=== PATIENT | male | born 1940 | race Caucasian/White ===

== ENCOUNTER → 2017-01-21 | Outpatient (CLI) | payer MEDICARE ==
[~2017-01-21] MED LIST: Amlodipine; Enalapril
== END ==
LOC: CARD 13:46
PROVIDERS: ATTEND Internal Medicine Cardiovascular Disease
DX: I10 Essential (primary) hypertension (principal); I45.2 Bifascicular block; R06.02 Shortness of breath; Z72.0 Tobacco use

== ENCOUNTER → 2017-01-22 | Outpatient (CLI) | payer MEDICARE ==
--- NOTE | 2017-01-22 19:54 | ECHOCARDIOGRAPHY REPORT ---
DATE OF SERVICE: 2D ECHOCARDIOGRAM REPORT TEST DATE: 01/22/2017. INDICATION: Hypertension and shortness of breath. REFERRING PHYSICIAN: Dr. Wheeler. MEASUREMENT: LVID end diastolic 4.5, IVS thickness 1.0, LVPW thickness 1.0, left atrial diameter 3.3, ejection fraction 60%. FINDINGS: 1. Technical quality is good. 2. The left ventricle is normal in size with normal contractility, systolic function appeared to be normal. Estimated ejection fraction is 60%. 3. The left atrium is normal in size. No clot or thrombus were seen within the left atrium. 4. The right atrium and right ventricle are normal in size. No clot or thrombus was seen within the right side. 5. Mitral valve is normal in morphology with mild mitral regurgitation noted by carotid Doppler flow. No mitral valve prolapse. No mitral valve stenosis. 6. The aortic valve is mildly calcified, trileaflet with normal opening and closing pattern. No significant aortic stenosis or regurgitation was seen. 7. Tricuspid valve is normal in morphology with mild tricuspid regurgitation noted by carotid Doppler flow, Doppler echo tricuspid valve. Estimated pulmonary artery pressure of 5 plus right atrial pressure. 8. The pulmonic valve is functioning normally. 9. No pericardial effusion. CONCLUSIONS: 1. Normal left ventricular size and systolic function. Estimated ejection fraction is 60%. 2. Aortic valve sclerosis. No aortic stenosis. 3. Estimated pulmonary artery pressure of 10 to 15 mmHg. Job ID: [id number] DocumentID: [id number] Dictated Date: 01/22/2017 17:40:01 Data Architect Date: 01/22/2017 19:49:13 Dictated By: NERIS NIXON MD
== END ==
LOC: CARD 11:47
PROVIDERS: ATTEND Internal Medicine Cardiovascular Disease
DX: I10 Essential (primary) hypertension (principal); I45.2 Bifascicular block; R06.02 Shortness of breath; Z72.0 Tobacco use
CPT/HCPCS: 93306

== ENCOUNTER → 2017-01-22 | Outpatient (CLI) | payer MEDICARE ==
[~2017-01-22] MED LIST changes: +CATHETER FLUSH 10 ML SYR IV PRN
== END ==
LOC: CARD 08:09
PROVIDERS: ATTEND Internal Medicine Cardiovascular Disease
DX: I10 Essential (primary) hypertension (principal); I45.2 Bifascicular block; R06.02 Shortness of breath; Z72.0 Tobacco use

== ENCOUNTER → 2017-01-29 | Outpatient (CLI) | payer MEDICARE ==
[~2017-01-29] MED LIST changes: -CATHETER FLUSH 10 ML SYR IV PRN; +REGADENOSON 0.4 MG/5 ML SYR (LEXISCAN) IV ONE
[2017-01-29] MEDS: CATHETER FLUSH 10 ML SYR IV PRN ×2 (07:34→09:21)
[2017-01-29 09:14] VITALS: BP 156/74
--- NOTE | 2017-01-31 06:37 | STRESS TEST ---
DATE OF SERVICE: 01/29/2017 PROCEDURE: LEXISCAN MYOVIEW STRESS TEST REFERRING PHYSICIAN: Dr. Wheeler Baseline heart rate is 51. Baseline blood pressure 156/74. Baseline EKG is sinus rhythm with right bundle branch block. SUMMARY: The patient was injected with 10.90 millicurie of technetium-99 Myoview and the resting images were obtained. Then the patient received 0.4 mg of Lexiscan followed by 29.5 millicurie of technetium-99 Myoview. Throughout the test there were no EKG changes. The resting and stress images were reviewed and compared in the short axis, horizontal long axis and vertical long axis views. Review of the images showed mild decreased uptake at the true apex with mild reversibility. SSS is 3. SDS 3. TID value 1.19. On the Gated images the left ventricle appeared to be normal size, normal contractility, calculated ejection fraction is 50%. CONCLUSIONS: 1. The patient tolerated Lexiscan well. 2. Baseline right bundle branch block persisted throughout test. 3. Mild apical thinning with subtle reversibility. No significant ischemia was noted. 4. Normal left ventricular size with normal contractility, calculated ejection fraction 50%. Job ID: [id number] DocumentID: [id number] Dictated Date: 01/29/2017 14:06:45 Compensation Manager Date: 01/30/2017 02:16:21 Dictated By: NERIS NIXON MD
== END ==
LOC: CARD 06:46
PROVIDERS: ATTEND Internal Medicine Cardiovascular Disease
DX: I10 Essential (primary) hypertension (principal); I45.2 Bifascicular block; R06.02 Shortness of breath; Z72.0 Tobacco use
CPT/HCPCS: 78452; 93017

== ENCOUNTER → 2018-04-23 | Outpatient (CLI) | payer MEDICARE ==
[~2018-04-23] MED LIST changes: -REGADENOSON 0.4 MG/5 ML SYR (LEXISCAN) IV ONE
--- NOTE | 2018-04-23 13:10 | Diagnostic Imaging Report ---
EXAMINATION: Left hand, single view. Left thumb, three views. COMPARISON: None. HISTORY: 77-year-old male, left thumb pain after fall. FINDINGS: There is a comminuted mildly displaced fracture of the first proximal phalanx without clearly identified intra-articular fracture extension. 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 There is no identified radiopaque foreign body. There is no subluxation or dislocation. There are are mild degenerative changes at the first carpometacarpal joint. There is bqmlsihj-qt-wlslzx joint space loss at the second and third metacarpophalangeal joints. There is no identified bone erosion. Bone mineralization appears unremarkable. There is mild osteoarthritis at the second and third proximal interphalangeal joints. IMPRESSION: 1. Comminuted mildly displaced fracture of the first proximal phalanx without clearly identified intra-articular fracture extension. 2. No radiopaque foreign body. 3. Multifocal arthritis as described above. Dictated by: Dictated on workstation # [id number]
== END ==
LOC: RAD 12:45
PROVIDERS: ATTEND Nurse Practitioner Family
DX: S62.512A Displaced fracture of proximal phalanx of left thumb, initial encounter for closed fracture (principal); M19.042 Primary osteoarthritis, left hand
CPT/HCPCS: 73140

== ENCOUNTER → 2019-05-25 | Outpatient (CLI) | payer MEDICARE ==
--- NOTE | 2019-05-25 14:58 | Diagnostic Imaging Report ---
PROCEDURE: MR imaging cervical spine without contrast. TECHNIQUE: Multiplanar, multisequence MR imaging of the cervical spine was performed without contrast. INDICATION: Right arm numbness and tingling. COMPARISON: No prior studies are available for comparison. FINDINGS: Curvature is normal. Minimal retrolisthesis of C3 on C4 is noted. The vertebral body marrow signal is unremarkable. No marrow lesions are seen. There is multilevel degenerative disc disease with disc space narrowing and desiccation and marginal osteophyte formation. The cervical spinal cord demonstrates normal homogeneous signal intensity and normal morphology. No abnormal cord signal is identified. Craniocervical junction is unremarkable. C2-C3: Central canal is patent. No significant neural foraminal stenosis is identified. C3-C4: Endplate osteophytes indent the ventral thecal sac. This does produce mild narrowing of the central canal. There is also significant left and moderate right neural foraminal stenosis due to uncovertebral joint degenerative change. C4-C5: Broad-based disc/osteophyte complex indents the ventral thecal sac. There is mild narrowing of the canal. There is significant bilateral neural foraminal stenosis due to uncovertebral joint degenerative change. C5-C6: Broad-based disc/osteophyte complex indents the ventral thecal sac. There is mild narrowing of the canal. There is significant bilateral neural foraminal stenosis due to uncovertebral joint degenerative change. C6-C7: Broad-based disc/osteophyte complex indents the ventral thecal sac. Mild central canal narrowing is seen. There is significant bilateral neural foraminal stenosis due to uncovertebral joint degenerative change. C7-T1: Broad-based disc/osteophyte complex is noted. Central canal is patent. There is a moderate bilateral neural foraminal stenosis. IMPRESSION: Multilevel cervical spondylosis with multilevel central canal and neural foraminal stenosis described level by level above. Dictated by: Dictated on workstation # [id number]
== END ==
LOC: RAD 13:33
PROVIDERS: ATTEND Nurse Practitioner Family
DX: M47.812 Spondylosis without myelopathy or radiculopathy, cervical region (principal); M48.03 Spinal stenosis, cervicothoracic region; M50.31 Other cervical disc degeneration, high cervical region
CPT/HCPCS: 72141

== ENCOUNTER 2019-12-24 10:51 | Outpatient (RCR) | payer MEDICARE | END 2019-12-24 11:33 | disposition home or self-care (01) | PROVIDERS: ATTEND Orthopaedic Surgery | DX: M17.0 Bilateral primary osteoarthritis of knee (principal) ==

== ENCOUNTER 2020-02-27 10:10 | Emergency (ER) | payer MEDICARE ==
[~2020-02-27] VITALS: Ht 180 cm; Wt 95.4 kg
[2020-02-27 10:24] LABS: BASOPHILS % (AUTO) 0 % (0-10); EOSINOPHILS # (AUTO) 0.3 10^3/uL (0.0-0.3); EOSINOPHILS % (AUTO) 3 % (0-10); HEMATOCRIT 35 % (40-54); HEMOGLOBIN 11.6 G/DL (13.3-17.7); LYMPHOCYTES # (AUTO) 2.3 X 10^3 (1.0-4.0); LYMPHOCYTES % (AUTO) 22 % (12-44); MEAN CORPUSCULAR HEMOGLOBIN 32 PG (25-34); MEAN CORPUSCULAR HGB CONC 33 G/DL (32-36); MEAN CORPUSCULAR VOLUME 96 FL (80-99); MEAN PLATELET VOLUME 9.8 FL (7.4-10.4); MONOCYTES # (AUTO) 1.1 X 10^3 (0.0-1.0); MONOCYTES % (AUTO) 10 % (0-12); NEUTROPHILS # (AUTO) 6.5 X 10^3 (1.8-7.8); NEUTROPHILS % (AUTO) 64 % (42-75); PLATELET COUNT 286 10^3/uL (130-400); RED CELL DISTRIBUTION WIDTH 12.9 % (10.0-14.5); WHITE BLOOD COUNT 10.2 10^3/uL (4.3-11.0)
--- NOTE | 2020-02-27 10:28 | ED Neurological Problem ---
General Stated Complaint: POSS STROKE Source: patient History of Present Illness Date Seen by Provider: February 27, 2020 Time Seen by Provider: 10:10 Initial Comments PT ARRIVES VIA POV FROM HOME PT STATES HIS SON THINKS HE HAD A MINI-STROKE SON REPORTS THAT AN HOUR AGO, THE PT WAS CONFUSED AND MUMBLING. PT STATES HE WAS HAVING TROUBLE TALKING AND FINDING WORDS. THOSE SYMPTOMS HAVE RESOLVED PT STATES HE HAS HAD A "MINISTROKE" IN THE PAST AND IT AFFECTED HIS RIGHT EYE--2014 PT STATES HIS VISION IS NORMAL FOR HIM--HAS CHRONIC PROBLEMS WITH VISION IN RIGHT EYE--IS FOLLOWED AT FOR EYE PROBLEMS NO HEADACHE HAS FELT A LITTLE LIGHT HEADED SINCE WAKING AT 0700 TODAY NO CHEST PAIN NO SHORTNESS OF BREATH NO PALPITATIONS NO PARESTHESIAS OR MOTOR DEFICITS PT HAD RIGHT KNEE REPLACEMENT BY DR. NIETO ON 02/22/20 AND STATES HE HAS BEEN HOME FOR 3 DAYS PT IS ON 81 MG ASPIRIN DAILY, AND IT HAD BEEN HELD DUE TO SURGERY, PT STATES HE RESTARTED IT YESTERDAY, BUT HAS NOT TAKEN ANY TODAY PT IS NOT SURE WHAT MEDICATIONS HE HAS TAKEN THIS MORNING--SON REPORTS THAT HE HAS TAKEN PANTOPRAZOLE, MELOXICAM AND HYDROCODONE THIS AM. PCP: DR. ZEPEDA SUPERVISOR DECORATING: DR. NIXON ORTHOPEDIC SURGEON: DR. NIETO Allergies and Home Medications Allergies Coded Allergies: No Known Drug Allergies (Unverified , 04/02/15) Home Medications Clopidogrel Bisulfate 75 Mg Tablet, 75 MG PO DAILY Prescribed by: KELLY ESPINOZA on 02/27/20 1200 Patient Home Medication List Home Medication List Reviewed: Yes Review of Systems Review of Systems Constitutional: see HPI; No chills, No diaphoresis; dizziness; No fever Eyes: No Symptoms Reported Ears, Nose, Mouth, Throat: no symptoms reported Respiratory: no symptoms reported; No short of breath Cardiovascular: no symptoms reported; No chest pain Gastrointestinal: no symptoms reported Genitourinary: no symptoms reported Musculoskeletal: see HPI Skin: no symptoms reported Psychiatric/Neurological: See HPI, Cognitive Dysfunction; Denies Headache, Denies Numbness, Denies Tingling Endocrine: No Symptoms Reported Hematologic/Lymphatic: No Symptoms Reported Past Lerrxnd-Fxmmle-Hplppp Hx Past Med/Social Hx: Reviewed and Corrections made Patient Social History Alcohol Use: Occasionally Uses Recreational Drug Use: No Smoking Status: Current Everyday Smoker Type Used: Cigarettes Seasonal Allergies Seasonal Allergies: No Past Medical History Surgeries: Yes (RIGHT KNEE REPLACEMENT 02/22/20;RIGHT CARPAL TUNNEL X2;LEFT HIP REPLACEMENT) Joint Replacement, Orthopedic Respiratory: No Cardiac: Yes High Cholesterol, Hypertension Neurological: Yes (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) Stroke Reproductive Disorders: No Genitourinary: No Gastrointestinal: Yes Gastroesophageal Reflux Musculoskeletal: Yes (RIGHT KNEE REPLACEMENT 02/22/20;RIGHT CARPAL TUNNEL X2;LEFT HIP REPLACEMENT) Arthritis Endocrine: No HEENT: No Psychosocial: No Integumentary: No Blood Disorders: No Adverse Reaction/Blood Tranf: No Physical Exam Vital Signs Vital Signs - First Documented 02/27/20 10:10 Temp 37.0 Pulse 77 Resp 16 B/P (MAP) 145/70 (95) Pulse Ox 96 O2 Delivery Room Air Capillary Refill : Height, Weight, BMI Height: 5'11" Weight: 215lbs. oz. 97.527451nb; BMI Method:Stated General Appearance: WD/WN, no apparent distress HEENT: PERRL/EOMI Neck: non-tender, full range of motion, supple, normal inspection; No carotid bruit Respiratory: normal breath sounds, no respiratory distress, no accessory muscle use Cardiovascular: normal peripheral pulses, regular rate, rhythm, no JVD, no murmur Peripheral Pulses: 2+ Dorsalis Pedis (R), 2+ Left Dors-Pedis (L), 2+ Radial Pulses (R), 2+ Radial Pulses (L) Gastrointestinal: normal bowel sounds, non tender, soft Back: no CVA tenderness Extremities: other (BOTH LEGS WITH THIGH HIGH ERLIN HOSE IN PLACE; TRACE EDEMA ON RIGHT LOWER LEG. DRESSING TO RIGHT KNEE IS CLEAN/DRY / INTACT. 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, no motor/sensory deficits, alert, normal mood/affect, oriented x 3 Crainal Nerves: normal hearing, normal speech, PERRL Motor/Sensory: no motor deficit, no sensory deficit, no pronator drift Skin: normal color, warm/dry Stroke Onset of Symptoms Onset of Symptoms: Yes Symptoms onset unknown: No NIH Stroke Scale Assessment Select: Initial Level of Consciousness: 0=Alert (0), Level of Consciousness- Questions: 0=Answers both month/age (0), LOC Commands: 0=Performs both tasks (0), Gaze: Normal (0), Visual Maxwell: 0=No visual loss (0), Facial Movement (Facial Paresis): 0=Normal symmetrical mnt (0), Motor Function-Arms Right: 0=No drift (0), Motor Function-Arms Left: 0=No drift (0), Motor Function-Legs Right: 0=No drift (0), Motor Function-Legs Left: 0=No drift (0), Limb Ataxia: 0=Absent (0), Sensory: 0=Normal:no loss (0), Best Language: 0=No aphasia (0), Dysarthria: 0=Normal (0), Extinction & Inattention: 0=No abnormality (0), Total: 0 Stroke Thrombolytic Exclusion Age 18 or Over: Yes Acute intenal hemorrhage: No History of CVA: Yes (TIA) Uncontrolled Coagulation Defec: No Intracranial Hemorrhage: No Severe Hypertension: No GI or Bleed: No Subarachnoid Hemorrhage: No Intracranial Neoplasm/Aneurysm: No Oral Anticoagulants: No Surgery or Trauma: Yes Puncture of Non-Compressible V: No Recent CPR: No Diabetic Hemorrhagic Retinopat: No Organ Biopsy: No Recent Obstetric Delivery: No Glucose: No Significant Hepatic Dysfunctio: No NIH Stoke Scale >22: No Bacterial Endocarditis: No Pericarditis: No Improving Symptoms: Yes Platelets: No TPA Contraindication: Yes IV - TPa Received IV - TPa Procedure Performed?: No (RECENT SURGERY AND IMPROVING/RESOLVED SYMPTOMS) Progress/Results/Core Measures Results/Orders Lab Results Laboratory Tests Test 02/27/20 10:15 02/27/20 10:25 02/27/20 11:23 Range/Units White Blood Count 10.2 4.3-11.0 10^3/uL Red Blood Count 3.63 L 4.35-5.85 10^6/uL Hemoglobin 11.6 L 13.3-17.7 G/DL Hematocrit 35 L 40-54 % Mean Corpuscular Volume 96 80-99 FL Mean Corpuscular Hemoglobin 32 25-34 PG Mean Corpuscular Hemoglobin Concent 33 32-36 G/DL Red Cell Distribution Width 12.9 10.0-14.5 % Platelet Count 286 130-400 10^3/uL Mean Platelet Volume 9.8 7.4-10.4 FL Neutrophils (%) (Auto) 64 42-75 % Lymphocytes (%) (Auto) 22 12-44 % Monocytes (%) (Auto) 10 0-12 % Eosinophils (%) (Auto) 3 0-10 % Basophils (%) (Auto) 0 0-10 % Neutrophils # (Auto) 6.5 1.8-7.8 X 10^3 Lymphocytes # (Auto) 2.3 1.0-4.0 X 10^3 Monocytes # (Auto) 1.1 H 0.0-1.0 X 10^3 Eosinophils # (Auto) 0.3 0.0-0.3 10^3/uL Basophils # (Auto) 0.0 0.0-0.1 10^3/uL Prothrombin Time 13.5 12.2-14.7 SEC INR Comment 1.0 0.8-1.4 Activated Partial Thromboplast Time 27 24-35 SEC D-Dimer 1.70 H 0.00-0.49 UG/ML Sodium Level 139 135-145 MMOL/L Potassium Level 4.0 3.6-5.0 MMOL/L Chloride Level 104 98-107 MMOL/L Carbon Dioxide Level 27 21-32 MMOL/L Anion Gap 8 5-14 MMOL/L Blood Urea Nitrogen 19 H 7-18 MG/DL Creatinine 1.03 0.60-1.30 MG/DL Estimat Glomerular Filtration Rate > 60 BUN/Creatinine Ratio 18 Glucose Level 117 H 70-105 MG/DL Calcium Level 9.4 8.5-10.1 MG/DL Corrected Calcium 9.7 8.5-10.1 MG/DL Total Bilirubin 1.2 H 0.1-1.0 MG/DL Aspartate Amino Transf (AST/SGOT) 21 5-34 U/L Alanine Aminotransferase (ALT/SGPT) 20 0-55 U/L Alkaline Phosphatase 71 40-136 U/L Troponin I < 0.028 <0.028 NG/ML Total Protein 5.9 L 6.4-8.2 GM/DL Albumin 3.6 3.2-4.5 GM/DL Glucometer 125 H 70-110 MG/DL Urine Color YELLOW Urine Clarity CLEAR Urine pH 6.0 5-9 Urine Specific Ione 1.015 L 1.016-1.022 Urine Protein NEGATIVE NEGATIVE Urine Glucose (UA) NEGATIVE NEGATIVE Urine Ketones NEGATIVE NEGATIVE Urine Nitrite NEGATIVE NEGATIVE Urine Bilirubin NEGATIVE NEGATIVE Urine Urobilinogen 0.2 < = 1.0 MG/DL Urine Leukocyte Esterase NEGATIVE NEGATIVE Urine RBC (Auto) NEGATIVE NEGATIVE Urine RBC 0 /HPF Urine WBC 0 /HPF Urine Crystals NONE /LPF Urine Bacteria 0 /HPF Urine Casts NONE /LPF Urine Mucus NEGATIVE /LPF Urine Culture Indicated NO My Orders Orders - KELLY ESPINOZA DO Cbc With Automated Diff (02/27/20 10:16) Protime With Inr (02/27/20 10:16) Partial Thromboplastin Time (02/27/20 10:16) Comprehensive Metabolic Panel (02/27/20 10:16) Fibrin Degradation Products (02/27/20 10:16) Troponin I (02/27/20 10:16) Ua Culture If Indicated (02/27/20 10:16) Chest 1 View, Ap/Pa Only (02/27/20 10:16) Ekg Tracing (02/27/20 10:16) Accucheck Stat ONCE (02/27/20 10:16) Ed Iv/Invasive Line Start (02/27/20 10:16) Ed Iv/Invasive Line Start (02/27/20 10:16) Vital Signs Stroke Patient Q15M (02/27/20 10:16) Ct Head Wo-R/O Stroke (02/27/20 10:16) O2 (02/27/20 10:16) Intake & Output 06,14,22 (02/27/20 10:16) Monitor-Rhythm Ecg Trace Only (02/27/20 10:16) Dysphagia Screening Tool (02/27/20 10:16) Ct Angio Head/Neck (02/27/20 10:47) Iohexol Injection (Omnipaque 350 Mg/Ml 1 (02/27/20 11:00) Sodium Chloride Flush (Catheter Flush Sy (02/27/20 11:00) Ns (Ivpb) (Sodium Chloride 0.9% Ivpb Bag (02/27/20 11:00) Received Contrast (Hold Metformin- Contr (02/27/20 11:00) Hydrocodone/Apap 5/325 Tablet (Lortab 5 (02/27/20 11:15) Clopidogrel Tablet (Plavix Tablet) (02/27/20 12:15) Medications Given in ED Current Medications Medications Dose Ordered Sig/Ayanna Route Start Time Stop Time Status Last Admin Dose Admin Acetaminophen/ Hydrocodone Bitart 1 tab ONCE ONCE PO 02/27/20 11:15 02/27/20 11:19 DC 02/27/20 11:22 1 TAB Clopidogrel Bisulfate 300 mg ONCE ONCE PO 02/27/20 12:15 02/27/20 12:15 DC 02/27/20 12:11 300 MG Iohexol 100 ml ONCE ONCE IV 02/27/20 11:00 02/27/20 11:01 DC 02/27/20 11:04 75 ML Sodium Chloride 10 ml NEEDED PRN IV 02/27/20 11:00 02/27/20 12:15 DC 02/27/20 11:04 10 ML Sodium Chloride 100 ml ONCE ONCE IV 02/27/20 11:00 02/27/20 11:01 DC 02/27/20 11:04 80 ML Vital Signs/I&O 02/27/20 02/27/20 10:10 12:15 Temp 37.0 Pulse 77 60 Resp 16 16 B/P (MAP) 145/70 (95) 151/59 Pulse Ox 96 98 O2 Delivery Room Air Room Air Progress Progress Note : Progress Note UNEVENTFUL ER STAY NO RETURN OF STROKE SYMPTOMS DURING STAY PT DID C/O RIGHT KNEE PAIN--GIVEN DOSE OF HYDROCODONE WITH IMPROVEMENT IN PAIN Initial ECG Impression Date: February 27, 2020 Initial ECG Impression Time: 10:20 Initial ECG Rate: 54 Initial ECG Rhythm: Normal Sinus (RBBB/LAFB) Diagnostic Imaging Comments CXR--NO ACUTE PROCESS, PER RADIOLOGIST REPORT CT HEAD--OLD INFARCT LEFT OCCIPITAL LOBE, BUT NEW FROM 2015 ( CONSISTENT WITH REPORTED STROKE SYMPTOMS AND RIGHT VISION CHANGES THAT OCCURRED IN 2015)--NO ACUTE INFARCT--PER RADIOLOGIST VIA PHONE AT 1045 CT ANGIOGRAM HEAD/NECK--PER RADIOLOGIST REPORT AT 1131 IMPRESSION: 1. 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 This is consistent with findings on the prior head CT of age-indeterminate ischemia in the left occipital lobe. If indicated MRI may be of use to further evaluate for acuity. 2. High-grade stenosis in the right vertebral artery just prior to the basilar artery. 3. Luminal irregularity within the A2 segment of the right anterior cerebral artery. This likely results in approximately 50-69% stenosis. 4. No stenosis or dissection in the bilateral carotid arteries. 5. No evidence of aneurysm in the [place] of [place]. No evidence of acute large vessel occlusion. Reviewed: Reviewed by Sd Departure Communication (Admissions) 1131--CALLED [facility], 1135--SPOKE WITH DR. BARRAGAN, STROKE NEUROLOGIST, REVIEWED CT FINDINGS. HE REPORTS THAT FINDINGS DO NOT WARRANT ANY ACUTE INTERVENTION, BUT ADVISES TO CONTINUE 81 MG ASPIRIN AND ADD PLAVIX, IF OK WITH HIS SURGEON 1137--ATTEMPTING TO CONTACT DR. NIETO, OR PLATE MAKER FOR HIM 1142--CALLING OSVALDO MARTINEZ, ATTEMPTING TO CONTACT DR. NIETO OR PLATE MAKER FOR HIM. 1149--SPOKE WITH EXECUTIVE MEETING MANAGER/PA WIL KEBEDE, PLATE MAKER FOR DR. NIETO. HE IS AGREEABLE TO PLAVIX AND ASPIRIN, INCLUDING LOADING DOSE OF 300 MG PLAVIX. 1152--SPOKE WITH PT'S SON, GREGORY, AND INFORMED HIM OF ALL TEST RESULTS AND PLAN OF CARE. Impression Primary Impression: TIA (transient ischemic attack) Additional Impression: Cerebrovascular disease Disposition: HOME, SELF-CARE Condition: Improved Departure-Patient Inst. Referrals: AUGIE NIETO MD (PCP) Primary Care Physician Patient Instructions: Transient Ischemic Attack (DC), Lowering the Risk of Havi ng Another Stroke Add. Discharge Instructions: CONTINUE YOUR REGULAR MEDICATIONS PRESCRIBED, INCLUDING 81 MG ASPIRIN FOLLOW UP WITH DR. ZEPEDA THIS WEEK FOR FURTHER CARE--CALL ON FRIDAY TO MAKE APPOINTMENT RETURN TO ER IF SYMPTOMS WORSEN Scripts Clopidogrel Bisulfate (Plavix) 75 Mg Tablet 75 MG PO DAILY, #30 TAB Prov: KELLY ESPINOZA DO 02/27/20 KELLY ESPINOZA DO February 27, 2020 10:28
[2020-02-27 10:35] LABS: ALBUMIN 3.6 GM/DL (3.2-4.5); CHLORIDE 104 MMOL/L (98-107); SODIUM 139 MMOL/L (135-145)
[2020-02-27 10:37] LABS: CALCIUM 9.4 MG/DL (8.5-10.1)
[2020-02-27 10:38] LABS: GLUCOSE 117 MG/DL (70-105); TOTAL PROTEIN 5.9 GM/DL (6.4-8.2)
[2020-02-27 10:39] LABS: BILIRUBIN,TOTAL 1.2 MG/DL (0.1-1.0); CARBON DIOXIDE 27 MMOL/L (21-32)
[2020-02-27 10:41] LABS: ALKALINE PHOSPHATASE 71 U/L (40-136); FIBRIN DEGRADATION PRODUCTS 1.7 UG/ML (0.00-0.49); PROTHROMBIN TIME PATIENT 13.5 SEC (12.2-14.7)
[2020-02-27 10:42] LABS: CREATININE SERUM 1.03 MG/DL (0.60-1.30); GFR ESTIMATED > 60
[2020-02-27 10:43] LABS: BUN/CREATININE RATIO 18
[2020-02-27 10:44] LABS: ALANINE AMINOTRANSFERASE 20 U/L (0-55)
--- NOTE | 2020-02-27 10:47 | Diagnostic Imaging Report ---
EXAM: CHEST 1 VIEW, AP/PA ONLY INDICATION: Stroke. Altered mental status. COMPARISON: None. FINDINGS: Normal heart size and central pulmonary vascularity. No focal pulmonary opacity, pleural effusion or pneumothorax. No acute osseous findings. IMPRESSION: No acute cardiopulmonary findings. Dictated by: Dictated on workstation # [id number]
--- NOTE | 2020-02-27 10:48 | NUR ---
IN TALKING TO THE PT AT THIS TIME.
--- NOTE | 2020-02-27 10:49 | Diagnostic Imaging Report ---
PROCEDURE: CT head wo r/o stroke. TECHNIQUE: Multiple contiguous axial images were obtained through the brain without the use of intravenous contrast. Auto Exposure Controls were utilized during the CT exam to meet ALARA standards for radiation dose reduction. INDICATION: Stroke. Slurred speech. COMPARISON: CT head without contrast 04/02/2015. FINDINGS: Moderate generalized cerebral and cerebellar parenchymal volume loss. Moderate leukoaraiosis. Low-attenuation changes in the left occipital lobe are new since the prior exam but appear to be due to chronic encephalomalacia with volume loss. No findings convincing for an acute territorial infarction. No intracranial hemorrhage, mass effect, hydrocephalus or extra-axial fluid collections. Bilateral basal ganglia calcifications. Osseous structures are intact. The visualized paranasal sinuses and mastoids are clear. IMPRESSION: 1. Low-attenuation changes in the left occipital lobe are new since the 2014 exam but appear to be due to chronic infarct. 2. Moderate generalized parenchymal volume loss and leukoaraiosis. 3. Acute intracranial CT findings. Findings discussed with Dr. Janette Dye at 10:43 AM on 02/27/2020. Dictated by: Dictated on workstation # [id number]
[2020-02-27] MEDS ORDERED: IOHEXOL 350 MG/ML 100 ML (OMNIPAQUE 350) VIAL IV ONE (11:00)
[2020-02-27] MEDS ORDERED: CATHETER FLUSH 10 ML SYR IV PRN (11:00)
[2020-02-27] MEDS ORDERED: NS 100 ML (IVPB) BAG IV ONE (11:00)
[2020-02-27] MEDS ORDERED: HOLD METFORMIN - RECEIVED CONTRAST 20 ML VIAL IV SCH (11:00)
--- NOTE | 2020-02-27 11:14 | NUR ---
PT REQUEST SOMETHING FOR PAIN. NOTIFIED.
[2020-02-27] MEDS ORDERED: HYDROcodone/APAP 5 MG/325 MG (LORTAB) TAB PO ONE (11:15)
--- NOTE | 2020-02-27 11:28 | Diagnostic Imaging Report ---
PROCEDURE: CT angiography of the head and CT angiography of the neck with and without contrast. TECHNIQUE: Contiguous noncontrast images were obtained from the skull base through the vertex. After intravenous contrast administration, helical CT angiography of the neck was performed. Source data was reformatted into 3D MIP projections. Delayed post contrast acquisition was also obtained. Auto Exposure Controls were utilized during the CT exam to meet ALARA standards for radiation dose reduction. INDICATION: Slurred speech and confusion. Concern for stroke. COMPARISON: CT head performed earlier the same date. FINDINGS: CTA Neck: The visualized portions of the aortic arch demonstrate no evidence of aneurysm or dissection. There is conventional branching pattern of the great vessels of the aorta. The brachiocephalic artery is normal in course and caliber. The right and left common carotid origins are unremarkable. The origin of the left subclavian artery is patent. The common carotid arteries and internal carotid arteries demonstrate a tortuous course. There is calcified atherosclerotic plaque in the bilateral carotid bulbs and proximal internal carotid arteries without flow-limiting stenosis. No evidence of dissection in the carotid systems. The external carotid arteries are patent and unremarkable. The left vertebral artery is dominant. The origin of the right vertebral artery is seen and is unremarkable. The origin of the left vertebral artery is seen and is unremarkable. There is no focal stenosis seen within the neck. There is no dissection. The osseous structures of the cervical spine demonstrate degenerative changes without acute fracture or dislocation. The craniocervical junction is intact. Included views through the lung apices demonstrate no focal consolidation. CTA brain: Atherosclerotic plaque is seen in the coker of the bilateral terminal internal carotid arteries without significant stenosis. There is high-grade stenosis or occlusion involving the P1 and P2 segments of the left posterior cerebral artery. The right posterior cerebral artery is unremarkable. The bilateral MCA have a normal caliber. Luminal irregularity is seen in the right anterior cerebral artery in the A2 segment. The left anterior cerebral artery is unremarkable. No evidence of aneurysm in the [place]. There is atherosclerotic plaque involving the V4 segment of the right vertebral artery. There is also high-grade stenosis of the right vertebral artery just prior to the basilar artery. Both the right and left PICA arteries are identified. The basilar artery is normal in course and caliber. The terminal branch vessels including the superior cerebellar arteries unremarkable. IMPRESSION: 1. 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 This is consistent with findings on the prior head CT of age-indeterminate ischemia in the left occipital lobe. If indicated MRI may be of use to further evaluate for acuity. 2. High-grade stenosis in the right vertebral artery just prior to the basilar artery. 3. Luminal irregularity within the A2 segment of the right anterior cerebral artery. This likely results in approximately 50-69% stenosis. 4. No stenosis or dissection in the bilateral carotid arteries. 5. No evidence of aneurysm in the [place]. No evidence of acute large vessel occlusion. Dictated by: Dictated on workstation # [id number]
[2020-02-27 11:30] LABS: BILIRUBIN,URINE NEGATIVE (NEGATIVE); CLARITY,URINE CLEAR; COLOR,URINE YELLOW; GLUCOSE, URINE (UA) NEGATIVE (NEGATIVE); KETONES,URINE NEGATIVE (NEGATIVE); LEUKOCYTE ESTERASE ,URINE NEGATIVE (NEGATIVE); NITRITE,URINE NEGATIVE (NEGATIVE); PROTEIN,URINE NEGATIVE (NEGATIVE)
[2020-02-27 11:38] LABS: BACTERIA,URINE 0 /HPF; RBC,URINE 0 /HPF; WBC,URINE 0 /HPF
[2020-02-27] MEDS ORDERED: CLOP75TA69 PO (12:00)
[2020-02-27 12:15] VITALS: BP 151/59
[2020-02-27] MEDS ORDERED: CLOPIDOGREL 300 MG (PLAVIX) TABLET PO ONE (12:15)
== END 2020-02-27 12:14 | disposition home or self-care (01) ==
LOC: EDUNIT# 10:10 → ER 10:11
DX: G45.9 Transient cerebral ischemic attack, unspecified (principal); I67.9 Cerebrovascular disease, unspecified; I10 Essential (primary) hypertension; F17.210 Nicotine dependence, cigarettes, uncomplicated; Z96.651 Presence of right artificial knee joint; Z79.02 Long term (current) use of antithrombotics/antiplatelets; Z96.642 Presence of left artificial hip joint
CPT/HCPCS: 36415; 70450; 70496; 70498; 71045; 80053; 81000; 82962; 84484; 85025; 85379; 85610; 85730; 93005; 93041

== ENCOUNTER → 2020-03-06 | Outpatient (CLI) | payer MEDICARE ==
[~2020-03-06] MED LIST changes: +CLOP75TA69 PO
== END ==
LOC: CARD 11:01
PROVIDERS: ATTEND Internal Medicine Cardiovascular Disease
DX: G45.9 Transient cerebral ischemic attack, unspecified (principal); I10 Essential (primary) hypertension
CPT/HCPCS: 93306

== ENCOUNTER 2020-03-13 15:44 | Outpatient (CLI) | payer MEDICARE ==
[~2020-03-13] VITALS: Ht 180.3 cm; Wt 91.9 kg
[~2020-03-13 15:44] MED LIST changes: -AMLO10TA7 PO; -ASPI-983 PO; -CARV3.122 PO; -FINA5TAB6 PO; -LISI40TA PO; -MELO7.5T46 PO; -TMSL.4C PO; -TRIA1CAP4 PO
--- NOTE | 2020-03-13 15:50 | NUR ---
ARRIVES PER WC WITH DAUGHTER. C/O FEELING WEAK AND DIZZY. SOMEWHAT UNSTEADY WHEN ASSISTED TO BED. DROWSY AND LETHARGIC. AWAKENS TO VOICE. DENIES PAIN.
--- NOTE | 2020-03-13 16:10 | NUR ---
BLOOD DRAWN FOR CBC AND CMP WITH IV START. STATES HE FEELS UNABLE AT THIS TIME TO VOID FOR ORDERED UA. PO FLUIDS PROVIDED.
[2020-03-13] MEDS ORDERED: NS IV 1000 ML 1,000 ML IV ONE (16:15)
[2020-03-13 16:37] LABS: BASOPHILS # (AUTO) 0.1 10^3/uL (0.0-0.1); BASOPHILS % (AUTO) 1 % (0-10); EOSINOPHILS # (AUTO) 0.3 10^3/uL (0.0-0.3); EOSINOPHILS % (AUTO) 4 % (0-10); HEMATOCRIT 38 % (40-54); HEMOGLOBIN 12.3 G/DL (13.3-17.7); LYMPHOCYTES # (AUTO) 1.6 X 10^3 (1.0-4.0); LYMPHOCYTES % (AUTO) 19 % (12-44); MEAN CORPUSCULAR HEMOGLOBIN 32 PG (25-34); MEAN CORPUSCULAR HGB CONC 33 G/DL (32-36); MEAN CORPUSCULAR VOLUME 96 FL (80-99); MEAN PLATELET VOLUME 9.7 FL (7.4-10.4); MONOCYTES # (AUTO) 1.2 X 10^3 (0.0-1.0); MONOCYTES % (AUTO) 14 % (0-12); NEUTROPHILS # (AUTO) 5.2 X 10^3 (1.8-7.8); NEUTROPHILS % (AUTO) 62 % (42-75); PLATELET COUNT 308 10^3/uL (130-400); RED CELL DISTRIBUTION WIDTH 13.1 % (10.0-14.5); WHITE BLOOD COUNT 8.4 10^3/uL (4.3-11.0)
[2020-03-13 16:38] LABS: ALBUMIN 3.8 GM/DL (3.2-4.5)
[2020-03-13 16:40] LABS: CALCIUM 9.6 MG/DL (8.5-10.1)
[2020-03-13 16:41] LABS: TOTAL PROTEIN 6.2 GM/DL (6.4-8.2)
[2020-03-13 16:43] LABS: BILIRUBIN,TOTAL 0.8 MG/DL (0.1-1.0)
[2020-03-13 16:45] LABS: CREATININE SERUM 1.99 MG/DL (0.60-1.30)
[2020-03-13] MEDS ORDERED: AMLO10TA7 PO (16:52)
[2020-03-13] MEDS ORDERED: CARV3.122 PO (16:52)
[2020-03-13] MEDS ORDERED: TMSL.4C PO (16:52)
[2020-03-13] MEDS ORDERED: LISI40TA PO (16:52)
[2020-03-13] MEDS ORDERED: FINA5TAB6 PO (16:52)
--- NOTE | 2020-03-13 17:00 | NUR ---
IV FLUID INFUSING WITHOUT DIFFICULTY. CONTACTED Liliana OSBORNE APRN, TO VERIFY RECEIPT OF LAB RESULTS. NO NEW ORDERS. INSTRUCTED TO PROCEED WITH DISMISSAL AFTER IV FLUID INFUSION. PT VOIDED DARK YELLOW URINE, APPROX 50 CC. SENT TO LAB FOR CLEAN CATCH UA.
[2020-03-13 17:08] LABS: BILIRUBIN,URINE NEGATIVE (NEGATIVE); CLARITY,URINE CLEAR; COLOR,URINE YELLOW; GLUCOSE, URINE (UA) NEGATIVE (NEGATIVE); KETONES,URINE NEGATIVE (NEGATIVE); LEUKOCYTE ESTERASE ,URINE NEGATIVE (NEGATIVE); NITRITE,URINE NEGATIVE (NEGATIVE); PROTEIN,URINE TRACE (NEGATIVE)
[2020-03-13] MEDS ORDERED: ASPI-983 PO (17:08)
[2020-03-13] MEDS ORDERED: TRIA1CAP4 PO (17:08)
[2020-03-13] MEDS ORDERED: MELO7.5T46 PO (17:08)
[2020-03-13 17:17] LABS: AMORPHOUS SEDIMENT,UR FEW AMOR URATES /LPF; BACTERIA,URINE NEGATIVE /HPF
[2020-03-13 17:30] VITALS: BP 126/56
--- NOTE | 2020-03-13 17:30 | NUR ---
INFUSION COMPLETE. STATES HE IS FEELING BETTER. MUCH MORE ALERT NOW, SITTING UP IN BED, DRINKING WATER, CONVERSING WITH DAUGHTER. IV DC'D. DISMISSED PER WC THROUGH OP EXIT TO PRIVATE VEHICLE WITH DAUGHTER.
== END 2020-03-13 17:30 | disposition home or self-care (01) ==
LOC: SDC 15:44
PROVIDERS: ATTEND Nurse Practitioner Family
DX: I95.9 Hypotension, unspecified (principal); E86.0 Dehydration; R42 Dizziness and giddiness
CPT/HCPCS: 36415; 80053; 81000; 85025; 96360

== ENCOUNTER → 2020-03-13 | Outpatient (CLI) | payer MEDICARE ==
[~2020-03-13] MED LIST changes: +AMLO10TA7 PO; +ASPI-983 PO; +CARV3.122 PO; +FINA5TAB6 PO; +LISI40TA PO; +MELO7.5T46 PO; +TMSL.4C PO; +TRIA1CAP4 PO
--- NOTE | 2020-03-13 10:01 | Diagnostic Imaging Report ---
PROCEDURE: MR imaging cervical spine without contrast. TECHNIQUE: Multiplanar, multisequence MR imaging of the cervical spine was performed without contrast. INDICATION: Neck pain and bilateral shoulder pain. Comparison is made with prior MRI cervical spine study from 05/25/2019. Curvature of the cervical spine is normal. There is minimal retrolisthesis of C3 on C4 and C4 on C5, similar to prior exam. Marrow signal intensity is unremarkable for geographic marrow lesion. No fracture is seen. There is significant degenerative disc disease at all levels with significant disc space narrowing as well as desiccation and marginal osteophyte formation. Cervical cord demonstrates normal homogeneous signal intensity and normal morphology. Craniocervical junction is unremarkable. C2-C3: Central canal and neural foramina appear patent. C3-C4: Endplate osteophytes flatten the ventral thecal sac and produce some mild narrowing of the canal. There continues to be significant neural foraminal stenosis bilaterally, particularly on the left. C4-C5: Mild canal narrowing is again noted due to endplate osteophytes flattening the ventral thecal sac. Severe bilateral neural foraminal stenosis persists. C5-C6: Endplate osteophytes produce mild central canal narrowing. Severe bilateral neural foraminal stenosis persists. C6/C7: Mild to moderate central canal stenosis due to broad-based disc/osteophyte complex is again seen. There is severe bilateral neural foraminal stenosis. C7-T1: Central canal is patent. There is significant narrowing bilateral neural foramina. Paraspinous tissues are unremarkable. IMPRESSION: Severe cervical spondylosis with multilevel central canal or neural foraminal stenosis level by level above. This very similar to examination one year earlier. Dictated by: Dictated on workstation # [id number]
== END ==
LOC: RAD 08:17
PROVIDERS: ATTEND Nurse Practitioner Family
DX: M48.03 Spinal stenosis, cervicothoracic region (principal); M47.812 Spondylosis without myelopathy or radiculopathy, cervical region; M25.78 Osteophyte, vertebrae; M50.30 Other cervical disc degeneration, unspecified cervical region
CPT/HCPCS: 72141

== ENCOUNTER 2020-03-18 14:39 | Emergency (ER) | payer MEDICARE ==
[~2020-03-18] VITALS: Ht 180.3 cm; Wt 90.0 kg
[~2020-03-18 14:39] MED LIST changes: +AMLO10TA7 PO; +ASPI-983 PO; +CARV3.122 PO; +FINA5TAB6 PO; +LISI40TA PO; +MELO7.5T46 PO; +TMSL.4C PO; +TRIA1CAP4 PO
[2020-03-18] MEDS ORDERED: NS IV 1000 ML 1,000 ML IV SCH (14:45)
--- NOTE | 2020-03-18 14:51 | ED GI ---
General Chief Complaint: Abdominal/GI Problems Stated Complaint: CONSTIPATION Source of Information: Patient Exam Limitations: No Limitations History of Present Illness Date Seen by Provider: Mar 18, 2020 Time Seen by Provider: 14:49 Initial Comments To ER from via [facility] with reports of constipation. He recently had a right knee replacement and is on hydrocodone. He has not had a NORMAL bowel movement in 3 days (but he has had diarrhea), he began "vomiting bile" this morning. No fever no chills no cough no shortness of breath. He's had 2 fleets enemas, Colace, MiraLAX with no results at the [place] [facility]. Timing/Duration: 1-2 Days Severity/Quality: Moderate Location: Generalized Abdomen Radiation: No Radiation Activities at Onset: None Associated Symptoms: Nausea/Vomiting Allergies and Home Medications Allergies Coded Allergies: No Known Drug Allergies (Unverified , 04/02/15) Home Medications Amlodipine Besylate 10 Mg Tablet, 10 MG PO DAILY, (Reported) Aspirin 81 Mg Tablet.dr, 81 MG PO DAILY, (Reported) Carvedilol 3.125 Mg Tablet, 3.125 MG PO BID, (Reported) Clopidogrel Bisulfate 75 Mg Tablet, 75 MG PO DAILY Prescribed by: KELLY ESPINOZA on 02/27/20 1200 Finasteride 5 Mg Tablet, 5 MG PO DAILY, (Reported) Lisinopril 40 Mg Tablet, 40 MG PO DAILY, (Reported) Meloxicam 7.5 Mg Tablet, 7.5 MG PO Q12H, (Reported) Tamsulosin HCl 0.4 Mg Cap, 0.4 MG PO BID, (Reported) Triamterene/Hydrochlorothiazid 1 Each Capsule, 1 EACH PO DAILY, (Reported) Patient Home Medication List Home Medication List Reviewed: Yes Review of Systems Review of Systems Constitutional: see HPI; No chills, No fever EENTM: No Symptoms Reported Respiratory: No Symptoms Reported; Denies Cough, Denies Shortness of Air Cardiovascular: No Symptoms Reported Gastrointestinal: See HPI, Abdominal Pain Genitourinary: No Symptoms Reported Musculoskeletal: no symptoms reported Skin: no symptoms reported Psychiatric/Neurological: No Symptoms Reported Endocrine: No Symptoms Reported Hematologic/Lymphatic: No Symptoms Reported Past [id number]-Yqtupp Hx Patient Social History Type Used: Cigarettes Seasonal Allergies Seasonal Allergies: No Past Medical History Surgeries: Yes (RIGHT KNEE REPLACEMENT 02/22/20;RIGHT CARPAL TUNNEL X2;LEFT HIP REPLACEMENT) Joint Replacement, Orthopedic Respiratory: No Cardiac: Yes High Cholesterol, Hypertension Neurological: Yes (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 oz. [id number]; 29.00 BMI Method:Stated General Appearance: WD/WN, no apparent distress Respiratory: lungs clear, normal breath sounds, no respiratory distress, no accessory muscle use Cardiovascular: regular rate, rhythm, no murmur Gastrointestinal: normal bowel sounds, non tender, soft, other (normal bowel sounds no tenderness) Extremities: normal range of motion, non-tender Neurologic/Psychiatric: alert, normal mood/affect, oriented x 3 Skin: normal color, warm/dry Progress/Results/Core Measures Results/Orders Lab Results Laboratory Tests Test 03/18/20 14:53 Range/Units White Blood Count 9.1 4.3-11.0 10^3/uL Red Blood Count 4.06 L 4.35-5.85 10^6/uL Hemoglobin 13.0 L 13.3-17.7 G/DL Hematocrit 39 L 40-54 % Mean Corpuscular Volume 96 80-99 FL Mean Corpuscular Hemoglobin 32 25-34 PG Mean Corpuscular Hemoglobin Concent 33 32-36 G/DL Red Cell Distribution Width 12.9 10.0-14.5 % Platelet Count 252 130-400 10^3/uL Mean Platelet Volume 10.0 7.4-10.4 FL Neutrophils (%) (Auto) 67 42-75 % Lymphocytes (%) (Auto) 22 12-44 % Monocytes (%) (Auto) 11 0-12 % Eosinophils (%) (Auto) 1 0-10 % Basophils (%) (Auto) 0 0-10 % Neutrophils # (Auto) 6.1 1.8-7.8 X 10^3 Lymphocytes # (Auto) 2.0 1.0-4.0 X 10^3 Monocytes # (Auto) 1.0 0.0-1.0 X 10^3 Eosinophils # (Auto) 0.1 0.0-0.3 10^3/uL Basophils # (Auto) 0.0 0.0-0.1 10^3/uL Sodium Level 140 135-145 MMOL/L Potassium Level 3.9 3.6-5.0 MMOL/L Chloride Level 104 98-107 MMOL/L Carbon Dioxide Level 26 21-32 MMOL/L Anion Gap 10 5-14 MMOL/L Blood Urea Nitrogen 31 H 7-18 MG/DL Creatinine 2.37 H 0.60-1.30 MG/DL Estimat Glomerular Filtration Rate 27 BUN/Creatinine Ratio 13 Glucose Level 117 H 70-105 MG/DL Calcium Level 10.0 8.5-10.1 MG/DL Corrected Calcium 10.0 8.5-10.1 MG/DL Total Bilirubin 1.1 H 0.1-1.0 MG/DL Aspartate Amino Transf (AST/SGOT) 17 5-34 U/L Alanine Aminotransferase (ALT/SGPT) 15 0-55 U/L Alkaline Phosphatase 88 40-136 U/L Total Protein 6.7 6.4-8.2 GM/DL Albumin 4.0 3.2-4.5 GM/DL My Orders Orders - GEORGIA ZAMORANO APRN Cbc With Automated Diff (03/18/20 14:43) Comprehensive Metabolic Panel (03/18/20 14:43) Acute Abd Series (03/18/20 14:43) Ns Iv 1000 Ml (Sodium Chloride 0.9%) (03/18/20 14:45) Ondansetron Injection (Zofran Injectio (03/18/20 16:00) Medications Given in ED Current Medications Medications Dose Ordered Sig/Ayanna Route Start Time Stop Time Status Last Admin Dose Admin Ondansetron HCl 8 mg ONCE ONCE IVP 03/18/20 16:00 03/18/20 16:01 DC 03/18/20 15:59 8 MG Vital Signs/I&O 03/18/20 14:39 Temp 36.5 Pulse 60 Resp 18 B/P (MAP) 134/60 (84) Pulse Ox 95 Diagnostic Imaging Diagonstic Imaging: Xray Comments NAME: KAREEM [facility] REC#: [id number] PT STATUS: REG ER : 1940 PHYSICIAN: GEORGIA ZAMORANO APRN ADMIT DATE: 03/18/20/ER Draft Date of Exam:03/18/20 ACUTE ABD SERIES INDICATION: No bowel movement for several days. TIME OF EXAM: 3:27 p.m. FINDINGS: Heart size is normal. Lungs are clear. No free air is identified. Bowel gas pattern is nonobstructive. No significant stool load is identified. There is a calcific density overlying the lower pole left kidney suggestive of a renal calculus. This measures 11 mm. Postop changes of left hip arthroplasty are noted. IMPRESSION: No significant stool load is identified. There is no acute feature. There are findings consistent with left-sided nephrolithiasis. Dictated on workstation # [id number] Dict: 03/18/20 1540 Trans: 03/18/20 1545 [facility] [id number] Interpreted by: OSMAN TURCIOS MD Electronically signed by: Departure Impression Primary Impression: History of constipation Additional Impressions: Nausea KIM (acute kidney injury) Disposition: 01 HOME, SELF-CARE Condition: Stable Departure-Patient Inst. Decision time for Depature: 15:55 Referrals: AUGIE NIETO MD (PCP) Primary Care Physician JB ZEPEDA MD (Family) Primary Care Physician Patient Instructions: Constipation, Adult (DC), Nausea and Vomiting, Adult (DC) Add. Discharge Instructions: . It would be a good idea to take 1 packet of the laxative daily if you take pain medication for the knee to prevent future episodes of constipation. GEORGIA ZAMORANO APRN Mar 18, 2020 14:50
[2020-03-18 15:02] LABS: BASOPHILS % (AUTO) 0 % (0-10); EOSINOPHILS # (AUTO) 0.1 10^3/uL (0.0-0.3); EOSINOPHILS % (AUTO) 1 % (0-10); HEMATOCRIT 39 % (40-54); LYMPHOCYTES % (AUTO) 22 % (12-44); MEAN CORPUSCULAR HEMOGLOBIN 32 PG (25-34); MEAN CORPUSCULAR HGB CONC 33 G/DL (32-36); MEAN CORPUSCULAR VOLUME 96 FL (80-99); MONOCYTES % (AUTO) 11 % (0-12); NEUTROPHILS # (AUTO) 6.1 X 10^3 (1.8-7.8); NEUTROPHILS % (AUTO) 67 % (42-75); PLATELET COUNT 252 10^3/uL (130-400); RED CELL DISTRIBUTION WIDTH 12.9 % (10.0-14.5); WHITE BLOOD COUNT 9.1 10^3/uL (4.3-11.0)
[2020-03-18 15:14] LABS: POTASSIUM 3.9 MMOL/L (3.6-5.0)
[2020-03-18 15:16] LABS: TOTAL PROTEIN 6.7 GM/DL (6.4-8.2)
[2020-03-18 15:18] LABS: BILIRUBIN,TOTAL 1.1 MG/DL (0.1-1.0)
[2020-03-18 15:19] LABS: CREATININE SERUM 2.37 MG/DL (0.60-1.30)
--- NOTE | 2020-03-18 15:45 | Diagnostic Imaging Report ---
INDICATION: No bowel movement for several days. TIME OF EXAM: 3:27 p.m. FINDINGS: Heart size is normal. Lungs are clear. No free air is identified. Bowel gas pattern is nonobstructive. No significant stool load is identified. There is a calcific density overlying the lower pole left kidney suggestive of a renal calculus. This measures 11 mm. Postop changes of left hip arthroplasty are noted. IMPRESSION: No significant stool load is identified. There is no acute feature. There are findings consistent with left-sided nephrolithiasis. Dictated by: Dictated on workstation # [id number]
--- NOTE | 2020-03-18 15:52 | NUR ---
FLUIDS INFUSING PATIENT FEELING BETTER.
[2020-03-18] MEDS ORDERED: ONDANSETRON 4 MG/2 ML (SDV) Z0FRAN IVP ONE (16:00)
--- NOTE | 2020-03-18 16:10 | NUR ---
UPDATE TO ALF WILL COME GET HIM.
[2020-03-18 16:50] VITALS: BP 147/65
== END 2020-03-18 16:50 | disposition home or self-care (01) ==
LOC: EDUNIT# 14:39 → ER 14:40
DX: K59.00 Constipation, unspecified (principal); N17.9 Acute kidney failure, unspecified; I10 Essential (primary) hypertension; Z96.651 Presence of right artificial knee joint; Z79.82 Long term (current) use of aspirin; Z79.02 Long term (current) use of antithrombotics/antiplatelets; Z86.73 Personal history of transient ischemic attack (TIA), and cerebral infarction without residual deficits; Z96.642 Presence of left artificial hip joint
CPT/HCPCS: 36415; 74022; 80053; 85025

== ENCOUNTER 2020-05-12 11:32 | Outpatient (RCR) | payer MEDICARE | END 2020-05-12 12:11 | disposition home or self-care (01) | PROVIDERS: ATTEND Orthopaedic Surgery | DX: M25.561 Pain in right knee (principal); R26.9 Unspecified abnormalities of gait and mobility; M19.90 Unspecified osteoarthritis, unspecified site; R03.0 Elevated blood-pressure reading, without diagnosis of hypertension; Z96.651 Presence of right artificial knee joint; Z96.642 Presence of left artificial hip joint; Z72.0 Tobacco use ==

== ENCOUNTER → 2022-01-16 | Outpatient (CLI) | payer MEDICARE ==
[~2022-01-16] MED LIST changes: +AMLO-251 PO; -AMLO10TA7 PO; +ASPI-1238 PO; -ASPI-983 PO; -LISI40TA PO; +LISI40TA9 PO
--- NOTE | 2022-01-16 11:47 | Diagnostic Imaging Report ---
Indication: Shortness of breath PA and lateral chest Heart size and pulmonary vascularity are normal. Lungs are clear. There are no effusions or pneumothoraces. IMPRESSION: No acute abnormalities in the chest. Dictated by: Dictated on workstation # [id number]
== END ==
LOC: RAD 11:22
PROVIDERS: ATTEND Nurse Practitioner Family
DX: J06.9 Acute upper respiratory infection, unspecified (principal)
CPT/HCPCS: 71046

== ENCOUNTER 2022-02-20 18:04 | Emergency (ER) | payer MEDICARE ==
[2022-02-20 18:22] LABS: BASOPHILS # (AUTO) 0.1 10^3/uL (0.0-0.1); BASOPHILS % (AUTO) 1 % (0-10); EOSINOPHILS # (AUTO) 0.1 10^3/uL (0.0-0.3); EOSINOPHILS % (AUTO) 1 % (0-10); HEMATOCRIT 43 % (40-54); HEMOGLOBIN 14.5 g/dL (13.3-17.7); LYMPHOCYTES % (AUTO) 26 % (12-44); MEAN CORPUSCULAR HEMOGLOBIN 32 pg (25-34); MEAN CORPUSCULAR HGB CONC 34 g/dL (32-36); MEAN CORPUSCULAR VOLUME 95 fL (80-99); MONOCYTES % (AUTO) 8 % (0-12); NEUTROPHILS # (AUTO) 7.5 10^3/uL (1.8-7.8); NEUTROPHILS % (AUTO) 64 % (42-75); PLATELET COUNT 225 10^3/uL (130-400); WHITE BLOOD COUNT 11.7 10^3/uL (4.3-11.0)
[2022-02-20 18:31] LABS: BILIRUBIN,URINE NEGATIVE (NEGATIVE); CLARITY,URINE CLEAR; COLOR,URINE ORANGE; GLUCOSE, URINE (UA) NEGATIVE (NEGATIVE); KETONES,URINE NEGATIVE (NEGATIVE); LEUKOCYTE ESTERASE ,URINE NEGATIVE (NEGATIVE); NITRITE,URINE NEGATIVE (NEGATIVE); PH,URINE 6.5 (5-9); PROTEIN,URINE NEGATIVE (NEGATIVE)
[2022-02-20 18:37] LABS: ALBUMIN 3.7 GM/DL (3.2-4.5); CHLORIDE 104 MMOL/L (98-107); POTASSIUM 3.8 MMOL/L (3.6-5.0); SODIUM 139 MMOL/L (135-145)
[2022-02-20 18:39] LABS: FIBRIN DEGRADATION PRODUCTS 0.54 UG/ML (0.00-0.49); GLUCOSE 109 MG/DL (70-105); PROTHROMBIN TIME PATIENT 13.3 SEC (12.2-14.7); TOTAL PROTEIN 6.1 GM/DL (6.4-8.2)
[2022-02-20 18:39] LABS: BACTERIA,URINE NEGATIVE /HPF; WBC,URINE 0-2 /HPF
[2022-02-20 18:40] LABS: CARBON DIOXIDE 25 MMOL/L (21-32)
[2022-02-20 18:41] LABS: BILIRUBIN,TOTAL 0.9 MG/DL (0.1-1.0)
[2022-02-20 18:43] LABS: ALKALINE PHOSPHATASE 82 U/L (40-136); CREATININE SERUM 1.22 MG/DL (0.60-1.30); GFR ESTIMATED 59
[2022-02-20 18:44] LABS: BUN/CREATININE RATIO 18
[2022-02-20 18:46] LABS: ALANINE AMINOTRANSFERASE 19 U/L (0-55); MAGNESIUM 2.2 MG/DL (1.6-2.4)
[2022-02-20 18:47] LABS: CREATINE KINASE 30 U/L (30-200)
[2022-02-20 18:53] LABS: CREATINE KINASE MB 1.3 NG/ML (<6.6)
--- NOTE | 2022-02-20 18:56 | Diagnostic Imaging Report ---
EXAMINATION: Chest 1 view. HISTORY: STROKE SYMPTOMS. COMPARISON: 02/27/2020. FINDINGS: Heart size and pulmonary vasculature are normal. The lungs are clear without consolidation, pleural effusion, or pneumothorax. Degenerative changes of the thoracic spine. Osseous structures are otherwise intact. IMPRESSION: No acute radiographic abnormality in the chest. Dictated by: Dictated on workstation # [id number]
--- NOTE | 2022-02-20 19:00 | Diagnostic Imaging Report ---
EXAMINATION: CT head without contrast. TECHNIQUE: Multiple contiguous axial images were obtained through the brain without the use of intravenous contrast. All CT scans use one or more of the following dose optimizing techniques: automated exposure control, MA and/or KvP adjustment based on patient size and exam type or iterative reconstruction. HISTORY: Dizziness. Headache. Difficulty speaking. Concern for acute ischemia. COMPARISON: 02/27/2020. FINDINGS: No large acute territorial ischemia, mass, or hemorrhage. No midline shift or mass effect. Old infarct is visualized in the left occipital lobe. Decreased attenuation is seen in the periventricular and subcortical white matter. The ventricles and cortical sulci are prominent. The basilar cisterns are patent and unremarkable. The orbits are normal. Retained secretions are seen throughout the bilateral maxillary sinuses with additional mucosal thickening in the bilateral ethmoid and sphenoid sinuses. Mastoid air cells are clear. No soft tissue abnormality is seen. No osseus lesions or fractures are seen. IMPRESSION: 1. No large acute territorial ischemia, mass, or hemorrhage. 2. Chronic infarct in the left occipital lobe. 3. Generalized parenchymal volume loss with chronic microvascular disease. 4. Paranasal sinus disease, greatest in the bilateral maxillary sinuses. Dictated by: Dictated on workstation # [id number]
--- NOTE | 2022-02-20 19:21 | ED Neurological Problem ---
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 Source: patient, family, old records Exam Limitations: no limitations History of Present Illness Date Seen by Provider: February 20, 2022 Allergies and Home Medications Allergies Coded Allergies: No Known Drug Allergies (Unverified , 04/02/15) Patient Home Medication List Amlodipine Besylate (Amlodipine Besylate) 10 Mg Tablet, 10 MG PO DAILY, (Reported) Entered as Reported by: MAR DAWKINS on 03/13/201651 Aspirin (Aspirin EC) 81 Mg Tablet.dr, 81 MG PO DAILY, (Reported) Entered as Reported by: MAR DAWKINS on 03/13/201707 Carvedilol (Carvedilol) 3.125 Mg Tablet, 3.125 MG PO BID, (Reported) Entered as Reported by: MAR DAWKINS on 03/13/201651 Clopidogrel Bisulfate (Plavix) 75 Mg Tablet, 75 MG PO DAILY Prescribed by: KELLY ESPINOZA on 02/27/20 1200 Finasteride (Finasteride) 5 Mg Tablet, 5 MG PO DAILY, (Reported) Entered as Reported by: MAR DAWKINS on 03/13/201651 Lisinopril (Lisinopril) 40 Mg Tablet, 40 MG PO DAILY, (Reported) Entered as Reported by: MAR DAWKINS on 03/13/201651 Meloxicam (Meloxicam) 7.5 Mg Tablet, 7.5 MG PO Q12H, (Reported) Entered as Reported by: MAR DAWKINS on 03/13/201707 Tamsulosin HCl (Flomax) 0.4 Mg Cap, 0.4 MG PO BID, (Reported) Entered as Reported by: MAR DAWKINS on 03/13/201651 Triamterene/Hydrochlorothiazid (Triamterene-Hctz 37.5-25 mg Cp) 1 Each Capsule, 1 EACH PO DAILY, (Reported) Entered as Reported by: MAR DAWKINS on 03/13/201707 Past Jumdhbg-Qgibnf-Xxqckb Hx Patient Social History Tobacco Use?: Yes Tobacco type used: Cigars Smoking Status: Current Everyday Smoker Substance use?: No Alcohol Use?: No Pt feels they are or have been: No Immunizations Up To Date First/Initial COVID19 Vaccinat: 2020 Second COVID19 Vaccination Joseph: 2020 Seasonal Allergies Seasonal Allergies: No Past Medical History Surgery/Hospitalization HX: HTN, HEART CATH, KNEE REPLACEMENT, HIP REPLACEMENT Surgeries: Yes (RIGHT KNEE REPLACEMENT 02/22/20;RIGHT CARPAL TUNNEL X2;LEFT HIP REPLACEMENT) Joint Replacement, Orthopedic Respiratory: No Cardiac: Yes High Cholesterol, Hypertension Neurological: Yes (LEFT OCCIPITAL CVA 2014 -AFFECTED VISION IN RIGHT EYE) Stroke Reproductive Disorders: No Genitourinary: No Gastrointestinal: Yes Gastroesophageal Reflux Musculoskeletal: Yes (RIGHT KNEE REPLACEMENT 02/22/20;RIGHT CARPAL TUNNEL X2;LEFT HIP REPLACEMENT) Arthritis Endocrine: No HEENT: No Cancer: No Psychosocial: No Integumentary: No Blood Disorders: No Adverse Reaction/Blood Tranf: No Physical Exam Vital Signs Vital Signs - First Documented 02/20/22 18:09 Temp 35.9 Pulse 53 Resp 18 B/P (MAP) 105/67 (80) Capillary Refill : Height, Weight, BMI Height: 5'11" Weight: 215lbs. oz. 97.333876oq; 27.00 BMI Method:Stated Stroke NIH Stroke Scale Assessment Level of Consciousness: 0=Alert (0), Level of Consciousness-Questions: 0=Answers both month/age (0), LOC Commands: 0=Performs both tasks (0), Gaze: Normal (0), Visual Maxwell: 0=No visual loss (0), Facial Movement (Facial Paresis): 0=Normal symmetrical mnt (0), Motor Function-Arms Right: 0=No drift (0), Motor Function-Arms Left: 0=No drift (0), Motor Function-Legs Right: 0=No drift (0), Motor Function-Legs Left: 0=No drift (0), Limb Ataxia: 0=Absent (0), Best Language: 0=No aphasia (0), Dysarthria: 0=Normal (0), Extinction & Inattention: 0=No abnormality (0), Total: Stroke Thrombolytic Exclusion Age 18 or Over: Yes Acute intenal hemorrhage: No History of CVA: Yes Uncontrolled Coagulation Defec: No Intracranial Hemorrhage: No Severe Hypertension: No GI or Bleed: No Subarachnoid Hemorrhage: No Intracranial Neoplasm/Aneurysm: No Oral Anticoagulants: No Surgery or Trauma: Yes Puncture of Non-Compressible V: No Recent CPR: No Diabetic Hemorrhagic Retinopat: No Organ Biopsy: No Recent Obstetric Delivery: No Glucose: No Significant Hepatic Dysfunctio: No NIH Stoke Scale >22: No Bacterial Endocarditis: No Pericarditis: No Improving Symptoms: Yes Platelets: No Progress/Results/Core Measures Results/Orders Lab Results Laboratory Tests Test 02/20/22 18:10 02/20/22 18:13 02/20/22 18:24 Range/Units Glucometer 107 70-110 MG/DL White Blood Count 11.7 H 4.3-11.0 10^3/uL Red Blood Count 4.54 4.30-5.52 10^6/uL Hemoglobin 14.5 13.3-17.7 g/dL Hematocrit 43 40-54 % Mean Corpuscular Volume 95 80-99 fL Mean Corpuscular Hemoglobin 32 25-34 pg Mean Corpuscular Hemoglobin Concent 34 32-36 g/dL Red Cell Distribution Width 13.9 10.0-14.5 % Platelet Count 225 130-400 10^3/uL Mean Platelet Volume 9.0 9.0-12.2 fL Immature Granulocyte % (Auto) 0 % Neutrophils (%) (Auto) 64 42-75 % Lymphocytes (%) (Auto) 26 12-44 % Monocytes (%) (Auto) 8 0-12 % Eosinophils (%) (Auto) 1 0-10 % Basophils (%) (Auto) 1 0-10 % Neutrophils # (Auto) 7.5 1.8-7.8 10^3/uL Lymphocytes # (Auto) 3.0 1.0-4.0 10^3/uL Monocytes # (Auto) 1.0 0.0-1.0 10^3/uL Eosinophils # (Auto) 0.1 0.0-0.3 10^3/uL Basophils # (Auto) 0.1 0.0-0.1 10^3/uL Immature Granulocyte # (Auto) 0.0 0.0-0.1 10^3/uL Prothrombin Time 13.3 12.2-14.7 SEC INR Comment 1.0 0.8-1.4 Activated Partial Thromboplast Time 25 24-35 SEC D-Dimer 0.54 H 0.00-0.49 UG/ML Sodium Level 139 135-145 MMOL/L Potassium Level 3.8 3.6-5.0 MMOL/L Chloride Level 104 98-107 MMOL/L Carbon Dioxide Level 25 21-32 MMOL/L Anion Gap 10 5-14 MMOL/L Blood Urea Nitrogen 22 H 7-18 MG/DL Creatinine 1.22 0.60-1.30 MG/DL Estimat Glomerular Filtration Rate 59 BUN/Creatinine Ratio 18 Glucose Level 109 H 70-105 MG/DL Calcium Level 10.0 8.5-10.1 MG/DL Corrected Calcium 10.2 H 8.5-10.1 MG/DL Magnesium Level 2.2 1.6-2.4 MG/DL Total Bilirubin 0.9 0.1-1.0 MG/DL Aspartate Amino Transf (AST/SGOT) 14 5-34 U/L Alanine Aminotransferase (ALT/SGPT) 19 0-55 U/L Alkaline Phosphatase 82 40-136 U/L Total Creatine Kinase 30 30-200 U/L Creatine Kinase MB 1.3 <6.6 NG/ML Myoglobin 103.1 H 10.0-92.0 NG/ML Troponin I < 0.028 <0.028 NG/ML Total Protein 6.1 L 6.4-8.2 GM/DL Albumin 3.7 3.2-4.5 GM/DL Serum Alcohol < 10 <10 MG/DL Urine Color ORANGE Urine Clarity CLEAR Urine pH 6.5 5-9 Urine Specific [place] 1.010 L 1.016-1.022 Urine Protein NEGATIVE NEGATIVE Urine Glucose (UA) NEGATIVE NEGATIVE Urine Ketones NEGATIVE NEGATIVE Urine Nitrite NEGATIVE NEGATIVE Urine Bilirubin NEGATIVE NEGATIVE Urine Urobilinogen 0.2 < = 1.0 MG/DL Urine Leukocyte Esterase NEGATIVE NEGATIVE Urine RBC (Auto) NEGATIVE NEGATIVE Urine RBC NONE /HPF Urine WBC 0-2 /HPF Urine Squamous Epithelial Cells NONE /HPF Urine Renal Epithelial Cells NONE /HPF Urine Crystals NONE /LPF Urine Bacteria NEGATIVE /HPF Urine Casts NONE /LPF Urine Mucus NEGATIVE /LPF Urine Culture Indicated NO Vital Signs/I&O 02/20/22 18:09 Temp 35.9 Pulse 53 Resp 18 B/P (MAP) 105/67 (80) Blood Pressure Mean: 80 FSBG Bedside Testing Finger Stick Blood Glucose: 107 Departure Impression Primary Impression: TIA (transient ischemic attack) Disposition: 01 HOME, SELF-CARE Condition: Improved Departure-Patient Inst. Decision time for Depature: 19:17 Referrals: JB WHEELER MD (PCP/Family) Primary Care Physician Patient Instructions: Stroke, Lowering the Risk of Having Another Stroke Add. Discharge Instructions: Plan: 1. Follow up with Dr. Wheeler and Dr. Blanchard first thing in the morning. Please call office to schedule outpatient follow up. 2. Recommend having outpatient MRI to complete evaluation of his TIA. Although his symptoms have resolved since his emergency department visit he can have a full stroke at any point and is high risk for having a full stroke within the next 30 days. 3. If he develops any symptoms of facial drooping abnormal speech, slurring speech, weakness of arms or legs, return immediately to the ER. 4. Continue your home medications. 5. Return for any new, concerning, or worsening symptoms. All discharge instructions reviewed with patient and/or family. Voiced understanding. Copy Copies To 1: JB WHEELER MD Copies To 2: NERIS BLANCHARD MD, STORMY D BUTTON GRADER February 20, 2022 19:21
[2022-02-20 19:35] VITALS: BP 100/56
== END 2022-02-20 19:36 | disposition home or self-care (01) ==
LOC: EDUNIT# 18:04 → ER 18:05
DX: G45.9 Transient cerebral ischemic attack, unspecified (principal); F17.290 Nicotine dependence, other tobacco product, uncomplicated; R29.700 NIHSS score 0; Z86.73 Personal history of transient ischemic attack (TIA), and cerebral infarction without residual deficits
CPT/HCPCS: 70450; 71045; 80053; 81000; 82550; 82553; 82947; 83735; 83874; 84484; 85025; 85379; 85610; 85730; 93005; 93041; 99284; G0480; 36415; 80320

== ENCOUNTER → 2022-03-08 | Outpatient (CLI) | payer MEDICARE ==
[~2022-03-08] VITALS: Ht 180 cm; Wt 91.0 kg
[~2022-03-08] MED LIST changes: +REGADENOSON 0.4 MG/5 ML SYR (LEXISCAN) IV ONE
[2022-03-08] MEDS: CATHETER FLUSH 10 ML SYR IVP PRN ×2 (11:09→11:59)
[2022-03-08 11:57] VITALS: BP 152/91
--- NOTE | 2022-03-08 14:25 | Cardiology Stress Test Report ---
Stress Test Report Date of Procedure/Referring: Date of Procedure: Mar 08, 2022 PCP Jb Wheeler MD Admitting Physician Admitting Physician: Attending Physician: Tete Blanchard MD Indications: CVA Baseline Heart Rate: 67 Baseline Blood Pressure: Blood Pressure Systolic: 152 Blood Pressure Diastolic: 91 Baseline Vitals Vital Signs Date Time Temp Pulse Resp B/P (MAP) Pulse Ox O2 Delivery O2 Flow Rate FiO2 03/08/22 11:57 66 16 152/91 (111) 98 Room Air Baseline EKG: Baseline EKG: RBBB Summary After explaining the procedure to the patient, he signed a consent and then brought to the stress nuclear laboratory. Patient received 0.4 mg Lexiscan for stress test, ECG, heart rate and blood pressure were monitored continuously. Resting and stress dose of radio tracer were injected, imaging was acquired and reviewed in short axis, horizontal long axis and vertical long axis views. TID: 1.04 SSS: 4 SDS: 1 EF: 52 1. Patient tolerated Lexiscan well 2. Diaphragmatic attenuation with fixed defect involving the mid to apical inferior wall with subtle reversibility at the apex. No significant ischemia or infarction on SPECT images 3. Normal left ventricular size, ejection fraction 52% Copy Copies To 1: JB WHEELER MD, BASHAR J MD Mar 08, 2022 14:24
== END ==
LOC: CARD 09:31 → CATH 09:31 → EDSTATUS 10:30
PROVIDERS: ATTEND Internal Medicine Cardiovascular Disease
DX: I63.9 Cerebral infarction, unspecified (principal); I10 Essential (primary) hypertension; I65.29 Occlusion and stenosis of unspecified carotid artery
CPT/HCPCS: 78452; 93017; 93306; A9502

== ENCOUNTER → 2022-03-27 | Day surgery (SDC) | payer MEDICARE ==
[~2022-03-27] VITALS: Ht 177.8 cm; Wt 84.6 kg
[~2022-03-27] MED LIST changes: +LIDOCAINE 1% INJ 20 ML VIAL INJ ONE; +LIDOCAINE 1% INJ 20 ML VIAL ONE; -REGADENOSON 0.4 MG/5 ML SYR (LEXISCAN) IV ONE
--- NOTE | 2022-03-27 10:41 | Implantation of Loop Monitor ---
Implant of Loop Monitior IMPLANTATION OF LOOP MONITOR REPORT DATE OF PROCEDURE: 03/27/22 PREOP DIAGNOSIS: Cryptogenic stroke POSTOP DIAGNOSIS: Cryptogenic stroke PROCEDURE DETAILS: The patient is a 81 male with history of cryptogenic stroke requiring long-term surveillance. Therefore implantable loop recorder was discussed and agreed with the patient. Informed consent was taken. All risks and complications were discussed at length. The patient was draped and prepped in the usual sterile fashion. Local anesthesia was lidocaine, which was given in the substernal area close to the 4th intercostal space. Loop monitor [employer] with serial number [id number] was implanted according to the protocol. Steri-Strips were placed at the end of the procedure. There were no complications and the patient tolerated the procedure well. ANESTHESIA: Local anesthesia with lidocaine. COMPLICATIONS: None CONTRAST/FLUOROSCOPY: None CONCLUSION: Successful implantation of loop monitor with no complication FINAL DIAGNOSIS: Cryptogenic stroke Hypertension Hyperlipidemia NERIS NIXON MD Mar 27, 2022 10:41
== END | disposition home or self-care (01) ==
PROVIDERS: ATTEND Internal Medicine Cardiovascular Disease
DX: I63.9 Cerebral infarction, unspecified (principal); I10 Essential (primary) hypertension; E78.5 Hyperlipidemia, unspecified; Z79.82 Long term (current) use of aspirin
CPT/HCPCS: 33285; C1764

== ENCOUNTER → 2022-11-06 | Outpatient (CLI) | payer MEDICARE ==
[~2022-11-06] MED LIST changes: +CLOP-31 PO; -CLOP75TA69 PO; -LIDOCAINE 1% INJ 20 ML VIAL INJ ONE; -LIDOCAINE 1% INJ 20 ML VIAL ONE; -TRIA1CAP4 PO; +TRIA1CAP84 PO
--- NOTE | 2022-11-06 17:08 | Diagnostic Imaging Report ---
PROCEDURE: CT left lower extremity without contrast. TECHNIQUE: Multiple contiguous axial images were obtained through the left lower extremity without the use of intravenous contrast. Sagittal and coronal reformations were then performed. Auto Exposure Controls were utilized during the CT exam to meet ALARA standards for radiation dose reduction. INDICATION: Knee pain. COMPARISON: None. FINDINGS: Bone density appears low. No acute fracture is seen. Alignment is normal. There are severe degenerative changes in the medial compartment with complete joint space loss, subchondral sclerosis, and articular surface remodeling with marginal osteophytes. There are moderate degenerative changes in the lateral and patellofemoral compartments. There is a moderate left knee joint effusion. Multiple small joint bodies are seen posteriorly. The menisci and ligaments are not well evaluated by CT. No focal muscular atrophy is seen. There is calcific atherosclerosis. There is a left hip arthroplasty. There is mild subcutaneous edema about the left ankle. IMPRESSION: 1. Tricompartmental degenerative changes in the left knee, most severe in the medial compartment. 2. Moderate left knee joint effusion with multiple joint bodies posteriorly. Dictated by: Dictated on workstation # [id number]
== END ==
LOC: RAD 13:46
PROVIDERS: ATTEND Orthopaedic Surgery
DX: M17.12 Unilateral primary osteoarthritis, left knee (principal)
CPT/HCPCS: 73700

== ENCOUNTER 2022-11-20 12:46 | Outpatient (CLI) | payer MEDICARE ==
[~2022-11-20] VITALS: Ht 180.3 cm; Wt 88.6 kg
[2022-11-20 13:42] LABS: BASOPHILS # (AUTO) 0.1 10^3/uL (0.0-0.1); BASOPHILS % (AUTO) 1 % (0-10); EOSINOPHILS # (AUTO) 0.5 10^3/uL (0.0-0.3); EOSINOPHILS % (AUTO) 5 % (0-10); HEMATOCRIT 45 % (40-54); HEMOGLOBIN 14.9 g/dL (13.3-17.7); LYMPHOCYTES # (AUTO) 2.2 10^3/uL (1.0-4.0); LYMPHOCYTES % (AUTO) 23 % (12-44); MEAN CORPUSCULAR HEMOGLOBIN 32 pg (25-34); MEAN CORPUSCULAR HGB CONC 33 g/dL (32-36); MEAN CORPUSCULAR VOLUME 96 fL (80-99); MEAN PLATELET VOLUME 9.8 fL (9.0-12.2); MONOCYTES # (AUTO) 0.9 10^3/uL (0.0-1.0); MONOCYTES % (AUTO) 9 % (0-12); NEUTROPHILS # (AUTO) 5.6 10^3/uL (1.8-7.8); NEUTROPHILS % (AUTO) 61 % (42-75); PLATELET COUNT 215 10^3/uL (130-400); WHITE BLOOD COUNT 9.2 10^3/uL (4.3-11.0)
[2022-11-20 13:45] VITALS: BP 139/61
[2022-11-20 13:58] LABS: ALBUMIN 3.8 GM/DL (3.2-4.5); PROTHROMBIN TIME PATIENT 13.3 SEC (12.2-14.7)
[2022-11-20 13:59] LABS: ERYTHROCYTE SEDIMENTATION RATE 1 MM/HR (0-30); POTASSIUM 3.8 MMOL/L (3.6-5.0)
[2022-11-20 14:00] LABS: CALCIUM 9.6 MG/DL (8.5-10.1)
[2022-11-20 14:01] LABS: TOTAL PROTEIN 6.3 GM/DL (6.4-8.2)
[2022-11-20 14:03] LABS: BILIRUBIN,TOTAL 0.8 MG/DL (0.1-1.0)
[2022-11-20 14:05] LABS: CREATININE SERUM 1.04 MG/DL (0.60-1.30)
--- NOTE | 2022-11-20 14:15 | Physical Therapy Pre-Op Eval ---
PT Pre-Surgical Assessment Type of Surgery Type of Surgery: Prior Level of Function Current Living Status: Spouse Locomotion (Upon Admit): Independent Distance: unlimited PLOF DME: Front Wheeled Walker, Straight Cane Subjective Subjective Patient returns from x-ray in transfer chair. Reports no pain in his left knee at this time, but notes he had an injection recently and his knee is numb. Home: Single Level Current Living Status: Spouse Entry Into Home: Stairs With Railing Steps Into Home: 1 Steps Accessories: Railing Present Objective Patient ambulates with antalgic gait pattern, decreased stance time on left LE. Left knee presents with moderate to severe left knee genu varum and lacks ~10 degrees from full extension in closed chain. ROM AROM in sitting Right knee extension 0 degrees; knee flexion 105 degrees Left knee extension 10 degrees; knee flexion 100 degrees Strength Right LE WFLs all planes; Left knee flexion 3/5 with pain; extension 4+/5 Gait Distance: 100 feet Gait Assistive Device: None Right Lower Extremity: Right Full Weight Bearing Left Lower Extremity: Left Full Weight Bearing Treatment Rendered Treatment: Patient instructed in assistive device, supported ambulation. Patient instructed in movement precautions where applicable. Patient demonstrates understandings of post-operative therapy protocol including gait pattern and exercise program. Pre-operative instruction completed; await physical therapy orders after surgery. Treatment Goal Met: Yes Assessment Goals Acheived: I Ambulation w/ FWW Charges/GCodes Time In: 1350 Time Out: 1405 Total Billed Treatment Time: 15 Total Billed Treatment Visit, BAIOLA Cordova PT Nov 20, 2022 14:15
[2022-11-20 14:17] LABS: BILIRUBIN,URINE NEGATIVE (NEGATIVE); CLARITY,URINE CLEAR; COLOR,URINE YELLOW; GLUCOSE, URINE (UA) NEGATIVE (NEGATIVE); KETONES,URINE NEGATIVE (NEGATIVE); LEUKOCYTE ESTERASE ,URINE NEGATIVE (NEGATIVE); NITRITE,URINE NEGATIVE (NEGATIVE); PROTEIN,URINE NEGATIVE (NEGATIVE)
[2022-11-20 14:34] LABS: BACTERIA,URINE NEGATIVE /HPF; HYALINE CASTS, URINE RARE /LPF; WBC,URINE RARE /HPF
--- NOTE | 2022-11-20 16:51 | Diagnostic Imaging Report ---
EXAMINATION: Chest 2 view HISTORY: Preoperative evaluation COMPARISON: 01/16/2022 FINDINGS: Heart size and pulmonary vasculature are normal. The lungs are clear without consolidation, pleural effusion, or pneumothorax. Degenerative changes of the thoracic spine. Osseous structures are otherwise intact. IMPRESSION: 1. No acute radiographic abnormality in the chest. Dictated by: Dictated on workstation # [id number]
== END 2022-11-20 17:24 ==
LOC: PREOP 12:46
PROVIDERS: ATTEND Orthopaedic Surgery
DX: Z01.812 Encounter for preprocedural laboratory examination (principal); Z01.810 Encounter for preprocedural cardiovascular examination; M17.12 Unilateral primary osteoarthritis, left knee
CPT/HCPCS: 36415; 71046; 80053; 81000; 85025; 85610; 85652; 86850; 86900; 86901; 87081; 93005

== ENCOUNTER 2022-11-27 06:01 | Inpatient (IN) | payer MEDICARE ==
--- NOTE | 2022-11-20 06:46 | HISTORY AND PHYSICAL ---
DATE OF SERVICE: 11/27/2022 This will be for inpatient admission for left total knee arthroplasty on 11/27/2022. The patient will require regular inpatient admission due to comorbidities, need for physical therapy and pain management. HISTORY: The patient is an 82-year-old gentleman with complaints of progressively worsening left knee pain. Radiographs reveal severe medial and patellofemoral arthrosis. He has undergone treatment with injections, anti-inflammatories and rest without relief. Due to functional impairment and failure to improve with conservative measures, the patient elected to proceed with surgical intervention. REVIEW OF SYSTEMS: No chest pain, no shortness of breath, no dysuria. PAST MEDICAL HISTORY: TIA. PAST SURGICAL HISTORY: Carpal tunnel and right total knee. FAMILY HISTORY: Unknown. PRIMARY CARE PROVIDER: Dr. Nesha Hernandez. MEDICATIONS: Triamterene, tamsulosin, Myrbetriq, lisinopril, finasteride, clopidogrel, carvedilol, amlodipine, aspirin. ALLERGIES: NO KNOWN DRUG ALLERGIES. SOCIAL HISTORY: The patient smokes 10 cigarettes per week. Denies alcohol use. PHYSICAL EXAMINATION: GENERAL: The patient is well-developed, well-nourished, in no acute distress. HEENT: Normocephalic, atraumatic. Pupils equal, round, reactive to light. Oropharynx is clear. NECK: Supple. No lymphadenopathy. LUNGS: Clear to auscultation bilaterally. HEART: Regular rate and rhythm. ABDOMEN: Soft, nontender, nondistended. His left knee demonstrates varus alignment. Range of motion is 0/3/120. There is no varus or valgus laxity. Negative anterior and posterior drawer. He has a well-healed laceration centrally and inferiorly. IMPRESSION: Severe left knee osteoarthritis. PLAN: Left total knee arthroplasty. The risks, benefits, options, ramifications and recovery have been discussed at length with the patient. He understands and wishes to proceed. This will be for inpatient admission on 11/27/2022 for left total knee arthroplasty. Job ID: [id number] DocumentID: [id number] Dictated Date: 11/11/2022 12:36:57 [employer] Foundry Laborer Date: 11/11/2022 16:39:00 Dictated By: TRACE SOUSA MD
[~2022-11-27] VITALS: Ht 180.3 cm; Wt 88.6 kg
[2022-11-27] VITALS (11 sets, daily range): BP systolic 99–149; BP diastolic 48–67
--- OUTSIDE RECORDS SUMMARY | 2022-11-27 06:06 | XMS REPORT | Clinical Summary ---
Author Author [facility] Organization [facility] Address Unknown Phone Unavailable Care Team Providers Care Cocoa Milling Machine Operator Name Role Phone Guadalupe Wheeler MD PCP Source Comments Some departments are not documenting in the electronic medical record. If you d o not see the information that you expected, contact Release of Information in [facility] [employer] Information Management department at [phone] for further assistan ce in locating additional records.[facility] Allergies No known active allergies Medications End Date Status Medication Sig Dispensed Refills Start Date Active amLODIPine (NORVASC) 10 Take 10 mg by 0 mg tablet mouth daily. Active carvediloL (COREG) 3.125 Take 3.125 mg 0 mg tablet by mouth. Active lisinopriL (ZESTRIL) 40 Take 40 mg by 0 mg tablet mouth daily. Active triamterene-hydrochloroth Take 1 tablet 0 12/06 iazide (MAXZIDE) 37.5-25 by mouth 0 mg tablet daily. Active finasteride (PROSCAR) 5 Take 5 mg by 0 mg tablet mouth daily. 0 Active tamsulosin (FLOMAX) 0.4 Take 0.4 mg 0 mg capsule by mouth 0 twice daily. Active clopiDOGrel (PLAVIX) 75 Take 75 mg by 0 mg tablet mouth daily. 0 Active aspirin EC 81 mg tablet Take 81 mg by 0 mouth daily. 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 Pt was referred by OD for "spot" in rig ht eye. No notes sent and pt information is vague. Pt states he has prior history of stroke in 2015 and had a TIA over the weekend after knee r eplacement. Was seen in ER in [place], [place] and had CT and CTA and w as told to continue plavix long-term Hemianopia shows up on VF, but not on c onfrontation. Likely small and paracentral defect that could be explai margarito by infarct to occipital tip. Could get an [facility] field to confirm - Dr. Kelly recommends [facility] in [place], [place], where pt neo es Pt likely has old occipital infarct - h e is on plavix - recommend pt see neurologist to evaluate stroke risk. O ffered to set pt up at , but pt opts to see someone in [place] Nuclear age-related cataract, both eyes 03/01/2020 Last Assessment & Plan: Formatting of t his note might be different from the original. The patient's cataracts are not yet cau sing sufficient limitation in activities of daily living to justify c ataract surgery. Observe for now. Surgical History Surgery Date Site/Laterality Comments KNEE REPLACEMENT HIP REPLACEMENT Family History Medical History Relation Name Comments Unknown to Patient Neg Hx Social History Date Tobacco Use Types Packs/Day Years Used Smoking Tobacco: Former Cigars Smokeless Tobacco: Never Comments Alcohol Use Standard Drinks/Week Not Currently 0 (1 standard drink = 0.6 o z pure alcohol) Sex Assigned at Date Recorded Male 12/24/2019 9:44 AM CDT Obstetrics History Last Filed Vital Signs Reading Time Taken Comments Vital Sign - - Blood Pressure - - Pulse - - Temperature - - Respiratory Rate - - Oxygen Saturation - - Inhaled Oxygen Concentration 93 kg (205 lb) 03/01/2020 1:47 PM CDT Weight 180.3 cm (5' 11") 03/01/2020 1:47 PM CDT Height 28.59 03/01/2020 1:47 PM CDT Body Mass Index Plan of Treatment Health Maintenance Due Date Last Done Comments MEDICARE ANNUAL WELLNESS 1940 VISIT COVID-19 VACCINE (#1) 05[birth year]02/1941 DTAP/TDAP VACCINES (1 - 1957 Tdap) PHYSICAL (COMPREHENSIVE) 1957 EXAM SHINGLES RECOMBINANT 1989 VACCINE (1 of 2) PNEUMOCOCCAL VACCINE (2 - 04/05/2012 04/05/2011 PCV) INFLUENZA VACCINE (#1) 2022 ADVANCED CARE PLANNING 10/06/2022 DISCUSSION AND DOCUMENTATION DEPRESSION SCREENING 10/06/2022 Results Not on filefrom Last 3 Months Insurance Type Payer Benefit Subscriber ID Effective Phone Address Plan / Dates Group Medicare HUMANA MEDICARE HUMANA [id number] 2019-P [phone] [address] [address] [place] [address] (Home) [place] [address] Care Teams Start Date End Date Cocoa Milling Machine Operator Relationship Specialty 12/24/19 Guadalupe Wheeler MD PCP - General Family [address] [place] [address]
[2022-11-27] MEDS ORDERED: CEFUROXIME INJECTION 1,500 MG in NS (IVPB) 50 ML IV ONE (06:15)
[2022-11-27] MEDS: LACTATED RINGERS 1,000 ML IV PRN ×2 (06:33→08:05)
[2022-11-27] MEDS ORDERED: ROPIVACAINE 5MG/ML 30ML VIAL ONE (06:46)
[2022-11-27] MEDS ORDERED: LIDOCAINE PF 2% 5 ML (XYLOCAINE) VIAL ONE (06:46)
[2022-11-27] MEDS ORDERED: MIDAZOLAM 2 MG/2 ML (VERSED) VIAL ONE (06:46)
[2022-11-27] MEDS ORDERED: fentaNYL INJ 100 MCG/2 ML AMP ONE (06:58)
[2022-11-27] MEDS ORDERED: morphine PCA 100 MG/100 ML BAG IV PRN (07:15)
[2022-11-27] MEDS ORDERED: MIDAZOLAM 2 MG/2 ML (VERSED) VIAL IVP ONE (07:15)
[2022-11-27] MEDS ORDERED: diphenhydrAMINE 50 MG/ML INJ (BENADRYL) IVP PRN (07:15)
[2022-11-27] MEDS ORDERED: NALOXONE 0.4 MG/ML 1 ML (NARCAN) VIAL IV PRN (07:15)
--- NOTE | 2022-11-27 07:33 | Progress Note-Pre Operative ---
Pre-Operative Progress Note Date of Available H&P: Nov 20, 2022 Date H&P Reviewed: Nov 27, 2022 Time H&P Reviewed: 07:11 Changes from last HP none Pre-Operative Diagnosis: left knee primary osteoarthritis TRACE SOUSA MD Nov 27, 2022 07:33
--- NOTE | 2022-11-27 07:34 | Progress Note-Post Operative ---
Post-Operative Progess Note Surgeon (s)/Technical Service Specialist (s) Surgeon TRACE SOUSA MD Technical Service Specialist: Dakota Polo Pre-Operative Diagnosis left knee primary osteoarthritis Post-Operative Diagnosis left knee primary osteoarthritis Procedure & Operative Findings Date of Procedure 11/27/22 Procedure Performed/Findings left total knee arthroplasty Anesthesia Type GETA Estimated Blood Loss Estimated blood loss (mL): minimal Specimens/Packing Specimens Removed none Packing: none TRACE SOUSA MD Nov 27, 2022 07:34
--- NOTE | 2022-11-27 07:37 | D/C HH Face to Face Order ---
D/C Face to Face Orders Reconcile Patient Problems Problems Reviewed?: Yes Instructions for Patient Via [facility], Patient Instructions/FollowUp: three weeks Physician to follow Patient: three weeks Discharge Diet for Home: Regular Diet Patient Data-Allergies,Ht & Wt Patient Allergies: Coded Allergies: No Known Drug Allergies (Unverified , 11/20/22) Height (Feet): 5 Height (Inches): 11 Weight (Pounds): 215 Home Health Need/Face to Face Date of Face to Face: Nov 27, 2022 Clinical Findings: Muscle weakness, Pain with ambulation I have seen Pt [id number]: Yes Discharged To: SN[facility] Diagnosis/Conditions: left total knee arthroplasty Patient is Homebound due to: Muscle weakness, Pain w/ambulation Homebound Status Due to the above stated illness, injury or surgical procedure (medical condition or diagnosis) and associated clinical findings, the patient is homebound because of his/her inability to leave home except with aid of a supportive device and/or person AND leaving the home requires a considerable and taxing effort or is medically contraindicated. Pt req the following assistanc: Walker Home Health Nursing Orders Home Health Services Order: Physical Therapy-Evaluate & Treat DC left knee latanya and apply steri strips 12/11/22 Home Health Infusion Therapy Line Start Date: Nov 27, 2022 Therapy Orders Therapy Orders: Physical Therapy, PT to assess for OT Therapy Specific Orders: Eval assistive deivces, Teach enviro modificatio ns/safety, Gait training, Increase strength/endurance, Provider maintenance therapy, Restore ROM Certify Stmt I certify that this patient is under my care and that I, a nurse practitioner or a physician; a greenhouse assistant working with me, had a face to face encounter that - meets the physician face to face encounter requirements with this patient as dated. TRACE SOUSA MD Nov 27, 2022 07:37
[2022-11-27] MEDS ORDERED: INTRA-ARTICULAR IU ONE ×5 (08:00)
[2022-11-27] MEDS ORDERED: SEVOFLURANE (ULTANE) 15 ML INHAL SOLN ONE (08:03)
[2022-11-27] MEDS ORDERED: morphine INJ 10 MG/ML 1ML (SYR OR VIAL) ONE (08:10)
[2022-11-27] MEDS ORDERED: ONDANSETRON 4 MG/2 ML (SDV) Z0FRAN ONE (08:23)
[2022-11-27] MEDS ORDERED: TRANEXAMIC ACID 100 MG/ML 10 ML INJECTION ONE (08:23)
[2022-11-27] MEDS ORDERED: proPOfol 200 MG/20 ML (DIPRIVAN) VIAL IV ONE (08:46)
[2022-11-27] MEDS ORDERED: ROCURONIUM 50 MG/5 ML (ZEMURON) VIAL IV ONE (08:47)
[2022-11-27] MEDS ORDERED: ATROPINE INJ 0.4 MG/ML SDV ONE (09:00)
[2022-11-27] MEDS ORDERED: MEPERIDINE (DEMEROL) INJ 50 MG/ML IVP ONE (09:15)
[2022-11-27] MEDS ORDERED: ONDANSETRON 4 MG/2 ML (SDV) Z0FRAN IVP PRN (09:15)
[2022-11-27] MEDS ORDERED: morphine INJ 10 MG/ML 1ML (SYR OR VIAL) IVP ONE (09:15)
[2022-11-27] MEDS ORDERED: fentaNYL INJ 100 MCG/2 ML AMP IVP ONE (09:15)
--- NOTE | 2022-11-27 10:47 | Progress Note ---
Standard Progress Note Progress Notes/Assess & Plan Date Seen by a Provider: Nov 27, 2022 Time Seen by a Provider: 09:26 Progress/Assessment & Plan post op check no complaints radiogrpahs--HW well positioned without fracture LLE--dressing intact sym DP and PT pulses with brisk cap refill intact DF and PF of toes and ankle sensation intact to light touch throughout s/p LTKA mobilize as able TRACE SOUSA MD Nov 27, 2022 10:47
[2022-11-27] MEDS: NS IV 1000 ML 1,000 ML IV SCH ×2 (11:02→20:31)
[2022-11-27] MEDS: SENNA W/DOCUSATE (SENOKOT S) TABLET PO SCH ×2 (12:19→20:29)
--- NOTE | 2022-11-27 12:26 | Diagnostic Imaging Report ---
INDICATION: Postoperative evaluation, left total knee arthroplasty COMPARISON: 11/06/2022 TECHNIQUE: 2 radiographs of the left knee dated 11/27/2022. FINDINGS: Recent postsurgical changes and interval placement of a left total knee arthroplasty is noted with postsurgical soft tissue emphysema present. Surgical skin latanya are in place. No evidence of hardware complication. No acute fracture or dislocation. No destructive osseous process. No suspicious radiopaque foreign body. Moderate background vascular calcifications. IMPRESSION: Recent placement of a left total knee arthroplasty without hardware complication or acute osseous abnormality. Dictated by: Dictated on workstation # [id number]
--- NOTE | 2022-11-27 13:30 | Consultation - Hospitalist ---
HPI History of Present Illness: HPI/Chief Complaint Patient was admitted to the hospital today by orthopedic surgery for left knee replacement. He reports doing well and having no pain. He states he took all of his morning medications today. He has no complaints for me and states he is feeling quite well. I am consulted for medical management. Son is at bedside and states he and his two siblings plan to help provide care for patient and his while he recovers. They are looking at NH placement though as well. Source: patient Date Seen 11/27/22 Attending Physician Nesha Hernandez Aprn PCP Admitting Physician: Delvis Moreno MD Attending Physician: Delvis Moreno MD Referring Physician Date of Admission Nov 27, 2022 at 6:01 am Home Medications & Allergies Home Medications Reviewed patient Home Medication Reconciliation performed by pharmacy medication reconciliations evidence technician and/or nursing. Patients Allergies have been reviewed. Allergies Allergies Coded Allergies No Known Drug Allergies (Unverified11/20/22) Past Itbmvse-Dftmoc-Zhevxu Hx Patient Social History Marrital Status: Employed/Student: retired Immunizations Up To Date Date of Influenza Vaccine: Sep 26, 2022 First/Initial COVID19 Vaccinat: 2020 Second COVID19 Vaccination Joseph: 2020 Tetanus Booster (TDap): Unknown Date of Pneumonia Vaccine: Oct 16, 2022 Seasonal Allergies Seasonal Allergies: No Current Status Primary Language: Dominican Past Medical History Surgeries: Joint Replacement, Orthopedic Currently Using CPAP: No Currently Using BIPAP: No High Cholesterol, Hypertension Stroke Gastroesophageal Reflux Arthritis Depression Blood Disorders: No Adverse Reaction/Blood Tranf: No Review of Systems Constitutional: see HPI Physical Exam Physical Exam Vital Signs Vital Signs - First Documented 11/27/22 06:43 Temp 36.2 Pulse 64 Resp 20 B/P (MAP) 120/61 (80) Pulse Ox 99 O2 Delivery Room Air Capillary Refill : Height, Weight, BMI Height: 5'11" Weight: 215lbs. oz. 97.476676ib; 27.25 BMI Method:Stated General Appearance: No Apparent Distress, WD/WN HEENT: PERRL/EOMI Respiratory: Lungs Clear, No Respiratory Distress Cardiovascular: Regular Rate, Rhythm, No Murmur Gastrointestinal: Normal Bowel Sounds, Soft Extremity: No Pedal Edema, Other (ERLIN hose in place, surgical dressing clean and dry) Neurologic/Psychiatric: Alert, Oriented x3 Results Results/Procedures Labs Laboratory Tests 11/28/22 05:10 Patient resulted labs reviewed. Imaging: Reviewed Imaging Report Imaging [facility]. [place], [place] NAME: [facility] REC#: [id number] PT STATUS: ADM IN : 1940 PHYSICIAN: PADMINI BOLDEN ADMIT DATE: 11/27/22 Signed Date of Exam:11/27/22 KNEE, LEFT, 2 VIEWS (AP & LAT) INDICATION: Postoperative evaluation, left total knee arthroplasty COMPARISON: 11/06/2022 TECHNIQUE: 2 radiographs of the left knee dated 11/27/2022. FINDINGS: Recent postsurgical changes and interval placement of a left total knee arthroplasty is noted with postsurgical soft tissue emphysema present. Surgical skin latanya are in place. No evidence of hardware complication. No acute fracture or dislocation. No destructive osseous process. No suspicious radiopaque foreign body. Moderate background vascular calcifications. IMPRESSION: Recent placement of a left total knee arthroplasty without hardware complication or acute osseous abnormality. Dictated by: Dictated on workstation # [id number] Dict: 11/27/22 1223 Trans: 11/27/22 1306 CV [id number] Interpreted by: EWS CASTRO MD Electronically signed by: WES CASTRO MD 11/27/22 1306 Assessment/Plan Assessment and Plan Assess & Plan/Chief Complaint Left knee osteoarthritis s/p LTKA Management per primary Pain regimen ordered Lovenox PT/OT Social work Bowel regimen HTN HLD CAD Continue home meds as able On ASA- Resume plavix when ok with surgery BP well controlled so trend for now BPH Resume Flomax VIOLA VALDERRAMA MD Nov 27, 2022 1:30 pm
--- NOTE | 2022-11-27 14:04 | OPERATIVE REPORT ---
DATE OF SERVICE: 11/27/2022 PREOPERATIVE DIAGNOSIS: Right knee primary osteoarthritis. POSTOPERATIVE DIAGNOSIS: Right knee primary osteoarthritis. PROCEDURE: Right total knee arthroplasty. SURGEON: Delvis Sousa MD AIR TRAFFIC CONTROL SUPERVISOR: Dakota Polo, who assisted throughout the procedure and closed the incision. ANESTHESIA: General endotracheal by Dakota Garcia CRNA. TOURNIQUET TIME: Approximately 62 minutes at 300 mmHg. ESTIMATED BLOOD LOSS: Minimal. DRAINS: None. COMPLICATIONS: None. POSTOPERATIVE PLAN: Routine protocol. The patient was transferred to recovery room awake and stable condition. MATERIALS: MicroPort cemented size 7 femur, cemented size 7 tibia with 10 mm insert and a cemented size 35 patellar button. STATEMENT OF MEDICAL NECESSITY: The patient is an 82-year-old gentleman with longstanding progressive left knee pain. Radiographs revealed severe tricompartmental osteoarthritis. He tried rest, activity modifications, anti-inflammatories without relief. Due to functional impairment and failure to improve with conservative measures, the patient elected to proceed with surgical intervention. DESCRIPTION OF PROCEDURE: After risks and benefits of the procedure were discussed and questions were answered, informed consent was signed and placed on chart. The operative site was confirmed in the preoperative holding area, initialed by surgeon. The patient was then transported to the operating room and after adequate levels of general endotracheal anesthetic were obtained, a timeout was called, confirming the operative site. The left lower extremity was prepped and draped in the usual sterile fashion with the leg elevated and the knee flexed and tourniquet inflated to 300 mmHg. Standard anterior approach was utilized. Hemostasis was obtained with cautery. A medial parapatellar arthrotomy was performed, leaving 1 cm cuff on the patella for later reattachment. A portion of the fat pad was resected. The ACL was resected. The custom made cutting block was placed distally and had excellent coverage. This was pinned into position. The distal cut was made. The size 7 cutting block was placed at the previously prepared drill holes from the custom block and cuts were made from posterior to anterior. Subperiosteal release was then carefully performed on the posterior distal femur, being careful to stay on the bony surface. The custom tibial guide was then placed and the drop yoel transected the intermalleolar axis. The cut was made. Tibial baseplate was placed and again the drop yoel transected the intermalleolar axis. This was then prepared with the drill and keel punch. The femoral trial was placed and the trochlear cut was made. The trials were inserted and the patella was prepared by resecting 10 mm off under surface. The peg guide was placed and peg holes were drilled. The 35 trial button was placed. A 10 mm trial insert was placed. The knee was taken through range of motion. Full extension was easily obtained, 120 degrees of flexion with gravity was easily obtained. The patella tracked well. There was no anterior/posterior or medial/lateral laxity in flexion or extension. The trials were removed. The joint was irrigated with pulse lavage. Periarticular block was placed in the posterior capsule, medial and lateral retinaculum, extensor mechanism, subcutaneous tissues. The bone ends were irrigated and dried. The tibial baseplate was cemented into position. Excessive cement was removed. Superior surface was irrigated and dried and the polyethylene insert was placed. Distal femur was irrigated and dried and the femoral prosthesis was then cemented into position. Excessive cement was removed. The knee was brought out into full extension until cement had cured. The undersurface of the patella was irrigated and dried and the patellar button was cemented into position. Once cement cured, the knee was taken through range of motion. The patella tracked well. There was no anterior/posterior or medial/lateral laxity in flexion or extension. He had full extension and flexion to 120 degrees with gravity. The joint was further irrigated with pulse lavage. The arthrotomy was closed with #2 Tevdek in qihbvf-mf-wihgj interrupted fashion. The knee was flexed. The repair was stable. The patella tracked well. Subcutaneous tissues were irrigated with pulse lavage using a total of 6 liters throughout the procedure. 0 Vicryl was used through the deep subcutaneous layer, 2-0 Vicryl for the superficial skin, subcutaneous layer, latanya used on the skin and soft dressing was applied. The tourniquet was deflated. The patient was transferred to recovery room awake and in stable condition. Job ID: [id number] DocumentID: [id number] Dictated Date: 11/27/2022 09:12:40 Finger Grip Machine Operator Date: 11/27/2022 14:02:00 Dictated By: DELVIS SOUSA MD
--- NOTE | 2022-11-27 15:47 | Physical Therapy Evaluation ---
PT Evaluation-General Medical Diagnosis Admission Date Nov 27, 2022 at 06:01 Medical Diagnosis: (L) TKA Onset Date: Nov 27, 2022 Therapy Diagnosis Therapy Diagnosis: impaired mobility; impaired strength and ROM Height/Weight Height (Feet): 5 Height (Inches): 11 Weight (Pounds): 215 Precautions Precautions/Isolations: Standard Precautions Weight Bear Status Full Weight Bearing Full Weight Bearing Referral Physician: Delvis Moreno Reason for Referral: Evaluation/Treatment Medical History Pertinent Medical History: HTN Additional Medical History (R) TKA approximately 5 yrs ago, carpal tunnel repair, TIA Current History Progressive (L) knee pain that did not respond to conservative treatment. Underwent elective left TKA on 11/27/22. Social History Pt plans to d/c to assisted living. 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 Pt's son will be caring for his mother until Mr. Austin is able to resume those duties. Prior Prior Level of Function SCALE: Activities may be completed with or without assistive devices. 3-Gbaypbbozy-nvbqtut completes the activity by him/herself with no assistance from a helper. 5-Set-up or Clean-up Assistance-helper sets up or cleans up; patient completes activity. [place] assists only prior to or following the activity. 4-Supervision or Touching Assistance-helper provides verbal cues and/or touching/steadying and/or contact guard assistance as patient completes activity. Assistance may be provided throughout the activity or intermittently. 3-Partial/Moderate Assistance-helper does LESS THAN HALF the effort. [place] l ifts, holds or supports trunk or limbs, but provides less than half the effort. 2-Substantial/Maximal Assistance-helper does MORE THAN HALF the effort. [place] lifts or holds trunk or limbs and provides more than half the effort. 1-Puvfchwwm-yrkhsg does ALL the effort. Patient does none of the effort to complete the activity. Or, the assistance of 2 or more helpers is required for t he patient to complete the activity. If activity was not attempted, code reason: 7-Patient Refused. 9-Not Applicable-not attempted and the patient did not perform the activity before the current illness, exacerbation or injury. 10-Not Attempted due to Environmental Limitations-(lack of equipment, weather restraints, etc.). 88-Not Attempted due to Medical Conditions or Safety Concerns. Bed Mobility: 6 Transfers (B,C,W/C): 6 Gait: 6 Stairs: 6 PT Evaluation-Current Subjective Pt reports he has no pain at present due to the nerve block utilized. Objective Patient Orientation: Normal For Age Attachments: SCD's, Oxygen, IV ROM/Strength ROM Upper Extremities WFL ROM Lower Extremities (L) knee 5-95 degrees Strength Upper Extremities WFL Strength Lower Extremities (R) 4+/5 (L) LE hip flex 4/5, quads 4/5 Sensory Vision: Functional Hearing: Functional Sensation Left Lower Extremity: Impaired Transfers Roll Left to Right (QC): 6 Sit to Lying (QC): 6 Lying to Sitting/Side of Bed(Q: 6 Sit to Stand (QC): 6 Chair/Pwp-oe-Uzxys Xfer(QC): 5 Gait Gait Assistive Device: FWW Comments/Gait Description Pt stood bedside for balance testing, marching, heel/toe raise, mini squats, hip abduction and wt shifting. No loss of balance. Balance Sitting Static: Normal Sitting Dynamic: Normal Standing Static: Good Standing Dynamic: Good Treatment Performed PrOM (L) knee, (L) knee quad sets 5 x 10 seconds, SLR x 10 with min assist, seated passive knee flexion. Educated patient and his son to work quad sets and passive extension through the evening. Assessment/Needs Rehab Potential: Good PT Half-Way Goals Half-Way Goals PT Half-Way Goals Time Frame: Nov 29, 2022 Roll Left & Right (QC): 6 Sit to Lying (QC): 6 Lying-Sitting on Side/Bed(QC): 6 Sit to Stand (QC): 6 Chair/Ffu-kh-Cemly Xfer(QC): 6 Toilet Transfer (QC): 6 Walk 150 ft (QC): 5 4 Steps (QC): 4 PT Plan Problem List Problem List: Balance, Gait, ROM Treatment/Plan Treatment Plan: Continue Plan of Care Treatment Duration: Nov 29, 2022 Frequency: 11 times per week Time Time In: 1515 Time Out: 1545 DATE: Nov 27, 2022 Total Billed Treatment Time: 30 Total Billed Treatment 1, Evaluation Moderate Complexity 15minutes, ther ex 15 minutes PAT AUGUSTIN PT Nov 27, 2022 15:47
[2022-11-27] MEDS: CEFUROXIME INJECTION 750 MG in NS (IVPB) 50 ML IV SCH ×2 (16:06→23:17)
[2022-11-27] MEDS: TAMSULOSIN 0.4 MG (FLOMAX) CAP PO SCH (20:29)
[2022-11-28] MEDS: ONDANSETRON 4 MG/2 ML (SDV) Z0FRAN IVP PRN ×4 (00:40→19:30)
[2022-11-28 03:44] VITALS: BP 144/76
[2022-11-28 05:49] LABS: HEMOGLOBIN 13.4 g/dL (13.3-17.7)
--- NOTE | 2022-11-28 07:58 | Progress Note ---
Standard Progress Note Progress Notes/Assess & Plan Date Seen by a Provider: Nov 28, 2022 Time Seen by a Provider: 07:57 Progress/Assessment & Plan post op check no complaints radiogrpahs--HW well positioned without fracture LLE--dressing intact sym DP and PT pulses with brisk cap refill intact DF and PF of toes and ankle sensation intact to light touch throughout s/p LTKA mobilize as able Final Diagnosis reports knee is non painful c/o of indigestion Vital Signs Date Time Temp Pulse Resp B/P (MAP) Pulse Ox O2 Delivery O2 Flow Rate FiO2 11/28/22 07:13 95 Room Air 0.00 11/28/22 07:12 98 Nasal Cannula 1.00 11/28/22 03:44 36.6 69 18 144/76 (98) 97 Nasal Cannula 1.00 11/27/22 23:21 36.8 69 18 149/57 (87) 97 Nasal Cannula 1.00 11/27/22 21:06 18 11/27/22 20:30 Nasal Cannula 2.00 11/27/22 20:00 36.6 56 16 146/67 (93) 98 Nasal Cannula 2.00 11/27/22 19:05 99 Nasal Cannula 2.00 11/27/22 15:51 36.4 51 10 127/59 (81) 99 Nasal Cannula 2.00 11/27/22 15:14 97 Nasal Cannula 2.00 11/27/22 12:00 95 Nasal Cannula 2.00 11/27/22 11:09 36.0 58 18 121/64 (83) 95 Nasal Cannula 2.00 11/27/22 11:02 36.0 11/27/22 11:02 18 11/27/22 10:05 35.6 60 18 120/65 (83) 95 Nasal Cannula 2.00 11/27/22 10:00 Room Air 11/27/22 09:50 14 121/56 (77) 92 OxyMask 2.00 11/27/22 09:50 36.2 14 122/57 (78) 92 Room Air 11/27/22 09:45 OxyMask 2.00 11/27/22 09:40 14 117/52 (73) 94 OxyMask 3.00 11/27/22 09:30 14 121/62 (81) 97 OxyMask 4.00 11/27/22 09:28 OxyMask 4.00 11/27/22 09:20 14 101/48 (65) 95 OxyMask 6.00 11/27/22 09:06 OxyMask 6.00 11/27/22 09:06 36.1 16 99/59 (72) 97 OxyMask 6.00 I & O 11/28/22 07:00 Intake Total 3060 ml Output Total 750 ml Balance 2310 ml Laboratory Tests Test 11/28/22 05:10 Range/Units Hemoglobin 13.4 13.3-17.7 g/dL Hematocrit 40 40-54 % LLE--dressing intact no calf tenderness neg Radha's s/p LTKA PT/OT monitor for ileus TRACE SOUSA MD Nov 28, 2022 07:58
[2022-11-28 08:12] VITALS: BP 157/73
--- NOTE | 2022-11-28 08:25 | Anesthesia-General Post-Op ---
General Patient Condition Mental Status/LOC: Same as Preop Cardiovascular: Satisfactory Nausea/Vomiting: Absent Respiratory: Satisfactory Pain: Controlled Complications: Absent Post Op Complications Complications None Follow Up Care/Instructions Patient Instructions None needed. Anesthesia/Patient Condition Patient Condition Patient is doing well, no complaints, stable vital signs, no apparent adverse anesthesia problems. No complications reported per nursing. PADMINI ALFARO CRNA Nov 28, 2022 08:25
[2022-11-28] MEDS: TAMSULOSIN 0.4 MG (FLOMAX) CAP PO SCH ×2 (08:41→19:21)
[2022-11-28] MEDS: NS IV 1000 ML 1,000 ML IV SCH ×2 (08:41→14:26)
[2022-11-28] MEDS: SENNA W/DOCUSATE (SENOKOT S) TABLET PO SCH ×2 (08:41→19:21)
[2022-11-28] MEDS: ASPIRIN E.C. 81 MG (ECOTRIN) TAB PO SCH (08:41)
[2022-11-28] MEDS: ENOXAPARIN INJECTION 30 MG/0.3 ML SYR SC SCH ×2 (08:42→19:20)
[2022-11-28] MEDS ORDERED: CALCIUM CARBONATE 500 MG (TUMS) TAB.CHEW PO PRN (08:45)
--- NOTE | 2022-11-28 09:29 | Occupational Therapy Eval ---
OT Evaluation-General/PLF Medical Diagnosis Admission Date Nov 27, 2022 at 06:01 Medical Diagnosis: (L) TKA Onset Date: Nov 27, 2022 Therapy Diagnosis Therapy Diagnosis: weakness Height/Weight Height (Feet): 5 Height (Inches): 11 Weight (Pounds): 215 Precautions Precautions/Isolations: Fall Prevention, Standard Precautions Comments Impulsive, attempted to exit bed w/ SCDs in place, disorganization of lines, w/o gait belt or FWW in place Weight Bear Status Weight Bearing Restriction: Weight Bearing/Tolerated Location Restriction: L LE Referral Physician: Delvis Moreno Medical History Pertinent Medical History: HTN Additional Medical History Sleeping with pillow over face, C02 being monitored, PCT informed OT that education has been provided to not place pillow over face Current History s/p LTKA Reviewed History: Yes Social History Home: Single Level Current Living Status: Spouse (spouse has dementia, family staying with spouse) ADL-Prior Level of Function SCALE: Activities may be completed with or without assistive devices. 8-Cmeuqirhpm-mfbkywg completes the activity by him/herself with no assistance from a helper. 5-Set-up or Clean-up Assistance-helper sets up or cleans up; patient completes activity. [place] assists only prior to or following the activity. 4-Supervision or Touching Assistance-helper provides verbal cues and/or touching/steadying and/or contact guard assistance as patient completes activity. Assistance may be provided throughout the activity or intermittently. 3-Partial/Moderate Assistance-helper does LESS THAN HALF the effort. [place] lifts, holds or supports trunk or limbs, but provides less than half the effort. 2-Substantial/Maximal Assistance-helper does MORE THAN HALF the effort. [place] lifts or holds trunk or limbs and provides more than half the effort. 0-Hawwadbgh-iwgijg does ALL the effort. Patient does none of the effort to com plete the activity. Or, the assistance of 2 or more helpers is required for the patient to complete the activity. If activity was not attempted, code reason: 7-Patient Refused. 9-Not Applicable-not attempted and the patient did not perform the activity before the current illness, exacerbation or injury. 10-Not Attempted due to Environmental Limitations-(lack of equipment, weather restraints, etc.). 88-Not Attempted due to Medical Conditions or Safety Concerns. Drive Self: Yes OT Current Status Subjective Sleeping w/ pillow over face Pain Numeric Pain Scale: 5-Moderate Pain Location: Left Location Body Site: Knee Mental Status/Objective Patient Orientation: Person, Place, Time, Situation Attachments: IV, SCD's Current Hearing Aids: No (hard of hearing, reports has appt scheduled for possibly next week) Dentures/Partials: No (missing teeth , has appt scheduled ) Upper Extremity ROM BUE ROM WFLS Upper Extremity Strength BUE -4/5 grossly Edema: Instruction provided for White compression hose d/t wrapped around ankle. Decreased flexibility and increased girth, patient reports has difficulty w/ LB dressing pre surgery ADL-Treatment Eating (QC): 6 Oral Hygiene (QC): 5 Shower/Bathe Self (QC): 88 Upper Body Dressing (QC): 4 Lower Body Dressing (QC): 3 On/Off Footwear (QC): 3 Toileting Hygiene (QC): 3 Unstable and shaking w/ standing w/ FWW Education OT Patient Education: Correct positioning, Disease process, Modified ADL techniques, Progress toward Goal/Update tx plan, Purpose of tx/functional ac tivities, Reviewed precautions, Rehab process, Safety issues, Transfer techniques, Use of adapted equipment Teaching Recipient: Patient Teaching Methods: Demonstration, Discussion Response to Teaching: Verbalize Understanding, Reinforcement Needed OT Fdc Goals Fdc Goals Eating (QC): 6 Oral Hygiene (QC): 6 Toileting Hygiene (QC): 6 Shower/Bathe Self (QC): 6 Upper Body Dressing (QC): 6 Lower Body Dressing (QC): 6 On/Off Footwear (QC): 6 1=Demonstrate adherence to instructed precautions during ADL tasks. 2=Patient will verbalize/demonstrate understanding of assistive devices/modifications for ADL. 3=Patient will improve strength/tolerance for activity to enable patient to perform ADL's. OT Education/Plan Problem List/Assessment Assessment: Decreased Activ Tolerance, Decreased Safety Aware, Impaired Coordination, Impaired Funct Balance, Impaired Self-Care Skills Discharge Recommendations Plan/Recommendations: Continue POC Therapy Discharge Recommendati: Post Acute OT Equpiment Recommendations-D/C: Security System Engineer, Sock Aide, Dressing Stick Treatment Plan/Plan of Care Treatment,Training & Education: Yes Patient would benefit from OT for education, treatment and training to promote independence in ADL's, mobility, safety and/or upper extremity function for ADL's. Plan of Care: ADL Retraining, Concurrent Therapy, Functional Mobility, Group Exercise/Act as Ind, UE Funct Exercise/Act Treatment Duration: Dec 14, 2022 Frequency: 3 times per week (3-5 times per week) Rehab Potential: Good Time Start Time: 08:10 Stop Time: 08:28 DATE: Nov 28, 2022 Total Time Billed (hr/min): 18 Billed Treatment Time 1 visit EVM 1 18 min CROW JOHNSON OT Nov 28, 2022 09:29
[2022-11-28] MEDS ORDERED: PROMETHAZINE INJ 25 MG/ML (PHENERGAN) AMP IVP NR (09:30)
[2022-11-28] MEDS: FINASTERIDE (PROSCAR) 5 MG TAB PO SCH (09:56)
[2022-11-28] MEDS: LACTULOSE SYRUP 10GM/15ML (ENULOSE) 30ML UDC PO SCH ×2 (09:56→19:21)
[2022-11-28] MEDS: lisINopril 40 MG (PRINIVIL) TABLET PO SCH (09:56)
--- NOTE | 2022-11-28 10:24 | Physical Therapy Daily Note ---
PT Daily Note-Current Subjective Patient agrees to PT. C/o nausea with meds issued per RN. Pain Numeric Pain Scale: 5-Moderate Pain Location: Left Location Body Site: Knee Pain Description: Acute Section J - Health Conditions 1. Rarely or not at all 2. Occasionally 3. Frequently 4. Almost constantly 8. Unable to answer Pain Effect on Sleep: 1 Pain Interference with Therapy: 1 Pain Interference w/Day-to-Day: 1 Mental Status Patient Orientation: Normal For Age Attachments: Polar Pack, IV Transfers SCALE: Activities may be completed with or without assistive devices. 7-Snlmekaccl-ktbnelh completes the activity by him/herself with no assistance from a helper. 5-Set-up or Clean-up Assistance-helper sets up or cleans up; patient completes activity. [place] assists only prior to or following the activity. 4-Supervision or Touching Assistance-helper provides verbal cues and/or touching/steadying and/or contact guard assistance as patient completes activity . Assistance may be provided throughout the activity or intermittently. 3-Partial/Moderate Assistance-helper does LESS THAN HALF the effort. [place] lifts, holds or supports trunk or limbs, but provides less than half the effort. 2-Substantial/Maximal Assistance-helper does MORE THAN HALF the effort. [place] lifts or holds trunk or limbs and provides more than half the effort. 5-Ipzubzacr-akbrar does ALL the effort. Patient does none of the effort to complete the activity. Or, the assistance of 2 or more helpers is required for the patient to complete the activity. If activity was not attempted, code reason: 7-Patient Refused. 9-Not Applicable-not attempted and the patient did not perform the activity before the current illness, exacerbation or injury. 10-Not Attempted due to Environmental Limitations-(lack of equipment, weather restraints, etc.). 88-Not Attempted due to Medical Conditions or Safety Concerns. Lying to Sitting/Side of Bed(Q: 6 Sit to Stand (QC): 4 Chair/Rhl-ev-Chygk Xfer(QC): 4 Toilet Transfer (QC): 4 Weight Bearing Full Weight Bearing Full Weight Bearing Gait Training Distance: 225' Walk 10 feet (QC): 4 Walk 50 ft with 2 Turns(QC): 4 Walk 150 ft (QC): 4 Gait Assistive Device: FWW steady, slightly antalgic gait sequence/SBA for safety Exercises Supine Ex: Ankle pumps, Quad Set, Heel Slides, Straight leg raise Supine Reps: 12 Seated Therapy Exercises: Long arc quads Seated Reps: 15 Assessment Patient progressing with treatment plan. Patient's left knee AROM 5-90 degrees in sit. Patient up in recliner with needs met. PT to continue to increase activity as tolerated by patient. PT Long-Term Goals Long-Term Goals PT Long-Term Goals Time Frame: Nov 29, 2022 Roll Left & Right (QC): 6 Sit to Lying (QC): 6 Lying-Sitting on Side/Bed(QC): 6 Sit to Stand (QC): 6 Chair/Hsl-gl-Eipxy Xfer(QC): 6 Toilet Transfer (QC): 6 Walk 150 ft (QC): 5 4 Steps (QC): 4 PT Plan Treatment/Plan Treatment Plan: Continue Plan of Care Treatment Duration: Nov 29, 2022 Frequency: 11 times per week Time Time In: 910 Time Out: 933 DATE: Nov 28, 2022 Total Billed Treatment Time: 23 Total Billed Treatment 1 visit EX 13 min GT 10 min ELICEO BROOKE PT Nov 28, 2022 10:24
--- NOTE | 2022-11-28 11:24 | Progress Note - Hospitalist ---
Subjective HPI/CC On Admission Date Seen by Provider: Nov 28, 2022 Subjective/Events-last exam Pt reports feeling ok but nauseated. Thinks it's indigestion. had a BM yesterday but still thinks he could go again as well. Objective Exam Vital Signs Vital Signs Date Time Temp Pulse Resp B/P (MAP) Pulse Ox O2 Delivery O2 Flow Rate FiO2 11/28/22 10:21 93 Room Air 0.00 11/28/22 08:12 37.3 66 18 157/73 (101) Capillary Refill : General Appearance: No Apparent Distress Respiratory: Lungs Clear, No Respiratory Distress Cardiovascular: Regular Rate, Rhythm, No Murmur Gastrointestinal: Normal Bowel Sounds, Non Tender, Soft; No Distended, No Guarding Neurologic/Psychiatric: Alert, Oriented x3 Results/Procedures Lab Laboratory Tests 11/28/22 05:10 Patient resulted labs reviewed. Assessment/Plan Assessment and Plan Assess & Plan/Chief Complaint Left knee osteoarthritis s/p LTKA POD #1 Management per primary Pain regimem- on CASINO ENFORCEMENT AGENT Lovenox PT/OT Social work Bowel regimen- add lactulose and Tums HTN HLD CAD Continue home meds as able On ASA- Resume plavix when ok with surgery Added home BP meds back in today BPH Continue Flomax and resume finasteride VIOLA VALDERRAMA MD Nov 28, 2022 11:24
[2022-11-28 12:06] VITALS: BP 141/73
[2022-11-28] MEDS ORDERED: MIRA50TA PO (12:52)
[2022-11-28] MEDS ORDERED: CLOP75TA28 PO (12:52)
[2022-11-28] MEDS ORDERED: MEMA5TAB43 PO (12:52)
[2022-11-28] MEDS ORDERED: TRIA1TAB3 PO (12:52)
[2022-11-28] MEDS ORDERED: CLOPIDOGREL 75 MG (PLAVIX) TABLET PO NR (13:30)
--- NOTE | 2022-11-28 14:18 | Physical Therapy Daily Note ---
PT Daily Note-Current Subjective Patient agrees to PT. FAmily present. Patient continues to have N&V. Pain Numeric Pain Scale: 6 Location: Left Location Body Site: Knee Pain Description: Acute Section J - Health Conditions 1. Rarely or not at all 2. Occasionally 3. Frequently 4. Almost constantly 8. Unable to answer Pain Effect on Sleep: 1 Pain Interference with Therapy: 1 Pain Interference w/Day-to-Day: 1 Mental Status Patient Orientation: Normal For Age Attachments: Maldonado Catheter, IV Transfers SCALE: Activities may be completed with or without assistive devices. 9-Pixujbbtiu-dhhvfga completes the activity by him/herself with no assistance from a helper. 5-Set-up or Clean-up Assistance-helper sets up or cleans up; patient completes activity. [place] assists only prior to or following the activity. 4-Supervision or Touching Assistance-helper provides verbal cues and/or touching/steadying and/or contact guard assistance as patient completes activi ty. Assistance may be provided throughout the activity or intermittently. 3-Partial/Moderate Assistance-helper does LESS THAN HALF the effort. [place] lifts, holds or supports trunk or limbs, but provides less than half the effort. 2-Substantial/Maximal Assistance-helper does MORE THAN HALF the effort. [place] lifts or holds trunk or limbs and provides more than half the effort. 8-Zmurbbdnu-eahhke does ALL the effort. Patient does none of the effort to complete the activity. Or, the assistance of 2 or more helpers is required for the patient to complete the activity. If activity was not attempted, code reason: 7-Patient Refused. 9-Not Applicable-not attempted and the patient did not perform the activity before the current illness, exacerbation or injury. 10-Not Attempted due to Environmental Limitations-(lack of equipment, weather restraints, etc.). 88-Not Attempted due to Medical Conditions or Safety Concerns. Sit to Lying (QC): 6 Sit to Stand (QC): 4 Chair/Oye-yj-Xqqcb Xfer(QC): 4 Toilet Transfer (QC): 4 Weight Bearing Full Weight Bearing Full Weight Bearing Gait Training Distance: 15' x 2 Walk 10 feet (QC): 5 Gait Assistive Device: FWW Patient too nauseas to ambulate farther Exercises Supine Ex: Ankle pumps, Quad Set, Heel Slides, Straight leg raise Supine Reps: 15 Seated Therapy Exercises: Ankle pumps, Long arc quads Seated Reps: 15 Assessment Patient's left knee AROM progressing. Patient tolerated treatment and is in bed with polar pack in place and HOB elevated. Increase activity as tolerated by patient. PT Skilled Nursing Goals Weight Recorder Goals PT Skilled Nursing Goals Time Frame: Nov 29, 2022 Roll Left & Right (QC): 6 Sit to Lying (QC): 6 Lying-Sitting on Side/Bed(QC): 6 Sit to Stand (QC): 6 Chair/Dif-cz-Uxlgb Xfer(QC): 6 Toilet Transfer (QC): 6 Walk 150 ft (QC): 5 4 Steps (QC): 4 PT Plan Treatment/Plan Treatment Plan: Continue Plan of Care Treatment Duration: Nov 29, 2022 Frequency: 11 times per week Time Time In: 1341 Time Out: 1405 DATE: Nov 28, 2022 Total Billed Treatment Time: 24 Total Billed Treatment 1 visit FA 11 min EX 13 min ELICEO BROOKE PT Nov 28, 2022 14:18
[2022-11-28 16:22] VITALS: BP 171/78
--- NOTE | 2022-11-28 17:14 | Diagnostic Imaging Report ---
INDICATION: Emesis. TECHNIQUE: Supine images of the abdomen are obtained. COMPARISON: 03/18/2020. FINDINGS: There is moderate diffuse gaseous distention of the colon. Gas reaches the level of the sigmoid colon. No significant rectal gas is appreciated. There is no evidence of free intraperitoneal gas or pneumatosis. Lumbar spondylosis is present with surgical findings in the left hip and mild right hip osteoarthritis. IMPRESSION: Gaseous distention of the proximal 80% of colon. This is likely due to ileus although given possible transition at the sigmoid colon, at least partial obstruction cannot be excluded. Contrast enema may be useful or CT scan could be performed. Dictated by: Dictated on workstation # [id number]
[2022-11-28] MEDS ORDERED: PROMETHAZINE INJ 25 MG/ML (PHENERGAN) AMP IVP PRN (18:15)
[2022-11-28] MEDS ORDERED: hydrALAZINE (APESOLINE) 20 MG/ML VIAL IV PRN (18:30)
[2022-11-28 20:00] VITALS: BP 175/78
[2022-11-28 23:08] VITALS: BP 160/70
[2022-11-29] MEDS: NS IV 1000 ML 1,000 ML IV SCH (01:50)
[2022-11-29 03:17] VITALS: BP 157/72
[2022-11-29 05:35] LABS: HEMOGLOBIN 12.4 g/dL (13.3-17.7)
[2022-11-29 05:54] LABS: POTASSIUM 3.7 MMOL/L (3.6-5.0)
[2022-11-29 05:55] LABS: CALCIUM 8.8 MG/DL (8.5-10.1)
[2022-11-29 05:59] LABS: CREATININE SERUM 0.79 MG/DL (0.60-1.30)
[2022-11-29] MEDS ORDERED: morphine INJ 4 MG/ML 1 ML (VIAL/SYRINGE) IVP PRN (07:00)
--- NOTE | 2022-11-29 07:00 | Progress Note ---
Standard Progress Note Progress Notes/Assess & Plan Date Seen by a Provider: Nov 29, 2022 Time Seen by a Provider: 06:52 Progress/Assessment & Plan post op check no complaints radiogrpahs--HW well positioned without fracture LLE--dressing intact sym DP and PT pulses with brisk cap refill intact DF and PF of toes and ankle sensation intact to light touch throughout s/p LTKA mobilize as able Final Diagnosis no complaints Vital Signs Date Time Temp Pulse Resp B/P (MAP) Pulse Ox O2 Delivery O2 Flow Rate FiO2 11/29/22 05:45 18 11/29/22 03:17 36.8 82 20 157/72 (100) 93 Room Air 11/29/22 02:32 92 Room Air 11/28/22 23:08 36.6 85 20 160/70 (100) 93 Room Air 11/28/22 22:22 96 Room Air 11/28/22 20:00 36.6 85 16 175/78 (110) 97 Nasal Cannula 0.50 11/28/22 20:00 Nasal Cannula 0.50 11/28/22 19:24 95 Nasal Cannula 0.50 11/28/22 16:22 37.4 79 19 171/78 (109) 97 Nasal Cannula 0.50 11/28/22 15:13 96 Nasal Cannula 0.50 11/28/22 12:06 36.3 82 18 141/73 (95) 94 Room Air 11/28/22 10:21 93 Room Air 0.00 11/28/22 09:00 98 Room Air 11/28/22 08:12 37.3 66 18 157/73 (101) 94 Room Air 11/28/22 07:13 95 Room Air 0.00 11/28/22 07:12 98 Nasal Cannula 1.00 I & O 11/29/22 07:00 Intake Total 400 ml Output Total 450 ml Balance -50 ml Laboratory Tests Test 11/29/22 05:05 Range/Units Hemoglobin 12.4 L 13.3-17.7 g/dL Hematocrit 38 L 40-54 % Sodium Level 141 135-145 MMOL/L Potassium Level 3.7 3.6-5.0 MMOL/L Chloride Level 109 H 98-107 MMOL/L Carbon Dioxide Level 23 21-32 MMOL/L Anion Gap 9 5-14 MMOL/L Blood Urea Nitrogen 14 7-18 MG/DL Creatinine 0.79 0.60-1.30 MG/DL Estimat Glomerular Filtration Rate 88 BUN/Creatinine Ratio 18 Glucose Level 133 H 70-105 MG/DL Calcium Level 8.8 8.5-10.1 MG/DL LLE--incision clean and dry\ no calf tenderness neg Radha's s/p LTKA doing well DC to [facility] today TRACE SOUSA MD Nov 29, 2022 07:00
[2022-11-29 08:03] VITALS: BP 168/70
[2022-11-29] MEDS: ONDANSETRON 4 MG/2 ML (SDV) Z0FRAN IVP PRN (08:39)
[2022-11-29] MEDS: ENOXAPARIN INJECTION 30 MG/0.3 ML SYR SC SCH ×2 (08:39→20:29)
[2022-11-29] MEDS: FINASTERIDE (PROSCAR) 5 MG TAB PO SCH (09:52)
[2022-11-29] MEDS: TAMSULOSIN 0.4 MG (FLOMAX) CAP PO SCH ×2 (09:52→20:29)
[2022-11-29] MEDS: SENNA W/DOCUSATE (SENOKOT S) TABLET PO SCH ×2 (09:52→20:30)
[2022-11-29] MEDS: lisINopril 40 MG (PRINIVIL) TABLET PO SCH (09:52)
[2022-11-29] MEDS: LACTULOSE SYRUP 10GM/15ML (ENULOSE) 30ML UDC PO SCH ×2 (09:53→20:30)
[2022-11-29] MEDS: CLOPIDOGREL 75 MG (PLAVIX) TABLET PO SCH (09:53)
[2022-11-29] MEDS: ASPIRIN E.C. 81 MG (ECOTRIN) TAB PO SCH (09:53)
--- NOTE | 2022-11-29 10:09 | Physical Therapy Daily Note ---
PT Daily Note-Current Subjective Patient agrees to PT. Pain Numeric Pain Scale: 5-Moderate Pain Location: Left Location Body Site: Knee Pain Description: Acute Section J - Health Conditions 1. Rarely or not at all 2. Occasionally 3. Frequently 4. Almost constantly 8. Unable to answer Pain Effect on Sleep: 1 Pain Interference with Therapy: 1 Pain Interference w/Day-to-Day: 1 Mental Status Patient Orientation: Normal For Age Attachments: Polar Pack, IV Transfers SCALE: Activities may be completed with or without assistive devices. 2-Acapngcndw-udkidac completes the activity by him/herself with no assistance from a helper. 5-Set-up or Clean-up Assistance-helper sets up or cleans up; patient completes activity. [place] assists only prior to or following the activity. 4-Supervision or Touching Assistance-helper provides verbal cues and/or touching/steadying and/or contact guard assistance as patient completes activity. Assistance may be provided throughout the activity or intermittently. 3-Partial/Moderate Assistance-helper does LESS THAN HALF the effort. [place] lifts, holds or supports trunk or limbs, but provides less than half the effort. 2-Substantial/Maximal Assistance-helper does MORE THAN HALF the effort. [place] lifts or holds trunk or limbs and provides more than half the effort. 4-Eyqwommyh-tjkmap does ALL the effort. Patient does none of the effort to complete the activity. Or, the assistance of 2 or more helpers is required for the patient to complete the activity. If activity was not attempted, code reason: 7-Patient Refused. 9-Not Applicable-not attempted and the patient did not perform the activity before the current illness, exacerbation or injury. 10-Not Attempted due to Environmental Limitations-(lack of equipment, weather restraints, etc.). 88-Not Attempted due to Medical Conditions or Safety Concerns. Sit to Stand (QC): 5 Weight Bearing Full Weight Bearing Full Weight Bearing Gait Training Distance: 250' Walk 10 feet (QC): 4 Walk 50 ft with 2 Turns(QC): 4 Walk 150 ft (QC): 4 Gait Assistive Device: FWW reciprocal pattern/antalgic/VC's for heel-toe gait Exercises Supine Ex: Ankle pumps, Quad Set, Heel Slides, Straight leg raise Supine Reps: 15 (in recliner with bilateral LE elevated) Seated Therapy Exercises: Long arc quads Seated Reps: 15 Assessment Patient progressing with treatment plan with functional AROM left knee. PT to continue to increase activity. PT Longterm Goals Longterm Goals PT Fiberglass Quality Technician Goals Time Frame: Nov 29, 2022 Roll Left & Right (QC): 6 Sit to Lying (QC): 6 Lying-Sitting on Side/Bed(QC): 6 Sit to Stand (QC): 6 Chair/Inb-in-Skvuf Xfer(QC): 6 Toilet Transfer (QC): 6 Walk 150 ft (QC): 5 4 Steps (QC): 4 PT Plan Treatment/Plan Treatment Plan: Continue Plan of Care Treatment Duration: Nov 29, 2022 Frequency: 11 times per week Time Time In: 855 Time Out: 919 DATE: Nov 29, 2022 Total Billed Treatment Time: 24 Total Billed Treatment 1 visit GT 10 min EX 14 min ELICEO BROOKE PT Nov 29, 2022 10:09
--- NOTE | 2022-11-29 10:39 | Progress Note - Hospitalist ---
Subjective HPI/CC On Admission Date Seen by Provider: Nov 29, 2022 Patient was admitted to the hospital today by orthopedic surgery for left knee replacement. He reports doing well and having no pain. He states he took all of his morning medications today. He has no complaints for me and states he is feeling quite well. I am consulted for medical management. Son is at bedside and states he and his two siblings plan to help provide care for patient and his while he recovers. They are looking at NH placement though as well. Subjective/Events-last exam pt reports feeling ok and already worked with PT. Still has not had a BM or passed gas. Discussed KUB results with patient and son concerning for ileus. Will hold on DC to resolve GI issues. Family appreciative of plan. I updated Dr Moreno as well. Objective Exam Vital Signs Vital Signs Date Time Temp Pulse Resp B/P (MAP) Pulse Ox O2 Delivery O2 Flow Rate FiO2 11/29/22 10:17 18 11/29/22 09:00 98 Room Air 11/29/22 08:03 36.5 75 168/70 (102) 11/28/22 20:00 0.50 Capillary Refill : General Appearance: No Apparent Distress Respiratory: Lungs Clear, No Respiratory Distress Cardiovascular: Regular Rate, Rhythm, No Murmur Gastrointestinal: Normal Bowel Sounds (present and normactive), Non Tender, Distended Neurologic/Psychiatric: Alert, Oriented x3 Results/Procedures Lab Laboratory Tests 11/29/22 05:05 Patient resulted labs reviewed. Imaging: Reviewed Imaging Report Assessment/Plan Assessment and Plan Assess & Plan/Chief Complaint Left knee osteoarthritis s/p LTKA POD #2 Management per primary Pain regimen Lovenox PT/OT Social work approved from DC to [facility]- hopeful for Friday DC if bowel function returns Postoperative ileus KUB consistent with ileus Add reglan NPO except pills If not gas or BM by this afternoon restart IVF May need NGT as well if nto improvement Continue bowel regimen HTN HLD CAD Continue home meds as able On ASA and Plavix Continue home BP BPH Continue Flomax and finasteride dvt ppx: Lovenox VIOLA VALDERRAMA MD Nov 29, 2022 10:39
[2022-11-29] MEDS: METOCLOPRAMIDE INJ 10 MG/2 ML (REGLAN) IVP SCH ×4 (11:28→23:10)
[2022-11-29 12:52] VITALS: BP 174/75
--- NOTE | 2022-11-29 13:15 | Physical Therapy Daily Note ---
PT Daily Note-Current Subjective Patient agrees to PT. Pain Numeric Pain Scale: 5-Moderate Pain Location: Left Location Body Site: Knee Pain Description: Acute Section J - Health Conditions 1. Rarely or not at all 2. Occasionally 3. Frequently 4. Almost constantly 8. Unable to answer Pain Effect on Sleep: 1 Pain Interference with Therapy: 1 Pain Interference w/Day-to-Day: 1 Mental Status Patient Orientation: Normal For Age Transfers SCALE: Activities may be completed with or without assistive devices. 3-Trydjsihhp-nxbzzpy completes the activity by him/herself with no assistance from a helper. 5-Set-up or Clean-up Assistance-helper sets up or cleans up; patient completes activity. [place] assists only prior to or following the activity. 4-Supervision or Touching Assistance-helper provides verbal cues and/or touching/steadying and/or contact guard assistance as patient completes activity. Assistance may be provided throughout the activity or intermittently. 3-Partial/Moderate Assistance-helper does LESS THAN HALF the effort. [place] lifts, holds or supports trunk or limbs, but provides less than half the effort. 2-Substantial/Maximal Assistance-helper does MORE THAN HALF the effort. [place] lifts or holds trunk or limbs and provides more than half the effort. 1-Bzjepfere-rgafcf does ALL the effort. Patient does none of the effort to complete the activity. Or, the assistance of 2 or more helpers is required for the patient to complete the activity. If activity was not attempted, code reason: 7-Patient Refused. 9-Not Applicable-not attempted and the patient did not perform the activity before the current illness, exacerbation or injury. 10-Not Attempted due to Environmental Limitations-(lack of equipment, weather restraints, etc.). 88-Not Attempted due to Medical Conditions or Safety Concerns. Sit to Stand (QC): 6 Weight Bearing Full Weight Bearing Full Weight Bearing Gait Training Distance: 250' Walk 10 feet (QC): 4 Walk 50 ft with 2 Turns(QC): 4 Walk 150 ft (QC): 4 Gait Assistive Device: FWW reciprocal pattern/VC's for posture and to normalize gait sequence (heel-toe) Exercises Supine Ex: Ankle pumps, Quad Set, Heel Slides, Straight leg raise Supine Reps: 12 Seated Therapy Exercises: Long arc quads Seated Reps: 12 Assessment Patient tolerated treatment well and will remain in the hospital due to bowel issues. PT to continue to increase activity as tolerated by patient. PT Prison Goals Water Fabricator Operator Goals PT Water Fabricator Operator Goals Time Frame: Nov 29, 2022 Roll Left & Right (QC): 6 Sit to Lying (QC): 6 Lying-Sitting on Side/Bed(QC): 6 Sit to Stand (QC): 6 Chair/Whm-rw-Ipido Xfer(QC): 6 Toilet Transfer (QC): 6 Walk 150 ft (QC): 5 4 Steps (QC): 4 PT Plan Treatment/Plan Treatment Plan: Continue Plan of Care Treatment Duration: Nov 29, 2022 Frequency: 11 times per week Time Time In: 1250 Time Out: 1306 DATE: Nov 29, 2022 Total Billed Treatment Time: 16 Total Billed Treatment 1 visit FA 16 min ELICEO BROOKE PT Nov 29, 2022 13:15
--- NOTE | 2022-11-29 14:54 | Occupational Ther Daily Note ---
OT Current Status-Daily Note Subjective Patient c/o inability "to GO: referring to BM Mental Status/Objective Patient Orientation: Person, Confused ADL-Treatment Therapy Code Descriptions/Definitions Functional [place] Measure: 0=Not Assessed/NA 4=Minimal Assistance 1=Total Assistance 5=Supervision or Setup 2=Maximal Assistance 6=Modified [place] 3=Moderate Assistance 7=Complete IndependenceSCALE: Activities may be completed with or without assistive devices. 7-Deunsqakdi-oqbfpvu completes the activity by him/herself with no assistance from a helper. 5-Set-up or Clean-up Assistance-helper sets up or cleans up; patient completes activity. [place] assists only prior to or following the activity. 4-Supervision or Touching Assistance-helper provides verbal cues and/or touching/steadying and/or contact guard assistance as patient completes activity. Assistance may be provided throughout the activity or intermittently. 3-Partial/Moderate Assistance-helper does LESS THAN HALF the effort. [place] lifts, holds or supports trunk or limbs, but provides less than half the effort. 2-Substantial/Maximal Assistance-helper does MORE THAN HALF the effort. [place] lifts or holds trunk or limbs and provides more than half the effort. 0-Fkwxrjlqw-jiksbt does ALL the effort. Patient does none of the effort to complete the activity. Or, the assistance of 2 or more helpers is required for the patient to complete the activity. If activity was not attempted, code reason: 7-Patient Refused. 9-Not Applicable-not attempted and the patient did not perform the activity before the current illness, exacerbation or injury. 10-Not Attempted due to Environmental Limitations-(lack of equipment, weather restraints, etc.). 88-Not Attempted due to Medical Conditions or Safety Concerns. Eating (QC): 6 Oral Hygiene (QC): 5 (sitting w/ set up) Shower/Bathe Self (QC): 7 (declined) Upper Body Dressing (QC): 4 Lower Body Dressing (QC): 7 On/Off Footwear: 7 Toileting Hygiene (QC): 7 Toilet Transfer (QC): 7 Patient declined OOB activity, performed isometric muscle strengthening for ADLS and Transfer Education OT Patient Education: Disease process, Exercise program, Progress toward Goal/Update tx plan, Purpose of tx/functional activities, Reviewed precautions, Rehab process, Safety issues, Transfer techniques Teaching Recipient: Patient Teaching Methods: Demonstration, Discussion Response to Teaching: Verbalize Understanding OT Ct Manager Goals Ct Manager Goals Eating (QC): 6 Oral Hygiene (QC): 6 Toileting Hygiene (QC): 6 Shower/Bathe Self (QC): 6 Upper Body Dressing (QC): 6 Lower Body Dressing (QC): 6 On/Off Footwear (QC): 6 1=Demonstrate adherence to instructed precautions during ADL tasks. 2=Patient will verbalize/demonstrate understanding of assistive devices/modifications for ADL. 3=Patient will improve strength/tolerance for activity to enable patient to perform ADL's. OT Education/Plan Problem List/Assessment Assessment: Decreased Activ Tolerance, Decreased Safety Aware, Decreased UE Strength, Impaired Self-Care Skills Discharge Recommendations Plan/Recommendations: Continue POC Treatment Plan/Plan of Care Treatment,Training & Education: Yes Patient would benefit from OT for education, treatment and training to promote independence in ADL's, mobility, safety and/or upper extremity function for ADL's. Plan of Care: ADL Retraining, Concurrent Therapy, Functional Mobility, Group Exercise/Act as Ind, UE Funct Exercise/Act Treatment Duration: Dec 14, 2022 Frequency: 3 times per week (3-5 times per week) Rehab Potential: Good Time Start Time: 14:20 Stop Time: 14:43 DATE: Nov 29, 2022 Total Time Billed (hr/min): 13 Billed Treatment Time 1 visit EX 1 13 min CROW JOHNSON OT Nov 29, 2022 14:53
[2022-11-29 16:00] VITALS: BP 175/74
[2022-11-29 19:25] VITALS: BP 179/81
[2022-11-29] MEDS: oxyCODONE/APAP 5/325MG (PERCOCET 5) TABLET PO PRN (20:29)
--- NOTE | 2022-11-29 23:45 | DISCHARGE SUMMARY ---
DIAGNOSIS: 1. Left knee primary osteoarthritis. 2. History of TIA. 3. Hypertension. PERFORMED: Left total knee arthroplasty. SUMMARY: The patient is an 82-year-old gentleman who underwent a left total knee arthroplasty on date of admission. Postoperatively, he did well. At the time of discharge, his wound was clean and dry. He had no calf tenderness and negative Homans sign. He was tolerating his diet well and tolerating pain with oral pain medication. CONDITION AT DISCHARGE: Good. DISCHARGE Diet: Regular. FOLLOWUP: Followup is in 3 weeks. ACTIVITIES: Weightbearing as tolerated with a walker. DISCHARGE DISPOSITION: Transferred to [facility] facility for continued physical and occupational therapy . Job ID: [id number] DocumentID: [id number] Dictated Date: 11/29/2022 07:02:53 Dielectric Press Operator Date: 11/29/2022 23:44:00 Dictated By: TRACE SOUSA MD
[2022-11-30] VITALS (7 sets, daily range): BP systolic 124–167; BP diastolic 60–82
[2022-11-30] MEDS: METOCLOPRAMIDE INJ 10 MG/2 ML (REGLAN) IVP SCH ×4 (05:40→23:47)
--- NOTE | 2022-11-30 06:36 | Progress Note ---
Standard Progress Note Progress Notes/Assess & Plan Date Seen by a Provider: Nov 30, 2022 Time Seen by a Provider: 06:26 Progress/Assessment & Plan post op check no complaints radiogrpahs--HW well positioned without fracture LLE--dressing intact sym DP and PT pulses with brisk cap refill intact DF and PF of toes and ankle sensation intact to light touch throughout s/p LTKA mobilize as able Final Diagnosis reports small BM LLE--dressing intact no calf tenderness Neg Radha's Vital Signs Date Time Temp Pulse Resp B/P (MAP) Pulse Ox O2 Delivery O2 Flow Rate FiO2 11/30/22 03:49 37.8 73 18 142/68 (92) 94 Room Air 11/30/22 00:15 37.8 82 18 124/60 (81) 93 Room Air 11/29/22 20:54 97 Room Air 11/29/22 19:25 37.8 88 18 179/81 (113) 94 Room Air 11/29/22 16:00 37.2 71 18 175/74 (107) 96 Room Air 11/29/22 12:52 37.0 78 18 174/75 (108) 96 Room Air 11/29/22 10:17 18 11/29/22 09:00 98 Room Air 11/29/22 08:03 36.5 75 18 168/70 (102) 95 Room Air 11/29/22 07:17 94 Room Air 11/29/22 07:13 94 Room Air I & O 11/30/22 07:00 Intake Total 850 ml Balance 850 ml Laboratory Tests Test 11/30/22 06:00 Range/Units Hemoglobin 12.0 L 13.3-17.7 g/dL Hematocrit 35 L 40-54 % s/p LTKA with Ileus to NH when ileus improved TRACE SOUSA MD Nov 30, 2022 06:36
[2022-11-30] MEDS: ENOXAPARIN INJECTION 30 MG/0.3 ML SYR SC SCH ×2 (08:43→19:51)
[2022-11-30] MEDS: TAMSULOSIN 0.4 MG (FLOMAX) CAP PO SCH ×2 (08:44→19:50)
[2022-11-30] MEDS: FINASTERIDE (PROSCAR) 5 MG TAB PO SCH (08:44)
[2022-11-30] MEDS: LACTULOSE SYRUP 10GM/15ML (ENULOSE) 30ML UDC PO SCH ×2 (08:44→19:51)
[2022-11-30] MEDS: CLOPIDOGREL 75 MG (PLAVIX) TABLET PO SCH (08:44)
[2022-11-30] MEDS: SENNA W/DOCUSATE (SENOKOT S) TABLET PO SCH ×2 (08:44→19:51)
[2022-11-30] MEDS: lisINopril 40 MG (PRINIVIL) TABLET PO SCH (08:44)
[2022-11-30] MEDS: ASPIRIN E.C. 81 MG (ECOTRIN) TAB PO SCH (08:44)
--- NOTE | 2022-11-30 10:12 | Progress Note - Hospitalist ---
Subjective HPI/CC On Admission Date Seen by Provider: Nov 30, 2022 Patient was admitted to the hospital today by orthopedic surgery for left knee replacement. He reports doing well and having no pain. He states he took all of his morning medications today. He has no complaints for me and states he is feeling quite well. I am consulted for medical management. Son is at bedside and states he and his two siblings plan to help provide care for patient and his while he recovers. They are looking at NH placement though as well. Subjective/Events-last exam Pt reports doing well. Had a BM though small. Tolerating clears. Pain con trolled. Objective Exam Vital Signs Vital Signs Date Time Temp Pulse Resp B/P (MAP) Pulse Ox O2 Delivery O2 Flow Rate FiO2 11/30/22 08:34 37.2 74 19 135/69 (91) 95 Room Air 11/28/22 20:00 0.50 Capillary Refill : General Appearance: No Apparent Distress Respiratory: Lungs Clear, No Respiratory Distress Cardiovascular: Regular Rate, Rhythm, No Murmur Gastrointestinal: Non Tender, Soft, Abnormal Bowel Sounds (present but quiet), Distended; No Guarding Neurologic/Psychiatric: Alert, Oriented x3 Results/Procedures Lab Laboratory Tests 11/30/22 06:00 Patient resulted labs reviewed. Imaging: Reviewed Imaging Report Assessment/Plan Assessment and Plan Assess & Plan/Chief Complaint Left knee osteoarthritis s/p LTKA POD #3 Management per primary Pain regimen Lovenox PT/OT Social work approved from DC to [facility]- hopeful for Friday NH if bowel function returns Postoperative ileus KUB consistent with ileus Continue reglan Had a BM today CLD Continue bowel regimen HTN HLD CAD Continue home meds as able On ASA and Plavix Continue home BP BPH Continue Flomax and finasteride dvt ppx: Lovenox VIOLA VALDERRAMA MD Nov 30, 2022 10:12
--- NOTE | 2022-11-30 12:34 | Physical Therapy Daily Note ---
PT Daily Note-Current Subjective Pt reports abdominal pain due to ileus. He is agreeable to exercise and gait. Pain Section J - Health Conditions 1. Rarely or not at all 2. Occasionally 3. Frequently 4. Almost constantly 8. Unable to answer Pain Effect on Sleep: 1 Pain Interference with Therapy: 1 Pain Interference w/Day-to-Day: 1 Transfers SCALE: Activities may be completed with or without assistive devices. 8-Prkioxplay-jxtslac completes the activity by him/herself with no assistance from a helper. 5-Set-up or Clean-up Assistance-helper sets up or cleans up; patient completes activity. [place] assists only prior to or following the activity. 4-Supervision or Touching Assistance-helper provides verbal cues and/or touching/steadying and/or contact guard assistance as patient completes activity. Assistance may be provided throughout the activity or intermittently. 3-Partial/Moderate Assistance-helper does LESS THAN HALF the effort. [place] lifts, holds or supports trunk or limbs, but provides less than half the effort. 2-Substantial/Maximal Assistance-helper does MORE THAN HALF the effort. [place] lifts or holds trunk or limbs and provides more than half the effort. 3-Reyloobpt-woxhlz does ALL the effort. Patient does none of the effort to complete the activity. Or, the assistance of 2 or more helpers is required for the patient to complete the activity. If activity was not attempted, code reason: 7-Patient Refused. 9-Not Applicable-not attempted and the patient did not perform the activity before the current illness, exacerbation or injury. 10-Not Attempted due to Environmental Limitations-(lack of equipment, weather restraints, etc.). 88-Not Attempted due to Medical Conditions or Safety Concerns. Roll Left & Right (QC): 6 Sit to Lying (QC): 6 Lying to Sitting/Side of Bed(Q: 6 Sit to Stand (QC): 6 Chair/Kvw-hz-Ulmdr Xfer(QC): 6 Weight Bearing Full Weight Bearing Full Weight Bearing Gait Training Distance: 200 Gait Assistive Device: FWW Ambulate 200ft with FWW and SBA. Pt is steady during gait with no LOB Exercises Seated Therapy Exercises: Long arc quads Performed (L) knee PROM for flexion and extension, quad sets, and seated foot drags. Assessment Current Status: Good Progress Pt showing improved knee ROM. Gait is steady. Pt will benefit from continued PT to adress mobility and knee ROM. PT Skilled Nursing Goals Aircraft Structure Mechanic Goals PT Skilled Nursing Goals Time Frame: Nov 29, 2022 Roll Left & Right (QC): 6 Sit to Lying (QC): 6 Lying-Sitting on Side/Bed(QC): 6 Sit to Stand (QC): 6 Chair/Pgi-pk-Oujfd Xfer(QC): 6 Toilet Transfer (QC): 6 Walk 150 ft (QC): 5 4 Steps (QC): 4 PT Plan Treatment/Plan Treatment Plan: Continue Plan of Care Treatment Duration: Nov 29, 2022 Frequency: 11 times per week Time Time In: 1115 Time Out: 1130 DATE: Nov 30, 2022 Total Billed Treatment Time: 15 Total Billed Treatment Visit, gt 5 min, ex 10 min PAT AUGUSTIN PT Nov 30, 2022 12:34
[2022-11-30] MEDS: oxyCODONE/APAP 5/325MG (PERCOCET 5) TABLET PO PRN (19:51)
[2022-12-01] VITALS (7 sets, daily range): BP systolic 155–180; BP diastolic 76–84
[2022-12-01] MEDS: METOCLOPRAMIDE INJ 10 MG/2 ML (REGLAN) IVP SCH ×4 (05:11→23:45)
--- NOTE | 2022-12-01 06:33 | Progress Note ---
Standard Progress Note Progress Notes/Assess & Plan Date Seen by a Provider: Dec 01, 2022 Time Seen by a Provider: 06:24 Progress/Assessment & Plan post op check no complaints radiogrpahs--HW well positioned without fracture LLE--dressing intact sym DP and PT pulses with brisk cap refill intact DF and PF of toes and ankle sensation intact to light touch throughout s/p LTKA mobilize as able Final Diagnosis feeling better large BM last night reports knee is doing well Vital Signs Date Time Temp Pulse Resp B/P (MAP) Pulse Ox O2 Delivery O2 Flow Rate FiO2 12/01/22 04:55 37.2 79 20 155/84 (107) 97 Room Air 11/30/22 23:46 37.4 83 20 149/82 (104) 98 Room Air 11/30/22 21:00 Room Air 11/30/22 19:18 37.5 83 18 161/66 (97) Room Air 11/30/22 15:41 37.6 72 18 165/71 (102) 95 Room Air 11/30/22 11:31 37.1 65 19 167/74 (105) 97 Room Air 11/30/22 09:00 Room Air 11/30/22 08:34 37.2 74 19 135/69 (91) 95 Room Air I & O 12/01/22 07:00 Intake Total 1350 ml Balance 1350 ml LLE--dressing intact no calf tenderness neg Radha's s/p LTKA with resolving ileus likely DC to [place] tomorrow TRACE SOUSA MD Dec 01, 2022 06:33
--- NOTE | 2022-12-01 06:46 | DISCHARGE SUMMARY ---
ADDENDUM: The patient developed an ileus and therefore remained hospitalized until 12/02/2022. His ileus had resolved. He had had a bowel movement, was passing gas and tolerating his diet well. Job ID: [id number] DocumentID: [id number] Dictated Date: 12/01/2022 06:32:09 Pad Extraction Tender Date: 12/01/2022 06:43:00 Dictated By: TRACE SOUSA MD
[2022-12-01] MEDS: CLOPIDOGREL 75 MG (PLAVIX) TABLET PO SCH (08:01)
[2022-12-01] MEDS: lisINopril 40 MG (PRINIVIL) TABLET PO SCH (08:01)
[2022-12-01] MEDS: ENOXAPARIN INJECTION 30 MG/0.3 ML SYR SC SCH ×2 (08:01→19:30)
[2022-12-01] MEDS: TAMSULOSIN 0.4 MG (FLOMAX) CAP PO SCH ×2 (08:01→19:30)
[2022-12-01] MEDS: FINASTERIDE (PROSCAR) 5 MG TAB PO SCH (08:01)
[2022-12-01] MEDS: ASPIRIN E.C. 81 MG (ECOTRIN) TAB PO SCH (08:01)
[2022-12-01] MEDS: LACTULOSE SYRUP 10GM/15ML (ENULOSE) 30ML UDC PO SCH ×2 (08:03→19:32)
[2022-12-01] MEDS: SENNA W/DOCUSATE (SENOKOT S) TABLET PO SCH ×2 (08:04→19:30)
--- NOTE | 2022-12-01 10:55 | Progress Note - Hospitalist ---
Subjective HPI/CC On Admission Date Seen by Provider: Dec 01, 2022 Patient was admitted to the hospital today by orthopedic surgery for left knee replacement. He reports doing well and having no pain. He states he took all of his morning medications today. He has no complaints for me and states he is feeling quite well. I am consulted for medical management. Son is at bedside and states he and his two siblings plan to help provide care for patient and his while he recovers. They are looking at NH placement though as well. Subjective/Events-last exam Pt reports doing well. Had a large BM this morning. Feels much better now. No complaints. Hopeful to DC home tomorrow. Objective Exam Vital Signs Vital Signs Date Time Temp Pulse Resp B/P (MAP) Pulse Ox O2 Delivery O2 Flow Rate FiO2 12/01/22 08:00 37.0 84 19 176/83 (114) 97 Room Air 11/28/22 20:00 0.50 Capillary Refill : General Appearance: No Apparent Distress, WD/WN Respiratory: Lungs Clear, No Respiratory Distress Cardiovascular: Regular Rate, Rhythm, No Murmur Gastrointestinal: Normal Bowel Sounds, Non Tender, Soft Neurologic/Psychiatric: Alert, Oriented x3 Results/Procedures Lab Patient resulted labs reviewed. Imaging: Reviewed Imaging Report Assessment/Plan Assessment and Plan Assess & Plan/Chief Complaint Left knee osteoarthritis s/p LTKA POD #4 Management per primary Pain regimen Kenny PT/OT Social work approved from DC to SNF- hopeful for DC tomorrow Postoperative ileus- resolved KUB consistent with ileus on 11/28 Continue reglan Had large BM today Advance diet Continue bowel regimen HTN HLD CAD Continue home meds as able On ASA and Plavix BPH Continue Flomax and finasteride dvt ppx: VIOLA Elmore MD Dec 01, 2022 10:55
[2022-12-01] MEDS ORDERED: amLODIPine 5 MG (NORVASC) TAB PO NR (11:00)
[2022-12-01] MEDS: oxyCODONE/APAP 5/325MG (PERCOCET 5) TABLET PO PRN (19:31)
[2022-12-02 03:35] VITALS: BP 162/94
[2022-12-02] MEDS: METOCLOPRAMIDE INJ 10 MG/2 ML (REGLAN) IVP SCH ×2 (05:14→11:38)
--- NOTE | 2022-12-02 05:53 | Progress Note ---
Standard Progress Note Progress Notes/Assess & Plan Date Seen by a Provider: Dec 02, 2022 Time Seen by a Provider: 05:51 Progress/Assessment & Plan post op check no complaints radiogrpahs--HW well positioned without fracture LLE--dressing intact sym DP and PT pulses with brisk cap refill intact DF and PF of toes and ankle sensation intact to light touch throughout s/p LTKA mobilize as able Final Diagnosis resting Vital Signs Date Time Temp Pulse Resp B/P (MAP) Pulse Ox O2 Delivery O2 Flow Rate FiO2 12/02/22 03:35 36.4 83 20 162/94 (116) 95 Room Air 12/01/22 23:01 36.9 76 20 161/76 (104) 96 Room Air 12/01/22 20:45 Room Air 12/01/22 19:12 37.0 79 18 170/78 (108) 96 Room Air 12/01/22 17:50 84 19 174/79 (110) 96 12/01/22 16:22 36.4 80 19 180/79 (112) 97 Room Air 12/01/22 12:38 36.9 66 18 173/77 (109) 97 Room Air 12/01/22 08:00 37.0 84 19 176/83 (114) 97 Room Air 12/01/22 07:23 Room Air I & O 12/02/22 07:00 Intake Total 1590 ml Balance 1590 ml LLE dressing i tact no calf tenderness S/P LTKA Dc to NH when ok with hospitalist TRACE SOUSA MD Dec 02, 2022 05:53
[2022-12-02] MEDS: LACTULOSE SYRUP 10GM/15ML (ENULOSE) 30ML UDC PO SCH (07:47)
[2022-12-02 07:57] VITALS: BP 149/76
[2022-12-02] MEDS: ENOXAPARIN INJECTION 30 MG/0.3 ML SYR SC SCH (07:59)
[2022-12-02] MEDS: ASPIRIN E.C. 81 MG (ECOTRIN) TAB PO SCH (08:00)
[2022-12-02] MEDS: CLOPIDOGREL 75 MG (PLAVIX) TABLET PO SCH (08:00)
[2022-12-02] MEDS: lisINopril 40 MG (PRINIVIL) TABLET PO SCH (08:00)
[2022-12-02] MEDS: SENNA W/DOCUSATE (SENOKOT S) TABLET PO SCH (08:00)
[2022-12-02] MEDS: TAMSULOSIN 0.4 MG (FLOMAX) CAP PO SCH (08:01)
[2022-12-02] MEDS: FINASTERIDE (PROSCAR) 5 MG TAB PO SCH (08:01)
[2022-12-02] MEDS ORDERED: amLODIPine 5 MG (NORVASC) TAB PO SCH (09:00)
--- NOTE | 2022-12-02 09:43 | Occupational Ther Daily Note ---
OT Current Status-Daily Note ADL-Treatment Therapy Code Descriptions/Definitions Functional [place] Measure: 0=Not Assessed/NA 4=Minimal Assistance 1=Total Assistance 5=Supervision or Setup 2=Maximal Assistance 6=Modified [place] 3=Moderate Assistance 7=Complete IndependenceSCALE: Activities may be completed with or without assistive devices. 8-Qywweuysyh-srkwfte completes the activity by him/herself with no assistance from a helper. 5-Set-up or Clean-up Assistance-helper sets up or cleans up; patient completes activity. [place] assists only prior to or following the activity. 4-Supervision or Touching Assistance-helper provides verbal cues and/or touching/steadying and/or contact guard assistance as patient completes activity. Assistance may be provided throughout the activity or intermittently. 3-Partial/Moderate Assistance-helper does LESS THAN HALF the effort. [place] lifts, holds or supports trunk or limbs, but provides less than half the effort. 2-Substantial/Maximal Assistance-helper does MORE THAN HALF the effort. [place] lifts or holds trunk or limbs and provides more than half the effort. 3-Wezpysndk-kqxmjx does ALL the effort. Patient does none of the effort to complete the activity. Or, the assistance of 2 or more helpers is required for the patient to complete the activity. If activity was not attempted, code reason: 7-Patient Refused. 9-Not Applicable-not attempted and the patient did not perform the activity before the current illness, exacerbation or injury. 10-Not Attempted due to Environmental Limitations-(lack of equipment, weather restraints, etc.). 88-Not Attempted due to Medical Conditions or Safety Concerns. Slight LOB posteriorly w/ free standing over toilet and regain balance w/o assistance CGA from OT, poor coordination to aim at toilet and urinated on floor full stream OT Half-Way Goals Gas Welder Goals Eating (QC): 6 Oral Hygiene (QC): 6 Toileting Hygiene (QC): 6 Shower/Bathe Self (QC): 6 Upper Body Dressing (QC): 6 Lower Body Dressing (QC): 6 On/Off Footwear (QC): 6 1=Demonstrate adherence to instructed precautions during ADL tasks. 2=Patient will verbalize/demonstrate understanding of assistive devices/modifications for ADL. 3=Patient will improve strength/tolerance for activity to enable patient to perform ADL's. OT Education/Plan Discharge Recommendations Comment Patient son in room and reports will be here until 11 am and hopeful to know DC plan to SNF location Treatment Plan/Plan of Care Patient would benefit from OT for education, treatment and training to promote independence in ADL's, mobility, safety and/or upper extremity function for ADL's. Plan of Care: ADL Retraining, Concurrent Therapy, Functional Mobility, Group Exercise/Act as Ind, UE Funct Exercise/Act Treatment Duration: Dec 14, 2022 Frequency: 3 times per week (3-5 times per week) Rehab Potential: Good Time Start Time: 09:20 Stop Time: 09:42 DATE: Dec 02, 2022 Total Time Billed (hr/min): 18 Billed Treatment Time 1 visit ADL 1 18 min CROW JOHNSON OT Dec 02, 2022 09:43
--- NOTE | 2022-12-02 09:56 | Discharge Inst-Skilled Nursing ---
Discharge Inst-Skilled NF Reconcile Patient Problems Problems Reviewed?: Yes Consult/Follow Up/Orders Skilled NF Admit to: [facility] Certification (SNF) I certify that SNF services are required to be given on an inpatient basis because of the above named patient's need for snf care on a continuing basis for the conditions(s) for which he/she was receiving inpatient hospital services prior to his/her transfer to the SNF. Oxygen Delivery Method: Room Air New & Resume Previous Orders Dakota Bolden Dec 02, 2022 09:53 DAKOTA BOLDEN Dec 02, 2022 09:56
--- NOTE | 2022-12-02 11:45 | Physical Therapy Daily Note ---
PT Daily Note-Current Subjective Patient reports he is feeling better. Son present. Pain Section J - Health Conditions 1. Rarely or not at all 2. Occasionally 3. Frequently 4. Almost constantly 8. Unable to answer Pain Effect on Sleep: 1 Pain Interference with Therapy: 1 Pain Interference w/Day-to-Day: 1 Mental Status Patient Orientation: Normal For Age Transfers SCALE: Activities may be completed with or without assistive devices. 4-Xvudwbtizt-jbrozbm completes the activity by him/herself with no assistance from a helper. 5-Set-up or Clean-up Assistance-helper sets up or cleans up; patient completes activity. [place] assists only prior to or following the activity. 4-Supervision or Touching Assistance-helper provides verbal cues and/or touching/steadying and/or contact guard assistance as patient completes activity. Assistance may be provided throughout the activity or intermittently. 3-Partial/Moderate Assistance-helper does LESS THAN HALF the effort. [place] lifts, holds or supports trunk or limbs, but provides less than half the effort. 2-Substantial/Maximal Assistance-helper does MORE THAN HALF the effort. [place] lifts or holds trunk or limbs and provides more than half the effort. 5-Nkpyluvty-muhidb does ALL the effort. Patient does none of the effort to complete the activity. Or, the assistance of 2 or more helpers is required for the patient to complete the activity. If activity was not attempted, code reason: 7-Patient Refused. 9-Not Applicable-not attempted and the patient did not perform the activity before the current illness, exacerbation or injury. 10-Not Attempted due to Environmental Limitations-(lack of equipment, weather restraints, etc.). 88-Not Attempted due to Medical Conditions or Safety Concerns. Sit to Stand (QC): 6 Weight Bearing Full Weight Bearing Full Weight Bearing Gait Training Distance: 250' Walk 10 feet (QC): 5 Walk 50 ft with 2 Turns(QC): 5 Walk 150 ft (QC): 5 Gait Assistive Device: FWW steady, safe gait sequence Exercises Supine Ex: Ankle pumps, Quad Set, Heel Slides, Straight leg raise Supine Reps: 15 (in recliner with bilateral LE elevated) Seated Therapy Exercises: Long arc quads Seated Reps: 15 Assessment Patient to dismiss to [place] for continued care on this date. Patient is progressing with treatment plan and currently demonstrated AROM left knee 5-90 degrees PT Care Home Goals Care Home Goals PT Motorsports Technician Goals Time Frame: Nov 29, 2022 Roll Left & Right (QC): 6 Sit to Lying (QC): 6 Lying-Sitting on Side/Bed(QC): 6 Sit to Stand (QC): 6 Chair/Ugc-qq-Rnmql Xfer(QC): 6 Toilet Transfer (QC): 6 Walk 150 ft (QC): 5 4 Steps (QC): 4 PT Plan Treatment/Plan Treatment Plan: Discontinue PT Treatment Duration: Nov 29, 2022 Frequency: 11 times per week Time Time In: 1035 Time Out: 1045 DATE: Dec 02, 2022 Total Billed Treatment Time: 10 Total Billed Treatment 1 visit FA 10 min ELICEO BROOKE PT Dec 02, 2022 11:45
[2022-12-02 12:08] VITALS: BP 153/80
--- NOTE | 2022-12-02 12:47 | Discharge Inst-Skilled Nursing ---
Discharge Inst-Skilled NF Reconcile Patient Problems Problems Reviewed?: Yes Consult/Follow Up/Orders Follow Up Appt.: Ortho in 3 weeks Skilled NF Admit to: [facility] [place] ([place]NF) I certify that SNF services are required to be given on an inpatient basis because of the above named patient's need for [facility] care on a continuing basis for the conditions(s) for which he/she was receiving inpatient hospital services prior to his/her transfer to the SNF. Shelter Facility Order: Nursing Services, Casket Assembler-Evaluate & Treat, Physical Therapy-Evaluate & Treat Oxygen Delivery Method: Room Air Discharge Diet: No Restrictions Daily Activity as Tolerated: Yes Resuscitation Status: Full Code New & Resume Previous Orders Radha Lawson Dec 02, 2022 12:46 RADHA LAWSON MD Dec 02, 2022 12:47
[2022-12-02 13:50] VITALS: BP 153/80
--- NOTE | 2022-12-02 14:07 | Progress Note - Hospitalist ---
Subjective HPI/CC On Admission Date Seen by Provider: Dec 02, 2022 Time Seen by Provider: 10:40 Patient was admitted to the hospital today by orthopedic surgery for left knee replacement. He reports doing well and having no pain. He states he took all of his morning medications today. He has no complaints for me and states he is feeling quite well. I am consulted for medical management. Son is at bedside and states he and his two siblings plan to help provide care for patient and his while he recovers. They are looking at NH placement though as well. Subjective/Events-last exam He is walking in the dexter. He has been having bowel movements. He has no complaints. Objective Exam Vital Signs Vital Signs Date Time Temp Pulse Resp B/P (MAP) Pulse Ox O2 Delivery O2 Flow Rate FiO2 12/02/22 12:08 37.0 69 18 153/80 (104) 96 Room Air 11/28/22 20:00 0.50 Capillary Refill : General Appearance: No Apparent Distress, WD/WN Respiratory: Lungs Clear, No Respiratory Distress Cardiovascular: Regular Rate, Rhythm, No Murmur Gastrointestinal: Normal Bowel Sounds, Soft Neurologic/Psychiatric: Alert, Normal Mood/Affect Results/Procedures Lab Patient resulted labs reviewed. Assessment/Plan Assessment and Plan Assess & Plan/Chief Complaint Left knee osteoarthritis s/p LTKA POD #5 Management per primary Pain regimen Lovenox PT/OT Social work following Discharge to SNF today Postoperative ileus- resolved Continue bowel regimen HTN HLD CAD Continue home meds as able On ASA and Plavix BPH Continue Flomax and finasteride dvt ppx: Lovenox Diagnosis/Problems Diagnosis/Problems (1) S/P total knee arthroplasty Status: Acute Qualifiers: Laterality: left Qualified Codes: Z96.652 - Presence of left artificial knee joint (2) Osteoarthritis of left knee Status: Chronic Qualifiers: Osteoarthritis type: primary Qualified Codes: M17.12 - Unilateral primary osteoarthritis, left knee (3) Postoperative ileus Status: Acute (4) Debility Status: Acute KRISHNA LAWSON MD Dec 02, 2022 14:07
== END 2022-12-02 13:50 | DRG 470 ==
LOC: 4TH 06:01 → SURG 06:02 → 4TH 10:05
PROVIDERS: ADMIT Orthopaedic Surgery; ATTEND Orthopaedic Surgery
PROC: 0SRD0J9 Replacement of Left Knee Joint with Synthetic Substitute, Cemented, Open Approach (ICD-10-PCS; principal; 2022-11-27 07:33)
DX: M17.12 Unilateral primary osteoarthritis, left knee (principal); K91.89 Other postprocedural complications and disorders of digestive system; K56.7 Ileus, unspecified; I25.10 Atherosclerotic heart disease of native coronary artery without angina pectoris; K21.9 Gastro-esophageal reflux disease without esophagitis; I10 Essential (primary) hypertension; E78.00 Pure hypercholesterolemia, unspecified; F17.210 Nicotine dependence, cigarettes, uncomplicated; F32.A Depression, unspecified; N40.0 Benign prostatic hyperplasia without lower urinary tract symptoms; Z86.73 Personal history of transient ischemic attack (TIA), and cerebral infarction without residual deficits; Z79.82 Long term (current) use of aspirin; Z79.899 Other long term (current) drug therapy; Z20.822 Contact with and (suspected) exposure to COVID-19
CPT/HCPCS: 36415; 73560; 74018; 80048; 85014; 85018; 86850; 86900; 86901; 87081; 87636; 94760

== ENCOUNTER → 2022-12-13 | Outpatient (CLI) | payer MEDICARE ==
[~2022-12-13] MED LIST changes: +CLOP75TA28 PO; +MEMA5TAB43 PO; +MIRA50TA PO; +TRIA1TAB3 PO
--- NOTE | 2022-12-13 14:51 | Diagnostic Imaging Report ---
PROCEDURE: US Venous Lower Ext [place]. TECHNIQUE: Multiple real-time grayscale images were obtained over the lower extremities in various projections, bilaterally. Additional duplex Doppler and color Doppler images were also obtained. INDICATION: Bilateral lower extremity pain and edema. COMPARISON: None. FINDINGS: The bilateral common femoral vein, femoral vein, deep femoral vein, and popliteal vein are normal in appearance. These vessels show normal compressibility, color flow and doppler augmentation. The visualized deep calf veins demonstrate no distinct intraluminal thrombus. IMPRESSION: 1. No sonographic evidence of deep venous thrombosis in the bilateral lower extremities. Dictated by: Dictated on workstation # [id number]
== END ==
LOC: RAD 13:42
PROVIDERS: ATTEND Nurse Practitioner
DX: M79.604 Pain in right leg (principal); M79.605 Pain in left leg; R60.0 Localized edema; Z91.89 Other specified personal risk factors, not elsewhere classified
CPT/HCPCS: 93970

== ENCOUNTER 2022-12-18 13:06 | Inpatient (IN) | payer MEDICARE ==
[~2022-12-18] VITALS: Ht 180.3 cm; Wt 97.5 kg
[2022-12-18] VITALS (7 sets, daily range): BP systolic 113–168; BP diastolic 54–67
[2022-12-18] MEDS ORDERED: NS IV 1000 ML 1,000 ML IV SCH ×2 (13:45→14:45)
[2022-12-18 13:47] LABS: BASOPHILS # (AUTO) 0.1 10^3/uL (0.0-0.1); BASOPHILS % (AUTO) 0 % (0-10); EOSINOPHILS % (AUTO) 0 % (0-10); HEMATOCRIT 40 % (40-54); HEMOGLOBIN 13.2 g/dL (13.3-17.7); LYMPHOCYTES # (AUTO) 1.6 10^3/uL (1.0-4.0); LYMPHOCYTES % (AUTO) 11 % (12-44); MEAN CORPUSCULAR HEMOGLOBIN 32 pg (25-34); MEAN CORPUSCULAR HGB CONC 33 g/dL (32-36); MEAN CORPUSCULAR VOLUME 98 fL (80-99); MEAN PLATELET VOLUME 9.4 fL (9.0-12.2); MONOCYTES # (AUTO) 0.4 10^3/uL (0.0-1.0); MONOCYTES % (AUTO) 3 % (0-12); NEUTROPHILS # (AUTO) 12.4 10^3/uL (1.8-7.8); NEUTROPHILS % (AUTO) 85 % (42-75); PLATELET COUNT 373 10^3/uL (130-400); WHITE BLOOD COUNT 14.5 10^3/uL (4.3-11.0)
[2022-12-18 13:59] LABS: ALBUMIN 3.9 GM/DL (3.2-4.5)
[2022-12-18 14:00] LABS: POTASSIUM 4.7 MMOL/L (3.6-5.0)
[2022-12-18] MEDS ORDERED: ONDANSETRON 4 MG/2 ML (SDV) Z0FRAN IVP ONE (14:00)
[2022-12-18 14:01] LABS: CALCIUM 10.4 MG/DL (8.5-10.1)
--- NOTE | 2022-12-18 14:01 | Diagnostic Imaging Report ---
Indication: Vomiting. Study compared 02/20/2022. Findings: The lungs are clear. No focal consolidation, failure pattern, effusion or pneumothorax. Impression: Stable chest Dictated by: Dictated on workstation # [id number]
[2022-12-18 14:02] LABS: TOTAL PROTEIN 6.9 GM/DL (6.4-8.2)
--- NOTE | 2022-12-18 14:02 | ED General ---
General Chief Complaint: Post OP Complications/Pain Stated Complaint: POST OP LEFT KNEE ISSUES | DEHYDRATION | DIZZY Nursing Triage Note: Patient to ER via wc w c/o swollen red knee. Patient had knee surgery Nov 27. unable to walk. Patient started vomitting last night. Dr. Dykes put patient on doxycycline and bactrim this friday. Source of Information: Patient, Caregiver History of Present Illness Date Seen by Provider: Dec 18, 2022 Time Seen by Provider: 13:31 Initial Comments 82-year-old male presents to the ED with his daughter and son-in-law for reports of vomiting, left knee pain, redness, and edema to right knee and leg. Family states that patient told them he started vomiting yesterday, they state that he has been confused lately, so they think he has possibly been vomiting for longer. He had a knee replacement completed on November [address] MORENO. He was at rehab today, and was unable to put any weight on his leg. Family states that he had been doing better at rehab prior, and had been putting some weight on the leg previously. Family reports that he was started on antibiotic for infection of the knee on Friday. He also had a ultrasound completed to assess for DVT last Friday that was negative. He presents with erythema around knee, warmth, and edema to left leg. Patient has normal range of motion of left knee. Patient also has a wound to anterior lower ankle. Family states this was due to a pressure ulcer caused by his compression stocks being rolled up at the ankle. This wound appears to be healing. Patient limited on ability to give history. He is disoriented to the month, states he is in [place] and that it is January 2023. He denies any complaints at this time. He did vomit upon arrival. Family reports that he stated he was feeling dizzy earlier. Denies any fevers, chest pain, abdominal pain. Allergies and Home Medications Allergies Coded Allergies: No Known Drug Allergies (Unverified , 11/20/22) Patient Home Medication List Home Medication List Reviewed: Yes Amlodipine Besylate (Amlodipine Besylate) 10 Mg Tablet, 10 MG PO DAILY, (Reported) Entered as Reported by: MAR DAWKINS on 03/13/20 6432 Last Action: Reviewed Aspirin (Aspirin EC) 81 Mg Tablet., 81 MG PO DAILY, (Reported) Entered as Reported by: MAR DAWKINS on 03/13/201707 Last Action: Reviewed Carvedilol (Carvedilol) 3.125 Mg Tablet, 3.125 MG PO BID, (Reported) Entered as Reported by: MAR DAWKINS on 03/13/201651 Last Action: Reviewed Clopidogrel Bisulfate (Clopidogrel) 75 Mg Tablet, 75 MG PO DAILY, (Reported) Entered as Reported by: BIENVENIDO DONG on 11/28/221251 Last Action: Reviewed Doxycycline Monohydrate (Doxycycline Monohydrate) 100 Mg Capsule, 100 MG PO BID, (Reported) Entered as Reported by: BIENVENIDO DONG on 12/19/221252 Last Action: Reviewed Finasteride (Finasteride) 5 Mg Tablet, 5 MG PO DAILY, (Reported) Entered as Reported by: MAR DAWKINS on 03/13/201651 Last Action: Reviewed Lisinopril (Lisinopril) 40 Mg Tablet, 40 MG PO DAILY, (Reported) Entered as Reported by: MAR DAWKINS on 03/13/201651 Last Action: Reviewed Memantine HCl (Memantine HCl) 5 Mg Tablet, 5 MG PO DAILY, (Reported) Entered as Reported by: BIENVNEIDO DONG on 11/28/221251 Last Action: Reviewed Mirabegron (Myrbetriq) 50 Mg Tab.er.24h, 50 MG PO DAILY, (Reported) Entered as Reported by: BIENVENIDO DONG on 11/28/221251 Last Action: Reviewed Oxycodone HCl/Acetaminophen (Oxycodone-Acetaminophen 5-325) 5 Mg-325 Mg Tablet, 1 EA PO Q6H PRN for PAIN-MODERATE (5-7), (Reported) Entered as Reported by: BIENVENIDO DONG on 12/19/221252 Last Action: Reviewed Sulfamethoxazole/Trimethoprim (Bactrim Ds Tablet) 800 Mg-160 Mg Tablet, 1 EA PO BID, (Reported) Entered as Reported by: BIENVENIDO DONG on 12/19/221252 Last Action: Reviewed Tamsulosin HCl (Flomax) 0.4 Mg Cap, 0.4 MG PO BID, (Reported) Entered as Reported by: MAR DAWKINS on 03/13/201651 Last Action: Reviewed Triamterene/Hydrochlorothiazid (Triamterene-Hctz 37.5-25 mg Tb) 37.5 Mg-25 Mg Tablet, 1 EA PO DAILY, (Reported) Entered as Reported by: BIENVENIDO DONG on 11/28/22 1252 Last Action: Reviewed Review of Systems Review of Systems Constitutional: see HPI Past Ckhebls-Fmbowv-Gtnktt Hx Patient Social History Tobacco Use?: Yes Tobacco type used: Cigars Smoking Status: Light Tobacco Smoker Substance use?: No Alcohol Use?: No Immunizations Up To Date Tetanus Booster (TDap): Unknown First/Initial COVID19 Vaccinat: Unknown Second COVID19 Vaccination Joseph: 2020 Third COVID19 Vaccination Date: 2021 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: [employer] Seasonal Allergies Seasonal Allergies: No Past Medical History Surgery/Hospitalization HX: HTN, HEART CATH, KNEE REPLACEMENT, HIP REPLACEMENT Surgeries: Yes (RIGHT KNEE REPLACEMENT 02/22/20;RIGHT CARPAL TUNNEL X2;LEFT HIP REPLACEMENT) Joint Replacement, Orthopedic Respiratory: No Currently Using CPAP: No Currently Using BIPAP: No Cardiac: Yes High Cholesterol, Hypertension Neurological: Yes (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 (3 MINI) Stroke Reproductive Disorders: No Genitourinary: No Gastrointestinal: Yes Gastroesophageal Reflux Musculoskeletal: Yes (RIGHT KNEE REPLACEMENT 02/22/20;RIGHT CARPAL TUNNEL X2;LEFT HIP REPLACEMENT) Arthritis Endocrine: No HEENT: No Cancer: No Psychosocial: Yes Depression Integumentary: No Blood Disorders: No Adverse Reaction/Blood Tranf: No Physical Exam-Suspected Sepsis Physical Exam Vital Signs Vital Signs - First Documented 12/18/22 12/18/22 13:13 17:15 Temp 36.4 Pulse 68 Resp 16 B/P (MAP) 113/57 (75) Pulse Ox 97 O2 Delivery Room Air Capillary Refill : Less Than 3 Seconds Blood Pressure Mean: 75 Height, Weight, BMI Height: 5'11" Weight: 215lbs. oz. 97.829834bq; 28.00 BMI Method:Stated General Appearance: No Apparent Distress, WD/WN Neck: Non Tender, Supple Respiratory: Lungs Clear, Normal Breath Sounds, No Accessory Muscle Use, No Respiratory Distress Cardiovascular: Regular Rate, Rhythm, No Gallop, No JVD, No Murmur, Normal Peripheral Pulses, Other (Pitting edema left lower leg) Gastrointestinal: Normal Bowel Sounds Extremity: Normal Capillary Refill, Other (Left lower leg edema, erythema and warmth around knee, normal range of motion of left knee) Neurologic/Psychiatric: Alert, Normal Mood/Affect, Disoriented (Disoriented to month) Skin: normal color, warm/dry, other (Erythema and warmth to left knee, edema to left lower leg, healing pressure ulcer with scab to left anterior ankle.) Focused Exam Lactate Level 12/18/22 13:30: Lactic Acid Level 2.51*H 12/18/22 15:15: Lactic Acid Level 1.35 Lactic Acid Level Progress/Results/Core Measures Suspected Sepsis SIRS Temperature: Pulse: 68 Respiratory Rate: 16 Laboratory Tests 12/18/22 13:30: White Blood Count 14.5H 12/19/22 05:09: White Blood Count 9.4 Blood Pressure 113 /57 Mean: 75 12/18/22 13:30: Lactic Acid Level 2.51*H 12/18/22 15:15: Lactic Acid Level 1.35 Laboratory Tests 12/18/22 13:30: Creatinine 1.88H, INR Comment 1.1, Platelet Count 373, Total Bilirubin 0.9 12/19/22 05:09: Creatinine 1.30, Platelet Count 270 Results/Orders Lab Results Laboratory Tests Test 12/18/22 13:30 12/18/22 15:15 12/18/22 20:50 12/19/22 05:09 Range/Units White Blood Count 14.5 H 9.4 4.3-11.0 10^3/uL Red Blood Count 4.10 L 3.33 L 4.30-5.52 10^6/uL Hemoglobin 13.2 L 10.7 L 13.3-17.7 g/dL Hematocrit 40 33 L 40-54 % Mean Corpuscular Volume 98 98 80-99 fL Mean Corpuscular Hemoglobin 32 32 25-34 pg Mean Corpuscular Hemoglobin Concent 33 33 32-36 g/dL Red Cell Distribution Width 13.6 13.6 10.0-14.5 % Platelet Count 373 270 130-400 10^3/uL Mean Platelet Volume 9.4 9.3 9.0-12.2 fL Immature Granulocyte % (Auto) 1 0 % Neutrophils (%) (Auto) 85 H 66 42-75 % Lymphocytes (%) (Auto) 11 L 23 12-44 % Monocytes (%) (Auto) 3 10 0-12 % Eosinophils (%) (Auto) 0 1 0-10 % Basophils (%) (Auto) 0 1 0-10 % Neutrophils # (Auto) 12.4 H 6.2 1.8-7.8 10^3/uL Lymphocytes # (Auto) 1.6 2.1 1.0-4.0 10^3/uL Monocytes # (Auto) 0.4 0.9 0.0-1.0 10^3/uL Eosinophils # (Auto) 0.0 0.1 0.0-0.3 10^3/uL Basophils # (Auto) 0.1 0.1 0.0-0.1 10^3/uL Immature Granulocyte # (Auto) 0.1 0.0 0.0-0.1 10^3/uL Neutrophils % (Manual) 85 % Lymphocytes % (Manual) 14 % Monocytes % (Manual) 1 % Clumped Platelets OCCASIONAL Erythrocyte Sedimentation Rate 17 0-30 MM/HR Prothrombin Time 14.2 12.2-14.7 SEC INR Comment 1.1 0.8-1.4 Activated Partial Thromboplast Time 26 24-35 SEC D-Dimer 8.76 H 0.00-0.49 UG/ML Sodium Level 140 141 135-145 MMOL/L Potassium Level 4.7 4.1 3.6-5.0 MMOL/L Chloride Level 106 112 H 98-107 MMOL/L Carbon Dioxide Level 21 22 21-32 MMOL/L Anion Gap 13 7 5-14 MMOL/L Blood Urea Nitrogen 28 H 26 H 7-18 MG/DL Creatinine 1.88 H 1.30 0.60-1.30 MG/DL Estimat Glomerular Filtration Rate 35 55 BUN/Creatinine Ratio 15 20 Glucose Level 143 H 104 70-105 MG/DL Lactic Acid Level 2.51 *H 1.35 0.50-2.00 MMOL/L Calcium Level 10.4 H 9.2 8.5-10.1 MG/DL Corrected Calcium 10.5 H 8.5-10.1 MG/DL Total Bilirubin 0.9 0.1-1.0 MG/DL Aspartate Amino Transf (AST/SGOT) 18 5-34 U/L Alanine Aminotransferase (ALT/SGPT) 20 0-55 U/L Alkaline Phosphatase 99 40-136 U/L C-Reactive Protein High Sensitivity 0.69 H 0.00-0.50 MG/DL Total Protein 6.9 6.4-8.2 GM/DL Albumin 3.9 3.2-4.5 GM/DL Urine Color DARK YELLOW Urine Clarity CLEAR Urine pH 6.0 5-9 Urine Specific [place] 1.025 H 1.016-1.022 Urine Protein NEGATIVE NEGATIVE Urine Glucose (UA) NEGATIVE NEGATIVE Urine Ketones NEGATIVE NEGATIVE Urine Nitrite NEGATIVE NEGATIVE Urine Bilirubin NEGATIVE NEGATIVE Urine Urobilinogen 0.2 < = 1.0 MG/DL Urine Leukocyte Esterase NEGATIVE NEGATIVE Urine RBC (Auto) NEGATIVE NEGATIVE Urine RBC NONE /HPF Urine WBC NONE /HPF Urine Crystals NONE /LPF Urine Bacteria NEGATIVE /HPF Urine Casts NONE /LPF Urine Mucus SMALL H /LPF Urine Culture Indicated CULTURE PENDING Magnesium Level 1.9 1.6-2.4 MG/DL Micro Results Microbiology 12/18/22 Urine Culture - Final, Complete NO GROWTH 12/18/22 Blood Culture - Preliminary, Resulted No growth 12/18/22 Blood Culture - Preliminary, Resulted No growth My Orders Orders - PHIL FRAIRE APRN Cbc With Automated Diff (12/18/22 13:37) Comprehensive Metabolic Panel (12/18/22 13:37) Blood Culture (12/18/22 13:37) Urinalysis (12/18/22 13:37) Urine Culture (12/18/22 13:37) Protime With Inr (12/18/22 13:37) Partial Thromboplastin Time (12/18/22 13:37) Chest 1 View, Ap/Pa Only (12/18/22 13:37) Ed Iv/Invasive Line Start (12/18/22 13:37) Vital Signs Adult Sepsis Patie Q15M (12/18/22 13:37) Lactic Acid Analyzer (12/18/22 13:37) Ns Iv 1000 Ml (Sodium Chloride 0.9%) (12/18/22 13:45) Fibrin Degradation Products (12/18/22 13:37) Ondansetron Injection (Zofran Injectio (12/18/22 14:00) Manual Differential (12/18/22 13:30) Us Venous Lower Ext Lt (12/18/22 14:30) Ns Iv 1000 Ml (Sodium Chloride 0.9%) (12/18/22 14:45) Clindamycin 600 Mg/50 Ml Ivpb (Cleocin P (12/18/22 16:00) Ceftriaxone 1 Gm Pre-Mix (Rocephin 1 Gm (12/18/22 16:45) Vancomycin Injection (Vancomycin Injecti (12/18/22 16:45) Ed Admission (Communication) (12/18/22 16:37) Medications Given in ED Vital Signs/I&O 12/19/22 12/19/22 12/19/22 12/19/22 07:00 08:00 08:18 11:34 Temp 36.9 36.9 Pulse 70 87 71 Resp 16 16 B/P (MAP) 172/73 (106) 137/64 (88) Pulse Ox 95 97 95 O2 Delivery Room Air Room Air Room Air 12/19/22 15:49 Temp 36.8 Pulse 61 Resp 20 B/P (MAP) 156/65 (95) Pulse Ox 94 O2 Delivery Room Air Capillary Refill : Less Than 3 Seconds Blood Pressure Mean: 75 Progress Note #1: Time: 14:04 Progress Note Patient seen and evaluated, resting comfortably in bed, no acute distress. Per nursing report, patient had just vomited. Based on exam and symptoms, concern for septic joint, or sepsis from cellulitis, also concern for DVT. Work-up initiated including CBC, CMP, coags, blood cultures x2, lactic acid, UA, chest x-ray, D-dimer. Progress Note #2: Time: 14:31 Progress Note Labs reviewed. CBC shows elevated WBC 14.5, decreased RBC 14.1, hemoglobin decreased 13.2, neutrophil elevated 85. CMP shows increased BUN 28, increased creatinine 1.88, decreased GFR 35. Previous labs from 11/29 showed BUN 14, creatinine 0.79, GFR 88. Glucose elevated 143. Lactic acid critically elevated at 2.51. Coags negative. D-dimer elevated 8.76. Venous ultrasound of left leg ordered. Progress Note #3: Time: 15:50 Progress Note Ultrasound reviewed. Negative for DVT. Dakota Polo APRN for Dr. Moreno, orth opedics, called regarding patient. He agrees with admission for sepsis. He would like patient to be on clindamycin 600 mg 3 times daily. He would like hospitalist to admit because he states that Dr. Moreno believes this is cellulitis, not septic joint. Will call Dr. Maciel. Departure Communication (Admissions) Time/Spoke to Consulting Phy: 16:[address] Maciel, regarding admission. He agrees to admit as long as orthopedics are available for consultation. He would like vancomycin and Rocephin ordered. Informed him that patient already received 1 dose of clindamycin. He will place admission orders. He would like patient to be admitted as an inpatient to [facility]. Impression Primary Impression: Cellulitis Qualified Codes: L03.116 - Cellulitis of left lower limb Additional Impressions: Sepsis Acute kidney injury Disposition: ADMITTED INPATIENT Condition: Stable Admissions Decision to Admit Reason: Admit from ER (General) Decision to Admit/Date: Dec 18, 2022 Time/Decision to Admit Time: 16:33 Departure-Patient Inst. Referrals: LISHA PRAKASH APRN (PCP/Family) Primary Care Physician PHIL FRAIRE APRN Dec 18, 2022 14:02
[2022-12-18 14:04] LABS: BILIRUBIN,TOTAL 0.9 MG/DL (0.1-1.0)
[2022-12-18 14:06] LABS: CREATININE SERUM 1.88 MG/DL (0.60-1.30)
[2022-12-18 14:14] LABS: LYMPHOCYTES % (MANUAL) 14 %; MONOCYTES % (MANUAL) 1 %; NEUTROPHILS % (MANUAL) 85 %; PLATELET CLUMPS OCCASIONAL
[2022-12-18 14:20] LABS: FIBRIN DEGRADATION PRODUCTS 8.76 UG/ML (0.00-0.49); INR 1.1 (0.8-1.4); PROTHROMBIN TIME PATIENT 14.2 SEC (12.2-14.7)
--- NOTE | 2022-12-18 15:30 | Diagnostic Imaging Report ---
INDICATION: 82-year-old male, lower extremity edema and pain with elevated D-dimer. Recent knee surgery. TECHNIQUE: Multiple real-time grayscale images were obtained over the left lower extremity in various projections, bilaterally. Additional duplex Doppler and color Doppler images were also obtained. CORRELATION STUDY: 12/13/2022 FINDINGS: Color and grayscale sonographic images demonstrate no intraluminal defect within the visualized portion of the common femoral, superficial femoral and/or popliteal veins to suggest thrombus formation. These vessels demonstrate normal response to compression and augmentation. No soft tissue fluid collection. IMPRESSION: 1. Negative for deep venous thrombosis of the left leg. Dictated by: Dictated on workstation # [id number]
[2022-12-18] MEDS ORDERED: CLINDAMYCIN 600 MG/50 ML IVPB 50 ML IV ONE (16:00)
[2022-12-18] MEDS ORDERED: VANCOMYCIN INJECTION 1,000 MG in NS (IVPB) 250 ML IV ONE (16:45)
[2022-12-18] MEDS ORDERED: CEFEPIME INJECTION 1,000 MG in NS (IVPB) 50 ML IV ONE (16:45)
[2022-12-18] MEDS ORDERED: cefTRIAXone 1 GM PRE-MIX 50 ML IV ONE (16:45)
[2022-12-18] MEDS ORDERED: NS IV 500 ML 500 ML IV PRN (17:00)
[2022-12-18] MEDS ORDERED: CALCIUM CARBONATE 500 MG (TUMS) TAB.CHEW PO PRN (17:00)
[2022-12-18] MEDS ORDERED: ONDANSETRON 4 MG (ZOFRAN) ORAL DISSOLVE TAB PO PRN (17:00)
[2022-12-18] MEDS ORDERED: ACETAMINOPHEN 325 MG TABLET PO PRN (17:00)
[2022-12-18] MEDS ORDERED: ONDANSETRON 4 MG/2 ML (SDV) Z0FRAN IV PRN (17:00)
[2022-12-18] MEDS ORDERED: BISACODYL 10 MG SUPP (DULCOLAX) PR PRN (17:00)
[2022-12-18] MEDS ORDERED: VANCOMYCIN INJECTION 0.1 MG in NS (IVPB) 250 ML IV SCH (17:00)
[2022-12-18] MEDS ORDERED: MILK OF MAGNESIA 400 MG/5 ML 30 ML UDC PO PRN (17:00)
[2022-12-18] MEDS ORDERED: ANTACID SUSP 30 ML UDC (MYLANTA) PO PRN (17:00)
[2022-12-18] MEDS ORDERED: polyethylene glycoL POWDER 17 GM (MIRALAX) PACK PO PRN (17:00)
[2022-12-18] MEDS ORDERED: LACTULOSE SYRUP 10GM/15ML (ENULOSE) 30ML UDC PO PRN (17:00)
[2022-12-18] MEDS: ENOXAPARIN 40 MG/0.4 ML (LOVENOX) SYR SC SCH (17:39)
[2022-12-18] MEDS: LACTATED RINGERS 1,000 ML IV SCH (17:40)
[2022-12-18] MEDS: CEFEPIME INJECTION 1,000 MG in NS (IVPB) 50 ML IV SCH (17:40)
[2022-12-18] MEDS: TAMSULOSIN 0.4 MG (FLOMAX) CAP PO SCH (17:46)
[2022-12-18] MEDS ORDERED: VANCOMYCIN 500 MG/NS 100 ML IV NR ×2 (18:00)
[2022-12-18] MEDS: DOCUSATE SODIUM 100 MG (COLACE) CAP PO SCH (20:40)
[2022-12-18] MEDS: SENNOSIDES 8.6 MG (SENOKOT) TAB PO SCH (20:40)
[2022-12-18] MEDS: MELATONIN 3 MG TABLET PO PRN (20:41)
[2022-12-18 21:57] LABS: BILIRUBIN,URINE NEGATIVE (NEGATIVE); CLARITY,URINE CLEAR; COLOR,URINE DARK YELLOW; GLUCOSE, URINE (UA) NEGATIVE (NEGATIVE); KETONES,URINE NEGATIVE (NEGATIVE); LEUKOCYTE ESTERASE ,URINE NEGATIVE (NEGATIVE); NITRITE,URINE NEGATIVE (NEGATIVE); PROTEIN,URINE NEGATIVE (NEGATIVE)
[2022-12-18 22:04] LABS: BACTERIA,URINE NEGATIVE /HPF
[2022-12-19] VITALS (7 sets, daily range): BP systolic 137–172; BP diastolic 62–73
[2022-12-19] MEDS: LACTATED RINGERS 1,000 ML IV SCH ×4 (01:00→23:08)
[2022-12-19] MEDS: CEFEPIME INJECTION 1,000 MG in NS (IVPB) 50 ML IV SCH ×3 (02:33→18:19)
[2022-12-19 05:53] LABS: BASOPHILS # (AUTO) 0.1 10^3/uL (0.0-0.1); BASOPHILS % (AUTO) 1 % (0-10); EOSINOPHILS # (AUTO) 0.1 10^3/uL (0.0-0.3); EOSINOPHILS % (AUTO) 1 % (0-10); HEMATOCRIT 33 % (40-54); HEMOGLOBIN 10.7 g/dL (13.3-17.7); LYMPHOCYTES # (AUTO) 2.1 10^3/uL (1.0-4.0); LYMPHOCYTES % (AUTO) 23 % (12-44); MEAN CORPUSCULAR HEMOGLOBIN 32 pg (25-34); MEAN CORPUSCULAR HGB CONC 33 g/dL (32-36); MEAN CORPUSCULAR VOLUME 98 fL (80-99); MEAN PLATELET VOLUME 9.3 fL (9.0-12.2); MONOCYTES # (AUTO) 0.9 10^3/uL (0.0-1.0); MONOCYTES % (AUTO) 10 % (0-12); NEUTROPHILS # (AUTO) 6.2 10^3/uL (1.8-7.8); NEUTROPHILS % (AUTO) 66 % (42-75); PLATELET COUNT 270 10^3/uL (130-400); WHITE BLOOD COUNT 9.4 10^3/uL (4.3-11.0)
[2022-12-19 06:21] LABS: CALCIUM 9.2 MG/DL (8.5-10.1); CREATININE SERUM 1.3 MG/DL (0.60-1.30); MAGNESIUM 1.9 MG/DL (1.6-2.4); POTASSIUM 4.1 MMOL/L (3.6-5.0)
[2022-12-19] MEDS: POTASSIUM CL 10MEQ/50ML IVPB 50 ML IV SCH (06:28)
[2022-12-19] MEDS: KCL 20 MEQ TAB (K-DUR) PO SCH (06:29)
[2022-12-19] MEDS: POTASSIUM BICARB 20 MEQ (EFFER-K) TABLET PO SCH (06:29)
[2022-12-19] MEDS: MAGNESIUM 1 GM/100 ML IVPB 100 ML IV SCH (06:29)
--- NOTE | 2022-12-19 07:40 | Progress Note ---
Standard Progress Note Progress Notes/Assess & Plan Date Seen by a Provider: Dec 19, 2022 Time Seen by a Provider: 07:39 Progress/Assessment & Plan patient seen and examined consult dictated LLE erythema markedly improved no signs or symptoms of septic arthritis PT ?NH placement? Focused Exam Lactate Level 12/18/22 13:30: Lactic Acid Level 2.51*H 12/18/22 15:15: Lactic Acid Level 1.35 TRACE SOUSA MD Dec 19, 2022 07:40
[2022-12-19] MEDS: ASPIRIN 81 MG CHEW (CHILDREN'S ASA) PO SCH (08:24)
[2022-12-19] MEDS: amLODIPine 10 MG (NORVASC) TAB PO SCH (08:24)
[2022-12-19] MEDS: SENNOSIDES 8.6 MG (SENOKOT) TAB PO SCH ×2 (08:24→19:53)
[2022-12-19] MEDS: FINASTERIDE (PROSCAR) 5 MG TAB PO SCH (08:24)
[2022-12-19] MEDS: CLOPIDOGREL 75 MG (PLAVIX) TABLET PO SCH (08:24)
[2022-12-19] MEDS: MEMANTINE 5 MG (NAMENDA) TABLET PO SCH (08:24)
[2022-12-19] MEDS: DOCUSATE SODIUM 100 MG (COLACE) CAP PO SCH ×2 (08:24→19:53)
[2022-12-19] MEDS: lisINopril 40 MG (PRINIVIL) TABLET PO SCH (08:24)
--- NOTE | 2022-12-19 09:57 | CONSULTATION REPORT ---
DATE OF SERVICE: 12/19/2022 REASON FOR CONSULTATION: Left leg cellulitis. HISTORY OF PRESENT ILLNESS: The patient is an 82-year-old gentleman well known to me. He underwent a total knee arthroplasty 3 weeks ago. [facility], but due to his being sick, went home earlier than expected. He was seen in my office on Friday at which point he was noted to have an eschar inferiorly from a pressure sore from his ERLIN hose. The ERLIN hose had been discontinued the week before. There was some erythema surrounding this. The knee itself appeared benign with full range of motion, minimal effusion and I started him on oral Bactrim and doxycycline. He presented to the emergency department yesterday and was found to have an elevated lactic acid and elevated white count. He was subsequently started on vancomycin. The patient reports that his knee feels fine. He feels much better. PHYSICAL EXAMINATION: On exam, his knee incision is benign. There is no erythema or warmth. He has range of motion of 0/5/100 with no pain elicited. His distal leg has much improved erythema. There is no discharge. IMPRESSION: Resolving left lower extremity cellulitis with no signs or symptoms of septic arthritis. PLAN: Continue with IV antibiotics per hospitalist. He scheduled followup with me as an outpatient. The patient may require penitentiary placement as he is limited at home currently [ ]. 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
--- NOTE | 2022-12-19 11:47 | Physical Therapy Evaluation ---
PT Evaluation-General Medical Diagnosis Admission Date Dec 18, 2022 at 16:49 Medical Diagnosis: cellulitis/sepsis Onset Date: Dec 18, 2022 Therapy Diagnosis Therapy Diagnosis: debility/weakness Height/Weight Height (Feet): 5 Height (Inches): 11 Weight (Pounds): 215 Precautions Precautions/Isolations: Fall Prevention, Standard Precautions Referral Physician: Raheem Reason for Referral: Evaluation/Treatment Medical History Pertinent Medical History: HTN Current History ER secondary to left LE edema and redness (left TKR in November) Reviewed History: Yes Social History Home: Single Level Current Living Status: Other Family Prior Prior Level of Function SCALE: Activities may be completed with or without assistive devices. 2-Eaarcyatct-yrzceyh completes the activity by him/herself with no assistance fr om a helper. 5-Set-up or Clean-up Assistance-helper sets up or cleans up; patient completes activity. [place] assists only prior to or following the activity. 4-Supervision or Touching Assistance-helper provides verbal cues and/or touching/steadying and/or contact guard assistance as patient completes activity. Assistance may be provided throughout the activity or intermittently. 3-Partial/Moderate Assistance-helper does LESS THAN HALF the effort. [place] lifts, holds or supports trunk or limbs, but provides less than half the effort. 2-Substantial/Maximal Assistance-helper does MORE THAN HALF the effort. [place] lifts or holds trunk or limbs and provides more than half the effort. 3-Oggmpgsxl-oqsxzn does ALL the effort. Patient does none of the effort to complete the activity. Or, the assistance of 2 or more helpers is required for the patient to complete the activity. If activity was not attempted, code reason: 7-Patient Refused. 9-Not Applicable-not attempted and the patient did not perform the activity before the current illness, exacerbation or injury. 10-Not Attempted due to Environmental Limitations-(lack of equipment, weather restraints, etc.). 88-Not Attempted due to Medical Conditions or Safety Concerns. Bed Mobility: 6 Transfers (B,C,W/C): 6 Gait: 6 Stairs: 6 Indoor Mobility (Ambulation): Independent Stairs: Independent Prior Devices Use: Walker PT Evaluation-Current Subjective Patient agrees to PT. Pain Numeric Pain Scale: 5-Moderate Pain Location: Left Location Body Site: Knee Pain Description: Ache Objective Patient Orientation: Normal For Age Attachments: IV ROM/Strength ROM Lower Extremities left knee flexion 90 degrees with 10 degrees extension/right LE WFL Strength Lower Extremities 4/5 grossly bilateral LE all planes Integumentary/Posture Integumentary refer to nursing notes Bowel Incontinence: No Bladder Incontinence: No Posture WFL Neuromuscular (Tone, Coordination, Reflexes) grossly intact Sensory Vision: Functional Hearing: Impaired Transfers Lying to Sitting/Side of Bed(Q: 6 Sit to Stand (QC): 4 Chair/Wjn-pf-Knqrp Xfer(QC): 4 Gait Mode of Locomotion: Walk Anticipated Mode of Locomotion: Walk Walk 10 feet (QC): 4 Walk 50 ft with 2 Turns(QC): 4 Walk 150 ft (QC): 4 Distance: 150' Gait Assistive Device: FWW Comments/Gait Description VC's for heel/toe gait left LE Balance Sitting Static: Normal Sitting Dynamic: Normal Standing Static: Fair Standing Dynamic: Fair Assessment/Needs Patient will benefit from skilled PT to address functional strength and mobility to improve current LOF. Patient is currently CGA with mobility for safety. Rehab Potential: Fair PT Fdc Goals Freight Elevator Erector Goals PT Fdc Goals Time Frame: Dec 28, 2022 Roll Left & Right (QC): 6 Sit to Lying (QC): 6 Lying-Sitting on Side/Bed(QC): 6 Sit to Stand (QC): 6 Chair/Lig-wh-Sfuoy Xfer(QC): 6 Toilet Transfer (QC): 6 Walk 10 feet (QC): 6 Walk 50ft with 2 Turns (QC): 6 Walk 150 ft (QC): 6 PT Plan Problem List Problem List: Activity Tolerance, Functional Strength, Safety, Balance, Gait, Transfer, ROM Treatment/Plan Treatment Plan: Continue Plan of Care Treatment Plan: Education, Functional Activity Jacklyn, Functional Strength, Gait, Safety, Therapeutic Exercise, Transfers Treatment Duration: Dec 28, 2022 Frequency: 11 times per week Estimated Hrs Per Day: .5 hour per day Patient and/or Family Agrees t: Yes Time Time In: 1005 Time Out: 1021 DATE: Dec 19, 2022 Total Billed Treatment Time: 16 Total Billed Treatment 1 visit EVModC 16 min ELICEO BROOKE PT Dec 19, 2022 11:47
[2022-12-19] MEDS ORDERED: OXYC1TAB11 PO (12:53)
[2022-12-19] MEDS ORDERED: SULF-221 PO (12:53)
[2022-12-19] MEDS ORDERED: DOXY-444 PO (12:53)
--- NOTE | 2022-12-19 13:51 | History & Physical-Hospitalist ---
History of Present Illness HPI/Chief Complaint Alessio Austin is an 82 year old male with PMH HTN, HLD, CAD, BPH, dementia, recent total knee arthroplasty, who presented with left leg pain. He also has redness and swelling. This is around his incision site of his recent surgery. He has not had any drainage. He has good range of motion. He has been able to walk. He denies fevers and chills. He has been eating and drinking well. He denies nausea and vomiting. He was put on oral antibiotics yesterday by his orthopedic surgeon, Dr. Moreno. Source: patient Exam Limitations: no limitations Date Seen 12/19/22 Time Seen by a Provider: 08:15 Attending Physician Nesha Hernandez Aprn PCP Admitting Physician: Krishna Lawson MD Attending Physician: Krishna Lawson MD Referring Physician Date of Admission Dec 18, 2022 at 16:49 Home Medications & Allergies Home Medications Reviewed patient Home Medication Reconciliation performed by pharmacy medication reconciliations asbestos abatement technician and/or nursing. Patients Allergies have been reviewed. Allergies Allergies Coded Allergies No Known Drug Allergies (Unverified11/20/22) Past Zdmsvyq-Ijsdsv-Cvfaya Hx Patient Social History Tobacco Use?: Yes Tobacco type used: Cigars Smoking Status: Current Everyday Smoker Use of E-Cig and/or Vaping dev: No Substance use?: No Alcohol Use?: No Pt feels they are or have been: No Immunizations Up To Date Date of Influenza Vaccine: Jul 10, 2023 First/Initial COVID19 Vaccinat: Unknown Second COVID19 Vaccination Joseph: 2020 Tetanus Booster (TDap): Unknown Date of Pneumonia Vaccine: Oct 16, 2022 Seasonal Allergies Seasonal Allergies: No Current Status Advance Directives: No Communicates: Verbally Primary Language: Liberian Preferred Spoken Language: Liberian Is interpretation needed?: No Sensory deficits: Hearing impairment Past Medical History Surgeries: Joint Replacement, Orthopedic Currently Using CPAP: No Currently Using BIPAP: No High Cholesterol, Hypertension Stroke Gastroesophageal Reflux Arthritis Depression Blood Disorders: No Adverse Reaction/Blood Tranf: No Family Medical History No Pertinent Family Hx Review of Systems Constitutional: no symptoms reported EENTM: no symptoms reported Respiratory: no symptoms reported Cardiovascular: no symptoms reported Gastrointestinal: no symptoms reported Skin: change in color Physical Exam Physical Exam Vital Signs Vital Signs - First Documented 12/18/22 12/18/22 13:13 17:15 Temp 36.4 Pulse 68 Resp 16 B/P (MAP) 113/57 (75) Pulse Ox 97 O2 Delivery Room Air Capillary Refill : Less Than 3 Seconds Height, Weight, BMI Height: 5'11" Weight: 215lbs. oz. [id number]; 25.50 BMI Method:Stated General Appearance: No Apparent Distress, WD/WN HEENT: PERRL/EOMI, Pharynx Normal Neck: Normal Inspection, Supple Respiratory: Lungs Clear, No Respiratory Distress Cardiovascular: Regular Rate, Rhythm, No Murmur Gastrointestinal: Normal Bowel Sounds, Non Tender, Soft Extremity: Inflammation (left knee, tenderness, range of motion intact), Swelling Skin: Erythema Results Results/Procedures Labs Laboratory Tests 12/18/22 13:30 12/19/22 05:09 Patient resulted labs reviewed. Imaging: Reviewed Imaging Report Assessment/Plan Admission Diagnosis Severe sepsis due to cellulitis Admission Status: Inpatient Order (span 2 midnights) Reason for Inpatient Admission: IV antibiotics Assessment and Plan Severe sepsis Cellulitis Lactic acidosis Acute kidney injury s/p TKA IV fluids Vanc and Cefepime Case discussed with Dr. Moreno No evidence of infected joint PT/OT HTN HLD CAD BPH Dementia Continue home meds as able DVT prophylaxis: Lovenox Diagnosis/Problems Diagnosis/Problems (1) Severe sepsis Status: Acute (2) Cellulitis Status: Acute Qualifiers: Site of cellulitis: extremity Site of cellulitis of extremity: lower extremity Laterality: left Qualified Codes: L03.116 - Cellulitis of left lower limb (3) Acute kidney injury Status: Acute (4) S/P total knee arthroplasty Status: Acute (5) Debility Status: Acute KRISHNA LAWSON MD Dec 19, 2022 13:51
--- NOTE | 2022-12-19 14:03 | Physical Therapy Daily Note ---
PT Daily Note-Current Subjective Patient agrees to PT. Pain Section J - Health Conditions 1. Rarely or not at all 2. Occasionally 3. Frequently 4. Almost constantly 8. Unable to answer Pain Effect on Sleep: 1 Pain Interference with Therapy: 1 Pain Interference w/Day-to-Day: 1 Mental Status Patient Orientation: Normal For Age Attachments: IV Transfers SCALE: Activities may be completed with or without assistive devices. 9-Xxahfcoalb-mvjymzc completes the activity by him/herself with no assistance from a helper. 5-Set-up or Clean-up Assistance-helper sets up or cleans up; patient completes activity. [place] assists only prior to or following the activity. 4-Supervision or Touching Assistance-helper provides verbal cues and/or touching/steadying and/or contact guard assistance as patient completes ac tivity. Assistance may be provided throughout the activity or intermittently. 3-Partial/Moderate Assistance-helper does LESS THAN HALF the effort. [place] lifts, holds or supports trunk or limbs, but provides less than half the effort. 2-Substantial/Maximal Assistance-helper does MORE THAN HALF the effort. [place] lifts or holds trunk or limbs and provides more than half the effort. 0-Frhywfnvm-qclwsa does ALL the effort. Patient does none of the effort to complete the activity. Or, the assistance of 2 or more helpers is required for the patient to complete the activity. If activity was not attempted, code reason: 7-Patient Refused. 9-Not Applicable-not attempted and the patient did not perform the activity before the current illness, exacerbation or injury. 10-Not Attempted due to Environmental Limitations-(lack of equipment, weather restraints, etc.). 88-Not Attempted due to Medical Conditions or Safety Concerns. Sit to Lying (QC): 6 Lying to Sitting/Side of Bed(Q: 6 Sit to Stand (QC): 4 Gait Training Distance: 200' Walk 10 feet (QC): 4 Walk 50 ft with 2 Turns(QC): 4 Walk 150 ft (QC): 4 Gait Assistive Device: FWW slow, slightly antalgic Exercises Supine Ex: Ankle pumps, Quad Set, Heel Slides, Straight leg raise Supine Reps: 15 Assessment Patient returned to bed with bed alarm activated. Patient tolerated treatment well. PT Short Term Goals Short Term Goals Time Frame: Dec 19, 2022 PT Research And Evaluation Manager Goals Research And Evaluation Manager Goals PT Retirement Goals Time Frame: Dec 28, 2022 Roll Left & Right (QC): 6 Sit to Lying (QC): 6 Lying-Sitting on Side/Bed(QC): 6 Sit to Stand (QC): 6 Chair/Zae-oc-Ruauq Xfer(QC): 6 Toilet Transfer (QC): 6 Walk 10 feet (QC): 6 Walk 50ft with 2 Turns (QC): 6 Walk 150 ft (QC): 6 PT Plan Treatment/Plan Treatment Plan: Continue Plan of Care Treatment Plan: Education, Functional Activity Jacklyn, Functional Strength, Gait, Safety, Therapeutic Exercise, Transfers Treatment Duration: Dec 28, 2022 Frequency: 11 times per week Estimated Hrs Per Day: .5 hour per day Patient and/or Family Agrees t: Yes Time Time In: 1345 Time Out: 1357 DATE: Dec 19, 2022 Total Billed Treatment Time: 12 Total Billed Treatment 1 visit FA 12 min ELICEO BROOKE PT Dec 19, 2022 14:03
--- NOTE | 2022-12-19 15:49 | Occupational Therapy Eval ---
OT Evaluation-General/PLF Medical Diagnosis Admission Date Dec 18, 2022 at 16:49 Medical Diagnosis: cellulitis/sepsis Onset Date: Dec 18, 2022 Therapy Diagnosis Therapy Diagnosis: weakness Height/Weight Height (Feet): 5 Height (Inches): 11 Weight (Pounds): 215 Precautions Precautions/Isolations: Fall Prevention, Standard Precautions Weight Bear Status Weight Bearing Restriction: Full Weight Bearing Referral Physician: Raheem Referral Reason: Evaluation/Treatment Medical History Pertinent Medical History: HTN Additional Medical History s/p TKA 3 weeks post op Current History wound d/t ERLIN hose fitting poorly Social History Home: Single Level Current Living Status: Other Family ADL-Prior Level of Function SCALE: Activities may be completed with or without assistive devices. 7-Ceuauecnft-knhpvhj completes the activity by him/herself with no assistance from a helper. 5-Set-up or Clean-up Assistance-helper sets up or cleans up; patient completes activity. [place] assists only prior to or following the activity. 4-Supervision or Touching Assistance-helper provides verbal cues and/or touching/steadying and/or contact guard assistance as patient completes act ivity. Assistance may be provided throughout the activity or intermittently. 3-Partial/Moderate Assistance-helper does LESS THAN HALF the effort. [place] lifts, holds or supports trunk or limbs, but provides less than half the effort. 2-Substantial/Maximal Assistance-helper does MORE THAN HALF the effort. [place] lifts or holds trunk or limbs and provides more than half the effort. 8-Jvhwnpugt-kqcinp does ALL the effort. Patient does none of the effort to complete the activity. Or, the assistance of 2 or more helpers is required for the patient to complete the activity. If activity was not attempted, code reason: 7-Patient Refused. 9-Not Applicable-not attempted and the patient did not perform the activity before the current illness, exacerbation or injury. 10-Not Attempted due to Environmental Limitations-(lack of equipment, weather restraints, etc.). 88-Not Attempted due to Medical Conditions or Safety Concerns. Self Care: Independent Functional Cognition: Independent Drive Self: No OT Current Status Subjective Agreeable to OT, son in room but leaving to visit mom in SNF Mental Status/Objective Patient Orientation: Person, Place, Time, Situation Attachments: IV Current Glasses/Contacts: Yes Upper Extremity ROM BUE ROM WFLS Upper Extremity Strength BUE -4/5 ADL-Treatment Eating (QC): 6 Oral Hygiene (QC): 5 Shower/Bathe Self (QC): 7 Upper Body Dressing (QC): 4 Lower Body Dressing (QC): 4 On/Off Footwear (QC): 4 Toileting Hygiene (QC): 5 Education OT Patient Education: Correct positioning, Modified ADL techniques, Progress toward Goal/Update tx plan, Purpose of tx/functional activities, Reviewed precautions, Rehab process, Safety issues, Transfer techniques Teaching Recipient: Patient, Family Teaching Methods: Demonstration Response to Teaching: Verbalize Understanding, Reinforcement Needed OT [employer] Former [employer] Goals [facility] Goals Eating (QC): 6 Oral Hygiene (QC): 6 Toileting Hygiene (QC): 6 Shower/Bathe Self (QC): 6 Upper Body Dressing (QC): 6 Lower Body Dressing (QC): 6 On/Off Footwear (QC): 6 1=Demonstrate adherence to instructed precautions during ADL tasks. 2=Patient will verbalize/demonstrate understanding of assistive devices/modifications for ADL. 3=Patient will improve strength/tolerance for activity to enable patient to perform ADL's. OT Education/Plan Problem List/Assessment Assessment: Decreased Activ Tolerance, Decreased Safety Aware, Decreased UE Strength, Impaired Self-Care Skills Discharge Recommendations Plan/Recommendations: Continue POC Treatment Plan/Plan of Care Treatment,Training & Education: Yes Patient would benefit from OT for education, treatment and training to promote independence in ADL's, mobility, safety and/or upper extremity function for ADL's. Plan of Care: ADL Retraining, Functional Mobility, Group Exercise/Act as Ind, UE Funct Exercise/Act Treatment Duration: Dec 21, 2022 Frequency: 3 times per week (3-5 times per week) Estimated Hrs Per Day: .25 hour per day Agreement: Yes Rehab Potential: Fair Time Start Time: 12:05 Stop Time: 12:20 DATE: Dec 19, 2022 Total Time Billed (hr/min): 15 Billed Treatment Time EVL 15 min CROW JOHNSON OT Dec 19, 2022 15:49
[2022-12-19] MEDS: ENOXAPARIN 40 MG/0.4 ML (LOVENOX) SYR SC SCH (16:52)
[2022-12-19] MEDS ORDERED: VANCOMYCIN 1250 MG/NS 250 ML PREMIX IV SCH (17:00)
[2022-12-19] MEDS: TAMSULOSIN 0.4 MG (FLOMAX) CAP PO SCH (18:19)
[2022-12-20] MEDS: CEFEPIME INJECTION 1,000 MG in NS (IVPB) 50 ML IV SCH (01:47)
[2022-12-20] MEDS: MELATONIN 3 MG TABLET PO PRN (01:48)
[2022-12-20 03:22] VITALS: BP 162/70
[2022-12-20 05:57] LABS: BASOPHILS # (AUTO) 0.1 10^3/uL (0.0-0.1); BASOPHILS % (AUTO) 1 % (0-10); EOSINOPHILS # (AUTO) 0.1 10^3/uL (0.0-0.3); EOSINOPHILS % (AUTO) 1 % (0-10); HEMATOCRIT 33 % (40-54); LYMPHOCYTES # (AUTO) 1.8 10^3/uL (1.0-4.0); LYMPHOCYTES % (AUTO) 22 % (12-44); MEAN CORPUSCULAR HEMOGLOBIN 32 pg (25-34); MEAN CORPUSCULAR HGB CONC 33 g/dL (32-36); MEAN CORPUSCULAR VOLUME 97 fL (80-99); MEAN PLATELET VOLUME 9.3 fL (9.0-12.2); MONOCYTES # (AUTO) 0.6 10^3/uL (0.0-1.0); MONOCYTES % (AUTO) 7 % (0-12); NEUTROPHILS # (AUTO) 5.5 10^3/uL (1.8-7.8); NEUTROPHILS % (AUTO) 68 % (42-75); PLATELET COUNT 272 10^3/uL (130-400); WHITE BLOOD COUNT 8.1 10^3/uL (4.3-11.0)
[2022-12-20 06:22] LABS: CALCIUM 9.2 MG/DL (8.5-10.1); CREATININE SERUM 0.92 MG/DL (0.60-1.30); MAGNESIUM 1.9 MG/DL (1.6-2.4); POTASSIUM 4.1 MMOL/L (3.6-5.0)
[2022-12-20] MEDS: POTASSIUM CL 10MEQ/50ML IVPB 50 ML IV SCH (06:26)
[2022-12-20] MEDS: MAGNESIUM 1 GM/100 ML IVPB 100 ML IV SCH (06:26)
[2022-12-20] MEDS: POTASSIUM BICARB 20 MEQ (EFFER-K) TABLET PO SCH (06:26)
[2022-12-20] MEDS: KCL 20 MEQ TAB (K-DUR) PO SCH (06:27)
[2022-12-20 06:29] LABS: VANCOMYCIN,TROUGH 13.2 UG/ML (10.0-20.0)
--- NOTE | 2022-12-20 06:55 | Progress Note ---
Standard Progress Note Progress Notes/Assess & Plan Date Seen by a Provider: Dec 20, 2022 Time Seen by a Provider: 06:53 Progress/Assessment & Plan patient seen and examined consult dictated LLE erythema markedly improved no signs or symptoms of septic arthritis PT ?NH placement? Final Diagnosis no complaints Vital Signs Date Time Temp Pulse Resp B/P (MAP) Pulse Ox O2 Delivery O2 Flow Rate FiO2 12/20/22 03:22 36.7 70 16 162/70 (100) 97 Room Air 12/19/22 23:30 36.8 69 16 153/71 (98) 97 Room Air 12/19/22 20:13 Room Air 12/19/22 19:38 36.8 84 20 156/62 (93) 96 Room Air 12/19/22 15:49 36.8 61 20 156/65 (95) 94 Room Air 12/19/22 11:34 36.9 71 16 137/64 (88) 95 Room Air 12/19/22 08:18 36.9 87 16 172/73 (106) 97 Room Air 12/19/22 08:00 95 Room Air 12/19/22 07:00 70 I & O 12/20/22 07:00 Intake Total 2650 ml Output Total 1350 ml Balance 1300 ml Laboratory Tests Test 12/20/22 05:47 Range/Units White Blood Count 8.1 4.3-11.0 10^3/uL Red Blood Count 3.43 L 4.30-5.52 10^6/uL Hemoglobin 11.0 L 13.3-17.7 g/dL Hematocrit 33 L 40-54 % Mean Corpuscular Volume 97 80-99 fL Mean Corpuscular Hemoglobin 32 25-34 pg Mean Corpuscular Hemoglobin Concent 33 32-36 g/dL Red Cell Distribution Width 13.4 10.0-14.5 % Platelet Count 272 130-400 10^3/uL Mean Platelet Volume 9.3 9.0-12.2 fL Immature Granulocyte % (Auto) 0 % Neutrophils (%) (Auto) 68 42-75 % Lymphocytes (%) (Auto) 22 12-44 % Monocytes (%) (Auto) 7 0-12 % Eosinophils (%) (Auto) 1 0-10 % Basophils (%) (Auto) 1 0-10 % Neutrophils # (Auto) 5.5 1.8-7.8 10^3/uL Lymphocytes # (Auto) 1.8 1.0-4.0 10^3/uL Monocytes # (Auto) 0.6 0.0-1.0 10^3/uL Eosinophils # (Auto) 0.1 0.0-0.3 10^3/uL Basophils # (Auto) 0.1 0.0-0.1 10^3/uL Immature Granulocyte # (Auto) 0.0 0.0-0.1 10^3/uL Sodium Level 138 135-145 MMOL/L Potassium Level 4.1 3.6-5.0 MMOL/L Chloride Level 109 H 98-107 MMOL/L Carbon Dioxide Level 22 21-32 MMOL/L Anion Gap 7 5-14 MMOL/L Blood Urea Nitrogen 18 7-18 MG/DL Creatinine 0.92 0.60-1.30 MG/DL Estimat Glomerular Filtration Rate 83 BUN/Creatinine Ratio 20 Glucose Level 104 70-105 MG/DL Calcium Level 9.2 8.5-10.1 MG/DL Magnesium Level 1.9 1.6-2.4 MG/DL Vancomycin Level Trough 13.2 10.0-20.0 UG/ML LLE--erythema resolved knee with non painful AROM imp--resolving LLE cellulitis FU as outpatient in 3 weeks Focused Exam Lactate Level 12/18/22 13:30: Lactic Acid Level 2.51*H 12/18/22 15:15: Lactic Acid Level 1.35 TRACE SOUSA MD Dec 20, 2022 06:55
[2022-12-20 07:59] VITALS: BP 158/72
[2022-12-20] MEDS ORDERED: CEFEPIME INJECTION 1,000 MG in NS (IVPB) 50 ML IV SCH (08:00)
[2022-12-20] MEDS ORDERED: TRIAMTERENE/HCTZ 75-50 (MAXZIDE,DYAZIDE) TABLET PO SCH (09:00)
[2022-12-20] MEDS: DOCUSATE SODIUM 100 MG (COLACE) CAP PO SCH (09:23)
[2022-12-20] MEDS: amLODIPine 10 MG (NORVASC) TAB PO SCH (09:23)
[2022-12-20] MEDS: CLOPIDOGREL 75 MG (PLAVIX) TABLET PO SCH (09:23)
[2022-12-20] MEDS: MEMANTINE 5 MG (NAMENDA) TABLET PO SCH (09:23)
[2022-12-20] MEDS: ASPIRIN 81 MG CHEW (CHILDREN'S ASA) PO SCH (09:23)
[2022-12-20] MEDS: lisINopril 40 MG (PRINIVIL) TABLET PO SCH (09:23)
[2022-12-20] MEDS: SENNOSIDES 8.6 MG (SENOKOT) TAB PO SCH (09:24)
[2022-12-20] MEDS: FINASTERIDE (PROSCAR) 5 MG TAB PO SCH (09:24)
--- NOTE | 2022-12-20 11:07 | Physical Therapy Daily Note ---
PT Daily Note-Current Subjective Patient agrees to PT. Pain Section J - Health Conditions 1. Rarely or not at all 2. Occasionally 3. Frequently 4. Almost constantly 8. Unable to answer Pain Effect on Sleep: 1 Pain Interference with Therapy: 1 Pain Interference w/Day-to-Day: 1 Mental Status Patient Orientation: Person, Time, Situation Attachments: IV Transfers SCALE: Activities may be completed with or without assistive devices. 2-Wolnpxvapw-uhwyrgv completes the activity by him/herself with no assistance from a helper. 5-Set-up or Clean-up Assistance-helper sets up or cleans up; patient completes activity. [place] assists only prior to or following the activity. 4-Supervision or Touching Assistance-helper provides verbal cues and/or touching/steadying and/or contact guard assistance as patient completes activity. Assistance may be provided throughout the activity or intermittently. 3-Partial/Moderate Assistance-helper does LESS THAN HALF the effort. [place] lifts, holds or supports trunk or limbs, but provides less than half the effort. 2-Substantial/Maximal Assistance-helper does MORE THAN HALF the effort. [place] lifts or holds trunk or limbs and provides more than half the effort. 0-Oosehlgxz-rpuvwh does ALL the effort. Patient does none of the effort to complete the activity. Or, the assistance of 2 or more helpers is required for the patient to complete the activity. If activity was not attempted, code reason: 7-Patient Refused. 9-Not Applicable-not attempted and the patient did not perform the activity before the current illness, exacerbation or injury. 10-Not Attempted due to Environmental Limitations-(lack of equipment, weather restraints, etc.). 88-Not Attempted due to Medical Conditions or Safety Concerns. Lying to Sitting/Side of Bed(Q: 6 Sit to Stand (QC): 4 Chair/Plm-jl-Crbtj Xfer(QC): 4 Toilet Transfer (QC): 4 Gait Training Distance: 250' Walk 10 feet (QC): 4 Walk 50 ft with 2 Turns(QC): 4 Walk 150 ft (QC): 4 Gait Assistive Device: FWW slow, mildly flexed left knee gait sequence Exercises Supine Ex: Heel Slides Supine Reps: 15 Seated Therapy Exercises: Ankle pumps, Long arc quads Seated Reps: 15 Assessment Patient is impulsive to sit on toilet without completely turning requiring VC's to safely perform. Patient is unaware of safety concerns. PT Short Term Goals Short Term Goals Time Frame: Dec 19, 2022 PT Halfway Goals Halfway Goals PT Halfway Goals Time Frame: Dec 28, 2022 Roll Left & Right (QC): 6 Sit to Lying (QC): 6 Lying-Sitting on Side/Bed(QC): 6 Sit to Stand (QC): 6 Chair/Otm-yw-Uwwmw Xfer(QC): 6 Toilet Transfer (QC): 6 Walk 10 feet (QC): 6 Walk 50ft with 2 Turns (QC): 6 Walk 150 ft (QC): 6 PT Plan Treatment/Plan Treatment Plan: Continue Plan of Care Treatment Plan: Education, Functional Activity Jacklyn, Functional Strength, Gait, Safety, Therapeutic Exercise, Transfers Treatment Duration: Dec 28, 2022 Frequency: 11 times per week Estimated Hrs Per Day: .5 hour per day Patient and/or Family Agrees t: Yes Time Time In: 1020 Time Out: 1030 DATE: Dec 20, 2022 Total Billed Treatment Time: 10 Total Billed Treatment 1 visit FA 10 min ELICEO BROOKE PT Dec 20, 2022 11:07
[2022-12-20 11:22] VITALS: BP 160/66
--- NOTE | 2022-12-20 12:12 | Discharge Summary ---
Discharge Summary Instructions for Patient Via [facility], Assessment/Instructions See instructions Physician to follow Patient: Nesha Hernandez Discharge Diet for Home: Low Sodium Diet Hospital Course Date of Admission: Dec 18, 2022 at 16:49 Admission Diagnosis : Severe sepsis due to cellulitis Family Physician/Provider: Nesha Hernandez Aprn Date of Discharge: 12/20/22 Discharge Diagnosis: Severe sepsis due to cellulitis Hospital Course: Alessio Austin (Phil) is an 82 year old male who was admitted with severe sepsis due to cellulitis. Orthopedic surgery, Dr. Moreno, was consulted and assisted with his care. He had a left TKA about a month ago. He has redness and swelling around the incision site on the left knee. He had good range of motion. There was no discharge. He was treated with IV fluids and antibiotics and improved. He was transitioned to oral Bactrim and Doxycycline. He was discharged home with [facility]. 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 Labs and Pending Lab Test: Laboratory Tests 12/20/22 05:47: White Blood Count 8.1, Red Blood Count 3.43L, Hemoglobin 11.0L, Hematocrit 33L, Mean Corpuscular Volume 97, Mean Corpuscular Hemoglobin 32, Mean Corpuscular Hemoglobin Concent 33, Red Cell Distribution Width 13.4, Platelet Count 272, Mean Platelet Volume 9.3, Immature Granulocyte % (Auto) 0, Neutrophils (%) (Auto) 68, Lymphocytes (%) (Auto) 22, Monocytes (%) (Auto) 7, Eosinophils (%) (Auto) 1, Basophils (%) (Auto) 1, Neutrophils # (Auto) 5.5, Lymphocytes # (Auto) 1.8, Monocytes # (Auto) 0.6, Eosinophils # (Auto) 0.1, Basophils # (Auto) 0.1, Immature Granulocyte # (Auto) 0.0, Sodium Level 138, Potassium Level 4.1, Chloride Level 109H, Carbon Dioxide Level 22, Anion Gap 7, Blood Urea Nitrogen 18, Creatinine 0.92, Estimat Glomerular Filtration Rate 83, BUN/Creatinine Ratio 20, Glucose Level 104, Calcium Level 9.2, Magnesium Level 1.9, Vancomycin Level Trough 13.2 Microbiology 12/18/22 Urine Culture - Final, Complete NO GROWTH 12/18/22 Blood Culture - Preliminary, Resulted No growth Home Meds Active Reported Oxycodone-Acetaminophen 5-325 (Oxycodone HCl/Acetaminophen) 5 Mg-325 Mg Tablet 1 Ea PO Q6H PRN Bactrim Ds Tablet (Sulfamethoxazole/Trimethoprim) 800 Mg-160 Mg Tablet 1 Ea PO BID FILLED 12-16-2022 #28 DAY SUPPLY Doxycycline Monohydrate 100 Mg Capsule 100 Mg PO BID FILLED 12-16-2022 # DAY SUPPLY Myrbetriq (Mirabegron) 50 Mg Tab.er.24h 50 Mg PO DAILY Memantine HCl 5 Mg Tablet 5 Mg PO DAILY Clopidogrel (Clopidogrel Bisulfate) 75 Mg Tablet 75 Mg PO DAILY Triamterene-Hctz 37.5-25 mg Tb (Triamterene/Hydrochlorothiazid) 37.5 Mg-25 Mg Tablet 1 Ea PO DAILY Aspirin EC (Aspirin) 81 Mg Tablet.dr 81 Mg PO DAILY Carvedilol 3.125 Mg Tablet 3.125 Mg PO BID Flomax (Tamsulosin HCl) 0.4 Mg Cap 0.4 Mg PO BID Finasteride 5 Mg Tablet 5 Mg PO DAILY Lisinopril 40 Mg Tablet 40 Mg PO DAILY Amlodipine Besylate 10 Mg Tablet 10 Mg PO DAILY Consulations Ortho Patient Allergies: Coded Allergies: No Known Drug Allergies (Unverified , 11/20/22) Height (Feet): 5 Height (Inches): 11 Weight (Pounds): 215 Home Health Need/Face to Face Date of Face to Face: Dec 20, 2022 Clinical Findings: Generalized weakness and fatigue, Instability, Muscle weakness I have seen Pt cvwb-vn-dekb: Yes Discharged To: Home Diagnosis/Conditions: Cellulitis s/p TKA HTN HLD CAD BPH Dementia Debility Problems/Diagnosis/Condition: (1) Cellulitis (2) HTN (hypertension) (3) HLD (hyperlipidemia) (4) CAD (coronary artery disease) (5) BPH (benign prostatic hyperplasia) (6) Dementia (7) Osteoarthritis of left knee (8) S/P total knee arthroplasty (9) Debility Patient is Homebound due to: Melani fall risk due to instabilty, Muscle weakness Homebound Status Due to the above stated illness, injury or surgical procedure (medical condition or diagnosis) and associated clinical findings, the patient is homebound because of his/her inability to leave home except with aid of a supportive device and/or person AND leaving the home requires a considerable and taxing effort or is medically contraindicated. Pt req the following assistanc: Aid of another person Home Health Nursing Orders Home Health Services Order: Nursing Services, Sliver Cutter-Evaluate & Treat, Physical Therapy-Evaluate & Treat Home Health Infusion Therapy Line Start Date: Dec 18, 2022 Therapy Orders Therapy Orders: OT (must have SN or PT order), Physical Therapy Therapy Specific Orders: Eval assistive deivces, Teach enviro modifications/safety, Gait training, Increase strength/endurance Certify Stmt I certify that this patient is under my care and that I, a nurse practitioner or a physician; a assistant manager of operations working with me, had a face to face encounter that - meets the physician face to face encounter requirements with this patient as dated. Discharge Physical Exam General: Alert, Cooperative, No Acute Distress HEENT: Atraumatic, EOMI, Mucous Memb Moist/[place] Lungs: Clear to Auscultation, Normal Air Movement Heart: Regular Rate, No Murmurs Abdomen: Normal Bowel Sounds, Soft, No Tenderness Extremities: Other (left knee swelling and skin dark red due to cellulitic evolution) Neuro: Normal Speech, Normal Tone Psych/Mental Status: Mental Status NL, Mood NL KRISHNA LAWSON MD Dec 20, 2022 12:11
[2022-12-20] MEDS ORDERED: CATHETER FLUSH 10 ML SYR IVP PRN (13:30)
[2022-12-20 13:38] VITALS: BP 160/66
[2022-12-20] MEDS ORDERED: TROUGH ORDER-PHARMACY XX NR (16:00)
--- NOTE | 2022-12-23 04:13 | Physician Query Clarification ---
PQ-Link Infection to Dev/Proc Admission/Discharge Admission Date: Dec 18, 2022 at 16:49 Discharge Date: Dec 20, 2022 at 13:45 KRISHNA Bro MD The medical record reflects the following clinical scenario: History/Risk Factors: 82 y/o male patient has left knee arthroplasty a month ago admitted with severe sepsis due to cellulitis. Clinical Findings: Redness and swelling around incision site of his recent surgery, WBC-14.5 H. Treatment: IV Vancomycin and cefepime. Question: Can you specify if the Cellulitis is due to/associated with recent knee arthroplasty ? Please document a response in Progress Note or Discharge Summary. 1. Yes - Cellulitis is due to/associated with recent knee arthroplasty. 2. No - Cellulitis is not due to/associated with recent knee arthroplasty. 3. Other, with explanation of the clinical findings. 4. Clinically undetermined, no explanation for the clinical findings. PHYSICIAN RESPONSE Specify if infection: Other, explain clinical findings Explanation of clincal finding Likely associated with recent knee surgery In responding to this query, please exercise your independent professional mirta gment. The purpose of this communication is to more accurately reflect the complexity of your patients condition. The fact that a question is asked does not imply that any particular answer is desired or expected. Thank you for your timely response to this clarification. Requestors name: [ ] Phone # [ ] THIS PHYSICIAN QUERY FORM IS A PERMANENT PART OF THE MEDICAL RECORD ELIOT FARRAR Dec 23, 2022 04:13 KRISHNA LAWSON MD Dec 23, 2022 18:11
== END 2022-12-20 13:45 | disposition home or self-care (01) | DRG 862 ==
LOC: EDUNIT# 13:06 → ER 13:09 → 4TH 16:49
PROVIDERS: ADMIT Internal Medicine; ATTEND Internal Medicine
DX: T81.44XA Sepsis following a procedure, initial encounter (principal); A41.9 Sepsis, unspecified organism; R65.20 Severe sepsis without septic shock; E87.20 Acidosis, unspecified; N17.9 Acute kidney failure, unspecified; L03.116 Cellulitis of left lower limb; Z96.652 Presence of left artificial knee joint; I10 Essential (primary) hypertension; I25.10 Atherosclerotic heart disease of native coronary artery without angina pectoris; N40.0 Benign prostatic hyperplasia without lower urinary tract symptoms; F03.90 Unspecified dementia, unspecified severity, without behavioral disturbance, psychotic disturbance, mood disturbance, and anxiety; R53.81 Other malaise; F17.210 Nicotine dependence, cigarettes, uncomplicated; E78.00 Pure hypercholesterolemia, unspecified; Z86.73 Personal history of transient ischemic attack (TIA), and cerebral infarction without residual deficits; K21.9 Gastro-esophageal reflux disease without esophagitis; F32.A Depression, unspecified
CPT/HCPCS: 36415; 71045; 80048; 80053; 80202; 81000; 83605; 83735; 85007; 85025; 85027; 85379; 85610; 85652; 85730; 86141; 87040; 87088; 93005; 96361; 96365; 96375

== ENCOUNTER 2022-12-20 21:29 | Inpatient (IN) | payer MEDICARE ==
[~2022-12-20] VITALS: Ht 180.3 cm; Wt 84.3 kg
[~2022-12-20 21:29] MED LIST changes: +DOXY-444 PO; +OXYC1TAB11 PO; +SULF-221 PO
[2022-12-20 21:51] LABS: BASOPHILS # (AUTO) 0.1 10^3/uL (0.0-0.1); BASOPHILS % (AUTO) 0 % (0-10); EOSINOPHILS # (AUTO) 0.1 10^3/uL (0.0-0.3); EOSINOPHILS % (AUTO) 0 % (0-10); HEMATOCRIT 36 % (40-54); HEMOGLOBIN 12.1 g/dL (13.3-17.7); LYMPHOCYTES # (AUTO) 2.3 10^3/uL (1.0-4.0); LYMPHOCYTES % (AUTO) 9 % (12-44); MEAN CORPUSCULAR HEMOGLOBIN 33 pg (25-34); MEAN CORPUSCULAR HGB CONC 34 g/dL (32-36); MEAN CORPUSCULAR VOLUME 97 fL (80-99); MEAN PLATELET VOLUME 9.4 fL (9.0-12.2); MONOCYTES # (AUTO) 1.7 10^3/uL (0.0-1.0); MONOCYTES % (AUTO) 7 % (0-12); NEUTROPHILS # (AUTO) 21.3 10^3/uL (1.8-7.8); NEUTROPHILS % (AUTO) 83 % (42-75); PLATELET COUNT 372 10^3/uL (130-400); WHITE BLOOD COUNT 25.7 10^3/uL (4.3-11.0)
--- NOTE | 2022-12-20 21:51 | ED Neurological Problem ---
General Chief Complaint: Altered Mental Status Stated Complaint: AMS Source: patient Exam Limitations: no limitations History of Present Illness Date Seen by Provider: Dec 20, 2022 Time Seen by Provider: 21:32 Initial Comments Here with acute change of altered mental status and apparent fall at home. He was discharged from the hospital today after sepsis and cellulitis of the left knee. 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 Subs equently developed sepsis and was admitted here from the through today. Discharged home. Apparently he was doing okay at home and family had him set up and they went out to dinner at about 8 PM. They returned and he apparently had fallen and had blood all over him. He had bleeding from a skin tear to the right elbow. He had managed to scoot himself up. Complains of significant left hip pain. EMS states that patient is not making sense with any of his words. He does appear to be moving all extremities but having pain with the left hip. Daughter at bedside states that this is far from his normal. He has had history of previous stroke and is on aspirin and clopidogrel. Patient is able to follow simple commands but has garbled speech. Associated Symptoms: confusion, slurred speech, weakness Allergies and Home Medications Allergies Coded Allergies: No Known Drug Allergies (Unverified , 11/20/22) Patient Home Medication List Home Medication List Reviewed: Yes Amlodipine Besylate (Amlodipine Besylate) 10 Mg Tablet, 10 MG PO DAILY, (Reported) Entered as Reported by: MAR DAWKINS on 03/13/201651 Aspirin (Aspirin EC) 81 Mg Tablet.dr, 81 MG PO DAILY, (Reported) Entered as Reported by: MAR DAWKINS on 03/13/20 1708 Carvedilol (Carvedilol) 3.125 Mg Tablet, 3.125 MG PO BID, (Reported) Entered as Reported by: [facility] DAWKINS on 03/13/20 165 Clopidogrel Bisulfate (Clopidogrel) 75 Mg Tablet, 75 MG PO DAILY, (Reported) Entered as Reported by: BIENVENIDO DONG on 11/28/22 1252 Doxycycline Monohydrate (Doxycycline Monohydrate) 100 Mg Capsule, 100 MG PO BID, (Reported) Entered as Reported by: BIENVENIDO DONG on 12/19/22 1253 Finasteride (Finasteride) 5 Mg Tablet, 5 MG PO DAILY, (Reported) Entered as Reported by: MAR DAWKINS on 03/13/201651 Lisinopril (Lisinopril) 40 Mg Tablet, 40 MG PO DAILY, (Reported) Entered as Reported by: MAR DAWKINS on 03/13/201651 Memantine HCl (Memantine HCl) 5 Mg Tablet, 5 MG PO DAILY, (Reported) Entered as Reported by: BIENVENIDO DONG on 11/28/22 125 Mirabegron (Myrbetriq) 50 Mg Tab.er.24h, 50 MG PO DAILY, (Reported) Entered as Reported by: BIENVENIDO DONG on 11/28/22 125 Oxycodone HCl/Acetaminophen (Oxycodone-Acetaminophen 5-325) 5 Mg-325 Mg Tablet, 1 EA PO Q6H PRN for PAIN-MODERATE (5-7), (Reported) Entered as Reported by: BIENVENIDO DONG on 12/19/22 125 Sulfamethoxazole/Trimethoprim (Bactrim Ds Tablet) 800 Mg-160 Mg Tablet, 1 EA PO BID, (Reported) Entered as Reported by: BIENVENIDO DONG on 12/19/22 125 Tamsulosin HCl (Flomax) 0.4 Mg Cap, 0.4 MG PO BID, (Reported) Entered as Reported by: MAR DAWKINS on 03/13/201651 Triamterene/Hydrochlorothiazid (Triamterene-Hctz 37.5-25 mg Tb) 37.5 Mg-25 Mg Tablet, 1 EA PO DAILY, (Reported) Entered as Reported by: BIENVENIDO DONG on 11/28/22 125 Review of Systems Review of Systems Constitutional: No fever Respiratory: No cough, No short of breath Musculoskeletal: joint pain (Left hip) Skin: change in color, lesions (Right elbow) Limited review of systems due to altered mental status Past Spcvbzt-Hkmkkj-Dagmuk Hx Patient Social History Tobacco Use?: No Immunizations Up To Date Tetanus Booster (TDap): Unknown First/Initial COVID19 Vaccinat: Unknown Second COVID19 Vaccination Joseph: 2020 Third COVID19 Vaccination Date: 2021 Seasonal Allergies Seasonal Allergies: No Past Medical History Surgery/Hospitalization HX: HTN, HEART CATH, KNEE REPLACEMENT, HIP REPLACEMENT, STROKE Surgeries: Yes (RIGHT KNEE REPLACEMENT 02/22/20;RIGHT CARPAL TUNNEL X2;LEFT HIP REPLACEMENT) Joint Replacement, Orthopedic Respiratory: No Currently Using CPAP: No Currently Using BIPAP: No Cardiac: Yes High Cholesterol, Hypertension Neurological: Yes (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 (3 MINI) Stroke Reproductive Disorders: No Genitourinary: No Gastrointestinal: Yes Gastroesophageal Reflux Musculoskeletal: Yes (RIGHT KNEE REPLACEMENT 02/22/20;RIGHT CARPAL TUNNEL X2;LEFT HIP REPLACEMENT) Arthritis Endocrine: No HEENT: No Cancer: No Psychosocial: Yes Depression Integumentary: No Blood Disorders: No Adverse Reaction/Blood Tranf: No Family Medical History Reviewed Nursing Family Hx No Pertinent Family Hx Physical Exam Vital Signs Vital Signs - First Documented 12/20/22 21:35 Temp 35.2 Pulse 81 Resp 24 B/P (MAP) 155/84 (107) Pulse Ox 95 Capillary Refill : Height, Weight, BMI Height: 5'11" Weight: 215lbs. oz. 97.447642hx; 25.50 BMI Method:Stated General Appearance: WD/WN, other (Weak appearing) HEENT: PERRL/EOMI, pharynx normal Neck: full range of motion, supple Respiratory: lungs clear, normal breath sounds Cardiovascular: regular rate, rhythm, no murmur Gastrointestinal: non tender, soft Back: normal inspection, no CVA tenderness, no vertebral tenderness Extremities: other (Swelling of left leg and does have postop wound to the left knee. Tender at the left hip. Right elbow with skin tear but good range of motion both upper extremities.) Neurologic/Psychiatric: alert, other (Speech is garbled or word salad but occasionally has clear answers.) Crainal Nerves: PERRL Motor/Sensory: other (Moves all extremities but has pain to the left leg postop knee replacement) Skin: warm/dry, other (Does have multiple ecchymosis to both upper extremities. Redness and swelling around the left knee.) Stroke NIH Stroke Scale Assessment Gaze: Normal (0), Total: Stroke Thrombolytic Exclusion Age 18 or Over: Yes Acute intenal hemorrhage: No History of CVA: Yes Uncontrolled Coagulation Defec: No Intracranial Hemorrhage: No Severe Hypertension: No GI or Bleed: No Subarachnoid Hemorrhage: No Intracranial Neoplasm/Aneurysm: No Oral Anticoagulants: No Surgery or Trauma: Yes Puncture of Non-Compressible V: No Recent CPR: No Diabetic Hemorrhagic Retinopat: No Organ Biopsy: No Recent Obstetric Delivery: No Glucose: No Significant Hepatic Dysfunctio: No NIH Stoke Scale >22: No Bacterial Endocarditis: No Pericarditis: No Improving Symptoms: Yes Platelets: No Focused Exam Lactate Level 12/20/22 23:17: Lactic Acid Level 1.73 Lactic Acid Level Laboratory Tests Test 12/20/22 23:17 Lactic Acid Level 1.73 MMOL/L (0.50-2.00) Progress/Results/Core Measures Results/Orders Lab Results Laboratory Tests Test 12/20/22 21:37 12/20/22 22:09 12/20/22 22:18 12/20/22 22:55 Range/Units White Blood Count 25.7 H 4.3-11.0 10^3/uL Red Blood Count 3.70 L 4.30-5.52 10^6/uL Hemoglobin 12.1 L 13.3-17.7 g/dL Hematocrit 36 L 40-54 % Mean Corpuscular Volume 97 80-99 fL Mean Corpuscular Hemoglobin 33 25-34 pg Mean Corpuscular Hemoglobin Concent 34 32-36 g/dL Red Cell Distribution Width 13.4 10.0-14.5 % Platelet Count 372 130-400 10^3/uL Mean Platelet Volume 9.4 9.0-12.2 fL Immature Granulocyte % (Auto) 1 % Neutrophils (%) (Auto) 83 H 42-75 % Lymphocytes (%) (Auto) 9 L 12-44 % Monocytes (%) (Auto) 7 0-12 % Eosinophils (%) (Auto) 0 0-10 % Basophils (%) (Auto) 0 0-10 % Neutrophils # (Auto) 21.3 H 1.8-7.8 10^3/uL Lymphocytes # (Auto) 2.3 1.0-4.0 10^3/uL Monocytes # (Auto) 1.7 H 0.0-1.0 10^3/uL Eosinophils # (Auto) 0.1 0.0-0.3 10^3/uL Basophils # (Auto) 0.1 0.0-0.1 10^3/uL Immature Granulocyte # (Auto) 0.3 H 0.0-0.1 10^3/uL Neutrophils % (Manual) 81 % Lymphocytes % (Manual) 9 % Monocytes % (Manual) 6 % Eosinophils % (Manual) 1 % Band Neutrophils 3 % Macrocytosis SLIGHT Sodium Level 138 135-145 MMOL/L Potassium Level 4.2 3.6-5.0 MMOL/L Chloride Level 104 98-107 MMOL/L Carbon Dioxide Level 21 21-32 MMOL/L Anion Gap 13 5-14 MMOL/L Blood Urea Nitrogen 22 H 7-18 MG/DL Creatinine 1.66 H 0.60-1.30 MG/DL Estimat Glomerular Filtration Rate 41 BUN/Creatinine Ratio 13 Glucose Level 153 H 70-105 MG/DL Calcium Level 9.9 8.5-10.1 MG/DL Corrected Calcium 10.3 H 8.5-10.1 MG/DL Total Bilirubin 1.2 H 0.1-1.0 MG/DL Aspartate Amino Transf (AST/SGOT) 22 5-34 U/L Alanine Aminotransferase (ALT/SGPT) 22 0-55 U/L Alkaline Phosphatase 90 40-136 U/L Troponin I < 0.028 <0.028 NG/ML C-Reactive Protein High Sensitivity 0.22 0.00-0.50 MG/DL Total Protein 5.9 L 6.4-8.2 GM/DL Albumin 3.5 3.2-4.5 GM/DL Prothrombin Time 15.4 H 12.2-14.7 SEC INR Comment 1.2 0.8-1.4 Activated Partial Thromboplast Time 25 24-35 SEC D-Dimer 18.26 H 0.00-0.49 UG/ML Glucometer 128 H 70-110 MG/DL Urine Color YELLOW Urine Clarity CLEAR Urine pH 7.0 5-9 Urine Specific Ubly 1.010 L 1.016-1.022 Urine Protein TRACE H NEGATIVE Urine Glucose (UA) NEGATIVE NEGATIVE Urine Ketones NEGATIVE NEGATIVE Urine Nitrite NEGATIVE NEGATIVE Urine Bilirubin NEGATIVE NEGATIVE Urine Urobilinogen 0.2 < = 1.0 MG/DL Urine Leukocyte Esterase NEGATIVE NEGATIVE Urine RBC (Auto) TRACE-I H NEGATIVE Urine RBC 0-2 /HPF Urine WBC RARE /HPF Urine Crystals PRESENT H /LPF Urine Amorphous Sediment MOD SUSIE PHOSPHATE H /LPF Urine Bacteria TRACE /HPF Urine Casts PRESENT /LPF Urine Hyaline Casts 0-2 H /LPF Urine Mucus NEGATIVE /LPF Urine Culture Indicated NO Test 12/20/22 23:17 Range/Units Lactic Acid Level 1.73 0.50-2.00 MMOL/L My Orders Orders - MELISSA ALVAREZ MD Cbc With Automated Diff (12/20/22:44) Protime With Inr (12/20/22:44) Partial Thromboplastin Time (12/20/22:44) Comprehensive Metabolic Panel (12/20/22:44) Fibrin Degradation Products (12/20/22:44) Troponin I [place] (12/20/22:44) Ua Culture If Indicated (12/20/22:44) Chest 1 View, Ap/Pa Only (12/20/22:44) Ekg Tracing (12/20/22:44) Nothing By Mouth (12/21/22 Breakfast) Accucheck Stat ONCE (12/20/22:44) Ed Iv/Invasive Line Start (12/20/22:44) Ed Iv/Invasive Line Start (12/20/22:44) Vital Signs Stroke Patient Q15M (12/20/22 21:44) Ct Head Wo-R/O Stroke (12/20/22:44) O2 (12/20/22:44) Intake & Output 06,14,22 (12/20/22:44) Monitor-Rhythm Ecg Trace Only (12/20/22:44) Dysphagia Screening Tool Q10MX1 (12/20/22:44) Lipid Panel (12/21/22 06:00) Pelvis With Left Hip 2-3 Views (12/20/22:44) Arterial Blood Gas (12/20/22 22:18) Hs C Reactive Protein (12/20/22 21:44) Ct Angio Head/Neck (12/20/22 21:52) Manual Differential (12/20/22 21:37) Iohexol Injection (Omnipaque 350 Mg/Ml 1 (12/20/22 22:15) Di Iv Start (Assessment) .IV start (12/20/22 22:01) Received Contrast (Hold Metformin- Contr (12/20/22 22:15) Ns (Ivpb) (Sodium Chloride 0.9% Ivpb Bag (12/20/22 22:15) Ondansetron Injection (Zofran Injectio (12/20/22 22:31) Lactic Acid Analyzer (12/20/22 22:50) Medications Given in ED Current Medications Medications Dose Ordered Sig/Ayanna Route Start Time Stop Time Status Last Admin Dose Admin Iohexol 75 ml ONCE ONCE IV 12/20/22 22:15 12/20/22 22:16 DC 12/20/22 22:03 75 ML Ondansetron HCl 4 mg ONCE ONCE IVP 12/20/22 22:30 12/20/22 22:31 DC 12/20/22 22:32 4 MG Sodium Chloride 100 ml ONCE ONCE IV 12/20/22 22:15 12/20/22 22:16 DC 12/20/22 22:03 80 ML Vital Signs/I&O 12/20/22 21:35 Temp 35.2 Pulse 81 Resp 24 B/P (MAP) 155/84 (107) Pulse Ox 95 Progress Progress Note : Progress Note Seen and evaluated on arrival by EMS. Patient seems quite weak but is eyes open. He will try to answer some questions but does have word salad. We have activated a stroke activation. He has had previous stroke which apparently are TIAs. CT head and CT angio head and neck ordered as well as chest x-ray, left hip x-ray, IV, labs including CBC, CMP, troponin and coags. Daughter at bedside and does retell story about evening events. Son is on the phone and he also discusses history of previous stroke. Differential diagnosis includes acute stroke, TIA, metabolic abnormality, dehydration, infection. 2230: CT head does not show any acute bleed on my interpretation and verified with radiology. CT angiogram results are pending. Initial lab work-up does show quite elevated white count at 25,000 with normal hemoglobin at 12.1. I did discuss with the family regarding the potential for tPA given the patient's stroke findings. Both daughter and son are at bedside. Patient is talking better now. He has had a recent surgery to the knee. He is improving and main symptoms seem to be related to speech which is intermittently involved. After discussion of risk and benefits, all agree that we will not give tPA due to risk in a patient that has bleeding risk already especially with recent surgery and does have improving symptoms. Patient is also in agreement with this. This x- ray shows no acute findings on my interpretation. X-ray shows no acute fracture and has had hip replacement on the left on my interpretation. Monitor patient. 2300: Further labs reviewed. Coags are okay with D-dimer elevated 18.2. D- dimer was elevated on recent hospitalization as well and ultrasound of the leg did not reveal any DVT. Patient does have recent fall and skin wounds and I believe this is likely the cause of the elevated D-dimer as well as the recent surgery. Chemistries showed the electrolytes are normal but serum creatinine has increased to 1.66 from normal level during hospitalization including labs done earlier this morning which showed creatinine at 0.92. Glucose is 153. Lactic acid is negative. Troponin is negative. CRP is low at 0.22. UA is negative. CT angio results discussed with radiologist and noted below. I did discuss the case with Dr. Maciel. He accepts patient for admission to the hosp ital to the ICU, inpatient status. 2315: All findings and concerns discussed with patient and family who agree with plan. 0019: Patient to ICU. He did have Maldonado placed earlier which we have removed now. He is still talking better and does move all extremities. He still has pain to the left leg. Son verifies that he did take his antibiotics outpatient tonight prior to events. Initial ECG Impression Date: Dec 20, 2022 Initial ECG Impression Time: 22:23 Initial ECG Rate: 87 Comment Sinus rhythm with right bundle branch block and left anterior fascicular block. Left axis deviation. No evidence of ST elevation FL. Interpreted by me. Diagnostic Imaging Diagonstic Imaging: Xray Plain Films/CT/US/NM/MRI: chest Comments [facility] [place], [place] NAME: KAREEM RICHMOND [facility] REC#: [id number] PT STATUS: REG ER : 1940 PHYSICIAN: MELISSA ALVAREZ MD ADMIT DATE: 12/20/22/ER Signed Date of Exam:12/20/22 CHEST 1 VIEW, AP/PA ONLY INDICATION: Stroke, shortness of breath. COMPARISONS: 12/18/2022. FINDINGS: Single view chest shows normal heart, pleura and diaphragms. No consolidations are seen. There is no effusion or pneumothorax. There is a loop recorder seen. Soft tissues and bony thorax are unremarkable. IMPRESSION: No acute cardiopulmonary changes. The chest is otherwise senescent. Dictated by: Dictated on workstation # [id number] Dict: 12/20/222205 Trans: 12/20/222233 [facility] [phone] Interpreted by: KIM PRABHAKAR MD Electronically signed by: KIM PRABHAKAR MD 12/20/222233 Diagonstic Imaging: Xray Plain Films/CT/US/NM/MRI: pelvis, hip Comments [facility] [place], [place] NAME: KAREEM RICHMOND [facility] REC#: [id number] PT STATUS: REG ER : 1940 PHYSICIAN: MELISSA ALVAREZ MD ADMIT DATE: 12/20/22/ER Signed Date of Exam:12/20/22 PELVIS WITH LEFT HIP 2-3 VIEWS INDICATION: 82-year-old male with pelvic and hip pain. COMPARISONS: KUB 11/28/2022. FINDINGS: Single view of the pelvis with the two views of the left hip once again shows a left hip bipolar prosthesis. There is no lucencies to suggest hardware failure with no change in the orientation of the prosthesis when compared to the prior exam. Some bony productive changes at the level of the trochanter are again noted. 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 There is no evidence of acute fracture or acute subluxation. IMPRESSION: 1. Stable left hip bipolar prosthesis with no adverse interval change or evidence of hardware failure. Bony productive changes over the greater trochanter are again noted, unchanged. 2. Some mild right hip joint arthropathy again noted. Dictated by: Dictated on workstation # [id number] Dict: 12/20/222227 Trans: 12/20/222233 [facility] [phone] Interpreted by: KIM PRABHAKAR MD Electronically signed by: KIM PRABHAKAR MD 12/20/222233 Diagonstic Imaging: CT Plain Films/CT/US/NM/MRI: head Comments [facility] [place] [place] NAME: KAREEM RICHMOND [facility] REC#: [id number] PT STATUS: REG ER : 1940 PHYSICIAN: MELISSA ALVAREZ MD ADMIT DATE: 12/20/22/ER Signed Date of Exam:12/20/22 CT HEAD WO-R/O STROKE PROCEDURE: CT head wo r/o stroke. TECHNIQUE: Multiple contiguous axial images were obtained through the brain without the use of intravenous contrast. Auto Exposure Controls were utilized during the CT exam to meet ALARA standards for radiation dose reduction. INDICATION: Slurred speech, history of CVA. COMPARISONS: 02/20/2022. FINDINGS: Midline structures are not displaced. There are senescent changes in the brain with involutional changes and generalized atrophy. There is an old left occipital infarct. There is extensive background chronic areas of microvascular ischemic change. Malin-white differentiation is otherwise reasonably well-maintained. The ventricles are slightly prominent due to volume loss and there is no hemorrhage. There are no abnormal extra-axial fluid collections or hemorrhage. Basilar cisterns appear normal. There is a large left maxillary sinus mucous retention cyst. There is improvement in the aeration of the right maxillary sinus when compared to the previous CT. There is extensive calcific atherosclerosis within the carotid siphons and visualized vertebral arteries. IMPRESSION: 1. 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 2. Generalized atrophy with involutional changes with background chronic areas of microvascular change. There is also volume loss with prominence of the ventricles. Overall, no acute finding identified by nonenhanced CT criteria. If symptoms warrant or persist, an MRI may be of further value. 3. There is extensive calcific atherosclerosis within the carotid siphons and visualized vertebral arteries. Additional nonemergent findings as described. 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 Otherwise negative CT angiogram of the head. Neck shows 50% stenosis of the proximal left ICA. Per stat rad report. Reviewed: Reviewed Night Hadleyk Study, Discussed w/Radiologist Critical Care Note Critical Care Start Time: 21:32 Stop Time: 23:30 Total Time (minutes) 45 Departure Communication (Admissions) Time/Spoke to Admitting Phy: 23:00 Impression Primary Impression: TIA (transient ischemic attack) Additional Impressions: Altered mental status Qualified Codes: R41.82 - Altered mental status, unspecified Leukocytosis Qualified Codes: D72.829 - Elevated white blood cell count, unspecified Disposition: ADMITTED INPATIENT Condition: Stable Admissions Decision to Admit Reason: Admit from ER (General) Decision to Admit/Date: Dec 20, 2022 Time/Decision to Admit Time: 23:00 Departure-Patient Inst. Referrals: LISHA PRAKASH APRN (PCP/Family) Primary Care Physician MELISSA ALVAREZ MD Dec 20, 2022 21:51
--- NOTE | 2022-12-20 22:09 | Diagnostic Imaging Report ---
INDICATION: Stroke, shortness of breath. COMPARISONS: 12/18/2022. FINDINGS: Single view chest shows normal heart, pleura and diaphragms. No consolidations are seen. There is no effusion or pneumothorax. There is a loop recorder seen. Soft tissues and bony thorax are unremarkable. IMPRESSION: No acute cardiopulmonary changes. The chest is otherwise senescent. Dictated by: Dictated on workstation # [id number]
[2022-12-20 22:11] LABS: ALANINE AMINOTRANSFERASE 22 U/L (0-55); ALBUMIN 3.5 GM/DL (3.2-4.5); ALKALINE PHOSPHATASE 90 U/L (40-136); BILIRUBIN,TOTAL 1.2 MG/DL (0.1-1.0); BUN/CREATININE RATIO 13; CALCIUM 9.9 MG/DL (8.5-10.1); CARBON DIOXIDE 21 MMOL/L (21-32); CHLORIDE 104 MMOL/L (98-107); CREATININE SERUM 1.66 MG/DL (0.60-1.30); GFR ESTIMATED 41; GLUCOSE 153 MG/DL (70-105); POTASSIUM 4.2 MMOL/L (3.6-5.0); SODIUM 138 MMOL/L (135-145); TOTAL PROTEIN 5.9 GM/DL (6.4-8.2)
[2022-12-20] MEDS ORDERED: IOHEXOL 350 MG/ML 100 ML (OMNIPAQUE 350) VIAL IV ONE (22:15)
[2022-12-20] MEDS ORDERED: HOLD METFORMIN - RECEIVED CONTRAST 20 ML VIAL IV SCH (22:15)
[2022-12-20] MEDS ORDERED: NS 100 ML (IVPB) BAG IV ONE (22:15)
--- NOTE | 2022-12-20 22:19 | Diagnostic Imaging Report ---
PROCEDURE: CT head wo r/o stroke. TECHNIQUE: Multiple contiguous axial images were obtained through the brain without the use of intravenous contrast. Auto Exposure Controls were utilized during the CT exam to meet ALARA standards for radiation dose reduction. INDICATION: Slurred speech, history of CVA. COMPARISONS: 02/20/2022. FINDINGS: Midline structures are not displaced. There are senescent changes in the brain with involutional changes and generalized atrophy. There is an old left occipital infarct. There is extensive background chronic areas of microvascular ischemic change. Malin-white differentiation is otherwise reasonably well-maintained. The ventricles are slightly prominent due to volume loss and there is no hemorrhage. There are no abnormal extra-axial fluid collections or hemorrhage. Basilar cisterns appear normal. There is a large left maxillary sinus mucous retention cyst. There is improvement in the aeration of the right maxillary sinus when compared to the previous CT. There is extensive calcific atherosclerosis within the carotid siphons and visualized vertebral arteries. IMPRESSION: 1. 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 2. Generalized atrophy with involutional changes with background chronic areas of microvascular change. There is also volume loss with prominence of the ventricles. Overall, no acute finding identified by nonenhanced CT criteria. If symptoms warrant or persist, an MRI may be of further value. 3. There is extensive calcific atherosclerosis within the carotid siphons and visualized vertebral arteries. Additional nonemergent findings as described. Dictated by: Dictated on workstation # [id number]
[2022-12-20] MEDS ORDERED: ONDANSETRON 4 MG/2 ML (SDV) Z0FRAN IVP ONE (22:30)
[2022-12-20] MEDS ORDERED: ONDANSETRON 4 MG/2 ML (SDV) Z0FRAN ONE (22:31)
--- NOTE | 2022-12-20 22:33 | Diagnostic Imaging Report ---
INDICATION: 82-year-old male with pelvic and hip pain. COMPARISONS: KUB 11/28/2022. FINDINGS: Single view of the pelvis with the two views of the left hip once again shows a left hip bipolar prosthesis. There is no lucencies to suggest hardware failure with no change in the orientation of the prosthesis when compared to the prior exam. Some bony productive changes at the level of the trochanter are again noted. 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 There is no evidence of acute fracture or acute subluxation. IMPRESSION: 1. Stable left hip bipolar prosthesis with no adverse interval change or evidence of hardware failure. Bony productive changes over the greater trochanter are again noted, unchanged. 2. Some mild right hip joint arthropathy again noted. Dictated by: Dictated on workstation # [id number]
[2022-12-20 22:34] LABS: BAND NEUTROPHILS 3 %; EOSINOPHILS % (MANUAL) 1 %; LYMPHOCYTES % (MANUAL) 9 %; MONOCYTES % (MANUAL) 6 %; NEUTROPHILS % (MANUAL) 81 %
[2022-12-20 23:00] LABS: BILIRUBIN,URINE NEGATIVE (NEGATIVE); CLARITY,URINE CLEAR; COLOR,URINE YELLOW; GLUCOSE, URINE (UA) NEGATIVE (NEGATIVE); KETONES,URINE NEGATIVE (NEGATIVE); LEUKOCYTE ESTERASE ,URINE NEGATIVE (NEGATIVE); NITRITE,URINE NEGATIVE (NEGATIVE); PROTEIN,URINE TRACE (NEGATIVE)
[2022-12-20 23:09] LABS: FIBRIN DEGRADATION PRODUCTS 18.26 UG/ML (0.00-0.49); PROTHROMBIN TIME PATIENT 15.4 SEC (12.2-14.7)
[2022-12-20 23:10] LABS: INR 1.2 (0.8-1.4)
[2022-12-20 23:15] LABS: AMORPHOUS SEDIMENT,UR MOD AMOR PHOSPHATE /LPF; BACTERIA,URINE TRACE /HPF; HYALINE CASTS, URINE 0-2 /LPF; RBC,URINE 0-2 /HPF; WBC,URINE RARE /HPF
[2022-12-21 00:46] LABS: ABG BASE EXCESS -1.8 MMOL/L (-2.5-2.5); ABG OXYGEN SATURATION 95 % (94-100); ABG PCO2 36 MMHG (35-45); ABG PH 7.41 (7.37-7.43); ABG PO2 74 MMHG (79-93); ABG TCO2 23.7 MMOL/L (21.0-31.0); ALLENS TEST YES-POS
[2022-12-21 00:47] LABS: INSPIRED O2 RA; PATIENT TEMP 35.2; VENTILATOR NO
[2022-12-21] MEDS ORDERED: ONDANSETRON 4 MG/2 ML (SDV) Z0FRAN ONE (00:58)
[2022-12-21] MEDS ORDERED: NS IV 1000 ML 1,000 ML ONE (01:34)
[2022-12-21] MEDS ORDERED: NS IV 1000 ML 1,000 ML IV SCH (01:45)
[2022-12-21] MEDS ORDERED: ASPIRIN 300 MG (5 GR) SUPPOSITORY PR PRN (01:45)
[2022-12-21] MEDS: ONDANSETRON 4 MG/2 ML (SDV) Z0FRAN IV PRN ×2 (01:49→14:24)
[2022-12-21] MEDS ORDERED: ACETAMINOPHEN 650 MG SUPP (TYLENOL) PR PRN (02:15)
[2022-12-21] MEDS ORDERED: VANCOMYCIN INJECTION 1,000 MG in NS (IVPB) 250 ML IV ONE (03:00)
[2022-12-21] MEDS ORDERED: PANTOPRAZOLE 40 MG (PROTONIX) VIAL IV ONE (03:15)
[2022-12-21] MEDS ORDERED: PANTOPRAZOLE 40 MG (PROTONIX) VIAL ONE (03:20)
[2022-12-21] MEDS: cefTRIAXone 2,000 MG in NS (IVPB) 50 ML IV SCH (03:46)
[2022-12-21] MEDS: THIAMINE INJECTION 100 MG in NS (IVPB) 50 ML IV SCH ×2 (03:54→08:32)
[2022-12-21 04:14] LABS: ALBUMIN 3.2 GM/DL (3.2-4.5); POTASSIUM 4.1 MMOL/L (3.6-5.0)
[2022-12-21 04:15] LABS: CALCIUM 9.2 MG/DL (8.5-10.1)
[2022-12-21 04:16] LABS: BASOPHILS % (AUTO) 0 % (0-10); EOSINOPHILS % (AUTO) 0 % (0-10); HEMATOCRIT 30 % (40-54); HEMOGLOBIN 10.3 g/dL (13.3-17.7); LYMPHOCYTES # (AUTO) 1.5 10^3/uL (1.0-4.0); LYMPHOCYTES % (AUTO) 8 % (12-44); MEAN CORPUSCULAR HEMOGLOBIN 33 pg (25-34); MEAN CORPUSCULAR HGB CONC 34 g/dL (32-36); MEAN CORPUSCULAR VOLUME 97 fL (80-99); MEAN PLATELET VOLUME 9.4 fL (9.0-12.2); MONOCYTES # (AUTO) 0.5 10^3/uL (0.0-1.0); MONOCYTES % (AUTO) 3 % (0-12); NEUTROPHILS # (AUTO) 15.6 10^3/uL (1.8-7.8); NEUTROPHILS % (AUTO) 88 % (42-75); PLATELET COUNT 294 10^3/uL (130-400); WHITE BLOOD COUNT 17.8 10^3/uL (4.3-11.0)
[2022-12-21 04:17] LABS: TOTAL PROTEIN 5.4 GM/DL (6.4-8.2)
[2022-12-21 04:18] LABS: BILIRUBIN,TOTAL 1.2 MG/DL (0.1-1.0)
[2022-12-21 04:20] LABS: CREATININE SERUM 1.47 MG/DL (0.60-1.30); PHOSPHORUS 3.3 MG/DL (2.3-4.7)
[2022-12-21 04:23] LABS: MAGNESIUM 1.9 MG/DL (1.6-2.4)
[2022-12-21] MEDS: VANCOMYCIN 1250 MG/NS 250 ML PREMIX IV SCH (04:31)
[2022-12-21] MEDS: MAGNESIUM 1 GM/100 ML IVPB 100 ML IV SCH ×3 (04:39→06:50)
[2022-12-21] MEDS: KCL 20 MEQ TAB (K-DUR) PO SCH (04:39)
[2022-12-21] MEDS: POTASSIUM CL 10MEQ/50ML IVPB 50 ML IV SCH (04:39)
[2022-12-21] MEDS ORDERED: NS IV 500 ML 500 ML IV PRN (04:45)
[2022-12-21] MEDS ORDERED: MAGNESIUM 1 GM/100 ML IVPB 200 ML IV ONE (04:48)
--- NOTE | 2022-12-21 05:38 | Diagnostic Imaging Report ---
PROCEDURE: CT angiography of the head and CT angiography of the neck with and without contrast. TECHNIQUE: Contiguous noncontrast images were obtained from the skull base through the vertex. After intravenous contrast administration, helical CT angiography of the neck was performed. Source data was reformatted into 3D MIP projections. Delayed post contrast acquisition was also obtained. Auto Exposure Controls were utilized during the CT exam to meet ALARA standards for radiation dose reduction. INDICATION: 82-year-old male with slurred speech, previous CVA, last known well at 10:00 PM COMPARISONS: CT head 12/20/2022 FINDINGS: There is normal arch origin of great vessels. Both common carotid arteries are widely patent. There is calcified plaque at the bifurcations. This does result in approximately 60% stenosis at the origin of the left ICA. The cervical, high cervical, petrous, cavernous segments are widely patent. There is bilateral carotid siphon disease with calcific atherosclerosis but no evidence of hemodynamically significant stenosis. The supraclinoid segments are normal. A1 and A2 segments of both DAT, M1, M2 and M3 trifurcation vessels of both MCA are normal. There is some calcific atherosclerosis of the origin of vertebral arteries. The left vertebral artery is dominant. Both vertebral arteries are patent to the skull base. There is calcific atherosclerosis in the V4 segments of both vertebral arteries. There is moderate stenosis in the nondominant V4 segment of the right vertebral artery. The PICA, basilar artery, AICA, SCA and settlement processor are patent. The left WIRER MAINTENANCE P2 segment is severely diseased and terminates with occlusion in the distribution of old left WIRER MAINTENANCE infarct. Lung apices are clear. Superior mediastinum is unremarkable. Parapharyngeal and paraspinous soft tissues are also normal. There is moderate cervical spondylosis. IMPRESSION: 1. There is carotid bifurcation disease bilaterally with calcific atherosclerosis. This does result in approximately 60% stenosis at the origin of the left ICA. 2. There is bilateral carotid siphon disease but no evidence of hemodynamically significant stenosis. 3. There is calcific atherosclerosis at the origin of the dominant left vertebral artery with moderate narrowing. 4. The V4 segments of both vertebral arteries show calcified plaque. The nondominant V4 segment on the right shows high-grade stenosis and is felt to be chronic. 5. There is chronic severe disease in the proximal left WIRER MAINTENANCE with distal occlusion in the distribution of the old left WIRER MAINTENANCE infarct. 6. Overall, there is no acute large vessel or medium vessel occlusion seen in the intracranial circulation. There is small vessel disease. 7. There is moderate cervical spondylosis. Essentially agree with [place] report. Dictated by: Dictated on workstation # [id number]
[2022-12-21] MEDS: CLOPIDOGREL 75 MG (PLAVIX) TABLET PO SCH (08:31)
[2022-12-21] MEDS ORDERED: ASPIRIN 325 MG (5 GR) TABLET PO SCH (09:00)
--- NOTE | 2022-12-21 10:01 | Tele-ICU Consult ---
Progress Note video gilbert completed 82 y/o male with prior hx of cva. On ASA and plavix Apprently fell at home with AMS Work up in ED revealed several abrasions, but negative head CT Admitted for ICU obs and neuro checks RN this am states he is awake but moderately disoriented and has word garbage MEDS: on thiamine, AA , plavix and started on ceftriazxone and van for WBC of 25,000 WBC down to 17,000 this am IMP: possible CVA PLAN: likely need sbrain MRI and neurology eval Time spent in evaluation: 20 minutes Focused Exam Lactate Level 12/20/22 23:17: Lactic Acid Level 1.73 12/21/22 06:14: Lactic Acid Level 1.48 Height, Weight, BMI Height: 5'11" Weight: 215lbs. oz. 97.697158tw; 25.77 BMI Method:Stated Lactic Acid Level Laboratory Tests Test 12/21/22 06:14 Lactic Acid Level 1.48 MMOL/L (0.50-2.00) Labs Laboratory Tests 12/20/22 21:37 12/21/22 03:37 Results Results/Procedures Labs Laboratory Tests 12/20/22 21:37 12/21/22 03:37 Patient resulted labs reviewed. Results Labs Labs Laboratory Tests 12/20/22 21:37: White Blood Count 25.7H, Red Blood Count 3.70L, Hemoglobin 12.1L, Hematocrit 36L , Mean Corpuscular Volume 97, Mean Corpuscular Hemoglobin 33, Mean Corpuscular Hemoglobin Concent 34, Red Cell Distribution Width 13.4, Platelet Count 372, Mean Platelet Volume 9.4, Immature Granulocyte % (Auto) 1, Neutrophils (%) (Auto) 83H, Lymphocytes (%) (Auto) 9L, Monocytes (%) (Auto) 7, Eosinophils (%) (Auto) 0, Basophils (%) (Auto) 0, Neutrophils # (Auto) 21.3H, Lymphocytes # (Auto) 2.3, Monocytes # (Auto) 1.7H, Eosinophils # (Auto) 0.1, Basophils # (Auto) 0.1, Immature Granulocyte # (Auto) 0.3H, Neutrophils % (Manual) 81, Lymphocytes % (Manual) 9, Monocytes % (Manual) 6, Eosinophils % (Manual) 1, Band Neutrophils 3, Macrocytosis SLIGHT, Sodium Level 138, Potassium Level 4.2, Chloride Level 104, Carbon Dioxide Level 21, Anion Gap 13, Blood Urea Nitrogen 22H, Creatinine 1.66H, Estimat Glomerular Filtration Rate 41, BUN/Creatinine Ratio 13, Glucose Level 153H, Calcium Level 9.9, Corrected Calcium 10.3H, Total Bilirubin 1.2H, Aspartate Amino Transf (AST/SGOT) 22, Alanine Aminotransferase (ALT/SGPT) 22, Alkaline Phosphatase 90, Troponin I < 0.028, C-Reactive Protein High Sensitivity 0.22, Total Protein 5.9L, Albumin 3.5 12/20/22 22:09: Prothrombin Time 15.4H, INR Comment 1.2, Activated Partial Thromboplast Time 25, D-Dimer 18.26H 12/20/22 22:18: Blood Gas Puncture Site L WRIST, Blood Gas Patient Temperature 35.2, Arterial Blood pH 7.41, Arterial Blood Partial Pressure CO2 36, Arterial Blood Partial Pressure O2 74L, Arterial Blood HCO3 23, Arterial Blood Total CO2 23.7, Arterial Blood Oxygen Saturation 95, Arterial Blood Base Excess -1.8, Moose Test YES-POS, Blood Gas Ventilator Setting NO, Blood Gas Inspired Oxygen RA, Glucometer 128H 12/20/22 22:55: Urine Color YELLOW, Urine Clarity CLEAR, Urine pH 7.0, Urine Specific [place] 1.010L, Urine Protein TRACEH, Urine Glucose (UA) NEGATIVE, Urine Ketones NEGAT LESTER, Urine Nitrite NEGATIVE, Urine Bilirubin NEGATIVE, Urine Urobilinogen 0.2, Urine Leukocyte Esterase NEGATIVE, Urine RBC (Auto) TRACE-IH, Urine RBC 0-2, Urine WBC RARE, Urine Crystals PRESENTH, Urine Amorphous Sediment MOD SUSIE PHOSPHATEH, Urine Bacteria TRACE, Urine Casts PRESENT, Urine Hyaline Casts 0-2H, Urine Mucus NEGATIVE, Urine Culture Indicated NO 12/20/22 23:17: Lactic Acid Level 1.73 12/21/22 03:30: SARS-CoV-2 RNA (RT-PCR) Not Detected 12/21/22 03:37: White Blood Count 17.8H, Red Blood Count 3.13L, Hemoglobin 10.3L, Hematocrit 30L , Mean Corpuscular Volume 97, Mean Corpuscular Hemoglobin 33, Mean Corpuscular Hemoglobin Concent 34, Red Cell Distribution Width 13.4, Platelet Count 294, Mean Platelet Volume 9.4, Immature Granulocyte % (Auto) 1, Neutrophils (%) ( Auto) 88H, Lymphocytes (%) (Auto) 8L, Monocytes (%) (Auto) 3, Eosinophils (%) (Auto) 0, Basophils (%) (Auto) 0, Neutrophils # (Auto) 15.6H, Lymphocytes # (Auto) 1.5, Monocytes # (Auto) 0.5, Eosinophils # (Auto) 0.0, Basophils # (Auto) 0.0, Immature Granulocyte # (Auto) 0.1, Erythrocyte Sedimentation Rate 19, Sodium Level 139, Potassium Level 4.1, Chloride Level 106, Carbon Dioxide Level 21, Anion Gap 12, Blood Urea Nitrogen 23H, Creatinine 1.47H, Estimat Glomerular Filtration Rate 47, BUN/Creatinine Ratio 16, Glucose Level 160H, Calcium Level 9.2, Corrected Calcium 9.8, Phosphorus Level 3.3, Magnesium Level 1.9, Total Bilirubin 1.2H, Aspartate Amino Transf (AST/SGOT) 23, Alanine Aminotransferase (ALT/SGPT) 27, Alkaline Phosphatase 82, Total Protein 5.4L, Albumin 3.2, Triglycerides Level 58, Cholesterol Level 103, LDL Cholesterol Direct 48, VLDL Cholesterol 12, HDL Cholesterol 39L 12/21/22 06:14: Lactic Acid Level 1.48 VERONICA LABOY MD Dec 21, 2022 10:01
--- NOTE | 2022-12-21 10:40 | Physical Therapy Evaluation ---
PT Evaluation-General Medical Diagnosis Admission Date Dec 21, 2022 at 00:23 Medical Diagnosis: TIA/AMS/leukocytosis Onset Date: Dec 21, 2022 Therapy Diagnosis Therapy Diagnosis: severe weakness/impaired mobility Height/Weight Height (Feet): 5 Height (Inches): 11 Weight (Pounds): 215 Precautions Precautions/Isolations: Fall Prevention, Standard Precautions, Pressure Ulcer Referral Physician: Thalia Reason for Referral: Evaluation/Treatment Medical History Pertinent Medical History: CVA, HTN Additional Medical History left TKR and THR Current History EMS secondary to fall and AMS Reviewed History: Yes Social History Home: Single Level Prior Prior Level of Function SCALE: Activities may be completed with or without assistive devices. 8-Dctejwibsr-chgkmxm completes the activity by him/herself with no assistance from a helper. 5-Set-up or Clean-up Assistance-helper sets up or cleans up; patient completes activity. [place] assists only prior to or following the activity. 4-Supervision or Touching Assistance-helper provides verbal cues and/or touching/steadying and/or contact guard assistance as patient completes activity. Assistance may be provided throughout the activity or intermittently. 3-Partial/Moderate Assistance-helper does LESS THAN HALF the effort. [place] lifts, holds or supports trunk or limbs, but provides less than half the effort. 2-Substantial/Maximal Assistance-helper does MORE THAN HALF the effort. [place] lifts or holds trunk or limbs and provides more than half the effort. 0-Bturevgwm-wzdtgh does ALL the effort. Patient does none of the effort to complete the activity. Or, the assistance of 2 or more helpers is required for the patient to complete the activity. If activity was not attempted, code reason: 7-Patient Refused. 9-Not Applicable-not attempted and the patient did not perform the activity before the current illness, exacerbation or injury. 10-Not Attempted due to Environmental Limitations-(lack of equipment, weather restraints, etc.). 88-Not Attempted due to Medical Conditions or Safety Concerns. Bed Mobility: 6 Transfers (B,C,W/C): 6 Gait: 6 Indoor Mobility (Ambulation): Independent Prior Devices Use: Walker PT Evaluation-Current Subjective Patient able to follow direction. Family present. Objective Patient Orientation: Person ROM/Strength ROM Lower Extremities left LE 10 degrees extension/right LE WFL Strength Lower Extremities right LE 3+/5 grossly/left LE 2/5 grossly with patient having difficulty with following direction to perform MMT Integumentary/Posture Integumentary multiple contusions and skin tears Neuromuscular (Tone, Coordination, Reflexes) diminished coordination Sensory Vision: Functional Hearing: Impaired Transfers Sit to Lying (QC): 2 Lying to Sitting/Side of Bed(Q: 2 Sit to Stand (QC): 88 Gait Does the Patient Walk?: No and Walking Goal IS indicated Balance Sitting Static: Poor Sitting Dynamic: Poor Assessment/Needs Patient will benefit from skilled PT to address functional strength and mobility to improve current LOF. Patient presents with severe weakness and impaired mobility. Rehab Potential: Guarded PT Short Term Goals Short Term Goals Time Frame: Jan 03, 2023 Roll Left & Right: 3 Sit to lyin Lying to sitting on side of be: 3 Sit to stand: 3 Chair/uge-zv-chnvc transfer: 3 Toilet transfer: 3 Walk 10 feet: 3 Walk 50 feet with two turns: 3 Walk 150 feet: 3 PT Director Diabetes Goals Correction Goals PT Director Diabetes Goals Time Frame: Jan 18, 2023 Roll Left & Right (QC): 4 Sit to Lying (QC): 4 Lying-Sitting on Side/Bed(QC): 4 Sit to Stand (QC): 4 Chair/Cyy-or-Sedxz Xfer(QC): 4 Toilet Transfer (QC): 4 Walk 10 feet (QC): 4 Walk 50ft with 2 Turns (QC): 4 Walk 150 ft (QC): 4 PT Plan Problem List Problem List: Activity Tolerance, Functional Strength, Safety, Balance, Gait, Transfer, Bed Mobility Treatment/Plan Treatment Plan: Continue Plan of Care Treatment Plan: Bed Mobility, Education, Functional Activity Jacklyn, Functional Strength, Gait, Safety, Therapeutic Exercise, Transfers Treatment Duration: Jan 18, 2023 Frequency: 6 times per week Estimated Hrs Per Day: .25 hour per day Time Time In: 1025 Time Out: 1035 DATE: Dec 21, 2022 Total Billed Treatment Time: 10 Total Billed Treatment 1 visit EVModC 10 min ELICEO BROOKE PT Dec 21, 2022 10:40
[2022-12-21] MEDS ORDERED: ENOXAPARIN 80 MG/0.8 ML (LOVENOX) SYR SC SCH (10:45)
--- NOTE | 2022-12-21 12:02 | Diagnostic Imaging Report ---
PROCEDURE: US Venous Lower Ext Frans[place]. TECHNIQUE: Multiple real-time grayscale images were obtained over the lower extremities in various projections, bilaterally. Additional duplex Doppler and color Doppler images were also obtained. INDICATION: Recent surgery, elevated D-dimer, lower extremity edema. COMPARISON: 12/18/2022 FINDINGS: The bilateral common femoral vein, femoral vein, deep femoral vein, and popliteal vein are normal in appearance. These vessels show normal compressibility, color flow and doppler augmentation. The visualized deep calf veins demonstrate no distinct intraluminal thrombus. There is mild edema in the subcutaneous fat of the legs bilaterally. IMPRESSION: 1. No sonographic evidence of deep venous thrombosis in the bilateral lower extremities. Findings given to the patient's nurse by the resin maker following the examination. Dictated by: Dictated on workstation # [id number]
[2022-12-21] MEDS ORDERED: VANCOMYCIN INJECTION 0.1 MG in NS (IVPB) 250 ML IV SCH (15:00)
[2022-12-21] MEDS: TAMSULOSIN 0.4 MG (FLOMAX) CAP PO SCH (17:15)
--- NOTE | 2022-12-21 18:08 | History & Physical-Hospitalist ---
History of Present Illness HPI/Chief Complaint Alessio Austin (Phil) is an 82 year old male with PMH HTN, HLD, CAD, BPH, dementia, who presented after a fall at home. He is well known to me from recent hospitalizations. He was discharged yesterday after an admission with sepsis due to cellulitis. He improved and was discharged home yesterday morning on oral antibiotics. He was left at home while his family went to dinner and they found him on the floor when they got home. He was having slurred, garbled speech. He had some cuts and was bleeding. Source: patient, family Exam Limitations: clinical condition Date Seen 12/21/22 Time Seen by a Provider: 10:10 Attending Physician Nesha Hernandez Aprn PCP Admitting Physician: Krishna Lawson MD Attending Physician: Krishna Lawson MD Referring Physician Date of Admission Dec 21, 2022 at 00:23 Home Medications & Allergies Home Medications Reviewed patient Home Medication Reconciliation performed by pharmacy medication reconciliations traffic control technician and/or nursing. Patients Allergies have been reviewed. Allergies Allergies Coded Allergies No Known Drug Allergies (Unverified11/20/22) Past Xvenqiy-Vhbogv-Onoxeq Hx Patient Social History Tobacco Use?: No Smoking Status: Former Smoker Smokeless Tobacco Frequency: Never a User Use of E-Cig and/or Vaping dev: No Substance use?: No Alcohol Use?: No Pt feels they are or have been: No Immunizations Up To Date Date of Influenza Vaccine: Jul 10, 2023 First/Initial COVID19 Vaccinat: Unknown Second COVID19 Vaccination Joseph: 2020 Tetanus Booster (TDap): Unknown Date of Pneumonia Vaccine: Oct 16, 2022 Seasonal Allergies Seasonal Allergies: No Current Status Advance Directives: No Communicates: Verbally Primary Language: Yemeni Preferred Spoken Language: Yemeni Is interpretation needed?: No Sensory deficits: Speech impairment Implanted or Applied Medical D: Orthopedic hardware Past Medical History Surgeries: Joint Replacement, Orthopedic Currently Using CPAP: No Currently Using BIPAP: No High Cholesterol, Hypertension Stroke Gastroesophageal Reflux Arthritis Depression Blood Disorders: No Adverse Reaction/Blood Tranf: No Family Medical History Reviewed Nursing Family Hx No Pertinent Family Hx Review of Systems Constitutional: weakness Respiratory: no symptoms reported Cardiovascular: no symptoms reported Gastrointestinal: no symptoms reported Psychiatric/Neurological: Weakness Physical Exam Physical Exam Vital Signs Vital Signs - First Documented 3/17/23 3/18/23 21:35 00:15 Temp 35.2 Pulse 81 Resp 24 B/P (MAP) 155/84 (107) Pulse Ox 95 O2 Delivery Room Air Capillary Refill : Height, Weight, BMI Height: 5'11" Weight: 215lbs. oz. 97.833390ll; 25.77 BMI Method:Stated General Appearance: No Apparent Distress, WD/WN HEENT: PERRL/EOMI, Pharynx Normal Neck: Normal Inspection, Supple Respiratory: Lungs Clear, No Respiratory Distress Cardiovascular: Regular Rate, Rhythm, No Murmur Gastrointestinal: Normal Bowel Sounds, Non Tender, Soft Extremity: Non Tender, Other (left knee swelling, ecchymosis) Neurologic/Psychiatric: Alert, Aphasia, Disoriented, Motor Weakness (diffusely, difficulty following commands but moves all extremities) Skin: Normal Color, Other (right elbow laceration bandaged) Results Results/Procedures Labs Laboratory Tests 12/20/22 21:37 12/21/22 03:37 Patient resulted labs reviewed. Imaging: Reviewed Imaging Report Assessment/Plan Admission Diagnosis Stroke Admission Status: Inpatient Order (span 2 midnights) Reason for Inpatient Admission: Stroke evaluation Assessment and Plan Stroke History of CVA Carotid stenosis Fall Exam consistent with acute stroke Trauma eval negative for acute fractures CT without evidence of acute stroke CTA without evidence of occlusion, moderate carotid stenosis ER discussed risks/benefits of tPA with family, deferred MRI ordered Continue ASA and Plavix Lipitor Monitor on telemetry Echo ordered TeleICU following PT/OT Leukocytosis KIM Elevated d-dimer WBC elevation likely reactive Not septic Venous dopplers without evidence of DVT No hypoxia, low concern for PE IV fluids Cellulitis IV antibiotics HTN CAD BPH Dementia Continue home meds as able DVT prophylaxis: Lovenox Critical Care Critically Ill Patient Diagnosis/Problems Diagnosis/Problems (1) Stroke-like symptoms Status: Acute (2) History of CVA (cerebrovascular accident) Status: Acute (3) Fall Status: Acute (4) KIM (acute kidney injury) Status: Acute (5) Elevated d-dimer Status: Acute (6) Cellulitis Status: Acute (7) Leukocytosis Status: Acute Qualifiers: Leukocytosis type: unspecified Qualified Codes: D72.829 - Elevated white blood cell count, unspecified (8) HTN (hypertension) (9) HLD (hyperlipidemia) Status: Chronic (10) BPH (benign prostatic hyperplasia) Status: Chronic (11) Dementia Status: Chronic (12) CAD (coronary artery disease) Status: Chronic (13) Carotid stenosis Status: Acute Qualifiers: Laterality: bilateral Qualified Codes: I65.23 - Occlusion and stenosis of bilateral carotid arteries KRISHNA LAWSON MD Dec 21, 2022 18:08
[2022-12-21] MEDS: NS IV 1000 ML 1,000 ML IV SCH ×2 (18:09→22:02)
[2022-12-22] MEDS: cefTRIAXone 2,000 MG in NS (IVPB) 50 ML IV SCH (02:51)
[2022-12-22 04:32] LABS: BASOPHILS # (AUTO) 0.1 10^3/uL (0.0-0.1); BASOPHILS % (AUTO) 0 % (0-10); EOSINOPHILS % (AUTO) 0 % (0-10); HEMATOCRIT 21 % (40-54); LYMPHOCYTES # (AUTO) 2.9 10^3/uL (1.0-4.0); LYMPHOCYTES % (AUTO) 20 % (12-44); MEAN CORPUSCULAR HEMOGLOBIN 32 pg (25-34); MEAN CORPUSCULAR HGB CONC 33 g/dL (32-36); MEAN CORPUSCULAR VOLUME 98 fL (80-99); MEAN PLATELET VOLUME 9.7 fL (9.0-12.2); MONOCYTES # (AUTO) 1.1 10^3/uL (0.0-1.0); MONOCYTES % (AUTO) 8 % (0-12); NEUTROPHILS % (AUTO) 71 % (42-75); PLATELET COUNT 224 10^3/uL (130-400); WHITE BLOOD COUNT 14.1 10^3/uL (4.3-11.0)
[2022-12-22 04:52] LABS: ALBUMIN 2.4 GM/DL (3.2-4.5); BILIRUBIN,TOTAL 0.7 MG/DL (0.1-1.0); CALCIUM 8.4 MG/DL (8.5-10.1); CREATININE SERUM 1.52 MG/DL (0.60-1.30); MAGNESIUM 2.3 MG/DL (1.6-2.4); PHOSPHORUS 2.2 MG/DL (2.3-4.7); TOTAL PROTEIN 4.1 GM/DL (6.4-8.2)
[2022-12-22 05:19] LABS: HEMOGLOBIN 6.9 g/dL (13.3-17.7)
[2022-12-22] MEDS: ACETAMINOPHEN 325 MG TABLET PO PRN (05:53)
[2022-12-22] MEDS: VANCOMYCIN 1250 MG/NS 250 ML PREMIX IV SCH (05:56)
[2022-12-22] MEDS: KCL 20 MEQ TAB (K-DUR) PO SCH (06:00)
[2022-12-22] MEDS: MAGNESIUM 1 GM/100 ML IVPB 100 ML IV SCH (06:00)
[2022-12-22] MEDS ORDERED: NS IV 500 ML 500 ML IV SCH ×2 (06:00)
[2022-12-22] MEDS: POTASSIUM CL 10MEQ/50ML IVPB 50 ML IV SCH (06:00)
[2022-12-22 06:32] LABS: HEMATOCRIT 21 % (40-54); HEMOGLOBIN 7.1 g/dL (13.3-17.7); MEAN CORPUSCULAR HEMOGLOBIN 32 pg (25-34); MEAN CORPUSCULAR HGB CONC 33 g/dL (32-36); MEAN CORPUSCULAR VOLUME 98 fL (80-99); MEAN PLATELET VOLUME 9.5 fL (9.0-12.2); PLATELET COUNT 219 10^3/uL (130-400); WHITE BLOOD COUNT 13.1 10^3/uL (4.3-11.0)
[2022-12-22] MEDS: THIAMINE INJECTION 100 MG in NS (IVPB) 50 ML IV SCH (07:48)
[2022-12-22] MEDS: FINASTERIDE (PROSCAR) 5 MG TAB PO SCH (07:53)
[2022-12-22] MEDS: ASPIRIN E.C. 81 MG (ECOTRIN) TAB PO SCH (07:53)
[2022-12-22] MEDS: CLOPIDOGREL 75 MG (PLAVIX) TABLET PO SCH (07:54)
[2022-12-22] MEDS: amLODIPine 10 MG (NORVASC) TAB PO SCH (07:54)
[2022-12-22 08:32] VITALS: BP 134/63
[2022-12-22 08:50] VITALS: BP 127/49
[2022-12-22] MEDS: ENOXAPARIN 40 MG/0.4 ML (LOVENOX) SYR SC SCH (09:29)
[2022-12-22] MEDS: MEMANTINE 5 MG (NAMENDA) TABLET PO SCH (09:35)
--- NOTE | 2022-12-22 09:43 | Tele-ICU Progress Note ---
Subjective Date Seen by a Provider: Dec 22, 2022 Time Seen by a Provider: 09:42 Subjective/Events-last exam (Tele-ICU Physician , Progress Note ) Service provided via interactive audio and video telecommunications E-CARE system to a patient admitted to ICU bed in [facility]. Patient is seen today due to persistent need of ICU care Available chart/ vitals / labs / Images reviewed Video assessment done using teleICU camera, rest of exam as per RN Discussed with RN Events overnight : Afebrile hemodynamically stable Respiratory - ra I/O = + Drips: ns 75 = prbc Pressors- no Hospital course: (pt just dc from hospital on 12/20 with sepsis cellulitis L knee) (12/21) 82yM Admit s/p Fall, AMS, TIA w/leukocytosis A/P Stroke/ TIA - still not baseline -CT without evidence of acute stroke - NO tPA as per family, deferred in ER -CTA without evidence of occlusion, moderate carotid stenosis -MRI pending -on ASA and Plavix History of CVA s/p Fall at home -no acute fractures -CT H - no bleed -Echo pending -Elevated d-dimer 18 - no DVT , ECHO pending ABLA - hb 6.9 this am , not cleat sourse of bleeding ( left hip hematoma after fall - stable by exam )- propbaly slow whoozing and delution --on ASA and Plavix - 1 pRBC 12/22 KIM - on hydration + pRBC Elevated d-dimer - evidence of DVT bilat Cellulitis left knee, s/p LEFT knee sx - IV antibiotics -no pain - no DVT on US 12/21/22 Lines : periph , (Central Line Necessity Reviewed) Maldonado: + 12/21 OG: Nutrition: po Analgesia: Anxiety/ delirium VTE Prophylaxis: hold lovenox 12/22 Stress Ulcer Prophylaxis: ppi Plans in collaboration with bedside consultants and IM MDs. Discussed with RN to reach out if any questions or concerns Case and care daily discussed on multidisciplinary rounds ( RN, PharmD, Oven Dauber , Respiratory Therapy, hospitality workers ) A total of 31 minutes of critical care time was devoted to this patient today, required to treat and/or prevent further deterioration of critical care condition ( as above ) . I am remotely monitoring this patient from another state. I am unable to do the bedside exam, and history/physical and pertinent information is taken from other notes in the computer and bedside staff. Sepsis Event Evaluation Height, Weight, BMI Height: 5'11" Weight: 215lbs. oz. 97.519894px; 26.88 BMI Method:Stated Focused Exam Lactate Level 12/20/22 23:17: Lactic Acid Level 1.73 12/21/22 06:14: Lactic Acid Level 1.48 Exam Exam Patient acknowledged, consented, and participated in this virtual visit which was conducted using real time audio/video Vital Signs Date Time Temp Pulse Resp B/P (MAP) Pulse Ox O2 Delivery O2 Flow Rate FiO2 12/22/22 08:50 37.1 67 17 127/49 100 Room Air 12/22/22 08:45 99 Room Air 12/22/22 08:32 37.0 72 16 134/63 99 Room Air 12/22/22 08:00 78 12 134/63 (106) 99 Room Air 12/22/22 07:22 36.8 12/22/22 07:00 67 16 122/44 (99) 99 Room Air 12/22/22 07:00 61 12/22/22 06:00 69 132/52 (78) 100 Room Air 12/22/22 05:00 66 106/64 (78) 99 Room Air 12/22/22 04:00 99 Room Air 12/22/22 04:00 68 123/62 (82) 99 Room Air 12/22/22 03:00 70 119/50 (73) 98 Room Air 12/22/22 02:00 65 121/50 (73) 99 Room Air 12/22/22 01:00 64 12/22/22 01:00 66 113/49 (70) 98 Room Air 12/22/22 00:35 36.4 67 27 123/43 (69) 99 12/22/22 00:00 66 123/43 (69) 99 Room Air 12/21/22 23:59 97 Room Air 12/21/22 23:00 70 114/43 (66) 99 Room Air 12/21/22 22:00 75 127/52 (77) 98 Room Air 12/21/22 21:00 85 129/51 (77) 100 Room Air 12/21/22 20:00 80 131/42 (71) 99 Room Air 12/21/22 20:00 36.7 12/21/22 20:00 99 Room Air 12/21/22 19:00 81 124/43 (70) 99 Room Air 12/21/22 19:00 81 12/21/22 18:00 83 135/37 (58) 99 Room Air 12/21/22 17:00 71 13 140/75 (109) 98 Room Air 12/21/22 16:00 36.9 12/21/22 16:00 71 18 144/47 (79) 99 Room Air 12/21/22 15:42 100 Room Air 12/21/22 15:00 69 11 125/54 (64) 100 Room Air 12/21/22 14:00 80 14 131/51 (77) 99 Room Air 12/21/22 13:00 74 36 108/57 (77) 99 Room Air 12/21/22 12:36 72 12/21/22 12:00 73 14 100/64 (79) 100 Room Air 12/21/22 11:52 36.7 12/21/22 11:27 100 Room Air 12/21/22 11:00 73 24 114/62 (73) 100 Room Air 12/21/22 10:00 75 14 135/63 (92) 99 Room Air I & O 12/22/22 07:00 Intake Total 2516 ml Output Total 975 ml Balance 1541 ml Height & Weight Height: 5'11" Weight: 215lbs. oz. 97.404412ab; 26.88 BMI Method:Stated General Appearance: No Apparent Distress, WD/WN HEENT: PERRL/EOMI, Pharynx Normal Neck: Normal Inspection, Supple Respiratory: Lungs Clear, No Respiratory Distress Cardiovascular: Regular Rate, Rhythm, No Murmur Gastrointestinal: non tender, soft Extremity: Non Tender, Other (left knee swelling, ecchymosis) Neurologic/Psychiatric: Alert, Aphasia, Disoriented, Motor Weakness (diffusely, difficulty following commands but moves all extremities) Skin: Normal Color, Other (right elbow laceration bandaged) Results Lab Laboratory Tests 12/20/22 21:37 12/21/22 03:37 12/22/22 04:05 12/22/22 06:19 Assessment/Plan Assessment/Plan 1 LUCIO ROBERTSON MD Dec 22, 2022 09:43
[2022-12-22 11:31] VITALS: BP 127/56
[2022-12-22 13:48] LABS: HEMOGLOBIN 8.3 g/dL (13.3-17.7)
[2022-12-22] MEDS: NS IV 1000 ML 1,000 ML IV SCH (13:55)
--- NOTE | 2022-12-22 17:05 | Progress Note - Hospitalist ---
Subjective HPI/CC On Admission Date Seen by Provider: Dec 22, 2022 Time Seen by Provider: 09:00 Alessio Austin (Phil) is an 82 year old male with PMH HTN, HLD, CAD, BPH, dementia, who presented after a fall at home. He is well known to me from recent hospitalizations. He was discharged yesterday after an admission with sepsis due to cellulitis. He improved and was discharged home yesterday morning on oral antibiotics. He was left at home while his family went to dinner and they found him on the floor when they got home. He was having slurred, garbled speech. He had some cuts and was bleeding. Subjective/Events-last exam He denies pain. He denies shortness of breath. He has some difficulty answering questions and following commands. Focused Exam Lactate Level 12/20/22 23:17: Lactic Acid Level 1.73 12/21/22 06:14: Lactic Acid Level 1.48 Objective Exam Vital Signs Vital Signs Date Time Temp Pulse Resp B/P (MAP) Pulse Ox O2 Delivery O2 Flow Rate FiO2 12/22/22 16:00 52 21 114/43 (76) 100 Room Air 12/22/22 16:00 36.6 Capillary Refill : General Appearance: No Apparent Distress, WD/WN Respiratory: Lungs Clear, No Respiratory Distress Cardiovascular: Regular Rate, Rhythm, No Murmur Gastrointestinal: Normal Bowel Sounds, Soft Extremity: Normal Inspection, No Pedal Edema Neurologic/Psychiatric: Alert, Aphasia, Motor Weakness Skin: Normal Color, Warm/Dry Results/Procedures Lab Laboratory Tests 12/22/22 04:05 12/22/22 06:19 12/22/22 13:42 Patient resulted labs reviewed. Imaging: Reviewed Imaging Report Assessment/Plan Assessment and Plan Assess & Plan/Chief Complaint Stroke History of CVA Carotid stenosis Fall Exam consistent with acute stroke Trauma eval negative for acute fractures CT without evidence of acute stroke CTA without evidence of occlusion, moderate carotid stenosis ER discussed risks/benefits of tPA with family, deferred MRI ordered for tomorrow morning Continue ASA and Plavix Lipitor Monitor on telemetry Echo ordered TeleICU following PT/OT Anemia Likely thigh hematoma due to fall Transfused 1 unit PRBC this morning Monitor hemoglobin Leukocytosis KIM Elevated d-dimer WBC improving Not septic Venous dopplers without evidence of DVT No hypoxia, low concern for PE Continue IV fluids Cellulitis IV antibiotics HTN CAD BPH Dementia Continue home meds as able DVT prophylaxis: Lovenox Critical Care Critically Ill Patient Diagnosis/Problems Diagnosis/Problems (1) Stroke-like symptoms Status: Acute (2) History of CVA (cerebrovascular accident) Status: Acute (3) Fall Status: Acute (4) KIM (acute kidney injury) Status: Acute (5) Elevated d-dimer Status: Acute (6) Cellulitis Status: Acute (7) Leukocytosis Status: Acute Qualifiers: Leukocytosis type: unspecified Qualified Codes: D72.829 - Elevated white blood cell count, unspecified (8) HTN (hypertension) (9) HLD (hyperlipidemia) Status: Chronic (10) BPH (benign prostatic hyperplasia) Status: Chronic (11) Dementia Status: Chronic (12) CAD (coronary artery disease) Status: Chronic (13) Carotid stenosis Status: Acute Qualifiers: Laterality: bilateral Qualified Codes: I65.23 - Occlusion and stenosis of bilateral carotid arteries KRISHNA LAWSON MD Dec 22, 2022 17:05
[2022-12-22] MEDS: TAMSULOSIN 0.4 MG (FLOMAX) CAP PO SCH (17:49)
[2022-12-22] MEDS ORDERED: NS IV 500 ML 500 ML IV PRN (18:45)
[2022-12-23] MEDS: cefTRIAXone 2,000 MG in NS (IVPB) 50 ML IV SCH (02:43)
[2022-12-23] MEDS: NS IV 1000 ML 1,000 ML IV SCH (04:11)
[2022-12-23 04:50] LABS: BASOPHILS # (AUTO) 0.1 10^3/uL (0.0-0.1); BASOPHILS % (AUTO) 1 % (0-10); EOSINOPHILS # (AUTO) 0.1 10^3/uL (0.0-0.3); EOSINOPHILS % (AUTO) 1 % (0-10); HEMATOCRIT 24 % (40-54); HEMOGLOBIN 7.9 g/dL (13.3-17.7); LYMPHOCYTES # (AUTO) 2.9 10^3/uL (1.0-4.0); LYMPHOCYTES % (AUTO) 28 % (12-44); MEAN CORPUSCULAR HEMOGLOBIN 33 pg (25-34); MEAN CORPUSCULAR HGB CONC 34 g/dL (32-36); MEAN CORPUSCULAR VOLUME 97 fL (80-99); MONOCYTES % (AUTO) 10 % (0-12); NEUTROPHILS # (AUTO) 6.3 10^3/uL (1.8-7.8); NEUTROPHILS % (AUTO) 61 % (42-75); PLATELET COUNT 195 10^3/uL (130-400); WHITE BLOOD COUNT 10.3 10^3/uL (4.3-11.0)
[2022-12-23] MEDS ORDERED: TROUGH ORDER-PHARMACY XX NR (05:00)
[2022-12-23 05:08] LABS: ALBUMIN 2.5 GM/DL (3.2-4.5); POTASSIUM 4.3 MMOL/L (3.6-5.0)
[2022-12-23 05:10] LABS: CALCIUM 8.3 MG/DL (8.5-10.1)
[2022-12-23 05:11] LABS: TOTAL PROTEIN 4.2 GM/DL (6.4-8.2)
[2022-12-23 05:13] LABS: BILIRUBIN,TOTAL 0.7 MG/DL (0.1-1.0)
[2022-12-23 05:14] LABS: CREATININE SERUM 1.11 MG/DL (0.60-1.30); PHOSPHORUS 2.2 MG/DL (2.3-4.7)
[2022-12-23 05:17] LABS: MAGNESIUM 2.2 MG/DL (1.6-2.4)
[2022-12-23] MEDS: VANCOMYCIN 1250 MG/NS 250 ML PREMIX IV SCH (05:32)
[2022-12-23] MEDS: POTASSIUM CL 10MEQ/50ML IVPB 50 ML IV SCH (05:47)
[2022-12-23] MEDS: KCL 20 MEQ TAB (K-DUR) PO SCH (05:47)
[2022-12-23] MEDS: MAGNESIUM 1 GM/100 ML IVPB 100 ML IV SCH (05:47)
[2022-12-23] MEDS ORDERED: POTASSIUM CL 10MEQ/50ML IVPB 50 ML IV SCH (06:00)
[2022-12-23] MEDS ORDERED: MAGNESIUM 1 GM/100 ML IVPB 100 ML IV SCH (06:00)
[2022-12-23] MEDS ORDERED: KCL 20 MEQ TAB (K-DUR) PO SCH (06:00)
[2022-12-23] MEDS: FINASTERIDE (PROSCAR) 5 MG TAB PO SCH (08:31)
[2022-12-23] MEDS: ASPIRIN E.C. 81 MG (ECOTRIN) TAB PO SCH (08:31)
[2022-12-23] MEDS: MEMANTINE 5 MG (NAMENDA) TABLET PO SCH (08:31)
[2022-12-23] MEDS: CLOPIDOGREL 75 MG (PLAVIX) TABLET PO SCH (08:31)
[2022-12-23] MEDS: amLODIPine 10 MG (NORVASC) TAB PO SCH (08:31)
--- NOTE | 2022-12-23 09:00 | Progress Note - Hospitalist ---
Subjective HPI/CC On Admission Date Seen by Provider: Dec 23, 2022 Alessio Austin (Phil) is an 82 year old male with PMH HTN, HLD, CAD, BPH, dementia, who presented after a fall at home. He is well known to me from recent hospitalizations. He was discharged yesterday after an admission with sepsis due to cellulitis. He improved and was discharged home yesterday morning on oral antibiotics. He was left at home while his family went to dinner and they found him on the floor when they got home. He was having slurred, garbled speech. He had some cuts and was bleeding. Subjective/Events-last exam Pt reports feeling "great." No complaints. Thinks his speech is better. Did get tearful throughout conversation when he talked about his . No family at bedside. Focused Exam Lactate Level 12/20/22 23:17: Lactic Acid Level 1.73 12/21/22 06:14: Lactic Acid Level 1.48 Objective Exam Vital Signs Vital Signs Date Time Temp Pulse Resp B/P (MAP) Pulse Ox O2 Delivery O2 Flow Rate FiO2 12/23/22 07:53 36.8 12/23/22 07:00 51 12/23/22 06:00 104/40 (61) 100 Room Air 12/23/22 05:00 25 Capillary Refill : General Appearance: No Apparent Distress, Chronically ill Respiratory: Lungs Clear, No Respiratory Distress Cardiovascular: Regular Rate, Rhythm, No Murmur Neurologic/Psychiatric: Alert, Oriented x3, Other (speech by and large clear but occasionaly mumbled a word) Results/Procedures Lab Laboratory Tests 12/22/22 13:42 12/23/22 04:32 Patient resulted labs reviewed. 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
--- NOTE | 2022-12-23 09:11 | Tele-ICU Progress Note ---
Subjective Date Seen by a Provider: Dec 23, 2022 Time Seen by a Provider: 09:11 Subjective/Events-last exam (Tele-ICU Physician , Progress Note ) Service provided via interactive audio and video telecommunications E-CARE system to a patient admitted to ICU bed in [facility]. Patient is seen today due to persistent need of ICU care Available chart/ vitals / labs / Images reviewed Video assessment done using teleICU camera, rest of exam as per RN Discussed with RN Events overnight : Afebrile hemodynamically stable Respiratory - ra I/O = + Drips: ns 75 = prbc Pressors- no Hospital course: (pt just dc from hospital on 12/20 with sepsis cellulitis L knee) (12/21) 82yM Admit s/p Fall, AMS, TIA w/leukocytosis A/P Stroke/ TIA - still not baseline -CT without evidence of acute stroke, -CTA without evidence of occlusion, moderate carotid stenosis - NO tPA as per family, deferred in ER -MRI pending -on ASA and Plavix History of CVA s/p Fall at home -no acute fractures -CT H - no bleed -Echo pending -Elevated d-dimer 18 - no DVT , ECHO pending ABLA - hb 6.9 this am , not cleat sourse of bleeding ( left hip hematoma after fall - stable by exam )- propbaly slow whoozing and delution --on ASA and Plavix - 1 pRBC 12/22 KIM - on hydration + pRBC - recovered Elevated d-dimer - evidence of DVT bilat Cellulitis left knee, s/p LEFT knee sx - IV antibiotics -no pain - no DVT on US 12/21/22 Nutritions - PO Lines : periph , (Central Line Necessity Reviewed) Maldonado: + 12/21 OG: Nutrition: po Analgesia: Anxiety/ delirium VTE Prophylaxis: hold lovenox 12/22 - to resume 12/23 Stress Ulcer Prophylaxis: ppi Plans in collaboration with bedside consultants and IM MDs. Discussed with RN to reach out if any questions or concerns Case and care daily discussed on multidisciplinary rounds ( RN, PharmD, Load Planner , Respiratory Therapy, home economics extension worker ) A total of 25 minutes of critical care time was devoted to this patient today, required to treat and/or prevent further deterioration of critical care condition ( as above ) . I am remotely monitoring this patient from another state. I am unable to do the bedside exam, and history/physical and pertinent information is taken from other notes in the computer and bedside staff. Sepsis Event Evaluation Height, Weight, BMI Height: 5'11" Weight: 215lbs. oz. 97.355718md; 27.96 BMI Method:Stated Focused Exam Lactate Level 12/20/22 23:17: Lactic Acid Level 1.73 12/21/22 06:14: Lactic Acid Level 1.48 Exam Exam Patient acknowledged, consented, and participated in this virtual visit which was conducted using real time audio/video Vital Signs Date Time Temp Pulse Resp B/P (MAP) Pulse Ox O2 Delivery O2 Flow Rate FiO2 12/23/22 07:53 36.8 12/23/22 07:00 51 12/23/22 06:00 52 104/40 (61) 100 Room Air 12/23/22 05:00 51 25 114/44 (77) 100 Room Air 12/23/22 04:00 99 Room Air 12/23/22 04:00 52 23 129/49 (81) 100 Room Air 12/23/22 03:00 52 117/57 (77) 100 Room Air 12/23/22 02:00 49 37 132/48 (85) 98 Room Air 12/23/22 01:00 56 12/23/22 01:00 56 14 126/50 (90) 99 Room Air 12/23/22 00:00 58 24 123/56 (78) 100 Room Air 12/22/22 23:59 99 Room Air 12/22/22 23:00 53 16 124/51 (75) 100 Room Air 12/22/22 22:00 58 23 126/47 (81) 100 Room Air 12/22/22 21:00 58 25 131/48 (75) 99 Room Air 12/22/22 20:00 63 16 119/50 (78) 100 Room Air 12/22/22 20:00 36.5 12/22/22 20:00 99 Room Air 12/22/22 19:00 56 122/46 (78) 100 Room Air 12/22/22 19:00 56 12/22/22 18:00 64 22 123/49 (76) 100 Room Air 12/22/22 17:00 57 8 138/61 (107) 100 Room Air 12/22/22 16:00 52 21 114/43 (76) 100 Room Air 12/22/22 16:00 36.6 12/22/22 15:11 100 Room Air 12/22/22 15:00 61 19 111/46 (73) 100 Room Air 12/22/22 14:00 54 23 115/47 (75) 98 Room Air 12/22/22 13:00 55 12/22/22 13:00 56 20 106/49 (73) 99 Room Air 12/22/22 12:00 53 19 105/45 (71) 100 Room Air 12/22/22 11:40 100 Room Air 12/22/22 11:33 37.1 12/22/22 11:31 37.1 59 16 127/56 100 Room Air 12/22/22 11:00 58 25 109/53 (89) 99 Room Air 12/22/22 10:00 56 19 99/42 (65) 98 Room Air I & O 12/23/22 07:00 Intake Total 4391 ml Output Total 825 ml Balance 3566 ml Height & Weight Height: 5'11" Weight: 215lbs. oz. 97.435341nx; 27.96 BMI Method:Stated General Appearance: No Apparent Distress, Chronically ill HEENT: PERRL/EOMI, Pharynx Normal Neck: Normal Inspection, Supple Respiratory: Lungs Clear, No Respiratory Distress Cardiovascular: Regular Rate, Rhythm, No Murmur Gastrointestinal: non tender, soft Extremity: Normal Inspection, No Pedal Edema Neurologic/Psychiatric: Alert, Oriented x3, Other (speech by and large clear but occasionaly mumbled a word) Skin: Normal Color, Warm/Dry Results Lab Laboratory Tests 12/22/22 04:05 12/22/22 06:19 12/22/22 13:42 12/23/22 04:32 Assessment/Plan Assessment/Plan 1 LUCIO ROBERTSON MD Dec 23, 2022 09:11
[2022-12-23] MEDS ORDERED: KETO120S13 TP (09:40)
[2022-12-23] MEDS: THIAMINE INJECTION 100 MG in NS (IVPB) 50 ML IV SCH (10:26)
[2022-12-23] MEDS: ENOXAPARIN 40 MG/0.4 ML (LOVENOX) SYR SC SCH (10:26)
--- NOTE | 2022-12-23 11:15 | Physical Therapy Daily Note ---
PT Daily Note-Current Subjective Patient agrees to PT. Patient is very [place] on this date. Pain Section J - Health Conditions 1. Rarely or not at all 2. Occasionally 3. Frequently 4. Almost constantly 8. Unable to answer Pain Effect on Sleep: 2 Pain Interference with Therapy: 2 Pain Interference w/Day-to-Day: 2 Mental Status Attachments: IV Transfers SCALE: Activities may be completed with or without assistive devices. 5-Mkjnxxpdcj-drxldey completes the activity by him/herself with no assistance from a helper. 5-Set-up or Clean-up Assistance-helper sets up or cleans up; patient completes activity. [place] assists only prior to or following the activity. 4-Supervision or Touching Assistance-helper provides verbal cues and/or touching/steadying and/or contact guard assistance as patient completes activity. Assistance may be provided throughout the activity or intermittently. 3-Partial/Moderate Assistance-helper does LESS THAN HALF the effort. [place] lifts, holds or supports trunk or limbs, but provides less than half the effort. 2-Substantial/Maximal Assistance-helper does MORE THAN HALF the effort. [place] lifts or holds trunk or limbs and provides more than half the effort. 1-Vlzdazuot-asilwl does ALL the effort. Patient does none of the effort to complete the activity. Or, the assistance of 2 or more helpers is required for the patient to complete the activity. If activity was not attempted, code reason: 7-Patient Refused. 9-Not Applicable-not attempted and the patient did not perform the activity before the current illness, exacerbation or injury. 10-Not Attempted due to Environmental Limitations-(lack of equipment, weather restraints, etc.). 88-Not Attempted due to Medical Conditions or Safety Concerns. Sit to Lying (QC): 4 Lying to Sitting/Side of Bed(Q: 4 Sit to Stand (QC): 3 Gait Training Distance: 100' Walk 10 feet (QC): 4 Walk 50 ft with 2 Turns(QC): 4 Gait Assistive Device: FWW slow, antalgic with VC'c to place left foot flat and/or toe off with gait sequence Assessment Treatment ceased for patient to go for an MRI. Patient much improved on this date. PT to increase activity as tolerated by patient. PT Short Term Goals Short Term Goals Time Frame: Jan 03, 2023 Roll Left & Right: 3 Sit to lyin Lying to sitting on side of be: 3 Sit to stand: 3 Chair/nft-pu-jlbzt transfer: 3 Toilet transfer: 3 Walk 10 feet: 3 Walk 50 feet with two turns: 3 Walk 150 feet: 3 PT Digital Asset Specialist Goals Senior Living Goals PT Senior Living Goals Time Frame: Jan 18, 2023 Roll Left & Right (QC): 4 Sit to Lying (QC): 4 Lying-Sitting on Side/Bed(QC): 4 Sit to Stand (QC): 4 Chair/Fsu-jy-Uufjm Xfer(QC): 4 Toilet Transfer (QC): 4 Walk 10 feet (QC): 4 Walk 50ft with 2 Turns (QC): 4 Walk 150 ft (QC): 4 PT Plan Treatment/Plan Treatment Plan: Continue Plan of Care Treatment Plan: Bed Mobility, Education, Functional Activity Jacklyn, Functional Strength, Gait, Safety, Therapeutic Exercise, Transfers Treatment Duration: Jan 18, 2023 Frequency: 6 times per week Estimated Hrs Per Day: .25 hour per day Time Time In: 1040 Time Out: 1055 DATE: Dec 23, 2022 Total Billed Treatment Time: 15 Total Billed Treatment 1 visit FA 15 min ELICEO BROOKE PT Dec 23, 2022 11:15
--- NOTE | 2022-12-23 11:48 | Occupational Therapy Eval ---
OT Evaluation-General/PLF Medical Diagnosis Admission Date Dec 21, 2022 at 00:23 Medical Diagnosis: TIA/AMS/leukocytosis Onset Date: Dec 21, 2022 Therapy Diagnosis Therapy Diagnosis: weakness/confusion Height/Weight Height (Feet): 5 Height (Inches): 11 Weight (Pounds): 215 Precautions Precautions/Isolations: Fall Prevention, Standard Precautions, Pressure Ulcer Safety Interventions: Bed Exit Alarm Weight Bear Status Weight Bearing Restriction: Weight Bearing/Tolerated Location Restriction: L DO Referral Physician: Thalia Referral Reason: Activity Tolerance, Self Care, Evaluation/Treatment, Strengthening/ROM Medical History Pertinent Medical History: CVA, HTN Additional Medical History Patient discharge to home Friday from this hospital, prior to most recent admission patient hospital stay for LTKA Current History Unwitnessed fall at home while family away for dinner, Family arrived to find patient had fallen and was bruised and in distress. Admission through ER Reviewed History: Yes Social History Home: Single Level Current Living Status: SNF Patient DC'd from hospital Friday and planned to move to SNF w/ ADL-Prior Level of Function SCALE: Activities may be completed with or without assistive devices. 0-Vsuzckgnuw-xqrayaw completes the activity by him/herself with no assistance from a helper. 5-Set-up or Clean-up Assistance-helper sets up or cleans up; patient completes activity. [place] assists only prior to or following the activity. 4-Supervision or Touching Assistance-helper provides verbal cues and/or touching/steadying and/or contact guard assistance as patient completes activity. Assistance may be provided throughout the activity or intermittently. 3-Partial/Moderate Assistance-helper does LESS THAN HALF the effort. [place] lifts, holds or supports trunk or limbs, but provides less than half the effort. 2-Substantial/Maximal Assistance-helper does MORE THAN HALF the effort. [place] lifts or holds trunk or limbs and provides more than half the effort. 6-Mmkpvoekh-xbhmjr does ALL the effort. Patient does none of the effort to complete the activity. Or, the assistance of 2 or more helpers is required for the patient to complete the activity. If activity was not attempted, code reason: 7-Patient Refused. 9-Not Applicable-not attempted and the patient did not perform the activity before the current illness, exacerbation or injury. 10-Not Attempted due to Environmental Limitations-(lack of equipment, weather restraints, etc.). 88-Not Attempted due to Medical Conditions or Safety Concerns. Self Care: Needed Some Help Functional Cognition: Needed Some Help Drive Self: No OT Current Status Subjective Increased hard of hearing noted, agrees to OT, impulsive and lacks safety Mental Status/Objective Patient Orientation: Person, Confused Multiple bruises across back, on both hips, between scapula, elbows and arms Attachments: Maldonado Catheter, IV, SCD's Current Hearing Aids: No (increased hard of hearing noted) Upper Extremity ROM WFLS BUE Upper Extremity Strength BUE grossly -4/5 ADL-Treatment Eating (QC): 5 Oral Hygiene (QC): 4 Shower/Bathe Self (QC): 88 Upper Body Dressing (QC): 3 Lower Body Dressing (QC): 3 On/Off Footwear (QC): 1 Toileting Hygiene (QC): 2 Education OT Patient Education: Correct positioning, Exercise program, Modified ADL techniques, Progress toward Goal/Update tx plan, Purpose of tx/functional activities, Reviewed precautions, Rehab process, Safety issues, Transfer techniques, Use of adapted equipment Teaching Recipient: Patient Teaching Methods: Demonstration, Discussion Response to Teaching: Reinforcement Needed OT Skilled Nursing Goals [employer] Goals Eating (QC): 5 Oral Hygiene (QC): 5 Toileting Hygiene (QC): 5 Shower/Bathe Self (QC): 5 Upper Body Dressing (QC): 5 Lower Body Dressing (QC): 5 On/Off Footwear (QC): 5 1=Demonstrate adherence to instructed precautions during ADL tasks. 2=Patient will verbalize/demonstrate understanding of assistive devices/modifications for ADL. 3=Patient will improve strength/tolerance for activity to enable patient to perform ADL's. OT Education/Plan Problem List/Assessment Assessment: Decreased Activ Tolerance, Decreased Safety Aware, Decreased UE Strength, Impaired Coordination, Impaired Funct Balance, Impaired Self-Care Skills Discharge Recommendations Plan/Recommendations: Continue POC Therapy Discharge Recommendati: 24 Hour Supervision (patient has poor safety awareness and problem solivng strategies), Post Acute OT Treatment Plan/Plan of Care Treatment,Training & Education: Yes Patient would benefit from OT for education, treatment and training to promote independence in ADL's, mobility, safety and/or upper extremity function for ADL's. Plan of Care: ADL Retraining, Cognitive Retraining, Functional Mobility, Group Exercise/Act as Ind, UE Funct Exercise/Act Treatment Duration: Dec 28, 2022 Frequency: 3 times per week (3-5 times per week) Rehab Potential: Guarded Time Start Time: 10:40 Stop Time: 10:55 DATE: Dec 23, 2022 Total Time Billed (hr/min): 15 Billed Treatment Time EVH 1 15 min CROW JOHNSON OT Dec 23, 2022 11:48
--- NOTE | 2022-12-23 12:06 | Diagnostic Imaging Report ---
PROCEDURE: MR imaging of the brain without contrast. TECHNIQUE: Multiplanar, multisequence MR imaging of the brain was performed without contrast. INDICATION: Stroke. COMPARISON: CTA head and neck 12/20/2022. FINDINGS: Examination is limited by motion. Acute to subacute infarct in the posterior left parietal lobe extending into the left occipital lobe. This measures up to 3.6 x 3.1 cm. Moderate generalized parenchymal volume loss. Moderate to advanced nonspecific T2 hyperintensities in the supratentorial white matter compatible with chronic small vessel ischemic change. No hemosiderin deposition or evidence of intracranial hemorrhage. Normal morphology of the major midline structures, sella, posterior fossa and cerebellar pontine angle. Normal intracranial flow voids. No hydrocephalus or extra-axial fluid collections. The orbits are negative. Mucus retention cyst in left maxillary sinus. Nonspecific fluid in the left mastoid. Normal bone marrow signal. IMPRESSION: 1. Acute to subacute infarct in the posterior left parietal lobe extending into the left occipital lobe measures up to 3.6 cm. 2. No evidence of intracranial hemorrhage. 3. Age-appropriate generalized parenchymal volume loss and leukoaraiosis. 4. Nonspecific small left mastoid effusion. 5. Mucous retention cyst in the left maxillary sinus. Dictated by: Dictated on workstation # [id number]
[2022-12-23] MEDS: ACETAMINOPHEN 325 MG TABLET PO PRN ×2 (14:14→23:46)
--- NOTE | 2022-12-23 14:16 | ST Dysphagia Evaluation ---
Speech Evaluation-General Medical Diagnosis TIA/AMS/Leukocytosis Onset Date: Dec 21, 2022 Therapy Diagnosis Therapy Diagnosis: Intact Oropharyngeal Swallow Function Precautions Precautions: Fall Precautions/Isolations: Fall Prevention, Standard Precautions Referral Referring Physician: Dr. Maciel Reason for Referral: Evaluation/Treatment Medical History Pertinent Medical History: CVA, HTN Reviewed History: Yes Social History Current Living Status: SNF Speech PLF/Current-Dysphagia Prior Level of Function The patient denied challenges or concerns with his oropharyngeal swallowing function. The patient reports he consumes a regular consistency diet with thin liquids at home. Subjective The patient was seated upright in his recliner, awake and alert, upon entrance to his room by the clinician. The patient greeted the clinician appropriately and was agreeable to participation in the clinical bedside swallowing evaluatio n. Cognitive Status Patient Orientation: Person, Place Oral Motor Skills Dentition: Natural Current Food Consistancy: Regular, Thin Liquids Ability to Follow Directions: Good Oral Expression Ability: Moderate Impairment Voice Voice Phonatory-Based Quality: Normal Voice Pitch: Normal Voice Loudness: Normal Face Facial Symmetry: Symmetrical Oral-Facial Assessment Oral-Facial Dentition: Normal Labial Seal Description: Normal Smile: Normal Lingual Protrusion: Normal Lingual ROM: Normal Lingual Strength: Normal Volitional Dry Swallow: Yes Voluntary Cough: Yes Can Clear Throat Volitionally: Yes Productive Cough: Yes Productive Throat Clear: Yes Dysphagia Evaluation Consistencies Presented: Regular, Thin Liquid, Pureed The patient does not display oral impairments to the swallowing function. The patient does not display pharyngeal impairments to the swallowing function. The patient does not display s/s of suspected aspiration with P.O. intake provided throughout the evaluation. The patient's vocal quality remained clear following each swallow. Dietary Recommendations: Regular Liquid Recommendations: Thin Recommendations: - Regular consistency diet with thin liquids, as tolerated. - Fully upright and alert for P.O. intake. - Small, single bites and sips. - Monitor for s/s of suspected aspiration with P.O. intake. If demonstrated, please contact speech pathology. - Speech pathology to continue to assess the patient's tolerance with his current diet consistency. The results and recommendations were provided to the patient immediately following the evaluation. Dysphagia Evaluation Summary The patient demonstrated an intact oropharyngeal swallow function. Overt s/s of suspected aspiration were not appreciated with thin liquids, puree, or solid consistencies tested. Speech Short Term Goals Short Term Goals Short Term Goals 1. The patient will display safe swallowing precautions with 80% accuracy, independently. Time Frame-STG: Three Days. Speech Mechanical Detailer Goals Mechanical Detailer Goals 1. The patient will tolerate the least restrictive diet without s/s of suspected aspiration. Time Frame: One Week. Speech-Plan Treatment Plan Speech Therapy Treatment Plan: Continue Plan of Care Treatment Duration: Dec 27, 2022 Frequency: 4 times per week Estimated Hrs Per Day: .25 hour per day Rehab Potential: Guarded Pt/Family Agrees to Plan: Yes Safety Risks/Education Teaching Recipient: Patient Teaching Methods: Discussion Response to Teaching: Reinforcement Needed Education Topics Provided: Results, Recommendations, Plan of Care, Safe Swallowing Precautions Time Speech Therapy Time In: 12:35 Speech Therapy Time Out: 12:51 DATE: Dec 23, 2022 Total Billed Time: 16 Billed Treatment Time 1, COLTON SHORE [facility] Dec 23, 2022 14:16
--- NOTE | 2022-12-23 14:21 | ST Cognitive Linguistic Eval ---
Speech Evaluation-General Medical Diagnosis TIA/AMS/Leukocytosis Onset Date: Dec 21, 2022 Therapy Diagnosis Therapy Diagnosis: Cognitive Linguistic Impairment (Mod). Precautions Precautions: Fall Precautions/Isolations: Fall Prevention, Standard Precautions Referral Referring Physician: Dr. Maciel Reason for Referral: Evaluation/Treatment Medical History Pertinent Medical History: CVA, HTN Reviewed History: Yes Social History Current Living Status: SNF Speech PLF-Current Status Prior Level of Function The patient was unable to provide the clinician with prior level of function information. The patient denied challenges with his speech, language, or cognition, however, appeared confused throughout the interaction with the clinician. Subjective The patient was seated upright in his recliner, awake and alert, upon entrance to his room by the clinician. The patient greeted the clinician appropriately and was agreeable to participation in the cognitive linguistic assessment. Language Eval: Auditory Comprehends Simple Yes/No Ques: Functional Indent/Objects Multiple Maxwell: Functional Ident/Pics in Multiple Maxwell: Severe (The patient was presented multiple black and white images. The patient identified each image as "lettuce." One image was a glove and one image was a chair.) Follows 1-Step Commands: Functional Follows General Conversations: Moderate The patient does appear mildly hard of hearing as elevated vocal intensity franck eared beneficial throughout interactions. Language Eval: Verbal Language Completes Spontaneous Greeting: Functional Produces Auto, Serial Info: Functional Imitates Simple Words/Phrases: Functional Word Finding: Moderate States Basic Personal Info: Functional Expresses Complex Ideas: Moderate The patient does become tearful while discussing his , stating he "misses her so much." Picture description was presented and the patient reported, "This is my third time trying this and I have no idea. It's lettuce." Language Evaluation: Reading The patient was present simple sentences. After studying the information for multiple minutes the patient stated, "That's all jumbled up." Cognitive Patient Orientation The patient was independently oriented to self, location, city, and month. The patient stated the year was "2021." Objective Cognitive Domain Cognitive evaluation will occur following an improvement to expressive commu nication, as well as, an opportunity for possible confusion to clear. Objective Oral Motor/Speech Production The patient does not display dysarthria or apraxia of speech at this time. The patient is 100% intelligible in known and unknown contexts. Impression The patient demonstrated a mild to moderate expressive communication and cognitive deficit. Skilled speech pathology is warranted in attempts to improve patient communication and interaction with staff and family members. Speech Short Term Goals Short Term Goals Short Term Goals 1. The patient will demonstrate 80% accuracy with confrontational naming of black and white images. Time Frame-STG: Three Days. Speech Skilled Nursing Goals Final Inspector Motorcyles Goals 1. The patient will display improved cognitive linguistic skills for safe discharge to the least restrictive environment. Time Frame: One Week. Speech-Plan Treatment Plan Speech Therapy Treatment Plan: Continue Plan of Care Treatment Duration: Dec 27, 2022 Frequency: 4 times per week Estimated Hrs Per Day: .25 hour per day Rehab Potential: Guarded Pt/Family Agrees to Plan: Yes Safety Risks/Education Teaching Recipient: Patient Teaching Methods: Discussion Response to Teaching: Reinforcement Needed Education Topics Provided: Results, Recommendations, Plan of Care Time Speech Therapy Time In: 12:51 Speech Therapy Time Out: 13:07 DATE: Dec 23, 2022 Total Billed Time: 16 Billed Treatment Time 1, YANCY AMAYA [facility] Dec 23, 2022 14:21
[2022-12-23] MEDS: TAMSULOSIN 0.4 MG (FLOMAX) CAP PO SCH (17:36)
[2022-12-24] MEDS: cefTRIAXone 2,000 MG in NS (IVPB) 50 ML IV SCH (02:59)
[2022-12-24] MEDS ORDERED: TROUGH ORDER-PHARMACY XX NR (05:00)
[2022-12-24 05:27] LABS: BASOPHILS # (AUTO) 0.1 10^3/uL (0.0-0.1); BASOPHILS % (AUTO) 1 % (0-10); EOSINOPHILS # (AUTO) 0.2 10^3/uL (0.0-0.3); EOSINOPHILS % (AUTO) 2 % (0-10); HEMATOCRIT 26 % (40-54); HEMOGLOBIN 8.5 g/dL (13.3-17.7); LYMPHOCYTES # (AUTO) 2.7 10^3/uL (1.0-4.0); LYMPHOCYTES % (AUTO) 26 % (12-44); MEAN CORPUSCULAR HEMOGLOBIN 32 pg (25-34); MEAN CORPUSCULAR HGB CONC 33 g/dL (32-36); MEAN CORPUSCULAR VOLUME 97 fL (80-99); MEAN PLATELET VOLUME 9.9 fL (9.0-12.2); MONOCYTES # (AUTO) 0.9 10^3/uL (0.0-1.0); MONOCYTES % (AUTO) 9 % (0-12); NEUTROPHILS # (AUTO) 6.2 10^3/uL (1.8-7.8); NEUTROPHILS % (AUTO) 61 % (42-75); PLATELET COUNT 213 10^3/uL (130-400); WHITE BLOOD COUNT 10.1 10^3/uL (4.3-11.0)
[2022-12-24 05:40] LABS: ALBUMIN 2.7 GM/DL (3.2-4.5); POTASSIUM 4.1 MMOL/L (3.6-5.0)
[2022-12-24 05:41] LABS: CALCIUM 8.5 MG/DL (8.5-10.1)
[2022-12-24 05:43] LABS: TOTAL PROTEIN 4.6 GM/DL (6.4-8.2)
[2022-12-24 05:45] LABS: BILIRUBIN,TOTAL 0.8 MG/DL (0.1-1.0)
[2022-12-24 05:46] LABS: CREATININE SERUM 0.88 MG/DL (0.60-1.30); PHOSPHORUS 2.6 MG/DL (2.3-4.7)
[2022-12-24 05:50] LABS: MAGNESIUM 2.1 MG/DL (1.6-2.4)
[2022-12-24] MEDS: POTASSIUM CL 10MEQ/50ML IVPB 50 ML IV SCH (05:56)
[2022-12-24] MEDS: KCL 20 MEQ TAB (K-DUR) PO SCH (05:57)
[2022-12-24] MEDS: MAGNESIUM 1 GM/100 ML IVPB 100 ML IV SCH (05:57)
[2022-12-24] MEDS: THIAMINE 100 MG (VITAMIN B-1) TAB PO SCH (06:02)
[2022-12-24] MEDS: CLOPIDOGREL 75 MG (PLAVIX) TABLET PO SCH (08:08)
[2022-12-24] MEDS: amLODIPine 10 MG (NORVASC) TAB PO SCH (08:08)
[2022-12-24] MEDS: ASPIRIN E.C. 81 MG (ECOTRIN) TAB PO SCH (08:08)
[2022-12-24] MEDS: MEMANTINE 5 MG (NAMENDA) TABLET PO SCH (08:08)
[2022-12-24] MEDS: FINASTERIDE (PROSCAR) 5 MG TAB PO SCH (08:08)
[2022-12-24] MEDS: ACETAMINOPHEN 325 MG TABLET PO PRN (08:08)
--- NOTE | 2022-12-24 08:15 | Physical Therapy Daily Note ---
PT Daily Note-Current Subjective Patient more agreeable and can hear better on this date. Pain Numeric Pain Scale: 7 Location: Left Location Body Site: Hip Pain Description: Acute Section J - Health Conditions 1. Rarely or not at all 2. Occasionally 3. Frequently 4. Almost constantly 8. Unable to answer Pain Effect on Sleep: 1 Pain Interference with Therapy: 1 Pain Interference w/Day-to-Day: 1 Transfers SCALE: Activities may be completed with or without assistive devices. 8-Dnwsipuvqk-kvgqkvo completes the activity by him/herself with no assistance from a helper. 5-Set-up or Clean-up Assistance-helper sets up or cleans up; patient completes activity. [place] assists only prior to or following the activity. 4-Supervision or Touching Assistance-helper provides verbal cues and/or touching/steadying and/or contact guard assistance as patient completes activity. Assistance may be provided throughout the activity or intermittently. 3-Partial/Moderate Assistance-helper does LESS THAN HALF the effort. [place] lifts, holds or supports trunk or limbs, but provides less than half the effort. 2-Substantial/Maximal Assistance-helper does MORE THAN HALF the effort. [place] lifts or holds trunk or limbs and provides more than half the effort. 2-Wascyyhcg-bccbis does ALL the effort. Patient does none of the effort to complete the activity. Or, the assistance of 2 or more helpers is required for the patient to complete the activity. If activity was not attempted, code reason: 7-Patient Refused. 9-Not Applicable-not attempted and the patient did not perform the activity before the current illness, exacerbation or injury. 10-Not Attempted due to Environmental Limitations-(lack of equipment, weather restraints, etc.). 88-Not Attempted due to Medical Conditions or Safety Concerns. Lying to Sitting/Side of Bed(Q: 4 Sit to Stand (QC): 4 Chair/Swj-nq-Obfjh Xfer(QC): 4 Gait Training Distance: 200' Walk 10 feet (QC): 4 Walk 50 ft with 2 Turns(QC): 4 Walk 150 ft (QC): 4 Gait Assistive Device: FWW VC's for gait sequence and foot flat gait left to extend and flex knee Exercises Supine Ex: Ankle pumps, Heel Slides, Straight leg raise Supine Reps: 12 Seated Therapy Exercises: Long arc quads Seated Reps: 25 Assessment Patient progressing with treatment plan. Education with patient on quad stretch in seated position left knee flexion to improve mobility. Patient demonstrated good technique. PT to continue to increase activity as tolerated by patient. PT Short Term Goals Short Term Goals Time Frame: Jan 03, 2023 Roll Left & Right: 3 Sit to lyin Lying to sitting on side of be: 3 Sit to stand: 3 Chair/wwl-fi-kvihe transfer: 3 Toilet transfer: 3 Walk 10 feet: 3 Walk 50 feet with two turns: 3 Walk 150 feet: 3 PT Care Home Goals Care Home Goals PT Hypnotherapist Goals Time Frame: Jan 18, 2023 Roll Left & Right (QC): 4 Sit to Lying (QC): 4 Lying-Sitting on Side/Bed(QC): 4 Sit to Stand (QC): 4 Chair/Nje-bk-Fgxwc Xfer(QC): 4 Toilet Transfer (QC): 4 Walk 10 feet (QC): 4 Walk 50ft with 2 Turns (QC): 4 Walk 150 ft (QC): 4 PT Plan Treatment/Plan Treatment Plan: Continue Plan of Care Treatment Plan: Bed Mobility, Education, Functional Activity Jacklyn, Functional Strength, Gait, Safety, Therapeutic Exercise, Transfers Treatment Duration: Jan 18, 2023 Frequency: 6 times per week Estimated Hrs Per Day: .25 hour per day Patient and/or Family Agrees t: Yes Time Time In: 736 Time Out: 759 DATE: Dec 24, 2022 Total Billed Treatment Time: 23 Total Billed Treatment 1 visit GT 11 min EX 12 min ELICEO BROOKE PT Dec 24, 2022 08:15
[2022-12-24] MEDS: ENOXAPARIN 40 MG/0.4 ML (LOVENOX) SYR SC SCH (10:11)
--- NOTE | 2022-12-24 10:16 | Tele-ICU Progress Note ---
Subjective Date Seen by a Provider: Dec 24, 2022 Time Seen by a Provider: 10:16 Subjective/Events-last exam (Tele-ICU Physician , Progress Note ) Service provided via interactive audio and video telecommunications E-CARE system to a patient admitted to ICU bed in [facility]. Patient is seen today due to persistent need of ICU care Available chart/ vitals / labs / Images reviewed Video assessment done using teleICU camera, rest of exam as per RN Discussed with RN Events overnight : Afebrile hemodynamically stable Respiratory - ra I/O = + Drips: off Pressors- no Hospital course: (pt just dc from hospital on 12/20 with sepsis cellulitis L knee) (12/21) 82yM Admit s/p Fall, AMS, TIA w/leukocytosis A/P Stroke/ TIA - at baseline -CT without evidence of acute stroke, -CTA without evidence of occlusion, moderate carotid stenosis, but MRI 12/23/22- Acute to subacute infarct in the posterior left parietal lobe extending into the left occipital lobe - NO tPA as per family, deferred in ER -on ASA and Plavix History of CVA s/p Fall at home -no acute fractures -CT H - no bleed -Echo 01/02/23 EF 55% RVSP 25 mmHg -Elevated d-dimer 18 - no DVT ABLA - hb 6.9 this am , not cleat sourse of bleeding ( left hip hematoma after fall - stable by exam )- propbaly slow whoozing and delution --on ASA and Plavix - 1 pRBC 12/22 KIM - on hydration + pRBC - recovered Elevated d-dimer - evidence of DVT bilat Cellulitis left knee, s/p LEFT knee sx - IV antibiotics -no pain - no DVT on US 12/21/22 Nutritions - PO , passed speach eval 12/23/22 Lines : periph , (Central Line Necessity Reviewed) Maldonado: + 12/21 OG: Nutrition: po Analgesia: Anxiety/ delirium VTE Prophylaxis: hold lovenox 12/22 - to resume 12/23 Stress Ulcer Prophylaxis: ppi Plans in collaboration with bedside consultants and IM MDs. Discussed with RN to reach out if any questions or concerns Case and care daily discussed on multidisciplinary rounds ( RN, PharmD, Housekeeper And Laundry Assistant , Respiratory Therapy, cylinder worker ) A total of 25 minutes of critical care time was devoted to this patient today, required to treat and/or prevent further deterioration of critical care conditio n ( as above ) . I am remotely monitoring this patient from another state. I am unable to do the bedside exam, and history/physical and pertinent information is taken from other notes in the computer and bedside staff. Sepsis Event Evaluation Height, Weight, BMI Height: 5'11" Weight: 215lbs. oz. 97.921773os; 27.40 BMI Method:Stated Exam Exam Patient acknowledged, consented, and participated in this virtual visit which was conducted using real time audio/video Vital Signs Date Time Temp Pulse Resp B/P (MAP) Pulse Ox O2 Delivery O2 Flow Rate FiO2 12/24/22 09:00 56 23 134/60 (84) Room Air 12/24/22 08:10 36.7 12/24/22 07:30 53 24 175/77 (109) 97 Room Air 12/24/22 07:02 55 12/24/22 07:00 55 25 162/59 (93) 98 Room Air 12/24/22 06:00 55 26 155/86 (135) 97 Room Air 12/24/22 05:00 64 20 159/73 (120) 98 Room Air 12/24/22 04:00 60 158/65 (125) 97 Room Air 12/24/22 04:00 98 Room Air 12/24/22 03:00 56 20 147/63 (96) 97 Room Air 12/24/22 02:00 55 24 143/67 (118) 95 Room Air 12/24/22 01:00 58 23 157/67 (113) 98 Room Air 12/24/22 01:00 60 12/24/22 00:00 56 25 149/66 (110) 97 Room Air 12/23/22 23:59 96 Room Air 12/23/22 23:00 58 25 144/57 (97) 97 Room Air 12/23/22 22:00 56 23 145/59 (96) 98 Room Air 12/23/22 21:00 60 144/62 (103) 100 Room Air 12/23/22 20:00 59 22 145/58 (94) 98 Room Air 12/23/22 20:00 98 Room Air 12/23/22 19:12 36.2 12/23/22 19:00 56 22 139/55 (88) 98 Room Air 12/23/22 19:00 56 12/23/22 18:00 63 15 154/67 (96) 99 Room Air 12/23/22 17:42 36.9 12/23/22 17:00 50 19 129/58 (81) 99 Room Air 12/23/22 16:46 99 Room Air 12/23/22 16:00 57 30 142/76 (98) 100 Room Air 12/23/22 15:14 36.9 12/23/22 15:00 52 10 136/54 (81) 97 Room Air 12/23/22 14:00 53 15 136/57 (83) 100 Room Air 12/23/22 13:00 55 18 128/61 (83) 100 Room Air 12/23/22 12:56 58 12/23/22 12:15 96 Room Air 12/23/22 12:00 56 20 129/51 (77) 93 Room Air 12/23/22 11:53 36.5 59 20 131/50 (77) 97 Room Air I & O 12/24/22 07:00 Intake Total 1660 ml Output Total 1685 ml Balance -25 ml Height & Weight Height: 5'11" Weight: 215lbs. oz. 97.975643hb; 27.40 BMI Method:Stated General Appearance: No Apparent Distress, Chronically ill HEENT: PERRL/EOMI, Pharynx Normal Neck: Normal Inspection, Supple Respiratory: Lungs Clear, No Respiratory Distress Cardiovascular: Regular Rate, Rhythm, No Murmur Gastrointestinal: non tender, soft Extremity: Normal Inspection, No Pedal Edema Neurologic/Psychiatric: Alert, Oriented x3, Other (speech by and large clear but occasionaly mumbled a word) Skin: Normal Color, Warm/Dry Results Lab Laboratory Tests 12/22/22 13:42 12/23/22 04:32 12/24/22 05:07 Assessment/Plan Assessment/Plan 1 LUCIO ROBERTSON MD Dec 24, 2022 10:16
--- NOTE | 2022-12-24 10:39 | Progress Note - Hospitalist ---
Subjective HPI/CC On Admission Date Seen by Provider: Dec 24, 2022 Alessio Austin (Phil) is an 82 year old male with PMH HTN, HLD, CAD, BPH, dementia, who presented after a fall at home. He is well known to me from recent hospitalizations. He was discharged yesterday after an admission with sepsis due to cellulitis. He improved and was discharged home yesterday morning on oral antibiotics. He was left at home while his family went to dinner and they found him on the floor when they got home. He was having slurred, garbled speech. He had some cuts and was bleeding. Subjective/Events-last exam Pt reports doing "great." Sitting up in the chair and feeling better. Eating breakfast. Speech more clear than yesterday even. No family at bedside. I did speak with his son Blu regarding MRI findings yesterday. Objective Exam Vital Signs Vital Signs Date Time Temp Pulse Resp B/P (MAP) Pulse Ox O2 Delivery O2 Flow Rate FiO2 12/24/22 09:00 56 23 134/60 (84) Room Air 12/24/22 08:10 36.7 12/24/22 07:30 97 Capillary Refill : General Appearance: No Apparent Distress Respiratory: Lungs Clear, No Respiratory Distress Cardiovascular: Regular Rate, Rhythm, No Murmur Neurologic/Psychiatric: Alert, Oriented x3; No Aphasia Results/Procedures Lab Laboratory Tests 12/24/22 05:07 Patient resulted labs reviewed. 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
[2022-12-24] MEDS: TAMSULOSIN 0.4 MG (FLOMAX) CAP PO SCH (17:49)
[2022-12-24] MEDS: CEPHALEXIN 250 MG (KEFLEX) CAP PO SCH (20:29)
[2022-12-24 20:50] VITALS: BP 193/81
[2022-12-24 23:01] VITALS: BP 167/70
[2022-12-25 03:27] VITALS: BP 153/75
[2022-12-25] MEDS: THIAMINE 100 MG (VITAMIN B-1) TAB PO SCH (05:07)
[2022-12-25 06:13] LABS: BASOPHILS # (AUTO) 0.1 10^3/uL (0.0-0.1); BASOPHILS % (AUTO) 1 % (0-10); EOSINOPHILS # (AUTO) 0.3 10^3/uL (0.0-0.3); EOSINOPHILS % (AUTO) 2 % (0-10); HEMATOCRIT 31 % (40-54); LYMPHOCYTES # (AUTO) 2.8 10^3/uL (1.0-4.0); LYMPHOCYTES % (AUTO) 25 % (12-44); MEAN CORPUSCULAR HEMOGLOBIN 32 pg (25-34); MEAN CORPUSCULAR HGB CONC 33 g/dL (32-36); MEAN CORPUSCULAR VOLUME 97 fL (80-99); MEAN PLATELET VOLUME 9.7 fL (9.0-12.2); MONOCYTES % (AUTO) 9 % (0-12); NEUTROPHILS % (AUTO) 63 % (42-75); PLATELET COUNT 252 10^3/uL (130-400); WHITE BLOOD COUNT 11.1 10^3/uL (4.3-11.0)
[2022-12-25 06:29] LABS: TOTAL PROTEIN 5.1 GM/DL (6.4-8.2)
[2022-12-25 06:30] LABS: BILIRUBIN,TOTAL 1.5 MG/DL (0.1-1.0)
[2022-12-25] MEDS: KCL 20 MEQ TAB (K-DUR) PO SCH (06:30)
[2022-12-25] MEDS: POTASSIUM CL 10MEQ/50ML IVPB 50 ML IV SCH (06:30)
[2022-12-25 06:32] LABS: CREATININE SERUM 0.78 MG/DL (0.60-1.30); PHOSPHORUS 2.6 MG/DL (2.3-4.7)
[2022-12-25] MEDS: MAGNESIUM 1 GM/100 ML IVPB 100 ML IV SCH (06:37)
[2022-12-25 08:00] VITALS: BP 167/75
[2022-12-25] MEDS: ASPIRIN E.C. 81 MG (ECOTRIN) TAB PO SCH (08:12)
[2022-12-25] MEDS: MEMANTINE 5 MG (NAMENDA) TABLET PO SCH (08:12)
[2022-12-25] MEDS: CLOPIDOGREL 75 MG (PLAVIX) TABLET PO SCH (08:12)
[2022-12-25] MEDS: CEPHALEXIN 250 MG (KEFLEX) CAP PO SCH ×2 (08:12→20:35)
[2022-12-25] MEDS: amLODIPine 10 MG (NORVASC) TAB PO SCH (08:12)
[2022-12-25] MEDS: FINASTERIDE (PROSCAR) 5 MG TAB PO SCH (08:12)
[2022-12-25] MEDS ORDERED: lisINopril 20 MG (PRINIVIL) TABLET PO NR (10:00)
[2022-12-25] MEDS: ENOXAPARIN 40 MG/0.4 ML (LOVENOX) SYR SC SCH (10:11)
--- NOTE | 2022-12-25 11:11 | Progress Note - Hospitalist ---
Subjective HPI/CC On Admission Date Seen by Provider: Dec 25, 2022 Alessio Austin (Phil) is an 82 year old male with PMH HTN, HLD, CAD, BPH, dementia, who presented after a fall at home. He is well known to me from recent hospitalizations. He was discharged yesterday after an admission with sepsis due to cellulitis. He improved and was discharged home yesterday morning on oral antibiotics. He was left at home while his family went to dinner and they found him on the floor when they got home. He was having slurred, garbled speech. He had some cuts and was bleeding. Subjective/Events-last exam pt reports feeling down. States he is missing his terribly. He is hopeful to be discharged soon so he can be with her. Objective Exam Vital Signs Vital Signs Date Time Temp Pulse Resp B/P (MAP) Pulse Ox O2 Delivery O2 Flow Rate FiO2 12/25/22 08:15 Room Air 12/25/22 08:00 36.7 61 18 167/75 (105) 97 Capillary Refill : General Appearance: No Apparent Distress, WD/WN Respiratory: Lungs Clear, No Respiratory Distress Cardiovascular: Regular Rate, Rhythm, No Murmur Neurologic/Psychiatric: Alert, Oriented x3 Results/Procedures Lab Laboratory Tests 12/25/22 05:50 Patient resulted labs reviewed. 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
--- NOTE | 2022-12-25 11:46 | Occupational Ther Daily Note ---
OT Current Status-Daily Note Subjective Easily aroused, agreeable to OT Mental Status/Objective Patient Orientation: Situation bed alarm, chair alarm activated at completion of therapy ADL-Treatment Therapy Code Descriptions/Definitions Functional [place] Measure: 0=Not Assessed/NA 4=Minimal Assistance 1=Total Assistance 5=Supervision or Setup 2=Maximal Assistance 6=Modified [place] 3=Moderate Assistance 7=Complete IndependenceSCALE: Activities may be completed with or without assistive devices. 0-Frvyuxohfp-gxpaqlx completes the activity by him/herself with no assistance from a helper. 5-Set-up or Clean-up Assistance-helper sets up or cleans up; patient completes activity. [place] assists only prior to or following the activity. 4-Supervision or Touching Assistance-helper provides verbal cues and/or touching/steadying and/or contact guard assistance as patient completes activity. Assistance may be provided throughout the activity or intermittently. 3-Partial/Moderate Assistance-helper does LESS THAN HALF the effort. [place] lifts, holds or supports trunk or limbs, but provides less than half the effort. 2-Substantial/Maximal Assistance-helper does MORE THAN HALF the effort. [place] lifts or holds trunk or limbs and provides more than half the effort. 2-Rwlaemczg-ppaiyc does ALL the effort. Patient does none of the effort to complete the activity. Or, the assistance of 2 or more helpers is required for the patient to complete the activity. If activity was not attempted, code reason: 7-Patient Refused. 9-Not Applicable-not attempted and the patient did not perform the activity before the current illness, exacerbation or injury. 10-Not Attempted due to Environmental Limitations-(lack of equipment, weather restraints, etc.). 88-Not Attempted due to Medical Conditions or Safety Concerns. Upper Body Dressing (QC): 4 Lower Body Dressing (QC): 3 (LOB noted, impulsive, poor safety awareness) On/Off Footwear: 3 Toileting Hygiene (QC): 3 Toilet Transfer (QC): 3 Education OT Patient Education: Correct positioning, Energy conservation, Exercise program, Modified ADL techniques, Progress toward Goal/Update tx plan, Purpose of tx/functional activities, Reviewed precautions, Rehab process, Safety issues, Transfer techniques Teaching Recipient: Patient Teaching Methods: Demonstration, Discussion Response to Teaching: Reinforcement Needed OT Mcc Goals Trolley Coach Driver Goals Eating (QC): 5 Oral Hygiene (QC): 5 Toileting Hygiene (QC): 5 Shower/Bathe Self (QC): 5 Upper Body Dressing (QC): 5 Lower Body Dressing (QC): 5 On/Off Footwear (QC): 5 1=Demonstrate adherence to instructed precautions during ADL tasks. 2=Patient will verbalize/demonstrate understanding of assistive devices/modifications for ADL. 3=Patient will improve strength/tolerance for activity to enable patient to perform ADL's. OT Education/Plan Problem List/Assessment Assessment: Decreased Activ Tolerance, Decreased Safety Aware, Impaired Cognition, Impaired Coordination, Impaired Funct Balance, Impaired Self-Care Skills Discharge Recommendations Plan/Recommendations: Continue POC Treatment Plan/Plan of Care Patient would benefit from OT for education, treatment and training to promote independence in ADL's, mobility, safety and/or upper extremity function for ADL's. Plan of Care: ADL Retraining, Cognitive Retraining, Functional Mobility, Group Exercise/Act as Ind, UE Funct Exercise/Act Treatment Duration: Dec 28, 2022 Frequency: 3 times per week Rehab Potential: Guarded Up in chair, alarm set, all needs met Time Start Time: 09:23 Stop Time: 09:50 DATE: Dec 25, 2022 Total Time Billed (hr/min): 27 Billed Treatment Time ADL 2, 27 min CROW JOHNSON OT Dec 25, 2022 11:46
[2022-12-25 11:56] VITALS: BP 155/67
--- NOTE | 2022-12-25 15:24 | Physical Therapy Daily Note ---
PT Daily Note-Current Subjective Patient sitting in chair upon PT arrival, agreeable to treatment. Patient rates pain at 9/10 in left knee. Pain Section J - Health Conditions 1. Rarely or not at all 2. Occasionally 3. Frequently 4. Almost constantly 8. Unable to answer Pain Effect on Sleep: 1 Pain Interference with Therapy: 1 Pain Interference w/Day-to-Day: 1 Mental Status Patient Orientation: Person Transfers SCALE: Activities may be completed with or without assistive devices. 3-Cdfuycyqer-ihldnyl completes the activity by him/herself with no assistance from a helper. 5-Set-up or Clean-up Assistance-helper sets up or cleans up; patient completes activity. [place] assists only prior to or following the activity. 4-Supervision or Touching Assistance-helper provides verbal cues and/or touching/steadying and/or contact guard assistance as patient completes activity. Assistance may be provided throughout the activity or intermittently. 3-Partial/Moderate Assistance-helper does LESS THAN HALF the effort. [place] lifts, holds or supports trunk or limbs, but provides less than half the effort. 2-Substantial/Maximal Assistance-helper does MORE THAN HALF the effort. [place] lifts or holds trunk or limbs and provides more than half the effort. 8-Uhfnaqmhk-hinzup does ALL the effort. Patient does none of the effort to complete the activity. Or, the assistance of 2 or more helpers is required for the patient to complete the activity. If activity was not attempted, code reason: 7-Patient Refused. 9-Not Applicable-not attempted and the patient did not perform the activity before the current illness, exacerbation or injury. 10-Not Attempted due to Environmental Limitations-(lack of equipment, weather restraints, etc.). 88-Not Attempted due to Medical Conditions or Safety Concerns. Sit to Stand (QC): 4 Chair/Dnn-jy-Hwwmm Xfer(QC): 4 Gait Training Does the Patient Walk?: Yes Distance: 70 Walk 10 feet (QC): 4 Walk 50 ft with 2 Turns(QC): 4 Gait Assistive Device: FWW Assessment Current Status: Poor Progress Patient reports significant increase in left knee pain this date. Patient tolerates treatment poorly compared to yesterday, however this is most likely due to increase in left knee pain. Patient performs all observed transfers with CGA. Patient ambulates 70 feet with FWW, with CGA and verbal cues for safety, progression, posture and conservation of energy. Patient in bed post treatment with all needs met, nursing notified, call light in hand and bed alarm activated. PT Short Term Goals Short Term Goals Time Frame: Jan 03, 2023 Roll Left & Right: 3 Sit to lyin Lying to sitting on side of be: 3 Sit to stand: 3 Chair/bnv-cu-whjus transfer: 3 Toilet transfer: 3 Walk 10 feet: 3 Walk 50 feet with two turns: 3 Walk 150 feet: 3 PT Care Home Goals [place] Goals PT [place] Goals Time Frame: Jan 18, 2023 Roll Left & Right (QC): 4 Sit to Lying (QC): 4 Lying-Sitting on Side/Bed(QC): 4 Sit to Stand (QC): 4 Chair/Oil-js-Zsccq Xfer(QC): 4 Toilet Transfer (QC): 4 Walk 10 feet (QC): 4 Walk 50ft with 2 Turns (QC): 4 Walk 150 ft (QC): 4 PT Plan Treatment/Plan Treatment Plan: Continue Plan of Care Treatment Plan: Bed Mobility, Education, Functional Activity Jacklyn, Functional Strength, Gait, Safety, Therapeutic Exercise, Transfers Treatment Duration: Jan 18, 2023 Frequency: 6 times per week Estimated Hrs Per Day: .25 hour per day Patient and/or Family Agrees t: Yes Safety Risks/Education Patient Education: Gait Training, Transfer Techniques Teaching Recipient: Patient Teaching Methods: Demonstration, Discussion Response to Teaching: Reinforcement Needed Discharge Recommendations Equpiment Recommendations-D/C: Medical Alert Time Time In: 1101 Time Out: 1115 DATE: Dec 25, 2022 Total Billed Treatment Time: 14 Total Billed Treatment Visit, Gait ABIOLA HAMPTON PT Dec 25, 2022 15:24
[2022-12-25 15:36] VITALS: BP 165/69
[2022-12-25] MEDS: ACETAMINOPHEN 325 MG TABLET PO PRN (15:54)
[2022-12-25] MEDS: TAMSULOSIN 0.4 MG (FLOMAX) CAP PO SCH (17:18)
[2022-12-25 19:32] VITALS: BP 145/65
[2022-12-25 23:25] VITALS: BP_SYST 168; BP_SYST 178; BP_DIAS 72
[2022-12-26 03:05] VITALS: BP 154/68
[2022-12-26] MEDS: ACETAMINOPHEN 325 MG TABLET PO PRN ×2 (03:13→09:07)
[2022-12-26 05:49] LABS: BASOPHILS # (AUTO) 0.1 10^3/uL (0.0-0.1); BASOPHILS % (AUTO) 1 % (0-10); EOSINOPHILS # (AUTO) 0.3 10^3/uL (0.0-0.3); EOSINOPHILS % (AUTO) 3 % (0-10); HEMATOCRIT 30 % (40-54); HEMOGLOBIN 9.9 g/dL (13.3-17.7); LYMPHOCYTES # (AUTO) 2.2 10^3/uL (1.0-4.0); LYMPHOCYTES % (AUTO) 23 % (12-44); MEAN CORPUSCULAR HEMOGLOBIN 33 pg (25-34); MEAN CORPUSCULAR HGB CONC 33 g/dL (32-36); MEAN CORPUSCULAR VOLUME 99 fL (80-99); MEAN PLATELET VOLUME 9.7 fL (9.0-12.2); MONOCYTES % (AUTO) 10 % (0-12); NEUTROPHILS # (AUTO) 6.2 10^3/uL (1.8-7.8); NEUTROPHILS % (AUTO) 63 % (42-75); PLATELET COUNT 265 10^3/uL (130-400); WHITE BLOOD COUNT 9.9 10^3/uL (4.3-11.0)
[2022-12-26 06:04] LABS: ALBUMIN 2.9 GM/DL (3.2-4.5)
[2022-12-26 06:05] LABS: CALCIUM 8.9 MG/DL (8.5-10.1)
[2022-12-26] MEDS: POTASSIUM CL 10MEQ/50ML IVPB 50 ML IV SCH (06:06)
[2022-12-26] MEDS: KCL 20 MEQ TAB (K-DUR) PO SCH (06:06)
[2022-12-26 06:07] LABS: TOTAL PROTEIN 4.9 GM/DL (6.4-8.2)
[2022-12-26 06:09] LABS: BILIRUBIN,TOTAL 1.4 MG/DL (0.1-1.0)
[2022-12-26 06:10] LABS: PHOSPHORUS 2.8 MG/DL (2.3-4.7)
[2022-12-26 06:11] LABS: CREATININE SERUM 0.85 MG/DL (0.60-1.30)
[2022-12-26 06:13] LABS: MAGNESIUM 2.1 MG/DL (1.6-2.4)
[2022-12-26] MEDS: THIAMINE 100 MG (VITAMIN B-1) TAB PO SCH (06:16)
[2022-12-26] MEDS: MAGNESIUM 1 GM/100 ML IVPB 100 ML IV SCH (06:17)
[2022-12-26 07:22] VITALS: BP 167/71
[2022-12-26] MEDS: ENOXAPARIN 40 MG/0.4 ML (LOVENOX) SYR SC SCH (09:06)
[2022-12-26] MEDS: lisINopril 20 MG (PRINIVIL) TABLET PO SCH (09:06)
[2022-12-26] MEDS: FINASTERIDE (PROSCAR) 5 MG TAB PO SCH (09:07)
[2022-12-26] MEDS: TAMSULOSIN 0.4 MG (FLOMAX) CAP PO SCH ×2 (09:07→17:31)
[2022-12-26] MEDS: CLOPIDOGREL 75 MG (PLAVIX) TABLET PO SCH (09:07)
[2022-12-26] MEDS: ASPIRIN E.C. 81 MG (ECOTRIN) TAB PO SCH (09:07)
[2022-12-26] MEDS: MEMANTINE 5 MG (NAMENDA) TABLET PO SCH (09:07)
[2022-12-26] MEDS: CEPHALEXIN 250 MG (KEFLEX) CAP PO SCH ×2 (09:07→20:30)
[2022-12-26] MEDS: amLODIPine 10 MG (NORVASC) TAB PO SCH (09:07)
[2022-12-26] MEDS ORDERED: SENNA W/DOCUSATE (SENOKOT S) TABLET PO PRN (09:30)
--- NOTE | 2022-12-26 09:53 | Physical Therapy Daily Note ---
PT Daily Note-Current Subjective Patient agrees to PT. Pain Numeric Pain Scale: 10-Worst Possible Pain Location: Left Location Body Site: Knee Section J - Health Conditions 1. Rarely or not at all 2. Occasionally 3. Frequently 4. Almost constantly 8. Unable to answer Pain Effect on Sleep: 1 Pain Interference with Therapy: 3 Pain Interference w/Day-to-Day: 3 Transfers SCALE: Activities may be completed with or without assistive devices. 3-Wigpbijgez-sfvnliw completes the activity by him/herself with no assistance from a helper. 5-Set-up or Clean-up Assistance-helper sets up or cleans up; patient completes activity. [place] assists only prior to or following the activity. 4-Supervision or Touching Assistance-helper provides verbal cues and/or touching/steadying and/or contact guard assistance as patient completes activity. Assistance may be provided throughout the activity or intermittently. 3-Partial/Moderate Assistance-helper does LESS THAN HALF the effort. [place] lifts, holds or supports trunk or limbs, but provides less than half the effort. 2-Substantial/Maximal Assistance-helper does MORE THAN HALF the effort. [place] lifts or holds trunk or limbs and provides more than half the effort. 3-Doscavaia-ftyvva does ALL the effort. Patient does none of the effort to complete the activity. Or, the assistance of 2 or more helpers is required for the patient to complete the activity. If activity was not attempted, code reason: 7-Patient Refused. 9-Not Applicable-not attempted and the patient did not perform the activity bef ore the current illness, exacerbation or injury. 10-Not Attempted due to Environmental Limitations-(lack of equipment, weather r estraints, etc.). 88-Not Attempted due to Medical Conditions or Safety Concerns. Sit to Stand (QC): 4 Toilet Transfer (QC): 4 Gait Training Distance: 225' Walk 10 feet (QC): 4 Walk 50 ft with 2 Turns(QC): 4 Walk 150 ft (QC): 4 Gait Assistive Device: FWW slow, left LE knee flexed and left LE ER. RN notified. PT to continue to increase activity as tolerated by patient. Exercises Seated Therapy Exercises: Long arc quads (stretching) Assessment Patient presents with left flexed knee and hip ER posture with gait training with VC's for flat foot placement left to increase weight bear left LE. Patient unable to perform. RN notified of this. Patient on toilet for BM with call cord in hand and education on calling for assistance and to not get up on his own. Nursing notified. PT Short Term Goals Short Term Goals Time Frame: Jan 03, 2023 Roll Left & Right: 3 Sit to lyin Lying to sitting on side of be: 3 Sit to stand: 3 Chair/ckt-at-qvmgs transfer: 3 Toilet transfer: 3 Walk 10 feet: 3 Walk 50 feet with two turns: 3 Walk 150 feet: 3 PT Intermodal Owner Operator Truck Driver Goals Intermodal Owner Operator Truck Driver Goals PT Senior Living Goals Time Frame: Jan 18, 2023 Roll Left & Right (QC): 4 Sit to Lying (QC): 4 Lying-Sitting on Side/Bed(QC): 4 Sit to Stand (QC): 4 Chair/Ytj-bo-Pmbhe Xfer(QC): 4 Toilet Transfer (QC): 4 Walk 10 feet (QC): 4 Walk 50ft with 2 Turns (QC): 4 Walk 150 ft (QC): 4 PT Plan Treatment/Plan Treatment Plan: Continue Plan of Care Treatment Plan: Bed Mobility, Education, Functional Activity Jacklyn, Functional Strength, Gait, Safety, Therapeutic Exercise, Transfers Treatment Duration: Jan 18, 2023 Frequency: 6 times per week Estimated Hrs Per Day: .25 hour per day Patient and/or Family Agrees t: Yes Time Time In: 912 Time Out: 925 DATE: Dec 26, 2022 Total Billed Treatment Time: 13 Total Billed Treatment 1 visit GT 13 min ELICEO BROOKE PT Dec 26, 2022 09:53
--- NOTE | 2022-12-26 10:19 | Progress Note - Hospitalist ---
Subjective HPI/CC On Admission Date Seen by Provider: Dec 26, 2022 Alessio Austin (Phil) is an 82 year old male with PMH HTN, HLD, CAD, BPH, dementia, who presented after a fall at home. He is well known to me from recent hospitalizations. He was discharged yesterday after an admission with sepsis due to cellulitis. He improved and was discharged home yesterday morning on oral antibiotics. He was left at home while his family went to dinner and they found him on the floor when they got home. He was having slurred, garbled speech. He had some cuts and was bleeding. Subjective/Events-last exam Pt reports doing well told. Knee pain improved from yesterday. Hopeful to DC soon to [facility] to be with his . Objective Exam Vital Signs Vital Signs Date Time Temp Pulse Resp B/P (MAP) Pulse Ox O2 Delivery O2 Flow Rate FiO2 12/26/22 07:22 36.9 50 18 167/71 (103) 99 Room Air Capillary Refill : General Appearance: No Apparent Distress, WD/WN Respiratory: Lungs Clear, No Respiratory Distress Cardiovascular: Regular Rate, Rhythm, No Murmur Neurologic/Psychiatric: Alert, Oriented x3 Results/Procedures Lab Laboratory Tests 12/26/22 05:26 Patient resulted labs reviewed. Imaging: Reviewed Imaging Report Assessment/Plan Assessment and Plan Assess & Plan/Chief Complaint Stroke History of CVA Carotid stenosis Fall MRI confirmed acute to subacute stroke Trauma eval negative for acute fractures Continue ASA, Plavix, Lipitor telemetry Echo normal EF and no PFO TeleICU following PT/OT/MAKER UP FOLDING Would benefit from skilled admission to regain functional status, given recent knee surgery and stroke- insurance denied SNF admission- appeal in process Anemia- improved Likely thigh hematoma due to fall s/p 1 unit PRBC Stable hemoglobin Leukocytosis- resolved KIM- resolved Elevated d-dimer Not septic Venous dopplers without evidence of DVT No hypoxia, low concern for PE D- dimer elevation likely due to recent surgery and hematoma Cellulitis Continue oral antibiotics HTN CAD BPH Dementia Continue home meds as able DVT prophylaxis: Lovenox to resume Critical Care Critically Ill Patient VIOLA VALDERRAMA MD Dec 26, 2022 10:19
--- NOTE | 2022-12-26 10:23 | Occupational Ther Daily Note ---
OT Current Status-Daily Note Subjective UP in recliner, reports need for BM. Mental Status/Objective Patient Orientation: Situation (patient believes he is here because he just had a knee surgery, unaware of recent falls and unsuccessful stay at home) Patent pulling 2 steri strips off knee, OT provided healing precautions and education for proper removal ADL-Treatment Therapy Code Descriptions/Definitions Functional [place] Measure: 0=Not Assessed/NA 4=Minimal Assistance 1=Total Assistance 5=Supervision or Setup 2=Maximal Assistance 6=Modified [place] 3=Moderate Assistance 7=Complete IndependenceSCALE: Activities may be completed with or without assistive devices. 7-Fkkjpzuesu-cczjlsz completes the activity by him/herself with no assistance from a helper. 5-Set-up or Clean-up Assistance-helper sets up or cleans up; patient completes activity. [place] assists only prior to or following the activity. 4-Supervision or Touching Assistance-helper provides verbal cues and/or touching/steadying and/or contact guard assistance as patient completes activity. Assistance may be provided throughout the activity or intermittently. 3-Partial/Moderate Assistance-helper does LESS THAN HALF the effort. [place] lifts, holds or supports trunk or limbs, but provides less than half the effort. 2-Substantial/Maximal Assistance-helper does MORE THAN HALF the effort. [place] lifts or holds trunk or limbs and provides more than half the effort. 1-Lvagcahdo-yrmofu does ALL the effort. Patient does none of the effort to complete the activity. Or, the assistance of 2 or more helpers is required for the patient to complete the activity. If activity was not attempted, code reason: 7-Patient Refused. 9-Not Applicable-not attempted and the patient did not perform the activity before the current illness, exacerbation or injury. 10-Not Attempted due to Environmental Limitations-(lack of equipment, weather restraints, etc.). 88-Not Attempted due to Medical Conditions or Safety Concerns. Eating (QC): 5 Oral Hygiene (QC): 5 Upper Body Dressing (QC): 4 Lower Body Dressing (QC): 3 On/Off Footwear: 3 Toileting Hygiene (QC): 3 Toilet Transfer (QC): 3 (Left knee poorly positioned by patient for transfers) OT placed hat in commode for stool sample, notified nursing staff patien in bathroom w/ elsi llight, door propped slightly open and PCT verifies. Education OT Patient Education: Correct positioning, Modified ADL techniques, Progress toward Goal/Update tx plan, Purpose of tx/functional activities, Reviewed precautions, Rehab process, Safety issues, Transfer techniques Teaching Recipient: Patient Teaching Methods: Demonstration, Discussion Response to Teaching: Reinforcement Needed OT Group Home Goals Group Home Goals Eating (QC): 5 Oral Hygiene (QC): 5 Toileting Hygiene (QC): 5 Shower/Bathe Self (QC): 5 Upper Body Dressing (QC): 5 Lower Body Dressing (QC): 5 On/Off Footwear (QC): 5 1=Demonstrate adherence to instructed precautions during ADL tasks. 2=Patient will verbalize/demonstrate understanding of assistive devices/modifications for ADL. 3=Patient will improve strength/tolerance for activity to enable patient to perform ADL's. OT Education/Plan Discharge Recommendations Plan/Recommendations: Continue POC Treatment Plan/Plan of Care Patient would benefit from OT for education, treatment and training to promote independence in ADL's, mobility, safety and/or upper extremity function for ADL's. Plan of Care: ADL Retraining, Cognitive Retraining, Functional Mobility, Group Exercise/Act as Ind, UE Funct Exercise/Act Treatment Duration: Dec 28, 2022 Frequency: 3 times per week Rehab Potential: Guarded Time Start Time: 09:12 Stop Time: 09:25 DATE: Dec 26, 2022 Total Time Billed (hr/min): 13 Billed Treatment Time ADL 13 min CROW JOHNSON OT Dec 26, 2022 10:23
[2022-12-26 11:21] VITALS: BP 102/60
--- NOTE | 2022-12-26 15:22 | Speech Therapy Daily Note ---
Speech Daily Progress Note Subjective Date Seen by Provider: Dec 26, 2022 Time Seen by Provider: 13:15 The patient was lying in bed, awake and alert, upon entrance to his room by the clinician. The patient greeted the clinician appropriately and was agreeable to participation in the cognitive linguistic and dysphagia treatment session. Objective The patient denied challenges or concerns with his oropharyngeal swallowing function. The patient stated he is tolerating a regular consistency diet with thin liquids and has not experienced coughing or choking throughout his stay. The clinician reviewed safe swallowing precautions with the patient, who verbalized comprehension of the discussed material. The patient was independently oriented to self, location, month, year, and city. The patient stated the rationale for his hospitalization was "I needed a hip and then I had a stroke." The patient displays becomes increasingly tearful while discussing his and family members. Per patient, "She's got dementia and I do too." The patient and clinician discuss safety precautions in the room including the use of his side rails and the necessity to use his call light to ask for help or to move around his room. The clinician is experiencing a difficult time deciphering between hearing difficulty versus delayed cognitive processing, as the patient displays inconsistent abilities. Assessment Assessment Current Status: Fair Progress Treatment Plan Continue Plan of Care Speech Short Term Goals Short Term Goals Short Term Goals 1. The patient will display safe swallowing precautions with 80% accuracy, independently. Time Frame-STG: Three Days. Speech Prison Goals Prison Goals 1. The patient will tolerate the least restrictive diet without s/s of suspected aspiration. Time Frame: One Week. Speech-Plan Treatment Plan Speech Therapy Treatment Plan: Continue Plan of Care Treatment Duration: Dec 27, 2022 Frequency: 4 times per week Estimated Hrs Per Day: .25 hour per day Rehab Potential: Guarded Pt/Family Agrees to Plan: Yes Safety Risks/Education Teaching Recipient: Patient Teaching Methods: Discussion Response to Teaching: Reinforcement Needed Education Topics Provided: Orientation Strategies, Safe Swallowing Precautions Time Speech Therapy Time In: 13:15 Speech Therapy Time Out: 13:31 DATE: Dec 26, 2022 Total Billed Time: 16 Billed Treatment Time 1, COLTON HAINES [facility] Dec 26, 2022 15:22
[2022-12-26 16:11] VITALS: BP 128/64
[2022-12-26 20:09] VITALS: BP 119/59
[2022-12-26 23:43] VITALS: BP 123/55
[2022-12-27 03:47] VITALS: BP 142/60
[2022-12-27 05:57] LABS: BASOPHILS # (AUTO) 0.1 10^3/uL (0.0-0.1); BASOPHILS % (AUTO) 1 % (0-10); EOSINOPHILS # (AUTO) 0.3 10^3/uL (0.0-0.3); EOSINOPHILS % (AUTO) 3 % (0-10); HEMATOCRIT 29 % (40-54); HEMOGLOBIN 9.2 g/dL (13.3-17.7); LYMPHOCYTES # (AUTO) 2.3 10^3/uL (1.0-4.0); LYMPHOCYTES % (AUTO) 23 % (12-44); MEAN CORPUSCULAR HEMOGLOBIN 32 pg (25-34); MEAN CORPUSCULAR HGB CONC 32 g/dL (32-36); MEAN CORPUSCULAR VOLUME 100 fL (80-99); MEAN PLATELET VOLUME 9.9 fL (9.0-12.2); MONOCYTES % (AUTO) 10 % (0-12); NEUTROPHILS # (AUTO) 6.2 10^3/uL (1.8-7.8); NEUTROPHILS % (AUTO) 63 % (42-75); PLATELET COUNT 282 10^3/uL (130-400); WHITE BLOOD COUNT 9.9 10^3/uL (4.3-11.0)
[2022-12-27 06:09] LABS: ALBUMIN 2.8 GM/DL (3.2-4.5)
[2022-12-27 06:10] LABS: CALCIUM 8.8 MG/DL (8.5-10.1)
[2022-12-27 06:12] LABS: TOTAL PROTEIN 4.7 GM/DL (6.4-8.2)
[2022-12-27 06:13] LABS: BILIRUBIN,TOTAL 1.7 MG/DL (0.1-1.0)
[2022-12-27] MEDS: POTASSIUM CL 10MEQ/50ML IVPB 50 ML IV SCH (06:13)
[2022-12-27] MEDS: KCL 20 MEQ TAB (K-DUR) PO SCH (06:13)
[2022-12-27 06:15] LABS: CREATININE SERUM 0.88 MG/DL (0.60-1.30); PHOSPHORUS 3.1 MG/DL (2.3-4.7)
[2022-12-27] MEDS: MAGNESIUM 1 GM/100 ML IVPB 100 ML IV SCH (06:41)
[2022-12-27] MEDS: THIAMINE 100 MG (VITAMIN B-1) TAB PO SCH (06:42)
[2022-12-27 08:30] VITALS: BP 150/71
[2022-12-27] MEDS: CEPHALEXIN 250 MG (KEFLEX) CAP PO SCH ×2 (08:42→21:04)
[2022-12-27] MEDS: CLOPIDOGREL 75 MG (PLAVIX) TABLET PO SCH (08:42)
[2022-12-27] MEDS: lisINopril 20 MG (PRINIVIL) TABLET PO SCH (08:42)
[2022-12-27] MEDS: TAMSULOSIN 0.4 MG (FLOMAX) CAP PO SCH ×2 (08:42→18:16)
[2022-12-27] MEDS: MEMANTINE 5 MG (NAMENDA) TABLET PO SCH (08:42)
[2022-12-27] MEDS: amLODIPine 10 MG (NORVASC) TAB PO SCH (08:42)
[2022-12-27] MEDS: ASPIRIN E.C. 81 MG (ECOTRIN) TAB PO SCH (08:42)
[2022-12-27] MEDS: FINASTERIDE (PROSCAR) 5 MG TAB PO SCH (08:42)
[2022-12-27] MEDS: ENOXAPARIN 40 MG/0.4 ML (LOVENOX) SYR SC SCH (10:04)
--- NOTE | 2022-12-27 10:17 | Physical Therapy Daily Note ---
PT Daily Note-Current Subjective Patient agrees to PT. Noted increase c/o left LE pain with minimal AROM and activity. Pain Numeric Pain Scale: 9 Location: Left Location Body Site: Knee Pain Description: [place] Section J - Health Conditions 1. Rarely or not at all 2. Occasionally 3. Frequently 4. Almost constantly 8. Unable to answer Pain Effect on Sleep: 1 Pain Interference with Therapy: 3 Pain Interference w/Day-to-Day: 3 Mental Status Patient Orientation: Person Transfers SCALE: Activities may be completed with or without assistive devices. 3-Wpqdvbgopc-slyfpay completes the activity by him/herself with no assistance from a helper. 5-Set-up or Clean-up Assistance-helper sets up or cleans up; patient completes activity. [place] assists only prior to or following the activity. 4-Supervision or Touching Assistance-helper provides verbal cues and/or touching/steadying and/or contact guard assistance as patient completes activity. Assistance may be provided throughout the activity or intermittently. 3-Partial/Moderate Assistance-helper does LESS THAN HALF the effort. [place] lifts, holds or supports trunk or limbs, but provides less than half the effort. 2-Substantial/Maximal Assistance-helper does MORE THAN HALF the effort. [place] lifts or holds trunk or limbs and provides more than half the effort. 6-Jvxyjyefg-wsnlrc does ALL the effort. Patient does none of the effort to complete the activity. Or, the assistance of 2 or more helpers is required for the patient to complete the activity. If activity was not attempted, code reason: 7-Patient Refused. 9-Not Applicable-not attempted and the patient did not perform the activity before the current illness, exacerbation or injury. 10-Not Attempted due to Environmental Limitations-(lack of equipment, weather restraints, etc.). 88-Not Attempted due to Medical Conditions or Safety Concerns. Lying to Sitting/Side of Bed(Q: 4 Sit to Stand (QC): 4 Chair/Vfd-wk-Ghqpv Xfer(QC): 4 Toilet Transfer (QC): 4 Gait Training Distance: 225' Walk 10 feet (QC): 4 Walk 50 ft with 2 Turns(QC): 4 Walk 150 ft (QC): 4 Gait Assistive Device: FWW noted extreme left LE ER with flexed knee gait Exercises Supine Ex: Ankle pumps, Quad Set, Heel Slides, Straight leg raise, Hip abd/add Supine Reps: 15 Seated Therapy Exercises: Long arc quads Seated Reps: 15 Assessment Patient tolerated treatment. Noted ITband extreme tightness with PT performing massage to help loosen. Patient reports minimal relief after session. RN notified. PT Short Term Goals Short Term Goals Time Frame: Jan 03, 2023 Roll Left & Right: 3 Sit to lyin Lying to sitting on side of be: 3 Sit to stand: 3 Chair/ntf-vq-dphtd transfer: 3 Toilet transfer: 3 Walk 10 feet: 3 Walk 50 feet with two turns: 3 Walk 150 feet: 3 PT Longterm Goals Longterm Goals PT Air [place] Goals Time Frame: Jan 18, 2023 Roll Left & Right (QC): 4 Sit to Lying (QC): 4 Lying-Sitting on Side/Bed(QC): 4 Sit to Stand (QC): 4 Chair/Fpy-jc-Redey Xfer(QC): 4 Toilet Transfer (QC): 4 Walk 10 feet (QC): 4 Walk 50ft with 2 Turns (QC): 4 Walk 150 ft (QC): 4 PT Plan Treatment/Plan Treatment Plan: Continue Plan of Care Treatment Plan: Bed Mobility, Education, Functional Activity Jacklyn, Functional Strength, Gait, Safety, Therapeutic Exercise, Transfers Treatment Duration: Jan 18, 2023 Frequency: 6 times per week Estimated Hrs Per Day: .25 hour per day Patient and/or Family Agrees t: Yes Time Time In: 845 Time Out: 914 DATE: Dec 27, 2022 Total Billed Treatment Time: 29 Total Billed Treatment 1 visit EX 16 min GT 13 min ELICEO BROOKE PT Dec 27, 2022 10:16
--- NOTE | 2022-12-27 11:11 | Occupational Ther Daily Note ---
OT Current Status-Daily Note Subjective Pt seen in room, up in darlene, agreeable to OT. Somewhat sleepy. Pain reported in L shoulder but not rated or described. ADL-Treatment Therapy Code Descriptions/Definitions Functional [place] Measure: 0=Not Assessed/NA 4=Minimal Assistance 1=Total Assistance 5=Supervision or Setup 2=Maximal Assistance 6=Modified [place] 3=Moderate Assistance 7=Complete IndependenceSCALE: Activities may be completed with or without assistive devices. 1-Smsrtlohjx-xpuocom completes the activity by him/herself with no assistance from a helper. 5-Set-up or Clean-up Assistance-helper sets up or cleans up; patient completes activity. [place] assists only prior to or following the activity. 4-Supervision or Touching Assistance-helper provides verbal cues and/or touching/steadying and/or contact guard assistance as patient completes activi ty. Assistance may be provided throughout the activity or intermittently. 3-Partial/Moderate Assistance-helper does LESS THAN HALF the effort. [place] lifts, holds or supports trunk or limbs, but provides less than half the effort. 2-Substantial/Maximal Assistance-helper does MORE THAN HALF the effort. [place] lifts or holds trunk or limbs and provides more than half the effort. 1-Ruxffqcyt-svtehv does ALL the effort. Patient does none of the effort to complete the activity. Or, the assistance of 2 or more helpers is required for the patient to complete the activity. If activity was not attempted, code reason: 7-Patient Refused. 9-Not Applicable-not attempted and the patient did not perform the activity before the current illness, exacerbation or injury. 10-Not Attempted due to Environmental Limitations-(lack of equipment, weather restraints, etc.). 88-Not Attempted due to Medical Conditions or Safety Concerns. Other Treatment Pt education on several different bilateral UE exercises using yellow (gentle resistance) theraband. Pt completed 10 reps each exercise, with occasional verbal or physical cues. Some of the exercises bothered his L shoulder and he was instructed to not do any that cause him pain. Band left in room and he was encouraged to use it over the weekend. Pt left up in recliner, all needs met. OT Intermediate Goals Farm Field Manager Goals Eating (QC): 5 Oral Hygiene (QC): 5 Toileting Hygiene (QC): 5 Shower/Bathe Self (QC): 5 Upper Body Dressing (QC): 5 Lower Body Dressing (QC): 5 On/Off Footwear (QC): 5 1=Demonstrate adherence to instructed precautions during ADL tasks. 2=Patient will verbalize/demonstrate understanding of assistive devices/modifications for ADL. 3=Patient will improve strength/tolerance for activity to enable patient to perform ADL's. OT Education/Plan Discharge Recommendations Plan/Recommendations: Continue POC Treatment Plan/Plan of Care Patient would benefit from OT for education, treatment and training to promote independence in ADL's, mobility, safety and/or upper extremity function for ADL's. Plan of Care: ADL Retraining, Cognitive Retraining, Functional Mobility, Group Exercise/Act as Ind, UE Funct Exercise/Act Treatment Duration: Dec 28, 2022 Frequency: 3 times per week Rehab Potential: Guarded Time Start Time: 10:23 Stop Time: 10:39 DATE: Dec 27, 2022 Total Time Billed (hr/min): 16 Billed Treatment Time visit, 16 minutes exercise MARIA DE JESUS PHELPS OT Dec 27, 2022 11:11
--- NOTE | 2022-12-27 11:23 | Progress Note - Hospitalist ---
Subjective HPI/CC On Admission Date Seen by Provider: Dec 27, 2022 Alessio Austin (Phil) is an 82 year old male with PMH HTN, HLD, CAD, BPH, dementia, who presented after a fall at home. He is well known to me from recent hospitalizations. He was discharged yesterday after an admission with sepsis due to cellulitis. He improved and was discharged home yesterday morning on oral antibiotics. He was left at home while his family went to dinner and they found him on the floor when they got home. He was having slurred, garbled speech. He had some cuts and was bleeding. Subjective/Events-last exam Pt reports doing well. No complaints. Pain improving. Objective Exam Vital Signs Vital Signs Date Time Temp Pulse Resp B/P (MAP) Pulse Ox O2 Delivery O2 Flow Rate FiO2 12/27/22 08:30 37.2 60 19 150/71 (97) 97 Room Air Capillary Refill : General Appearance: No Apparent Distress, WD/WN Respiratory: Lungs Clear, No Respiratory Distress Cardiovascular: Regular Rate, Rhythm, No Murmur Neurologic/Psychiatric: Alert, Oriented x3 Results/Procedures Lab Laboratory Tests 12/27/22 05:17 Patient resulted labs reviewed. 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 Would benefit from skilled admission to regain functional status, given recent knee surgery and stroke- insurance denied SNF admission- appeal in process still awaiting a response Anemia- improved Likely thigh hematoma due to fall s/p 1 unit PRBC Stable hemoglobin, trend Leukocytosis- resolved KIM- resolved Elevated d-dimer Not septic Venous dopplers without evidence of DVT No hypoxia, low concern for PE D- dimer elevation likely due to recent surgery and hematoma Cellulitis Continue oral antibiotics- leg continues to improve- minimal erythema and no warmth or edema HTN CAD BPH Dementia Continue home meds as able DVT prophylaxis: Lovenox to resume Critical Care Critically Ill Patient VIOLA VALDERRAMA MD Dec 27, 2022 11:23
[2022-12-27 12:07] VITALS: BP 125/59
--- NOTE | 2022-12-27 15:21 | Speech Therapy Progress Note ---
Therapy Progress Note ST attempted dysphagia and cognitive linguistic evaluation at 1435. At this time, the patient was sleeping and did not wake to an appropriate, sustained alertness level for participation in the skilled treatment session. ST to reattempt as able. FABIAN GARCIA Dec 27, 2022 15:21
[2022-12-27 15:23] VITALS: BP 144/65
[2022-12-27 19:19] VITALS: BP 133/68
[2022-12-27 23:49] VITALS: BP 125/69
[2022-12-28] VITALS (7 sets, daily range): BP systolic 113–155; BP diastolic 49–67
[2022-12-28] MEDS: ACETAMINOPHEN 325 MG TABLET PO PRN ×3 (00:23→23:14)
[2022-12-28 05:53] LABS: BASOPHILS # (AUTO) 0.1 10^3/uL (0.0-0.1); BASOPHILS % (AUTO) 1 % (0-10); EOSINOPHILS # (AUTO) 0.3 10^3/uL (0.0-0.3); EOSINOPHILS % (AUTO) 3 % (0-10); HEMATOCRIT 32 % (40-54); HEMOGLOBIN 10.2 g/dL (13.3-17.7); LYMPHOCYTES # (AUTO) 2.3 10^3/uL (1.0-4.0); LYMPHOCYTES % (AUTO) 23 % (12-44); MEAN CORPUSCULAR HEMOGLOBIN 32 pg (25-34); MEAN CORPUSCULAR HGB CONC 32 g/dL (32-36); MEAN CORPUSCULAR VOLUME 100 fL (80-99); MEAN PLATELET VOLUME 9.7 fL (9.0-12.2); MONOCYTES % (AUTO) 11 % (0-12); NEUTROPHILS # (AUTO) 6.2 10^3/uL (1.8-7.8); NEUTROPHILS % (AUTO) 63 % (42-75); PLATELET COUNT 311 10^3/uL (130-400); WHITE BLOOD COUNT 9.9 10^3/uL (4.3-11.0)
[2022-12-28 06:04] LABS: CALCIUM 9.2 MG/DL (8.5-10.1)
[2022-12-28 06:06] LABS: BILIRUBIN,TOTAL 1.7 MG/DL (0.1-1.0)
[2022-12-28 06:08] LABS: CREATININE SERUM 0.8 MG/DL (0.60-1.30); PHOSPHORUS 3.1 MG/DL (2.3-4.7)
[2022-12-28] MEDS: POTASSIUM CL 10MEQ/50ML IVPB 50 ML IV SCH (06:09)
[2022-12-28] MEDS: KCL 20 MEQ TAB (K-DUR) PO SCH (06:09)
[2022-12-28 06:11] LABS: MAGNESIUM 2.1 MG/DL (1.6-2.4)
[2022-12-28] MEDS: MAGNESIUM 1 GM/100 ML IVPB 100 ML IV SCH (06:14)
[2022-12-28] MEDS: THIAMINE 100 MG (VITAMIN B-1) TAB PO SCH (06:28)
[2022-12-28] MEDS: CEPHALEXIN 250 MG (KEFLEX) CAP PO SCH ×2 (08:27→20:26)
[2022-12-28] MEDS: TAMSULOSIN 0.4 MG (FLOMAX) CAP PO SCH ×2 (08:28→17:10)
[2022-12-28] MEDS: MEMANTINE 5 MG (NAMENDA) TABLET PO SCH (08:28)
[2022-12-28] MEDS: ASPIRIN E.C. 81 MG (ECOTRIN) TAB PO SCH (08:28)
[2022-12-28] MEDS: FINASTERIDE (PROSCAR) 5 MG TAB PO SCH (08:28)
[2022-12-28] MEDS: amLODIPine 10 MG (NORVASC) TAB PO SCH (08:28)
[2022-12-28] MEDS: CLOPIDOGREL 75 MG (PLAVIX) TABLET PO SCH (08:28)
[2022-12-28] MEDS: lisINopril 20 MG (PRINIVIL) TABLET PO SCH (08:28)
[2022-12-28] MEDS: ENOXAPARIN 40 MG/0.4 ML (LOVENOX) SYR SC SCH (08:29)
--- NOTE | 2022-12-28 11:04 | Progress Note - Hospitalist ---
Subjective HPI/CC On Admission Date Seen by Provider: Dec 28, 2022 Alessio Austin (Phil) is an 82 year old male with PMH HTN, HLD, CAD, BPH, dementia, who presented after a fall at home. He is well known to me from recent hospitalizations. He was discharged yesterday after an admission with sepsis due to cellulitis. He improved and was discharged home yesterday morning on oral antibiotics. He was left at home while his family went to dinner and they found him on the floor when they got home. He was having slurred, garbled speech. He had some cuts and was bleeding. Subjective/Events-last exam Pt reports doing well. No complaints. Laying in bed. No family at bedside. Objective Exam Vital Signs Vital Signs Date Time Temp Pulse Resp B/P (MAP) Pulse Ox O2 Delivery O2 Flow Rate FiO2 12/28/22 08:12 62 144/62 (89) 12/28/22 08:01 36.7 18 97 Room Air Capillary Refill : General Appearance: No Apparent Distress, WD/WN Respiratory: Lungs Clear, No Respiratory Distress Cardiovascular: Regular Rate, Rhythm, No Murmur Neurologic/Psychiatric: Alert, Oriented x3 Results/Procedures Lab Laboratory Tests 12/28/22 05:17 Patient resulted labs reviewed. 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 Would benefit from skilled admission to regain functional status, given recent knee surgery and stroke- insurance denied SNF admission- appeal in process still awaiting a response- still awaiting response on appeal Anemia- improved Likely thigh hematoma due to fall s/p 1 unit PRBC Stable hemoglobin, trend Leukocytosis- resolved KIM- resolved Elevated d-dimer Not septic Venous dopplers without evidence of DVT No hypoxia, low concern for PE D- dimer elevation likely due to recent surgery and hematoma Cellulitis Continue oral antibiotics- leg continues to improve- minimal erythema and no warmth or edema HTN CAD BPH Dementia Continue home meds as able DVT prophylaxis: Lovenox Critical Care Critically Ill Patient VIOLA VALDERRAMA MD Dec 28, 2022 11:04
[2022-12-28 11:42] LABS: CALCIUM 9.6 MG/DL (8.5-10.1); CREATININE SERUM 0.79 MG/DL (0.60-1.30)
--- NOTE | 2022-12-28 12:32 | Physical Therapy Daily Note ---
PT Daily Note-Current Subjective Patient sitting in chair upon PT arrival, agreeable to treatment. Patient rates pain in the left knee 8/10 currently. Pain Section J - Health Conditions 1. Rarely or not at all 2. Occasionally 3. Frequently 4. Almost constantly 8. Unable to answer Pain Effect on Sleep: 1 Pain Interference with Therapy: 3 Pain Interference w/Day-to-Day: 3 Transfers SCALE: Activities may be completed with or without assistive devices. 7-Kvvoriqvab-wetaeuw completes the activity by him/herself with no assistance from a helper. 5-Set-up or Clean-up Assistance-helper sets up or cleans up; patient completes activity. [place] assists only prior to or following the activity. 4-Supervision or Touching Assistance-helper provides verbal cues and/or touching/steadying and/or contact guard assistance as patient completes activity. Assistance may be provided throughout the activity or intermittently. 3-Partial/Moderate Assistance-helper does LESS THAN HALF the effort. [place] lifts, holds or supports trunk or limbs, but provides less than half the effort. 2-Substantial/Maximal Assistance-helper does MORE THAN HALF the effort. [place] lifts or holds trunk or limbs and provides more than half the effort. 6-Gkcdymgwt-ugvbms does ALL the effort. Patient does none of the effort to complete the activity. Or, the assistance of 2 or more helpers is required for the patient to complete the activity. If activity was not attempted, code reason: 7-Patient Refused. 9-Not Applicable-not attempted and the patient did not perform the activity before the current illness, exacerbation or injury. 10-Not Attempted due to Environmental Limitations-(lack of equipment, weather restraints, etc.). 88-Not Attempted due to Medical Conditions or Safety Concerns. Sit to Stand (QC): 4 Chair/Kjp-or-Rtbbb Xfer(QC): 4 Gait Training Does the Patient Walk?: Yes Distance: 200 feet Walk 10 feet (QC): 4 Walk 50 ft with 2 Turns(QC): 4 Walk 150 ft (QC): 4 Gait Assistive Device: FWW Assessment Current Status: Poor Progress Patient tolerated poorly. Continues to demonstrates moderate left LE ER during stance phase of gait. Additionally he lacks ~ 20 degrees TKE in stance and despite verbal cues either cannot, or will not correct this posture. PT attempts verbal cues for neutral left hip and to obtain full knee extension, patient yells "I'M TRYING!" Patient requires 4 standing rest breaks due to patient report of increased left knee pain and weakness. Patient in chair post treatment with all needs met, call light in hand, nurse notified, and chair alarm activated. PT Short Term Goals Short Term Goals Time Frame: Jan 03, 2023 Roll Left & Right: 3 Sit to lyin Lying to sitting on side of be: 3 Sit to stand: 3 Chair/hzz-id-myyni transfer: 3 Toilet transfer: 3 Walk 10 feet: 3 Walk 50 feet with two turns: 3 Walk 150 feet: 3 PT Usp Goals Usp Goals PT Yield Clerk Goals Time Frame: Jan 18, 2023 Roll Left & Right (QC): 4 Sit to Lying (QC): 4 Lying-Sitting on Side/Bed(QC): 4 Sit to Stand (QC): 4 Chair/Oft-km-Xugwa Xfer(QC): 4 Toilet Transfer (QC): 4 Walk 10 feet (QC): 4 Walk 50ft with 2 Turns (QC): 4 Walk 150 ft (QC): 4 PT Plan Problem List Problem List: Activity Tolerance, Functional Strength, Safety, Balance, Gait, Transfer, Bed Mobility, ROM Treatment/Plan Treatment Plan: Continue Plan of Care Treatment Plan: Bed Mobility, Education, Functional Activity Jacklyn, Functional Strength, Gait, Safety, Therapeutic Exercise, Transfers Treatment Duration: Jan 18, 2023 Frequency: 6 times per week Estimated Hrs Per Day: .25 hour per day Patient and/or Family Agrees t: Yes Safety Risks/Education Patient Education: Gait Training, Transfer Techniques Teaching Recipient: Patient Teaching Methods: Demonstration, Discussion Response to Teaching: Reinforcement Needed Time Time In: 1157 Time Out: 1211 DATE: Dec 28, 2022 Total Billed Treatment Time: 14 Total Billed Treatment Visit, ABIOLA Claire PT Dec 28, 2022 12:32
[2022-12-28] MEDS: IBUPROFEN TABLET 200 MG TAB PO PRN (20:26)
[2022-12-29] VITALS (7 sets, daily range): BP systolic 118–156; BP diastolic 52–63
[2022-12-29 05:36] LABS: BASOPHILS # (AUTO) 0.1 10^3/uL (0.0-0.1); BASOPHILS % (AUTO) 1 % (0-10); EOSINOPHILS # (AUTO) 0.2 10^3/uL (0.0-0.3); EOSINOPHILS % (AUTO) 3 % (0-10); HEMATOCRIT 30 % (40-54); HEMOGLOBIN 9.6 g/dL (13.3-17.7); LYMPHOCYTES # (AUTO) 2.3 10^3/uL (1.0-4.0); LYMPHOCYTES % (AUTO) 26 % (12-44); MEAN CORPUSCULAR HEMOGLOBIN 33 pg (25-34); MEAN CORPUSCULAR HGB CONC 33 g/dL (32-36); MEAN CORPUSCULAR VOLUME 100 fL (80-99); MEAN PLATELET VOLUME 9.5 fL (9.0-12.2); MONOCYTES # (AUTO) 1.1 10^3/uL (0.0-1.0); MONOCYTES % (AUTO) 12 % (0-12); NEUTROPHILS # (AUTO) 5.3 10^3/uL (1.8-7.8); NEUTROPHILS % (AUTO) 59 % (42-75); PLATELET COUNT 310 10^3/uL (130-400)
[2022-12-29 05:44] LABS: POTASSIUM 3.8 MMOL/L (3.6-5.0)
[2022-12-29 05:50] LABS: PHOSPHORUS 2.8 MG/DL (2.3-4.7)
[2022-12-29] MEDS: POTASSIUM CL 10MEQ/50ML IVPB 50 ML IV SCH (05:55)
[2022-12-29] MEDS: KCL 20 MEQ TAB (K-DUR) PO SCH (05:56)
[2022-12-29] MEDS: MAGNESIUM 1 GM/100 ML IVPB 100 ML IV SCH (05:57)
[2022-12-29] MEDS: MEMANTINE 5 MG (NAMENDA) TABLET PO SCH (08:22)
[2022-12-29] MEDS: lisINopril 20 MG (PRINIVIL) TABLET PO SCH (08:23)
[2022-12-29] MEDS: ASPIRIN E.C. 81 MG (ECOTRIN) TAB PO SCH (08:23)
[2022-12-29] MEDS: CEPHALEXIN 250 MG (KEFLEX) CAP PO SCH ×2 (08:23→20:00)
[2022-12-29] MEDS: TAMSULOSIN 0.4 MG (FLOMAX) CAP PO SCH ×2 (08:24→18:03)
[2022-12-29] MEDS: amLODIPine 10 MG (NORVASC) TAB PO SCH (08:24)
[2022-12-29] MEDS: FINASTERIDE (PROSCAR) 5 MG TAB PO SCH (08:24)
[2022-12-29] MEDS: CLOPIDOGREL 75 MG (PLAVIX) TABLET PO SCH (08:25)
[2022-12-29] MEDS ORDERED: KCL 20 MEQ TAB (K-DUR) PO ONE (09:00)
--- NOTE | 2022-12-29 10:49 | Progress Note - Hospitalist ---
Subjective HPI/CC On Admission Date Seen by Provider: Dec 29, 2022 Alessio Austin (Phil) is an 82 year old male with PMH HTN, HLD, CAD, BPH, dementia, who presented after a fall at home. He is well known to me from recent hospitalizations. He was discharged yesterday after an admission with sepsis due to cellulitis. He improved and was discharged home yesterday morning on oral antibiotics. He was left at home while his family went to dinner and they found him on the floor when they got home. He was having slurred, garbled speech. He had some cuts and was bleeding. Subjective/Events-last exam Pt reports doing well. States he is going to see his todayand very excited for that. Tells me they have been for 48 years and he's never been away from her this long. Objective Exam Vital Signs Vital Signs Date Time Temp Pulse Resp B/P (MAP) Pulse Ox O2 Delivery O2 Flow Rate FiO2 12/29/22 08:00 94 Room Air 12/29/22 07:56 36.9 61 19 143/63 (89) Capillary Refill : General Appearance: No Apparent Distress, WD/WN Respiratory: Lungs Clear, No Respiratory Distress Cardiovascular: Regular Rate, Rhythm, No Murmur Extremity: Other (surgicalwound healing well on knee- no erythema, warmth, swelling, or drainage) Neurologic/Psychiatric: Alert, Oriented x3 Results/Procedures Lab Laboratory Tests 12/28/22 11:22 12/29/22 05:16 Patient resulted labs reviewed. 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 Would benefit from skilled admission to regain functional status, given recent knee surgery and stroke- insurance denied SNF admission- appeal in process still awaiting a response- still awaiting response on appeal Anemia- improved Likely thigh hematoma due to fall s/p 1 unit PRBC Stable hemoglobin, trend Leukocytosis- resolved KIM- resolved Elevated d-dimer Not septic Venous dopplers without evidence of DVT No hypoxia, low concern for PE D- dimer elevation likely due to recent surgery and hematoma Cellulitis Continue oral antibiotics- leg continues to improve- minimal erythema and no warmth or edema HTN CAD BPH Dementia Continue home meds as able DVT prophylaxis: Lovenox Critical Care Critically Ill Patient VIOLA VALDERRAMA MD Dec 29, 2022 10:49 am
[2022-12-29] MEDS: ENOXAPARIN 40 MG/0.4 ML (LOVENOX) SYR SC SCH (10:55)
[2022-12-29] MEDS: ACETAMINOPHEN 325 MG TABLET PO PRN (20:01)
[2022-12-29] MEDS: IBUPROFEN TABLET 200 MG TAB PO PRN (23:21)
[2022-12-30 04:00] VITALS: BP 145/60
[2022-12-30 05:11] LABS: BASOPHILS # (AUTO) 0.1 10^3/uL (0.0-0.1); BASOPHILS % (AUTO) 1 % (0-10); EOSINOPHILS # (AUTO) 0.2 10^3/uL (0.0-0.3); EOSINOPHILS % (AUTO) 2 % (0-10); HEMATOCRIT 30 % (40-54); HEMOGLOBIN 9.6 g/dL (13.3-17.7); LYMPHOCYTES # (AUTO) 2.2 10^3/uL (1.0-4.0); LYMPHOCYTES % (AUTO) 25 % (12-44); MEAN CORPUSCULAR HEMOGLOBIN 32 pg (25-34); MEAN CORPUSCULAR HGB CONC 32 g/dL (32-36); MEAN CORPUSCULAR VOLUME 100 fL (80-99); MEAN PLATELET VOLUME 9.6 fL (9.0-12.2); MONOCYTES % (AUTO) 11 % (0-12); NEUTROPHILS # (AUTO) 5.3 10^3/uL (1.8-7.8); NEUTROPHILS % (AUTO) 61 % (42-75); PLATELET COUNT 305 10^3/uL (130-400); WHITE BLOOD COUNT 8.7 10^3/uL (4.3-11.0)
[2022-12-30 05:29] LABS: PHOSPHORUS 2.9 MG/DL (2.3-4.7)
[2022-12-30 05:31] LABS: MAGNESIUM 2.1 MG/DL (1.6-2.4)
[2022-12-30] MEDS: MAGNESIUM 1 GM/100 ML IVPB 100 ML IV SCH (05:32)
[2022-12-30] MEDS: KCL 20 MEQ TAB (K-DUR) PO SCH (05:42)
[2022-12-30] MEDS: POTASSIUM CL 10MEQ/50ML IVPB 50 ML IV SCH (05:42)
[2022-12-30 08:02] VITALS: BP 152/57
[2022-12-30] MEDS: CEPHALEXIN 250 MG (KEFLEX) CAP PO SCH ×2 (08:17→21:01)
[2022-12-30] MEDS: MEMANTINE 5 MG (NAMENDA) TABLET PO SCH (08:17)
[2022-12-30] MEDS: FINASTERIDE (PROSCAR) 5 MG TAB PO SCH (08:18)
[2022-12-30] MEDS: ASPIRIN E.C. 81 MG (ECOTRIN) TAB PO SCH (08:18)
[2022-12-30] MEDS: amLODIPine 10 MG (NORVASC) TAB PO SCH (08:18)
[2022-12-30] MEDS: TAMSULOSIN 0.4 MG (FLOMAX) CAP PO SCH ×2 (08:18→17:50)
[2022-12-30] MEDS: CLOPIDOGREL 75 MG (PLAVIX) TABLET PO SCH (08:18)
[2022-12-30] MEDS: lisINopril 20 MG (PRINIVIL) TABLET PO SCH (08:18)
[2022-12-30] MEDS: ENOXAPARIN 40 MG/0.4 ML (LOVENOX) SYR SC SCH (11:06)
--- NOTE | 2022-12-30 11:08 | Physical Therapy Daily Note ---
PT Daily Note-Current Subjective Patient agrees to PT. Pain Numeric Pain Scale: 8 Location: Left Location Body Site: Knee Section J - Health Conditions 1. Rarely or not at all 2. Occasionally 3. Frequently 4. Almost constantly 8. Unable to answer Pain Effect on Sleep: 1 Pain Interference with Therapy: 3 Pain Interference w/Day-to-Day: 3 Mental Status Patient Orientation: Person, Time Transfers SCALE: Activities may be completed with or without assistive devices. 3-Hhzoxcylnz-bhultbe completes the activity by him/herself with no assistance from a helper. 5-Set-up or Clean-up Assistance-helper sets up or cleans up; patient completes activity. [place] assists only prior to or following the activity. 4-Supervision or Touching Assistance-helper provides verbal cues and/or touching/steadying and/or contact guard assistance as patient completes activity. Assistance may be provided throughout the activity or intermittently. 3-Partial/Moderate Assistance-helper does LESS THAN HALF the effort. [place] lifts, holds or supports trunk or limbs, but provides less than half the effort. 2-Substantial/Maximal Assistance-helper does MORE THAN HALF the effort. [place] lifts or holds trunk or limbs and provides more than half the effort. 7-Rqfvelmgw-tyugxh does ALL the effort. Patient does none of the effort to complete the activity. Or, the assistance of 2 or more helpers is required for the patient to complete the activity. If activity was not attempted, code reason: 7-Patient Refused. 9-Not Applicable-not attempted and the patient did not perform the activity before the current illness, exacerbation or injury. 10-Not Attempted due to Environmental Limitations-(lack of equipment, weather restraints, etc.). 88-Not Attempted due to Medical Conditions or Safety Concerns. Lying to Sitting/Side of Bed(Q: 4 Sit to Stand (QC): 4 Chair/Hvb-gd-Znpra Xfer(QC): 4 Gait Training Distance: 250' Walk 10 feet (QC): 4 Walk 50 ft with 2 Turns(QC): 4 Walk 150 ft (QC): 4 Gait Assistive Device: FWW left LE flexed knee and ER at him with gait training and with exercises/minimal weight bearing left LE Exercises Supine Ex: Ankle pumps, Quad Set, Heel Slides, Straight leg raise Supine Reps: 15 Seated Therapy Exercises: Long arc quads Seated Reps: 15 Assessment Patient continues to have extensive pain left knee and hip. Patient tolerated treatment and is up in recliner with needs met. Patient continues to lack 20 degrees left knee extension. Patient fatigues with activity. Physician notified of left LE PT concerns. PT Short Term Goals Short Term Goals Time Frame: Jan 03, 2023 Roll Left & Right: 3 Sit to lyin Lying to sitting on side of be: 3 Sit to stand: 3 Chair/dpf-sa-eykei transfer: 3 Toilet transfer: 3 Walk 10 feet: 3 Walk 50 feet with two turns: 3 Walk 150 feet: 3 PT Financial Planning Assistant Goals Financial Planning Assistant Goals PT Longterm Goals Time Frame: Jan 18, 2023 Roll Left & Right (QC): 4 Sit to Lying (QC): 4 Lying-Sitting on Side/Bed(QC): 4 Sit to Stand (QC): 4 Chair/Wyh-op-Jmnrv Xfer(QC): 4 Toilet Transfer (QC): 4 Walk 10 feet (QC): 4 Walk 50ft with 2 Turns (QC): 4 Walk 150 ft (QC): 4 PT Plan Treatment/Plan Treatment Plan: Continue Plan of Care Treatment Plan: Bed Mobility, Education, Functional Activity Jacklyn, Functional Strength, Gait, Safety, Therapeutic Exercise, Transfers Treatment Duration: Jan 18, 2023 Frequency: 6 times per week Estimated Hrs Per Day: .25 hour per day Patient and/or Family Agrees t: Yes Time Time In: 1006 Time Out: 1031 DATE: Dec 30, 2022 Total Billed Treatment Time: 25 Total Billed Treatment 1 visit EX 12 min GT 13 min ELICEO BROOKE PT Dec 30, 2022 11:08
--- NOTE | 2022-12-30 11:36 | Occupational Ther Daily Note ---
OT Current Status-Daily Note Subjective Pt seen in room, up in recliner, agreeable to OT. No pain reported except one time discomfort L shoulder. Appearance Alert, cooperative. ADL-Treatment Therapy Code Descriptions/Definitions Functional [place] Measure: 0=Not Assessed/NA 4=Minimal Assistance 1=Total Assistance 5=Supervision or Setup 2=Maximal Assistance 6=Modified [place] 3=Moderate Assistance 7=Complete IndependenceSCALE: Activities may be completed with or without assistive devices. 8-Awcyjkmodm-lhxbclb completes the activity by him/herself with no assistance from a helper. 5-Set-up or Clean-up Assistance-helper sets up or cleans up; patient completes activity. [place] assists only prior to or following the activity. 4-Supervision or Touching Assistance-helper provides verbal cues and/or touching/steadying and/or contact guard assistance as patient completes activity. Assistance may be provided throughout the activity or intermittently. 3-Partial/Moderate Assistance-helper does LESS THAN HALF the effort. [place] lifts, holds or supports trunk or limbs, but provides less than half the effort. 2-Substantial/Maximal Assistance-helper does MORE THAN HALF the effort. [place] lifts or holds trunk or limbs and provides more than half the effort. 0-Dddymhkxk-xplutu does ALL the effort. Patient does none of the effort to complete the activity. Or, the assistance of 2 or more helpers is required for the patient to complete the activity. If activity was not attempted, code reason: 7-Patient Refused. 9-Not Applicable-not attempted and the patient did not perform the activity befo re the current illness, exacerbation or injury. 10-Not Attempted due to Environmental Limitations-(lack of equipment, weather re straints, etc.). 88-Not Attempted due to Medical Conditions or Safety Concerns. Other Treatment Pt reported that he anticipated discharging to [facility] soon. he said that his is there and he is looking forward to being with her. Pt declined ADLs. 10 reps bilat UE exercise at shoulders, elbows. forearms, wrists and hands with no additional resistance, 10 reps. Pt also completed 10 reps bilat UE ex with yellow theraband at shoulders and elbows. Sometimes was able to track repetitions and sometimes needed assistance. Pt followed verbal and visual cues. Exercises to help strengthen Ues as needed for functional mobility and ADLs. Pt left up in recliner, all needs met. Education OT Patient Education: Exercise program, Purpose of tx/functional activities Teaching Recipient: Patient Teaching Methods: Demonstration, Discussion Response to Teaching: Verbalize Understanding, Return Demonstration, Reinforcement Needed OT Retirement Goals Retirement Goals Eating (QC): 5 Oral Hygiene (QC): 5 Toileting Hygiene (QC): 5 Shower/Bathe Self (QC): 5 Upper Body Dressing (QC): 5 Lower Body Dressing (QC): 5 On/Off Footwear (QC): 5 1=Demonstrate adherence to instructed precautions during ADL tasks. 2=Patient will verbalize/demonstrate understanding of assistive devices/modifications for ADL. 3=Patient will improve strength/tolerance for activity to enable patient to perform ADL's. OT Education/Plan Discharge Recommendations Plan/Recommendations: Continue POC Treatment Plan/Plan of Care Patient would benefit from OT for education, treatment and training to promote independence in ADL's, mobility, safety and/or upper extremity function for ADL's. Plan of Care: ADL Retraining, Cognitive Retraining, Functional Mobility, Group Exercise/Act as Ind, UE Funct Exercise/Act Treatment Duration: Dec 28, 2022 Frequency: 3 times per week Rehab Potential: Guarded Time Start Time: 11:12 Stop Time: 11:23 DATE: Dec 30, 2022 Total Time Billed (hr/min): 11 Billed Treatment Time visit, 11 minutes exercise MARIA DE JESUS PHELPS OT Dec 30, 2022 11:36
[2022-12-30 12:01] VITALS: BP 150/62
--- NOTE | 2022-12-30 12:16 | Speech Therapy Daily Note ---
Speech Daily Progress Note Subjective Date Seen by Provider: Dec 30, 2022 Time Seen by Provider: 12:05 The patient was seated upright in his recliner, awake and alert, upon entrance to his room by the clinician. The patient greeted the clinician appropriately and was agreeable to participation in the cognitive linguistic and dysphagia treatment session. Objective The patient denied the presence of s/s of suspected aspiration with his current P.O. intake or experiencing any difficulties or concerns with his swallowing function. Safe swallowing precautions were reviewed and discussed by the clinician and trials of thin liquid via cup edge were administered. The patient does not display s/s of suspected aspiration with thin liquids via cup edge. The patient verbalized comprehension of the safe swallowing strategies and reported compliance at this time. The patient remains oriented to self, location, month, day of the week, and year. The patient continues to state he is "ready to see his and get out of here but I think they're holding me for a bit longer." The patient displayed intermittent tearful expressions, however, remained participatory and appropriate for participation. The patient completes functional recall of prior physical and occupational therapy sessions. The patient recalls specific activities from each session including use and recommendations of the thera-band. Assessment Assessment Current Status: Fair Progress Treatment Plan Continue Plan of Care Speech Short Term Goals Short Term Goals Short Term Goals 1. The patient will display safe swallowing precautions with 80% accuracy, independently. Time Frame-STG: Three Days. Speech Construction Driver Goals Construction Driver Goals 1. The patient will tolerate the least restrictive diet without s/s of suspected aspiration. Time Frame: One Week. Speech-Plan Treatment Plan Speech Therapy Treatment Plan: Continue Plan of Care Treatment Duration: Dec 27, 2022 Frequency: 4 times per week Estimated Hrs Per Day: .25 hour per day Rehab Potential: Guarded Safety Risks/Education Teaching Recipient: Patient Teaching Methods: Discussion Response to Teaching: Reinforcement Needed Time Speech Therapy Time In: 12:05 Speech Therapy Time Out: 12:25 DATE: Dec 30, 2022 Total Billed Time: 20 Billed Treatment Time [facility]TS LOY, [facility] Dec 30, 2022 12:16
--- NOTE | 2022-12-30 12:43 | CONSULTATION REPORT ---
HISTORY OF PRESENT ILLNESS: The patient is well known to me as he underwent a total knee arthroplasty and has been complicated by falls as well as lower extremity cellulitis. On exam today, there is no erythema or excessive warmth noted at the knees. Range of motion is unchanged and nonpainful 0//. There is no gross effusion noted. IMPRESSION: No sign or symptoms of septic arthritis, left knee. PLAN: Recommend continued treatment as is. I would not recommend any further antibiotics at this point. We will follow the patient up as an outpatient. Thank you for the consultation. Job ID: [id number] DocumentID: [id number] Dictated Date: 12/30/2022 12:28:30 Light Cleaner Date: 12/30/2022 12:40:00 Dictated By: TRACE SOUSA MD
[2022-12-30 17:00] VITALS: BP 127/60
--- NOTE | 2022-12-30 17:33 | Progress Note - Hospitalist ---
Subjective HPI/CC On Admission Date Seen by Provider: Dec 30, 2022 Time Seen by Provider: 10:15 Alessio Austin (Phil) is an 82 year old male with PMH HTN, HLD, CAD, BPH, dementia, who presented after a fall at home. He is well known to me from recent hospitalizations. He was discharged yesterday after an admission with sepsis due to cellulitis. He improved and was discharged home yesterday morning on oral antibiotics. He was left at home while his family went to dinner and they found him on the floor when they got home. He was having slurred, garbled speech. He had some cuts and was bleeding. Subjective/Events-last exam He is feeling well. He has no complaints. He denies pain. He denies shortness of breath. Objective Exam Vital Signs Vital Signs Date Time Temp Pulse Resp B/P (MAP) Pulse Ox O2 Delivery O2 Flow Rate FiO2 12/30/22 17:00 37.1 59 18 127/60 (82) 98 Room Air Capillary Refill : General Appearance: No Apparent Distress, WD/WN Respiratory: Lungs Clear, No Respiratory Distress Cardiovascular: Regular Rate, Rhythm, No Murmur Gastrointestinal: Normal Bowel Sounds, Soft Extremity: No Pedal Edema, Other (left knee with surgical incision well healing without erythema or warmth, minimal edema present) Neurologic/Psychiatric: Alert, Normal Mood/Affect Results/Procedures Lab Laboratory Tests 12/30/22 04:51 Patient resulted labs reviewed. 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 Pending admission to [facility], will plan to then transfer to [facility] (where his is located) once a bed is available Anemia- improved Likely thigh hematoma due to fall s/p 1 unit PRBC Stable hemoglobin, trend Leukocytosis- resolved KIM- resolved Elevated d-dimer Not septic Venous dopplers without evidence of DVT No hypoxia, low concern for PE D- dimer elevation likely due to combination of stroke, recent surgery, and hematoma Cellulitis Continue oral antibiotics- leg continues to improve- minimal erythema and no warmth or edema Discussed with Dr. Moreno, no need for further antibiotics or intervention HTN CAD BPH Dementia Continue home meds as able DVT prophylaxis: Lovenox Diagnosis/Problems Diagnosis/Problems (1) Acute ischemic stroke Status: Acute (2) Stroke-like symptoms Status: Acute (3) History of CVA (cerebrovascular accident) Status: Acute (4) Fall Status: Acute (5) KIM (acute kidney injury) Status: Resolved Resolution Date/Time: 12/30/22 @ 17:32 (6) Elevated d-dimer Status: Acute (7) Cellulitis Status: Resolved Resolution Date/Time: 12/30/22 @ 17:32 (8) Leukocytosis Status: Resolved Qualifiers: Leukocytosis type: unspecified Qualified Codes: D72.829 - Elevated white blood cell count, unspecified Resolution Date/Time: 12/30/22 @ 17:32 (9) HTN (hypertension) (10) HLD (hyperlipidemia) Status: Chronic (11) BPH (benign prostatic hyperplasia) Status: Chronic (12) Dementia Status: Chronic (13) CAD (coronary artery disease) Status: Chronic (14) Carotid stenosis Status: Acute Qualifiers: Laterality: bilateral Qualified Codes: I65.23 - Occlusion and stenosis of bilateral carotid arteries KRISHNA LAWSON MD Dec 30, 2022 17:33
[2022-12-30 20:00] VITALS: BP 137/58
[2022-12-30] MEDS: ACETAMINOPHEN 325 MG TABLET PO PRN (21:02)
[2022-12-30 23:30] VITALS: BP 145/63
[2022-12-30] MEDS: IBUPROFEN TABLET 200 MG TAB PO PRN (23:35)
[2022-12-31 04:00] VITALS: BP 147/62
[2022-12-31 05:14] LABS: BASOPHILS # (AUTO) 0.1 10^3/uL (0.0-0.1); BASOPHILS % (AUTO) 1 % (0-10); EOSINOPHILS # (AUTO) 0.2 10^3/uL (0.0-0.3); EOSINOPHILS % (AUTO) 2 % (0-10); HEMATOCRIT 31 % (40-54); HEMOGLOBIN 9.9 g/dL (13.3-17.7); LYMPHOCYTES # (AUTO) 2.2 10^3/uL (1.0-4.0); LYMPHOCYTES % (AUTO) 26 % (12-44); MEAN CORPUSCULAR HEMOGLOBIN 32 pg (25-34); MEAN CORPUSCULAR HGB CONC 33 g/dL (32-36); MEAN CORPUSCULAR VOLUME 100 fL (80-99); MEAN PLATELET VOLUME 9.7 fL (9.0-12.2); MONOCYTES # (AUTO) 0.9 10^3/uL (0.0-1.0); MONOCYTES % (AUTO) 11 % (0-12); NEUTROPHILS % (AUTO) 59 % (42-75); PLATELET COUNT 360 10^3/uL (130-400); WHITE BLOOD COUNT 8.3 10^3/uL (4.3-11.0)
[2022-12-31 05:28] LABS: PHOSPHORUS 2.8 MG/DL (2.3-4.7)
[2022-12-31 05:30] LABS: MAGNESIUM 2.1 MG/DL (1.6-2.4)
[2022-12-31] MEDS: MAGNESIUM 1 GM/100 ML IVPB 100 ML IV SCH (06:00)
[2022-12-31] MEDS: KCL 20 MEQ TAB (K-DUR) PO SCH (06:39)
[2022-12-31] MEDS: POTASSIUM CL 10MEQ/50ML IVPB 50 ML IV SCH (06:39)
[2022-12-31 07:40] VITALS: BP 167/71
[2022-12-31 08:00] LABS: POTASSIUM 4.1 MMOL/L (3.6-5.0)
[2022-12-31] MEDS: MEMANTINE 5 MG (NAMENDA) TABLET PO SCH (08:08)
[2022-12-31] MEDS: TAMSULOSIN 0.4 MG (FLOMAX) CAP PO SCH (08:08)
[2022-12-31] MEDS: FINASTERIDE (PROSCAR) 5 MG TAB PO SCH (08:08)
[2022-12-31] MEDS: amLODIPine 10 MG (NORVASC) TAB PO SCH (08:08)
[2022-12-31] MEDS: CLOPIDOGREL 75 MG (PLAVIX) TABLET PO SCH (08:08)
[2022-12-31] MEDS: lisINopril 20 MG (PRINIVIL) TABLET PO SCH (08:08)
[2022-12-31] MEDS: ASPIRIN E.C. 81 MG (ECOTRIN) TAB PO SCH (08:08)
[2022-12-31] MEDS: CEPHALEXIN 250 MG (KEFLEX) CAP PO SCH (08:09)
[2022-12-31 08:12] LABS: CREATININE SERUM 0.82 MG/DL (0.60-1.30)
[2022-12-31] MEDS: ENOXAPARIN 40 MG/0.4 ML (LOVENOX) SYR SC SCH (10:13)
[2022-12-31] MEDS ORDERED: CLOP75TA28 PO (10:25)
[2022-12-31] MEDS ORDERED: TMSL.4C PO (10:25)
[2022-12-31] MEDS ORDERED: KETO120S13 TP (10:25)
[2022-12-31] MEDS ORDERED: TRIA1TAB3 PO (10:25)
[2022-12-31] MEDS ORDERED: AMLO-251 PO (10:25)
[2022-12-31] MEDS ORDERED: MIRA50TA PO (10:25)
[2022-12-31] MEDS ORDERED: FINA5TAB6 PO (10:25)
[2022-12-31] MEDS ORDERED: LISI40TA9 PO (10:25)
[2022-12-31] MEDS ORDERED: MEMA5TAB43 PO (10:25)
[2022-12-31] MEDS ORDERED: OXYC1TAB11 PO (10:25)
[2022-12-31] MEDS ORDERED: ATOR80TA76 PO (10:25)
[2022-12-31] MEDS ORDERED: CARV3.122 PO (10:25)
[2022-12-31] MEDS ORDERED: ASPI-1238 PO (10:25)
--- NOTE | 2022-12-31 10:52 | Discharge Summary ---
Discharge Summary Reconcile Patient Problems Problems Reviewed?: Yes Hospital Course Hospital Course Date of Admission: Dec 21, 2022 at 00:23 Admission Diagnosis : Stroke-like symptoms Family Physician/Provider: Nesha Hernandez Aprn Date of Discharge: 12/31/22 Discharge Diagnosis: Acute ischemic stroke Hospital Course: Alessio Austin (Phil) is an 82 year old male who was admitted with stroke like symptoms. He had discharged earlier that day after a hospitalization due to a left leg cellulitis. He went home and was found slumped over on the floor by his family. His initial CT did not reveal any acute abnormalities. The ER discussed tPA with the family but this was deferred. He was admitted with presumed stroke. MRI brain was obtained once available and revealed acute-subacute ischemic stroke of the left parietal-occipital region. He was continued on Aspirin and P lavix. He was started on Lipitor. He was found to have a moderate carotid stenosis and should follow up with Cardiology, Dr. Blanchard, in three weeks for ongoing monitoring. He was continued on antibiotics for his cellulitis which remained stable. Dr. Moreno checked in on him did not recommend any further antibiotics or intervention for his knee. His course was complicated by acute bl ood loss anemia due to likely left thigh hematoma. He required one unit PRBC transfusion and his hemoglobin then stabilized and improved. He wanted to go to [facility] but there was not an open room. He will discharge to [facility] with the intent to move to [place] once a room is available, so he can be there with his . He will follow up with Dr. Moreno as mary beaulieu and NITISH Hernandez in a couple weeks. He was discharged in stable, improved condition. Labs and Pending Lab Test: Laboratory Tests 12/30/22 12:05: Lab Scanned Report Transfusion Reaction Form 12/31/22 04:29: Potassium Level 4.1 12/31/22 04:59: Potassium Level 4.1, White Blood Count 8.3, Red Blood Count 3.06L, Hemoglobin 9.9L, Hematocrit 31L, Mean Corpuscular Volume 100H, Mean Corpuscular Hemoglobin 32, Mean Corpuscular Hemoglobin Concent 33, Red Cell Distribution Width 15.0H, Platelet Count 360, Mean Platelet Volume 9.7, Immature Granulocyte % (Auto) 1, Neutrophils (%) (Auto) 59, Lymphocytes (%) (Auto) 26, Monocytes (%) (Auto) 11, Eosinophils (%) (Auto) 2, Basophils (%) (Auto) 1, Neutrophils # (Auto) 5.0, Lymphocytes # (Auto) 2.2, Monocytes # (Auto) 0.9, Eosinophils # (Auto) 0.2, Basophils # (Auto) 0.1, Immature Granulocyte # (Auto) 0.0, Sodium Level 140, Chloride Level 111H, Carbon Dioxide Level 23, Anion Gap 6, Blood Urea Nitrogen 25H, Creatinine 0.82, Estimat Glomerular Filtration Rate 87, BUN/Creatinine Ratio 30, Glucose Level 99, Calcium Level 9.0, Phosphorus Level 2.8, Magnesium Level 2.1 Microbiology 12/21/22 Blood Culture - Final, Complete No growth 12/21/22 MRSA Screen - Final, Complete MRSA not isolated Home Meds Active Atorvastatin Calcium 80 Mg Tablet 80 Mg PO HS 30 Days Ketoconazole 2 % Shampoo 1 Applic TP Q48H 30 Days Oxycodone-Acetaminophen 5-325 (Oxycodone HCl/Acetaminophen) 5 Mg-325 Mg Tablet 1 Ea PO Q6H PRN 7 Days Myrbetriq (Mirabegron) 50 Mg Tab.er.24h 50 Mg PO DAILY 30 Days Memantine HCl 5 Mg Tablet 5 Mg PO DAILY 30 Days Clopidogrel (Clopidogrel Bisulfate) 75 Mg Tablet 75 Mg PO DAILY 30 Days Triamterene-Hctz 37.5-25 mg Tb (Triamterene/Hydrochlorothiazid) 37.5 Mg-25 Mg Tablet 1 Ea PO DAILY 30 Days Aspirin EC (Aspirin) 81 Mg Tablet.dr 81 Mg PO DAILY 30 Days Carvedilol 3.125 Mg Tablet 3.125 Mg PO BID 30 Days Flomax (Tamsulosin HCl) 0.4 Mg Cap 0.4 Mg PO BID 30 Days Finasteride 5 Mg Tablet 5 Mg PO DAILY 30 Days Lisinopril 40 Mg Tablet 40 Mg PO DAILY 30 Days Amlodipine Besylate 10 Mg Tablet 10 Mg PO DAILY 30 Days Reported Bactrim Ds Tablet (Sulfamethoxazole/Trimethoprim) 800 Mg-160 Mg Tablet 1 Ea PO BID FILLED 12-16-2022 # DAY SUPPLY Doxycycline Monohydrate 100 Mg Capsule 100 Mg PO BID FILLED 12-16-2022 # DAY SUPPLY Instructions to Patient/Family Assessment/Instructions See instructions Follow Up Appt.: Dr. Moreno in two weeks PCP Mary in two weeks Dr. Blanchard in three weeks [facility] I certify that SNF services are required to be given on an inpatient basis because of the above named patient's need for correction care on a continuing basis for the conditions(s) for which he/she was receiving inpatient hospital services prior to his/her transfer to the SNF. Custodial Facility Order: Nursing Services, [facility] Board-Evaluate & Treat, Physical Therapy-Evaluate & Treat, Speech Language-Evaluate & Treat Oxygen Delivery Method: Room Air Discharge Diet: Low Sodium Diet Daily Activity as Tolerated: Yes Resuscitation Status: Full Code Krishna Lawson Dec 31, 2022 10:37 Discharge Physical Exam General: Alert, Cooperative, No Acute Distress HEENT: Atraumatic, Mucous Memb Moist/[place] Lungs: Clear to Auscultation, Normal Air Movement Heart: Regular Rate, No Murmurs Abdomen: Normal Bowel Sounds, Soft, No Tenderness Extremities: Other (left knee mild edema and ecchymosis surrounding surgical incision which appears to be well healing) Neuro: Normal Speech, Normal Tone Psych/Mental Status: Mental Status NL, Mood NL KRISHNA LAWSON MD Dec 31, 2022 10:47
--- NOTE | 2022-12-31 10:59 | Occupational Ther Daily Note ---
OT Current Status-Daily Note Subjective OT arrived w/ patient in bathroom, calling out he is ready to get up. OT educated patient with safety and use of call light Mental Status/Objective Patient Orientation: Person, Confused ADL-Treatment Therapy Code Descriptions/Definitions Functional [place] Measure: 0=Not Assessed/NA 4=Minimal Assistance 1=Total Assistance 5=Supervision or Setup 2=Maximal Assistance 6=Modified [place] 3=Moderate Assistance 7=Complete IndependenceSCALE: Activities may be completed with or without assistive devices. 1-Vcmylcyyol-pshuaoz completes the activity by him/herself with no assistance from a helper. 5-Set-up or Clean-up Assistance-helper sets up or cleans up; patient completes activity. [place] assists only prior to or following the activity. 4-Supervision or Touching Assistance-helper provides verbal cues and/or touching/steadying and/or contact guard assistance as patient completes activity. Assistance may be provided throughout the activity or intermittently. 3-Partial/Moderate Assistance-helper does LESS THAN HALF the effort. [place] lifts, holds or supports trunk or limbs, but provides less than half the effort. 2-Substantial/Maximal Assistance-helper does MORE THAN HALF the effort. [place] lifts or holds trunk or limbs and provides more than half the effort. 3-Kfgwfcfpk-rylezr does ALL the effort. Patient does none of the effort to complete the activity. Or, the assistance of 2 or more helpers is required for the patient to complete the activity. If activity was not attempted, code reason: 7-Patient Refused. 9-Not Applicable-not attempted and the patient did not perform the activity before the current illness, exacerbation or injury. 10-Not Attempted due to Environmental Limitations-(lack of equipment, weather restraints, etc.). 88-Not Attempted due to Medical Conditions or Safety Concerns. Eating (QC): 6 Oral Hygiene (QC): 5 Shower/Bathe Self (QC): 7 Upper Body Dressing (QC): 4 (no c/o of shoulder pain today) Lower Body Dressing (QC): 3 On/Off Footwear: 3 Toileting Hygiene (QC): 3 Toilet Transfer (QC): 3 Education OT Patient Education: Correct positioning, Exercise program (yellow therapy band), Modified ADL techniques, Progress toward Goal/Update tx plan, Purpose of tx/functional activities, Reviewed precautions, Rehab process, Safety issues, Transfer techniques, Use of adapted equipment Teaching Recipient: Patient Teaching Methods: Demonstration Response to Teaching: Return Demonstration, Reinforcement Needed OT Halfway Goals Halfway Goals Eating (QC): 5 Oral Hygiene (QC): 5 Toileting Hygiene (QC): 5 Shower/Bathe Self (QC): 5 Upper Body Dressing (QC): 5 Lower Body Dressing (QC): 5 On/Off Footwear (QC): 5 1=Demonstrate adherence to instructed precautions during ADL tasks. 2=Patient will verbalize/demonstrate understanding of assistive devices/modifications for ADL. 3=Patient will improve strength/tolerance for activity to enable patient to perform ADL's. OT Education/Plan Discharge Recommendations Plan/Recommendations: Continue POC Treatment Plan/Plan of Care Patient would benefit from OT for education, treatment and training to promote independence in ADL's, mobility, safety and/or upper extremity function for ADL's. Plan of Care: ADL Retraining, Cognitive Retraining, Functional Mobility, Group Exercise/Act as Ind, UE Funct Exercise/Act Treatment Duration: Dec 28, 2022 Frequency: 3 times per week Rehab Potential: Guarded OT returned patient to recliner and activated chair alarm Time Start Time: 09:50 Stop Time: 10:15 DATE: Dec 31, 2022 Total Time Billed (hr/min): 25 Billed Treatment Time 1 visit ADL 2 25 min CROW JOHNSON OT Dec 31, 2022 10:59
[2022-12-31 11:10] VITALS: BP 136/51
== END 2022-12-31 12:14 | DRG 65 ==
LOC: EDUNIT# 21:29 → ER 21:31 → ICU 12-21 00:23 → 4TH 12-24 20:42
PROVIDERS: ADMIT Internal Medicine; ATTEND Internal Medicine
DX: I63.9 Cerebral infarction, unspecified (principal); D62 Acute posthemorrhagic anemia; N17.9 Acute kidney failure, unspecified; L03.116 Cellulitis of left lower limb; R29.708 NIHSS score 8; R47.01 Aphasia; Z79.82 Long term (current) use of aspirin; Z79.899 Other long term (current) drug therapy; I10 Essential (primary) hypertension; Z96.651 Presence of right artificial knee joint; Z96.642 Presence of left artificial hip joint; E78.00 Pure hypercholesterolemia, unspecified; K21.9 Gastro-esophageal reflux disease without esophagitis; F32.A Depression, unspecified; Z20.822 Contact with and (suspected) exposure to COVID-19; I25.10 Atherosclerotic heart disease of native coronary artery without angina pectoris; N40.0 Benign prostatic hyperplasia without lower urinary tract symptoms; F03.90 Unspecified dementia, unspecified severity, without behavioral disturbance, psychotic disturbance, mood disturbance, and anxiety; Z87.891 Personal history of nicotine dependence; I65.29 Occlusion and stenosis of unspecified carotid artery; D72.829 Elevated white blood cell count, unspecified
CPT/HCPCS: 36415; 51702; 70450; 70496; 70498; 70551; 71045; 80048; 80053; 80061; 80202; 81000; 82274; 82550; 82607; 82728; 82746; 82805; 82947; 83540; 83550; 83605; 83735; 84100; 84132; 84145; 84425; 84484; 85007; 85014; 85018; 85025; 85027; 85379; 85610; 85652; 85730; 86141; 86850; 86900; 86901; 86920; 87040; 87081; 87635; 87636; 93041; 93306; 93970; 96374